=== PATIENT | male | born 1965 | race African-American/Black ===

== ENCOUNTER 2016-08-16 17:20 | Inpatient (IN) | payer OTHER ==
[~2016-08-16] VITALS: Ht 180.3 cm; Wt 91.3 kg
[2016-08-16 17:23] VITALS: BP 98/57; PULSE 98; RESP 20; TEMP 97.9; O2SAT 98
[2016-08-16] MEDS ORDERED: ASPI325T PO (21:23)
[2016-08-16] MEDS ORDERED: LIPI10TA PO (21:23)
[2016-08-16 21:26] VITALS: BP 120/86; PULSE 77; RESP 18; O2SAT 97
[2016-08-16] MEDS ORDERED: SODIUM CHLORIDE 0.9% FLUSH 5 ML FLUSH IVF PRN (21:45)
[2016-08-16 21:49] VITALS: O2SAT 98
--- NOTE | 2016-08-16 22:05 | RADRPT ---
EXAM DATE/TIME: 08/16/2016 21:51 [facility] COMPARISON: No previous studies available for comparison. INDICATIONS : Right lower extremity weakness for 3 weeks with fall today. RADIATION DOSE: 43.20 CTDIvol (mGy) MEDICAL HISTORY : Cerebrovascular disease. SURGICAL HISTORY : None. ENCOUNTER: Initial ACUITY: 3 weeks PAIN SCALE: 0/10 LOCATION: cranial TECHNIQUE: Multiple contiguous axial images were obtained of the head. Using automated exposure control and adj ustment of the mA and/or kV according to patient size, radiation dose was kept as low as reasonably a chievable to obtain optimal diagnostic quality images. FINDINGS: CEREBRUM: The ventricles are normal for age. No evidence of midline shift, mass lesion, hemorrhage or acute in farction. No extra-axial fluid collections are seen. POSTERIOR FOSSA: Prominent area of low attenuation in the right cerebellum. The brainstem is intact. The 4th ventricl e is midline. The cerebellopontine angle is unremarkable. EXTRACRANIAL: The visualized portion of the orbits is intact. SKULL: The calvaria is intact. No evidence of skull fracture. CONCLUSION: Prominent area of low attenuation right cerebellum could be from acute infarction. Nonemergent MRI of the brain with and without contrast. Boby Reyes MD on August 16, 2016 at 22:01 Board Certified Radiologist. This report was verified electronically.
--- NOTE | 2016-08-16 22:18 | PD ---
HPI Chief Complaint: General Weakness Time Seen by Provider: 21:25 Travel History International Travel<30 days: No Contact w/Intl Traveler<30days: No Traveled to known affect area: No History of Present Illness HPI 51-year-old male came to the emergency room with history of stroke and leg weakness that has worsened in past 2 days. His is here who is giving additional history. Patient had leg weakness Gaudencio time which was 10 days ago. He went to [facility] where a CAT scan of the head was done which was negative. Patient was discharged home and was asked to follow up with neurology. Patient followed up with Dr. Tillman and 2 days ago there was an MRI of his brain done in his office. Patient was told by Dr. Tillman that he had suffered a stroke. He gave him aspirin to take. However as per the the patient is unable to ambulate at all. He does have a walker but he is having extremely difficult time ambulating especially over the past 2 days. His primary care has recommended him to come to the emergency room and get admitted. Vital signs were otherwise stable. Patient is talking and answering questions appropriately and following commands. has the disc of the MRI that was done at Dr. Tillman's office 2 days ago but there is no report attached with it. [facility] Past Medical History Narrative Medical List of his past medical history as reviewed from the nursing note. Cerebrovascular Accident: Yes (RIGHT SIDE WEAKNESS) Tetanus Vaccination: Never Vaccinated Influenza Vaccination: No Past Surgical History Surgical History: No Previous Surgery Social History Alcohol Use: No Tobacco Use: No Substance Use: No Allergies-Medications (Allergen,Severity, Reaction): Coded Allergies: No Known Allergies (Unverified , 08/16/16) Comments No known drug allergies. Reported Meds & Prescriptions Reported Meds & Active Scripts Active Reported Lipitor (Atorvastatin Calcium) 10 Mg Tab 10 Mg PO HS Aspirin 325 Mg Tab 325 Mg PO DAILY Narrative Medication List of his home medications reviewed from the nursing note. Review of Systems Except as stated in HPI: all other systems reviewed are Neg Physical Exam Narrative GENERAL: Awake, alert, no obvious distress SKIN: Warm and dry. HEAD: Atraumatic. Normocephalic. EYES: Pupils equal and round. No scleral icterus. No injection or drainage. Bilat horizontal nystagmus on lateral gaze ENT: No nasal bleeding or discharge. Mucous membranes pink and moist. NECK: Trachea midline. No JVD. CARDIOVASCULAR: Regular rate and rhythm. No murmur appreciated. RESPIRATORY: No accessory muscle use. Clear to auscultation. Breath sounds equal bilaterally. GASTROINTESTINAL: Abdomen soft, non-tender, nondistended. Hepatic and splenic margins not palpable. MUSCULOSKELETAL: No obvious deformities. No clubbing. No cyanosis. No edema. NEUROLOGICAL: Awake and alert. Decreased sensation on the right side of his face. Positive ataxia right upper extremity with finger-nose test and positive ataxia bilateral lower extremity right worse than left during the ankle test. Gait was not tested PSYCHIATRIC: Appropriate mood and affect; insight and judgment normal. Data Data Last Documented VS Vital Signs Date Time Temp Pulse Resp B/P Pulse Ox O2 Delivery O2 Flow Rate FiO2 08/16/16 21:49 98 Room Air 08/16/16 21:26 77 18 120/86 08/16/16 17:23 97.9 Orders Electrocardiogram (08/16/16 21:42) Prothrombin Time / Inr (Pt) (08/16/16 21:42) Act Partial Throm Time (Ptt) (08/16/16 21:42) Complete Blood Count With Diff (08/16/16 21:42) Basic Metabolic Panel (Bmp) (08/16/16 21:42) Creatine Kinase (Cpk) (08/16/16 21:42) Troponin I (08/16/16 21:42) Urinalysis - C+S If Indicated (08/16/16 21:42) Ct Brain W/O Iv Contrast(Rout) (08/16/16 21:42) Chest, Single Ap (08/16/16 21:42) Ecg Monitoring (08/16/16 21:42) Iv Access Insert/Monitor (08/16/16 21:42) Oximetry (08/16/16 21:42) Sodium Chloride 0.9% Flush (Ns Flush) (08/16/16 21:45) Admit Order (Ed Use Only) (08/16/16 23:44) Potassium Chlor 20 Meq Premix (Kcl 20 Me (08/16/16 23:45) Mri Brain W/O Contrast (08/17/16 ) Mra Brain W/O Contrast (Cow) (08/17/16 ) Labs Laboratory Tests Test 08/16/16 21:50 White Blood Count 2.9 TH/MM3 Red Blood Count 3.56 MIL/MM3 Hemoglobin 10.6 GM/DL Hematocrit 32.4 % Mean Corpuscular Volume 91.0 FL Mean Corpuscular Hemoglobin 29.7 PG Mean Corpuscular Hemoglobin 32.6 % Concent Red Cell Distribution Width 14.4 % Platelet Count 180 TH/MM3 Mean Platelet Volume 8.8 FL Neutrophils (%) (Auto) 65.8 % Lymphocytes (%) (Auto) 22.5 % Monocytes (%) (Auto) 7.9 % Eosinophils (%) (Auto) 3.6 % Basophils (%) (Auto) 0.2 % Neutrophils # (Auto) 1.9 TH/MM3 Lymphocytes # (Auto) 0.7 TH/MM3 Monocytes # (Auto) 0.2 TH/MM3 Eosinophils # (Auto) 0.1 TH/MM3 Basophils # (Auto) 0.0 TH/MM3 CBC Comment DIFF FINAL Differential Comment Prothrombin Time 11.4 SEC Prothromb Time International 1.0 RATIO Ratio Activated Partial 27.2 SEC Thromboplast Time Sodium Level 143 MEQ/L Potassium Level 3.3 MEQ/L Chloride Level 105 MEQ/L Carbon Dioxide Level 27.9 MEQ/L Anion Gap 10 MEQ/L Blood Urea Nitrogen 13 MG/DL Creatinine 1.23 MG/DL Estimat Glomerular Filtration 75 ML/MIN Rate Random Glucose 94 MG/DL Calcium Level 8.7 MG/DL Total Creatine Kinase 200 U/L Troponin I LESS THAN 0.02 NG/ML MDM Medical Decision Making Medical Screen Exam Complete: Yes Emergency Medical Condition: Yes Medical Record Reviewed: Yes Interpretation(s) Twelve-lead EKG was reviewed by me. Normal sinus rhythm, normal axis, nonspecific ST-T wave changes. Heart rate of 81 bpm. Differential Diagnosis Subacute CVA, acute on subacute CVA Narrative Course 11:09 PM the disc for the MRI could not be loaded into the computer system here and hence could not be visualized. The CAT scan showed a large stroke in the right cerebellar hemisphere. Blood test results of back and patient has leukopenia and some anemia. Awaiting for the hospitalist to call back for admission. Patient will have an MRI done tomorrow. 4:14 AM based on the MRI report regarding the mass I discussed the case with Dr. Cedeño. She wanted an MRI with contrast which has been ordered. I've ordered a formal consult for her as well 5:[address] Cedeño from neurosurgery is here to see the patient. She looked at the imagings of the MRI without contrast and she identified more lesions in the brainstem as well. Please refer to her notes but she thinks this is ischemic stroke. She still wants to wait and see the MRI with contrast imagings and report. She recommended the patient to be started on heparin but also wanted neurology input. I just discussed with Dr. Vallejo who is professional nurse for neurology and he did not think there was an urgency to start the patient on heparin since the symptoms have been going on for a while. He would like to see the patient first and imaging completed before the decision to start the patient on heparin. He wanted the patient to be admitted to the ICU. I have put a call for the pick up worker. 6:[address] Alcazar from ICU is down here to see the patient and admit the patient. Critical Care Narrative Aggregate critical care time was 60 minutes. Time to perform other separately billable procedures was not included in the critical care time. My time did not include minutes spent treating any other patients simultaneously or on activities that did not directly contribute to the patient's treatment. The services I provided to this patient were to treat and/or prevent clinically significant deterioration that could result in: CVA versus mass in the posterior fossa/cerebellum I provided critical care services requiring my management, as noted below: Chart data review, documentation time, medication orders and management, vital sign assessments/reviewing monitor data, ordering and reviewing lab tests, ordering and interpreting/reviewing x-rays and diagnostic studies, care of the patient and discussion of the patient with the admitting physicians. Procedures EKG Prior to Arrival: No Physician Communication Physician Communication Dr. Cedeño, Dr. Vallejo, Dr. Alcazar Diagnosis Primary Impression: CVA (cerebral vascular accident) Qualified Code: I63.531 - Cerebrovascular accident (CVA) due to occlusion of right posterior cerebral artery Additional Impressions: Leukopenia Qualified Code: D72.819 - Leukopenia, unspecified type possible cerebellar mass Admitting Information Admitting Physician Requests: Tristin Duque MD Aug 16, 2016 22:18
[2016-08-16 22:34] LABS: AUTOMATED NEUTROPHIL # 1.9 TH/MM3 (1.8-7.7); BASOPHIL % 0.2 % (0.0-2.0); EOSINOPHIL # 0.1 TH/MM3 (0-0.4); EOSINOPHIL % 3.6 % (0.0-4.0); HEMATOCRIT 32.4 % (39.0-51.0); HEMO FLAGS DIFF FINAL; LYMPH % 22.5 % (9.0-44.0); LYMPHOCYTE # 0.7 TH/MM3 (1.0-4.8); MEAN CORPUSCULAR HEMOGLOBIN 29.7 PG (27.0-34.0); MEAN CORPUSCULAR HGB CONC 32.6 % (32.0-36.0); MONO % 7.9 % (0.0-8.0); NEUT % 65.8 % (16.0-70.0); PLATELET COUNT 180 TH/MM3 (150-450); RED BLOOD COUNT 3.56 MIL/MM3 (4.50-5.90); RED CELL DISTRIBUTION WIDTH 14.4 % (11.6-17.2); WHITE BLOOD COUNT 2.9 TH/MM3 (4.0-11.0)
--- NOTE | 2016-08-16 22:38 | RADRPT ---
EXAM DATE/TIME: 08/16/2016 22:17 [facility] COMPARISON: No previous studies available for comparison. INDICATIONS : Dizziness and syncopal episode. MEDICAL HISTORY : Cerebrovascular disease. SURGICAL HISTORY : None. ENCOUNTER: Initial ACUITY: 1 day PAIN SCORE: 4/10 LOCATION: Bilateral chest FINDINGS: A single view of the chest demonstrates the lungs to be symmetrically aerated without evidence of mas s, infiltrate or effusion. The cardiomediastinal contours are unremarkable. Osseous structures are intact. CONCLUSION: No acute disease. Boby Reyes MD on August 16, 2016 at 22:37 Board Certified Radiologist. This report was verified electronically.
[2016-08-16 22:48] LABS: APTT (PATIENT) 27.2 SEC (24.3-30.1); PROTHROMBIN TIME - PATIENT 11.4 SEC (9.8-11.6)
[2016-08-16 22:59] LABS: ANION GAP 10 MEQ/L (5-15); BICARBONATE 27.9 MEQ/L (21.0-32.0); BLOOD UREA NITROGEN 13 MG/DL (7-18); CHLORIDE 105 MEQ/L (98-107); GLOMERULAR FILTRATION RATE 75 ML/MIN (>89); POTASSIUM 3.3 MEQ/L (3.5-5.1); SODIUM (NA) 143 MEQ/L (136-145)
[2016-08-16 23:02] LABS: CREATINE KINASE 200 U/L (39-308)
[2016-08-16] MEDS ORDERED: POTASSIUM CHLOR 20 MEQ PREMIX 100 ML IV ONE (23:45)
[2016-08-17] VITALS (16 sets, daily range): BP systolic 113–160; BP diastolic 68–97; PULSE 68–81; RESP 15–19; TEMP 98–98.1; O2SAT 96–100
[2016-08-17] MEDS ORDERED: SODIUM CHLORIDE 0.9% FLUSH 5 ML FLUSH FLUSH PRN (00:15)
[2016-08-17] MEDS ORDERED: POTASSIUM CHLORIDE 10 MEQ CONTROLLED RELEASE TAB PO ONE (00:15)
[2016-08-17] MEDS ORDERED: ONDANSETRON HCL 4 MG/2 ML VIAL IVP PRN (00:15)
[2016-08-17] MEDS ORDERED: ENOXAPARIN SODIUM 40 MG/0.4 ML SYRINGE SQ SCH (00:15)
[2016-08-17] MEDS ORDERED: NALOXONE HCL 0.4 MG/ML AMP IV PRN (00:15)
[2016-08-17] MEDS ORDERED: ACETAMINOPHEN 325 MG TAB PO PRN ×2 (00:15→07:00)
--- NOTE | 2016-08-17 02:05 | RADRPT ---
EXAM DATE/TIME: 08/17/2016 01:27 [facility] COMPARISON: CT BRAIN W/O CONTRAST, August 16, 2016, 21:51. MRI BRAIN W/O CONTRAST, August 17, 2016, 1:27. INDICATIONS : CVA. Worsening gait instability and speech MEDICAL HISTORY : Cerebrovascular disease. Hypertension. SURGICAL HISTORY : None. ENCOUNTER: Initial ACUITY: 1 day PAIN SCORE: 5/10 LOCATION: cranial Please note a normal MRA of the brain does not entirely exclude the possibility of a small aneurysm, nor the possibility of distal intracranial vessel disease. TECHNIQUE: 3D time of flight MRA was performed. Source images, multiplanar STS MIP, and 3D volume MIP reconstru ctions were reviewed. FINDINGS: There is excellent visualization of the major intracranial arteries out to the second-order branch ve ssels. Atherosclerotic changes within the intercavernous ICAs bilaterally without hemodynamically sig nificant stenosis. There is no evidence for aneurysm, vessel truncation or stenosis, and no evidence for vascular malformation. CONCLUSION: No acute disease. Michael Rosas Jr., MD on August 17, 2016 at 2:00 Board Certified Radiologist. This report was verified electronically.
--- NOTE | 2016-08-17 02:12 | RADRPT ---
EXAM DATE/TIME: 08/17/2016 01:27 [facility] COMPARISON: No previous studies available for comparison. INDICATIONS : CVA. Worsening gait instability and speech. MEDICAL HISTORY : Cerebrovascular disease. Hypertension. SURGICAL HISTORY : None. ENCOUNTER: Initial ACUITY: 1 day PAIN SCORE: 5/10 LOCATION: cranial TECHNIQUE: Multiplanar, multisequence MRI of the brain was performed without contrast. FINDINGS: There is an abnormal appearance to the right cerebellar hemisphere. This shows heterogeneous signal o n the flair-weighted sequence. It is largely low in signal on the diffusion-weighted sequence and lar john high in signal on the ADC map. The lesion measures 4.4 x 3.7 cm and extends into the middle cere bellar peduncle. No hemorrhage is observed. A the remaining brain parenchyma is unremarkable. Ventric les are normal in size. Paranasal sinuses and mastoid air cells are clear. Orbital structures are unr emarkable. 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 Michael Rosas Jr., MD on August 17, 2016 at 2:03 Board Certified Radiologist. This report was verified electronically.
[2016-08-17 06:41] LABS: HDL CHOLESTEROL 27.7 MG/DL (40.0-60.0); MAGNESIUM 1.9 MG/DL (1.5-2.5)
--- NOTE | 2016-08-17 06:44 | HHI.HP ---
[facility] Service Critical Care Medicine Primary Care Physician Shon Gonzáles III, MD Admission Diagnosis CVA Diagnosis: (1) CVA (cerebral vascular accident) Diagnosis: Principal (2) Leukopenia Diagnosis: Principal (3) Hypokalemia Diagnosis: Principal (4) Acute kidney injury (nontraumatic) Diagnosis: Principal (5) right cerebellar mass Diagnosis: Principal (6) Anemia Diagnosis: Principal Chief Complaint: Right-sided weakness Travel History International Travel<30 Days: No Contact w/Intl Traveler <30 Da: No Traveled to Known Affected Are: No History of Present Illness This is a 51-year-old AA male. Date of admission 08/17/2016. Past medical history includes dyslipidemia. Patient presented today to [place] ED today with prior history of CVA? With worsening symptomatology including right upper and lower extremity weakness and ataxia the right upper and lower extremity with gait imbalance disorder patient originally noticed acute onset of right lower extremity weakness at [facility]. He at that time presented to [facility] where a CT scan of the head was performed. Per patient, no acute abnormality is right identified. He was discharged home and was asked to follow up with neurology as an outpatient. Patient followed up with Dr. Tillman and 2 days ago there was an MRI of his brain done in his office. Patient was told by Dr. Tillman that he had suffered a stroke. He gave him aspirin 325 mg daily to take. His primary care has recommended him to come to the emergency room and get admitted. Vital signs were otherwise stable. Patient is talking and answering questions appropriately and following commands. has the disc of the MRI that was done at Dr. Tillman's office 2 days ago but there is no report attached with it. At [facility], CT head revealed ill-defined mass in the right cerebellar region. Recommend MRI/MRA follow. 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 MRA negative. On examination patient with slight right upper and lower extremity motor weakness no pronator drift. Some dysarthria. No gaze preference. Right upper extremity ataxia. Falls to the right with ambulation. Neurosurgery was consulted and recommended heparin drip/no bolus after failing aspirin as an outpatient. Neurology consulted and will see the patient prior to initiation of heparin drip. Review of Systems Constitutional: COMPLAINS OF: Fatigue, DENIES: Fever, Weight gain, Weight loss Endocrine: DENIES: Polydipsia, Polyuria Eyes: DENIES: Blurred vision, Diplopia, Double Vision Ears, nose, mouth, throat: DENIES: Hearing loss Respiratory: DENIES: Apneas, Shortness of breath Cardiovascular: DENIES: Chest pain Gastrointestinal: DENIES: Abdominal pain Genitourinary: DENIES: Urinary frequency, Hematuria Musculoskeletal: DENIES: Joint pain Integumentary: DENIES: Rash Hematologic/lymphatic: DENIES: Bruising Immunologic/allergic: DENIES: Urticaria Neurologic: COMPLAINS OF: Abnormal gait, Localized weakness, Poor Balance, DENIES: Paresthesias, Seizures, Speech Problems Psychiatric: COMPLAINS OF: Anxiety, DENIES: Confusion, Depression Past Family Social History Allergies: Coded Allergies: No Known Allergies (Unverified , 08/16/16) Past Medical History Dyslipidemia Past Surgical History None Reported Medications Lipitor 10 mg at night Aspirin 325 mg by mouth daily Active Ordered Medications Reviewed in EMR Family History Mother and father is noncontributory Social History No tobacco, alcohol or IV drug use Physical Exam Vital Signs Vital Signs Date Time Temp Pulse Resp B/P Pulse Ox O2 Delivery O2 Flow Rate FiO2 08/17/16 04:00 98.0 74 15 145/90 96 Room Air 08/17/16 02:00 71 16 160/97 96 Room Air 08/17/16 00:00 98.1 72 18 134/88 97 Room Air 08/16/16 21:49 98 Room Air 08/16/16 21:26 77 18 120/86 97 Room Air 08/16/16 17:23 97.9 98 20 98/57 98 Room Air Physical Exam GENERAL: 51-year-old male, resting in bed in no acute distress SKIN: Warm and dry. HEAD: Atraumatic. Normocephalic. EYES: Pupils equal and round about 4 Silverio's bilaterally and reactive. No scleral icterus. No injection or drainage. ENT: No nasal bleeding or discharge. Mucous membranes pink and moist. NECK: Trachea midline. No JVD. CARDIOVASCULAR: Regular rate and rhythm. RESPIRATORY: No accessory muscle use. Clear to auscultation. Breath sounds equal bilaterally. GASTROINTESTINAL: Abdomen soft, non-tender, nondistended. Hepatic and splenic margins not palpable. MUSCULOSKELETAL: Extremities without clubbing, cyanosis, or edema. No obvious deformities. NEUROLOGICAL: Positive vertical and horizontal nystagmus bilaterally. No hemianopsia apparent Positive pronator drift on the right side only. Strength 4 /5 right upper and lower extremity. 5/5 left upper and lower extremity. DTRs equal symmetric bilaterally. Slight right facial droop. Speech generally minimally garbled. PSYCHIATRIC: Appropriate mood and affect; insight and judgment normal. Laboratory Laboratory Tests Test 08/16/16 21:50 White Blood Count 2.9 Red Blood Count 3.56 Hemoglobin 10.6 Hematocrit 32.4 Mean Corpuscular Volume 91.0 Mean Corpuscular Hemoglobin 29.7 Mean Corpuscular Hemoglobin 32.6 Concent Red Cell Distribution Width 14.4 Platelet Count 180 Mean Platelet Volume 8.8 Neutrophils (%) (Auto) 65.8 Lymphocytes (%) (Auto) 22.5 Monocytes (%) (Auto) 7.9 Eosinophils (%) (Auto) 3.6 Basophils (%) (Auto) 0.2 Neutrophils # (Auto) 1.9 Lymphocytes # (Auto) 0.7 Monocytes # (Auto) 0.2 Eosinophils # (Auto) 0.1 Basophils # (Auto) 0.0 CBC Comment DIFF FINAL Differential Comment Prothrombin Time 11.4 Prothromb Time International 1.0 Ratio Activated Partial 27.2 Thromboplast Time Sodium Level 143 Potassium Level 3.3 Chloride Level 105 Carbon Dioxide Level 27.9 Anion Gap 10 Blood Urea Nitrogen 13 Creatinine 1.23 Estimat Glomerular Filtration 75 Rate Random Glucose 94 Calcium Level 8.7 Total Creatine Kinase 200 Troponin I LESS THAN 0.02 Result Diagram: 08/16/16214908/16/162149 Imaging CT head - low attenuation right cerebellum MRI brain - 4.4 by 3.7 centimeters cerebellar mass/right MRA brain - negative Assessment and Plan Assessment and Plan Neuro/Psych: Right cerebellar mass 4.4 3.7 with associated right upper and lower extremity ataxia MRI brain revealed 4.4 x 3.7 cm mass. MRA brain negative Patient be evaluated by Dr. Vallejo/neurology. For the recreation to follow. Patient evaluated by Dr. Davidson rosado/neurosurgery. Recommended heparin drip no bolus with frequent neurological checks and follow-up CT brain 24 hrs. Pending carotid Doppler/2-D echocardiogram. Acetaminophen for fever Kent/morphine as needed for pain management CV: Hypertension Dyslipidemia As needed labetalol/Cardene drip to maintain systolic blood pressure less than 220. We'll adjust parameters of heparin drip initiated to keep less than 180. Check lipid panel. Results pending Patient is on Lipitor 10 mg at night. Continue Resp: Nasal cannula to maintain saturations greater than equal to 92% Incentive spirometry while awake Chest x-ray on admission revealed no acute cardiopulmonary findings GI: Patient is currently nothing by mouth Protonix for GI prophylaxis Colace/as needed Senokot for bowel regimen : Mayer if indicated for accurate I's and O's in a critically ill patient Endo: Sliding-scale insulin 24 hours with Accu-Cheks to maintain euglycemia. Check hemoglobin A1c and TSH Renal: Acute kidney injury Creatinine currently 1.2. Follow BMP in a.m. Avoid nephrotoxic drugs Currently normal saline at 70 cc an hour. Heme: Leukopenia Anemia Follow-up CBC in AM. Coags within normal limits Further workup leukopenia if remains low in a.m. ID: Monitor for infection FEN: Hypokalemia Replace electrolytes per ICU left leg protocol. MSK: PT/OT evaluate and treat Access - Utilize peripheral IV. Central line if indicated Prophylaxis - GI - Protonix - DVT - SCD/pharmacological prophylaxis when okay with neurology. Neurosurgery recommends heparin drip. Critical Care: The total critical care time was 55 minutes. Time to perform other separately billable procedures was not included in the critical care time. Discussed with Dr. Yang. Order CTA of the neck vertebral source. Okay to start heparin drip without bolus low-dose. Failed aspirin. Hypercoagulable profile ordered prior to heparin drip initiation. Code Status Full code Discussed Condition With Dr. Figueroa, ED physician ; Dr. Cedeño, neurosurgeon and patient. Care plan discussed all questions answered Problem Qualifiers (1) CVA (cerebral vascular accident): Qualified Code: I63.531 - Cerebrovascular accident (CVA) due to occlusion of right posterior cerebral artery (2) Leukopenia: Qualified Code: D72.819 - Leukopenia, unspecified type (3) Anemia: Qualified Code: D64.9 - Anemia, unspecified type Jese Alcazar MD Aug 17, 2016 06:44
[2016-08-17] MEDS ORDERED: SODIUM CHLORIDE 0.9% FLUSH 5 ML FLUSH IVF PRN (06:45)
[2016-08-17] MEDS ORDERED: GLUCAGON 1 MG/ML VIAL IM/SQ PRN (06:45)
[2016-08-17] MEDS ORDERED: LABETALOL HCL 100 MG/20 ML VIAL IV PRN (06:45)
[2016-08-17] MEDS ORDERED: DEXTROSE 50% IN WATER 50 ML VIAL(D50) IV PUSH PRN (06:45)
[2016-08-17] MEDS ORDERED: niCARdipine INJ 25 MG in SODIUM CHLOR 0.9% 250 ML INJ 250 ML IV SCH (06:45)
[2016-08-17] MEDS ORDERED: POTASSIUM PHOSPHATE MONOBASIC 500 MG TAB PO/TUBE PRN (07:00)
[2016-08-17] MEDS: INSULIN ASPART SUPPLEMENTAL SCALE SQ SCH ×4 (07:00→21:00)
[2016-08-17] MEDS ORDERED: ACETAMINOPHEN/HYDROcodone 325 MG/5 MG TAB PO PRN (07:00)
[2016-08-17] MEDS ORDERED: RESP: ALBUTEROL 2.5 MG/IPRATROPIUM 0.5 MG NEB (PRN) INH (07:00)
[2016-08-17] MEDS ORDERED: POTASSIUM PHOSPHATE INJ 30 MMOL in SODIUM CHLOR 0.9% 250 ML INJ 250 ML IV PRN (07:00)
[2016-08-17] MEDS ORDERED: MAGNESIUM SULFATE INJ 4 GM in SODIUM CHLORIDE 0.9% INJ 92 ML IV PRN (07:00)
[2016-08-17] MEDS ORDERED: CHLORHEXIDINE GLUCONATE 2 % 1 PACK (2 CLOTHS) TOP PRN (07:00)
[2016-08-17] MEDS ORDERED: SODIUM PHOSPHATE INJ 30 MMOL in SODIUM CHLOR 0.9% 250 ML INJ 240 ML IV PRN (07:00)
[2016-08-17] MEDS ORDERED: POTASSIUM CHLOR 40 MEQ PREMIX 100 ML IV PRN ×2 (07:00)
[2016-08-17] MEDS ORDERED: SODIUM CHLORIDE 0.9% FLUSH 5 ML FLUSH IV FLUSH PRN (07:00)
[2016-08-17] MEDS ORDERED: POTASSIUM PHOSPHATE MONOBASIC 500 MG TAB PO PRN (07:00)
[2016-08-17] MEDS ORDERED: MORPHINE SULFATE 4 MG/ML INJ IV PRN (07:00)
[2016-08-17] MEDS ORDERED: MAGNESIUM OXIDE 400 MG TAB PO PRN (07:00)
[2016-08-17] MEDS ORDERED: MISCELLANEOUS NURSING INFORMATION XX SCH (07:00)
[2016-08-17] MEDS ORDERED: SENNOSIDES 8.6 MG TAB PO PRN (07:00)
[2016-08-17] MEDS ORDERED: MAGNESIUM SULFATE INJ 2 GM in SODIUM CHLORIDE 0.9% INJ 96 ML IV PRN (07:00)
[2016-08-17] MEDS ORDERED: POTASSIUM CHLOR 20 MEQ PREMIX 100 ML IV PRN ×2 (07:00)
[2016-08-17] MEDS ORDERED: POTASSIUM CL 40 MEQ/30 ML LIQ UDC PO/TUBE PRN ×2 (07:00)
[2016-08-17] MEDS ORDERED: ONDANSETRON HCL 4 MG/2 ML VIAL IV PRN (07:00)
--- NOTE | 2016-08-17 07:04 | PD.CONS ---
HPI Service Neurosurgery Consult Requested By ED Reason for Consult cerebellar mass Primary Care Physician Shon Gonzáles III, MD History of Present Illness 51 yr old [employer] presented 3 weeks ago with balance difficulties and dysarthria. He was seen in the ED then by neurology as an outpatient but presented to the ED last night with increased right facial paresthesias. He has no hx of previous CVA or trauma. Review of Systems Constitutional: DENIES: Diaphoretic episodes, Fatigue, Fever, Weight gain, Weight loss, Chills, Dizziness, Change in appetite, Night Sweats Endocrine: DENIES: Heat/cold intolerance, Polydipsia, Polyuria, Polyphagia Ears, nose, mouth, throat: DENIES: Tinnitus, Hearing loss, Vertigo, Nasal discharge, Oral lesions, Throat pain, Hoarseness, Ear Pain, Running Nose, Epistaxis, Sinus Pain, Toothache, Odynophagia Respiratory: DENIES: Apneas, Cough, Snoring, Wheezing, Hemoptysis, Sputum production, Shortness of breath Cardiovascular: DENIES: Chest pain, Palpitations, Syncope, Dyspnea on Exertion , PND, Lower Extremity Edema, Orthopnea, Claudication Gastrointestinal: DENIES: Abdominal pain, Black stools, Bloody stools, Constipation, Diarrhea, Nausea, Vomiting, Difficulty Swallowing, Anorexia Musculoskeletal: DENIES: Joint pain, Muscle aches, Stiffness, Joint Swelling, Back pain, Neck pain Integumentary: DENIES: Abnormal pigmentation, Nail changes, Pruritus, Rash Hematologic/lymphatic: DENIES: Bruising, Lymphadenopathy Immunologic/allergic: DENIES: Eczema, Urticaria Neurologic: COMPLAINS OF: Paresthesias, Speech Problems, Poor Balance Psychiatric: DENIES: Anxiety, Confusion, Mood changes, Depression, Hallucinations, Agitation, Suicidal Ideation, Homicidal Ideation, Delusions Past Family Social History Allergies: Coded Allergies: No Known Allergies (Unverified , 08/16/16) Past Medical History hypercholesterolemia Past Surgical History none Reported Medications Reported Meds & Active Scripts Active Reported Lipitor (Atorvastatin Calcium) 10 Mg Tab 10 Mg PO HS Aspirin 325 Mg Tab 325 Mg PO DAILY Family History Both parents are , hx of heart failure Social History , 23 yrs in the [employer], does not smoke or drink Physical Exam Vital Signs Vital Signs Date Time Temp Pulse Resp B/P Pulse Ox O2 Delivery O2 Flow Rate FiO2 08/17/16 04:00 98.0 74 15 145/90 96 Room Air 08/17/16 02:00 71 16 160/97 96 Room Air 08/17/16 00:00 98.1 72 18 134/88 97 Room Air 08/16/16 21:49 98 Room Air 08/16/16 21:26 77 18 120/86 97 Room Air 08/16/16 17:23 97.9 98 20 98/57 98 Room Air Physical Exam Alert and oriented x 3, speech dysarthric, good intelligibility and volume, right facial weakness and numbness Horizontal nystagmus but full fiels and eye movements, pupils small, round, reactive No pronator drift, significant dysmetria to FTN and HTS 5/5 in all muscle gps of the upper and lower extremities, no radicular sensory loss No Clonus or Babinski Laboratory Laboratory Tests Test 08/16/16 08/17/16 21:50 05:25 White Blood Count 2.9 Red Blood Count 3.56 Hemoglobin 10.6 Hematocrit 32.4 Mean Corpuscular Volume 91.0 Mean Corpuscular Hemoglobin 29.7 Mean Corpuscular Hemoglobin 32.6 Concent Red Cell Distribution Width 14.4 Platelet Count 180 Mean Platelet Volume 8.8 Neutrophils (%) (Auto) 65.8 Lymphocytes (%) (Auto) 22.5 Monocytes (%) (Auto) 7.9 Eosinophils (%) (Auto) 3.6 Basophils (%) (Auto) 0.2 Neutrophils # (Auto) 1.9 Lymphocytes # (Auto) 0.7 Monocytes # (Auto) 0.2 Eosinophils # (Auto) 0.1 Basophils # (Auto) 0.0 CBC Comment DIFF FINAL Differential Comment Prothrombin Time 11.4 Prothromb Time International 1.0 Ratio Activated Partial 27.2 Thromboplast Time Sodium Level 143 Potassium Level 3.3 Chloride Level 105 Carbon Dioxide Level 27.9 Anion Gap 10 Blood Urea Nitrogen 13 Creatinine 1.23 Estimat Glomerular Filtration 75 Rate Random Glucose 94 Calcium Level 8.7 Total Creatine Kinase 200 Troponin I LESS THAN 0.02 Magnesium Level 1.9 Triglycerides Level 102 Cholesterol Level 144 LDL Cholesterol 96 HDL Cholesterol 27.7 Cholesterol/HDL Ratio 5.19 Result Diagram: 08/16/16214908/16/162149 Imaging Brain MRI shows at least 7 areas of diffusion abnormalities in the mesencephalon , cerebellum and right cerebellar peduncle with no mass effect on the 4rth ventricle consistent with ischemic emboli in the posterior circulation or small vessel disease. Assessment and Plan Diagnosis: (1) CVA (cerebral vascular accident) Assessment and Plan MRI with michael was requested. The patient has increased symptoms on ASA and no bleeding. Recommend heparin gtt in the ICU with no bolus and follow up CT in 12- 24 hrs with serial neurologic exams, OT/PT to follow. Problem Qualifiers (1) CVA (cerebral vascular accident): Qualified Code: I63.531 - Cerebrovascular accident (CVA) due to occlusion of right posterior cerebral artery Jason Cedeño Aug 17, 2016 07:04
[2016-08-17] MEDS ORDERED: GADODIAMIDE PF 287 MG/ML 20 ML VIAL (for RAD MRI) IV ONE (08:35)
[2016-08-17] MEDS: DOCUSATE SODIUM 100 MG CAP PO SCH ×2 (09:00→21:00)
[2016-08-17] MEDS ORDERED: SODIUM CHLORIDE 0.9% FLUSH 5 ML FLUSH FLUSH SCH (09:00)
[2016-08-17] MEDS ORDERED: ASPIRIN EC 325 MG TABEC PO SCH (09:00)
[2016-08-17] MEDS: SODIUM CHLORIDE 0.9% FLUSH 5 ML FLUSH IV FLUSH SCH ×2 (09:00→21:00)
[2016-08-17] MEDS ORDERED: SODIUM CHLORIDE 0.9% FLUSH 5 ML FLUSH IVF SCH (09:00)
[2016-08-17] MEDS: PANTOPRAZOLE SODIUM 40 MG VIAL IV SCH (09:38)
[2016-08-17] MEDS: SODIUM CHLOR 0.9% 1000 ML INJ 1,000 ML IV SCH ×2 (09:38→21:00)
--- NOTE | 2016-08-17 09:48 | EKG ---
Date Performed: 08/16/2016 Time Performed: 22:38:40 PTAGE: 51 years EKG: BASELINE ARTIFACT PRESENT. Unclear underlying rhythm NONSPECIFIC T-WAVE ABNORMALITY BORDERL INE ECG Would repeat electrocardiogram NO PREVIOUS TRACING DOCTOR: Isael Parks Interpretating Date/Time 08/17/2016 09:47:14
--- NOTE | 2016-08-17 10:09 | RADRPT ---
EXAM DATE/TIME: 08/17/2016 07:56 [facility] COMPARISON: MRA BRAIN W/O CONTRAST, August 17, 2016, 1:27. CT BRAIN W/O CONTRAST, August 16, 2016, 21:51. MRI BRAIN W/O CONTRAST, August 17, 2016, 1:27. INDICATIONS : Abnormal without MRI brain. CONTRAST: 17 cc Omniscan (gadodiamide) IV MEDICAL HISTORY : Cardiovascular disease Hypertension. CVA 08/06/16 SURGICAL HISTORY : None. ENCOUNTER: Initial ACUITY: 1 day PAIN SCORE: 0/10 LOCATION: cranial TECHNIQUE: Multiplanar, multisequence MRI of the brain was performed both prior to and following the administrat ion of paramagnetic contrast. FINDINGS: Problem specific findings: The examination again demonstrates an irregular shaped area of decreased T1 signal in the right cereb ellar hemisphere extending into the right cerebellar peduncle. This is decreased in signal on the T1- weighted images. There is no evidence of hemorrhage within this. There is no contrast enhancement adonis ntified. There is a fairly diffusely increased T2 signal throughout this area. There is no significan t mass effect or colpocephalic dilation of the fourth ventricle. The primary differential considerati on would be an area of subacute/atypical cortical infarct. The lack of enhancement within or around t his lesion would make an underlying mass significantly less likely. MRI spectroscopy may be of benefi t. Followup MRI imaging with contrast in one to 2 months is warranted for further assessment. MRI source data: The ventricles are normal in size and configuration. There are scattered areas of increased T2 signal in the white matter most consistent with microvascular ischemic demyelinative change. No extra-axial fluid collections are identified. The visualized portion of orbit and sinus are clear. CONCLUSION: 1. Irregular shaped area of abnormal signal within the right cerebellar hemisphere. There is no contr ast-enhancement within this. This does not follow the course of the PICA infarct. Exact etiology of t his is uncertain. Primary differential consideration would be an atypical area of subacute/old infarc t from a perforating vessel or possibly venous in etiology. Followup to exclude underlying lesion is warranted. Please see above. Nikos Pearce MD on August 17, 2016 at 9:16 Board Certified Radiologist. This report was verified electronically.
[2016-08-17] MEDS: ARTIFICIAL TEARS OPTH SOLN 15 ML BTL EACH EYE SCH ×3 (11:16→18:16)
[2016-08-17 11:45] LABS: BLOOD, URINE NEG (NEG); GLUCOSE,URINE NEG (NEG); KETONE, URINE NEG (NEG); NITRITE,URINE NEG (NEG); URINE COLOR YELLOW (YELLW/STRAW)
[2016-08-17 11:50] LABS: COMMENT (UR) CATH-CULT NOT IND; CULTURE IF INDICATED CATH CULTURE NOT IND
--- NOTE | 2016-08-17 12:05 | RADRPT ---
EXAM DATE/TIME: 08/17/2016 11:27 [facility] COMPARISON: No previous studies available for comparison. INDICATIONS : CVA. Increased right side weakness. MEDICAL HISTORY : Stroke. SURGICAL HISTORY : None. ENCOUNTER: Initial ACUITY: 1 day PAIN SCORE: 0/10 LOCATION: Bilateral neck PEAK SYSTOLIC VELOCITIES (cm/sec): ICA/CCA RATIO: Right: 1.0 Left: 0.7 ICA: Right: 71 Left: 66 CCA: Right: 70 Left: 93 ECA: Right: 70 Left: 55 VERTEBRAL: Right: 39 antegrade Left: 48 antegrade Elevated flow velocities and ICA/CCA ratios have been found to correlate with increased degrees of vessel stenosis, calculated as percentage of diameter relative to a normal segment of distal ICA/CCA FINDINGS: RIGHT CAROTID: No significant stenosis is visualized. Mild plaque. The waveforms are within normal limits. LEFT CAROTID: No significant stenosis is visualized. Mild plaque. The waveforms are within normal limits. VERTEBRAL ARTERIES: Antegrade flow is seen in both vertebral arteries. MISCELLANEOUS: None. CONCLUSION: No hemodynamically significant stenosis in either carotid artery. Boby Reyes MD on August 17, 2016 at 12:02 Board Certified Radiologist. This report was verified electronically.
[2016-08-17 15:01] LABS: HEMATOCRIT 31.9 % (39.0-51.0); MEAN CELL VOLUME 89.9 FL (80.0-100.0); MEAN CORPUSCULAR HEMOGLOBIN 29.8 PG (27.0-34.0); MEAN CORPUSCULAR HGB CONC 33.1 % (32.0-36.0); PLATELET COUNT 152 TH/MM3 (150-450); RED BLOOD COUNT 3.55 MIL/MM3 (4.50-5.90); RED CELL DISTRIBUTION WIDTH 14.3 % (11.6-17.2); REVIEW FLAG FINAL; WHITE BLOOD COUNT 2.9 TH/MM3 (4.0-11.0)
[2016-08-17] MEDS: HEPARIN-D5W INJ 250 ML IV SCH (15:07)
[2016-08-17 15:15] LABS: PROTHROMBIN TIME - PATIENT 11.5 SEC (9.8-11.6)
[2016-08-17 15:16] LABS: APTT (PATIENT) 26.9 SEC (24.3-30.1)
--- NOTE | 2016-08-17 17:21 | MB ---
cc: ISMAEL DAMON M.D. DATE OF CONSULTATION: 08/17/16 HISTORY OF PRESENT ILLNESS He is a 51-year-old seen in neurological consultation. His symptoms apparently started some [id number] weeks ago. He had balance problems and difficulty with his speech and some right facial numbness. It appears that he was followed as outpatient and may have seen a neurologist as outpatient and told he had had a stroke. No more details about that available. He was started on Aspirin. Unclear if the patient had been taking that or not. The patient is somewhat a poor historian. He might have been taking Lipitor and Aspirin. NEUROLOGIC EXAMINATION On exam he was awake, alert and his speech is dysarthric and he admits that this stuttering speech difficulty is something new. The ocular movements were full but there is some moderate nystagmus in all directions of gaze. Pupils were small. Visual rouse appear to be full. He raises the arms about equally and there is ataxia with the right upper extremity that is mild or [id number] severe. There is mild right campus manager weakness. There is a slight ataxia on the right lower extremity on the [id number] testing. He resisted fairly well with the lower extremities on the bedside exam. Reflexes were trace versus absent throughout. Plantar responses probably flexor bilaterally. ASSESSMENT Probable ischemic cerebrovascular event involving predominantly the right cerebellum and right-sided edi. I could not see all the pictures but there might be some areas of diffusion abnormality in a small amount apart from the major abnormality on the right-sided cerebellum brachium edi area. The MRA man[place] of [place] is reported negative as well as a carotid ultrasound. His symptomatology has progressed over the past couple of weeks. For the time being, I would agree with heparin anticoagulation and this is discussed with Dr. Alcazar. We discussed that they need to have a CT angio neck to better visualize the vertebral arteries as well as the proximal carotids. We will obtain hypercoag profile. A statin and echocardiogram to be obtained, cardiac monitoring. Start rehab after the CT angio neck. I will follow the neurological course. Thank you for asking us to assist in his care. MD GARETH Rider/MELI /3:03 PM /4:53 PM
[2016-08-17 17:22] LABS: HEMOGLOBIN A1a 0.6 %; HEMOGLOBIN A1b 0.7 %; HEMOGLOBIN Ao 87.4 %; HEMOGLOBIN F 0.7 %; HEMOGLOBIN LA1C 1.7 %; HEMOGLOBIN P3 3.2 %
[2016-08-17] MEDS: ATORVASTATIN 10 MG TAB PO SCH (21:00)
[2016-08-17] MEDS: CHLORHEXIDINE GLUCONATE 2 % 1 PACK (2 CLOTHS) TOP SCH (21:46)
[2016-08-18] VITALS (14 sets, daily range): BP systolic 103–129; BP diastolic 63–82; PULSE 66–87; RESP 19–24; TEMP 97.9–98.6; O2SAT 95–99
[2016-08-18 00:51] LABS: APTT (PATIENT) 48.6 SEC (24.3-30.1)
[2016-08-18] MEDS ORDERED: ATROPINE SULFATE 1 MG/10 ML SYRINGE ONE ×2 (05:33→11:01)
[2016-08-18] MEDS ORDERED: EPINEPHrine HCL (1:10,000) 1 MG/10 ML SYRINGE ONE ×2 (05:33→11:01)
[2016-08-18] MEDS ORDERED: LIDOCAINE HCL 2% 100 MG/5 ML SYRINGE ONE ×2 (05:33→11:01)
[2016-08-18] MEDS ORDERED: IOHEXOL 350 MG/ML 10 ML VIAL (for RAD DIAG) IV ONE (06:15)
[2016-08-18] MEDS: INSULIN ASPART SUPPLEMENTAL SCALE SQ SCH ×4 (06:47→20:17)
[2016-08-18 07:10] LABS: AUTOMATED NEUTROPHIL # 1.6 TH/MM3 (1.8-7.7); BASOPHIL % 0.2 % (0.0-2.0); EOSINOPHIL # 0.1 TH/MM3 (0-0.4); EOSINOPHIL % 4.3 % (0.0-4.0); HEMATOCRIT 31.1 % (39.0-51.0); HEMO FLAGS DIFF FINAL; LYMPH % 27.1 % (9.0-44.0); LYMPHOCYTE # 0.7 TH/MM3 (1.0-4.8); MEAN CELL VOLUME 89.6 FL (80.0-100.0); MEAN CORPUSCULAR HEMOGLOBIN 29.8 PG (27.0-34.0); MEAN CORPUSCULAR HGB CONC 33.3 % (32.0-36.0); MONO % 7.4 % (0.0-8.0); PLATELET COUNT 168 TH/MM3 (150-450); RED BLOOD COUNT 3.48 MIL/MM3 (4.50-5.90); RED CELL DISTRIBUTION WIDTH 14.2 % (11.6-17.2); WHITE BLOOD COUNT 2.6 TH/MM3 (4.0-11.0)
[2016-08-18 07:20] LABS: APTT (PATIENT) 57.6 SEC (24.3-30.1)
[2016-08-18 07:42] LABS: ALKALINE PHOSPHATASE 61 U/L (45-117); ALT (GPT) 18 U/L (12-78); ANION GAP 7 MEQ/L (5-15); AST (GOT) 9 U/L (15-37); BICARBONATE 27.3 MEQ/L (21.0-32.0); BLOOD UREA NITROGEN 8 MG/DL (7-18); CHLORIDE 108 MEQ/L (98-107); GLOMERULAR FILTRATION RATE 101 ML/MIN (>89); MAGNESIUM 1.8 MG/DL (1.5-2.5); SODIUM (NA) 142 MEQ/L (136-145); TOTAL BILIRUBIN ADULT 0.9 MG/DL (0.2-1.0)
--- NOTE | 2016-08-18 08:13 | RADRPT ---
EXAM DATE/TIME: 08/18/2016 06:06 [facility] COMPARISON: MRI BRAIN W & W/O CONTRAST, August 17, 2016, 7:56. MRA BRAIN W/O CONTRAST, August 17, 2016, 1:27. INDICATIONS : Right sided weakness. IV CONTRAST: 75 cc Omnipaque 350 (iohexol) IV RADIATION DOSE: 17.72 CTDIvol (mGy) MEDICAL HISTORY : Cerebrovascular disease. SURGICAL HISTORY : None. ENCOUNTER: Initial ACUITY: 1 day PAIN SCALE: 0/10 LOCATION: neck TECHNIQUE: Volumetric scanning was performed using a multirow detector CT scanner. The data was post processed with a variety of visualization algorithms including full-volume maximum intensity projection, multip lanar sliding thin-slab reformation, curved-planar reformation, and surface-rendering techniques. Us ing automated exposure control and adjustment of the mA and/or kV according to patient size, radiatio n dose was kept as low as reasonably achievable to obtain optimal diagnostic quality images. FINDINGS: AORTIC ARCH: There is a three-vessel origin of the great vessels from the aorta. No evidence of ostial narrowing. RIGHT CAROTID: The common carotid artery is intact. The carotid bulb has a normal configuration without ulceration o r narrowing. The internal carotid artery lumen is smooth without stenosis. The external carotid rc ry is intact. LEFT CAROTID: The common carotid artery is intact. The carotid bulb has a normal configuration without ulceration or narrowing. The internal carotid artery lumen is smooth without stenosis. The external carotid ar juarez is intact. VERTEBRALS: The left vertebral is dominant. The right vertebral is very small and diminutive but does provide so me contribution to the basilar artery CONCLUSION: Small diminutive right vertebral artery, otherwise negative. MR spectroscopy may be of benefit to ev aluate the right cerebellar hemisphere lesion. Mansoor Pearce MD FACR on August 18, 2016 at 7:56 Board Certified Radiologist. This report was verified electronically.
--- NOTE | 2016-08-18 09:46 | HHI.CCPN ---
Subjective Remarks/Hospital Course This is a 51-year-old AA male. Date of admission 08/17/2016. Past medical history includes dyslipidemia. Patient presented today to [place] ED today with prior history of CVA? With worsening symptomatology including right upper and lower extremity weakness and ataxia the right upper and lower extremity with gait imbalance disorder patient originally noticed acute onset of right lower extremity weakness at [facility]. He at that time presented to [facility] where a CT scan of the head was performed. Per patient, no acute abnormality is right identified. He was discharged home and was asked to follow up with neurology as an outpatient. Patient followed up with Dr. Tillman and 2 days ago there was an MRI of his brain done in his office. Patient was told by Dr. Tillman that he had suffered a stroke. He gave him aspirin 325 mg daily to take. His primary care has recommended him to come to the emergency room and get admitted. Vital signs were otherwise stable. Patient is talking and answering questions appropriately and following commands. has the disc of the MRI that was done at Dr. Tillman's office 2 days ago but there is no report attached with it. At [facility], CT head revealed ill-defined mass in the right cerebellar region. Recommend MRI/MRA follow. 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 MRA negative. On examination patient with slight right upper and lower extremity motor weakness no pronator drift. Some dysarthria. No gaze preference. Right upper extremity ataxia. Falls to the right with ambulation. Neurosurgery was consulted and recommended heparin drip/no bolus after failing aspirin as an outpatient. Neurology consulted and will see the patient prior to initiation of heparin drip. Subjective 08/18: Afebrile. Currently resting in bed with stable right upper and lower extremity weakness and intermittently garbled speech. Denies any chest pain or shortness of breath. Objective Vital Signs Date Time Temp Pulse Resp B/P Pulse Ox O2 Delivery O2 Flow Rate FiO2 08/18/16 08:00 78 08/18/16 08:00 98.5 24 128/79 95 08/18/16 07:00 Room Air 21 Intake and Output 08/17/16 08/17/16 08/18/16 08:00 16:00 00:00 Intake Total 480 ml 630 ml Output Total 800 ml Balance 480 ml -170 ml Result Diagram: 08/18/1643 08/18/1643 Imaging Last Impressions Neck CTA 08/18/16 06 Signed Impressions: Service Date/Time: Thursday, August 18, 2016 06:06 - CONCLUSION: Small diminutive right vertebral artery, otherwise negative. MR spectroscopy may be of benefit to evaluate the right cerebellar hemisphere lesion. Mansoor Pearce MD FACR Head Magnetic Resonance Angiography 08/17/16 0000 Signed Impressions: Service Date/Time: August 01:27 - CONCLUSION: No acute disease. Michael Rosas Jr., MD Carotid Artery Ultrasound 08/17/16 0000 Signed Impressions: Service Date/Time: August 11:27 - CONCLUSION: No hemodynamically significant stenosis in either carotid artery. Boby Reyes MD Brain MRI 08/17/16 0000 Signed Impressions: Service Date/Time: August 07:56 - CONCLUSION: 1. Irregular shaped area of abnormal signal within the right cerebellar hemisphere. There is no contrast-enhancement within this. This does not follow the course of the PICA infarct. Exact etiology of this is uncertain. Primary differential consideration would be an atypical area of subacute/old infarct from a perforating vessel or possibly venous in etiology. Followup to exclude underlying lesion is warranted. Please see above. Nikos Pearce MD Head CT 08/16/162141 Signed Impressions: Service Date/Time: Tuesday, August 16, 2016 21:51 - CONCLUSION: Prominent area of low attenuation right cerebellum could be from acute infarction. Nonemergent MRI of the brain with and without contrast. Boby Reyes MD Chest X-Ray 08/16/162141 Signed Impressions: Service Date/Time: Tuesday, August 16, 2016 22:17 - CONCLUSION: No acute disease. Boby Reyes MD Objective Remarks GENERAL: 51-year-old male, critically ill currently resting in bed in no acute distress SKIN: Warm and dry. No rash HEAD: Atraumatic. Normocephalic. EYES: Pupils equal and round. No scleral icterus. No injection or drainage. ENT: No nasal bleeding or discharge. Mucous membranes pink and moist. NECK: Trachea midline. No JVD. CARDIOVASCULAR: Regular rate and rhythm. S1, S2. No S4. Without murmur RESPIRATORY: No accessory muscle use. Clear to auscultation. Breath sounds equal bilaterally. GASTROINTESTINAL: Abdomen soft, non-tender, nondistended. Hepatic and splenic margins not palpable. MUSCULOSKELETAL: Extremities without drift can peripheral edema. No obvious deformities. NEUROLOGICAL: Awake and alert. Subjective right upper lobe extremity weakness. Speech is intermittently garbled. Decreased sensation to light touch and pinprick right lower extremity. Positive pronator drift right upper extremity. 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 MRA brain negative CTA neck revealed small right vertebral artery otherwise unremarkable Patient be evaluated by Dr. Yang/neurology. Hypercoagulable workup/echo/CTA neck ordered. Agree with heparin drip Patient evaluated by Dr. Davidson rosado/neurosurgery. Recommended heparin drip no bolus with frequent neurological checks and follow-up CT brain 24 hrs. Negative carotid Doppler/2-D echocardiogram ordered and currently being performed. Acetaminophen for fever Dilworth/morphine as needed for pain management CV: Hypertension Dyslipidemia As needed labetalol/Cardene drip to maintain systolic blood pressure less than 180 Check lipid panel. Results pending Patient is on Lipitor 10 mg at night. Continue Resp: Nasal cannula to maintain saturations greater than equal to 92% Incentive spirometry while awake Chest x-ray on admission revealed no acute cardiopulmonary findings GI: Regular diet Protonix for GI prophylaxis Colace/as needed Senokot for bowel regimen : Mayer if indicated for accurate I's and O's in a critically ill patient Endo: Sliding-scale insulin 24 hours with Accu-Cheks to maintain euglycemia. Check hemoglobin A1c and TSH Renal: Acute kidney injury Creatinine currently 1.2. Follow BMP in a.m. Avoid nephrotoxic drugs Currently normal saline at 70 cc an hour. Heme: Leukopenia Anemia Follow-up CBC in AM. Coags within normal limits Further workup leukopenia if remains low in a.m. ID: Monitor for infection FEN: Hypokalemia - resolved Replace electrolytes per ICU left leg protocol. MSK: PT/OT evaluate and treat Access - Utilize peripheral IV. Central line if indicated Prophylaxis - GI - Protonix - DVT - SCD/. Neurosurgery recommends heparin drip. Critical Care: The total critical care time was 55 minutes. Time to perform other separately billable procedures was not included in the critical care time. Jese Alcazar MD Aug 18, 2016 09:46
[2016-08-18] MEDS: PANTOPRAZOLE SODIUM 40 MG VIAL IV SCH (09:57)
[2016-08-18] MEDS: DOCUSATE SODIUM 100 MG CAP PO SCH ×2 (09:57→20:03)
[2016-08-18] MEDS: SODIUM CHLORIDE 0.9% FLUSH 5 ML FLUSH IV FLUSH SCH ×2 (09:58→20:03)
[2016-08-18] MEDS: ARTIFICIAL TEARS OPTH SOLN 15 ML BTL EACH EYE SCH ×3 (09:58→18:10)
[2016-08-18] MEDS: SODIUM CHLOR 0.9% 1000 ML INJ 1,000 ML IV SCH (11:18)
--- NOTE | 2016-08-18 13:09 | RADRPT ---
EXAM DATE/TIME: 08/18/2016 11:50 [facility] COMPARISON: CT BRAIN W/O CONTRAST, August 16, 2016, 21:51. INDICATIONS : Right cerebellar CVA RADIATION DOSE: 48.93 CTDIvol (mGy) MEDICAL HISTORY : Cardiovascular disease. SURGICAL HISTORY : None. ENCOUNTER: Subsequent ACUITY: 4 - 6 days PAIN SCALE: 0/10 LOCATION: cranial TECHNIQUE: Multiple contiguous axial images were obtained of the head. Using automated exposure control and adj ustment of the mA and/or kV according to patient size, radiation dose was kept as low as reasonably a chievable to obtain optimal diagnostic quality images. FINDINGS: Compare August 16. Low attenuation mass in right posterior fossa is stable in appearance. This extend s into the right middle cerebellar peduncle. No hydrocephalus. No supratentorial lesions are identifi ed. No abnormal extra-axial fluid. CONCLUSION: 1. Stable low-attenuation mass or infarct in the right posterior fossa compared with August 16. No hy drocephalus. Mark Sylvester MD on August 18, 2016 at 13:04 Board Certified Radiologist. This report was verified electronically.
--- NOTE | 2016-08-18 14:56 | EC ---
Study Study Date:08/18/2016 STUDY CONCLUSIONS SUMMARY - Left ventricle: The cavity size was normal. Wall thickness was normal. Systolic function was normal. The estimated ejection fraction was in the range of 65% to 65%. Wall motion was normal; there were no regional wall motion abnormalities. Left ventricular diastolic function parameters were normal for the patient's age. - Mitral valve: Mild regurgitation. If LV function is below 40, please consider prescribing an ACEI or ARB or document rationale for non-use. PROCEDURE DATA STUDY STATUS: Elective. Procedure: Transthoracic echocardiography. Image quality was good. Scanning was performed from the parasternal, apical, and subcostal acoustic windows. Study completion: The patient tolerated the procedure well. Transthoracic echocardiography. M-mode, complete 2D, complete spectral Doppler, and color Doppler. Patient status: Inpatient. CARDIAC ANATOMY LEFT VENTRICLE: The cavity size was normal. Wall thickness was normal. Systolic function was normal. The estimated ejection fraction was in the range of 65% to 65%. Wall motion was normal; there were no regional wall motion abnormalities. Left ventricular diastolic function parameters were normal for the patient's age. AORTIC VALVE: The valve appears to be grossly normal. Doppler: There was no stenosis. No significant regurgitation. MITRAL VALVE: The valve appears to be grossly normal. Doppler: There was no evidence for stenosis. Mild regurgitation. LEFT ATRIUM: The atrium was normal in size. RIGHT VENTRICLE: The cavity size was normal. Systolic function was normal. PULMONIC VALVE: Not well visualized. Doppler: There was no evidence for stenosis. No significant regurgitation. TRICUSPID VALVE: The valve appears to be grossly normal. Doppler: There was no evidence for stenosis. Trace to mild regurgitation. PERICARDIUM: There was no pericardial effusion. BASIC MEASUREMENTS ADULT NORMAL Left ventricle LV internal dimension, ED, chordal level, 51.5 mm 43-52 PLAX LV internal dimension, ES, chordal level, 35 mm 23-38 PLAX Fractional shortening, chordal level, PLAX 32 % >29 LV posterior wall thickness, ED 11.1 mm IVS/LVPW ratio, ED 0.85 <1.3 Ventricular septum Septal thickness, ED 9.43 mm Aortic valve Leaflet separation 23 mm 15-26 Right ventricle RV internal dimension, ED, PLAX 29.1 mm 19-38 BASIC MEASUREMENTS ADULT NORMAL Aortic valve Leaflet separation 23 mm 15-26 Aorta Root diameter, ED 33 mm 20-37 Left atrium Anterior-posterior dimension, ES 30 mm 19-40 LA/aortic root ratio 0.91 DOPPLER MEASUREMENTS ADULT NORMAL Main pulmonary artery Pressure, S *39 mm Hg =30 Tricuspid valve Regurgitant peak velocity 266 cm/s Peak RV-RA gradient, S 28 mm Hg Maximal regurgitant velocity 266 cm/s Systemic veins Estimated CVP 10 mm Hg Right ventricle RV pressure, S *39 mm Hg <30 LEGEND: Mean values are shown as u=mean value. Asterisk (*) peters values outside specified normal range. Prepared and signed by Bola Miller [id number]
[2016-08-18] MEDS: HEPARIN-D5W INJ 250 ML IV SCH (18:09)
[2016-08-18] MEDS: ATORVASTATIN 10 MG TAB PO SCH (20:03)
--- NOTE | 2016-08-18 20:39 | HHI.PR ---
Review/Management Diagnosis/Plan: (1) CVA (cerebral vascular accident) Daily Summary appears unchanged was not interested in participating on the exam this evening, then spoke with his RN studies seen we could obtain MR spectroscopy as suggested by rad continue heparin pending hypercoag screen i will ask dr Oakley to follow him over weekend Subjective Subjective Comments No acute events reported No headache Active Medications Current Medications Medications (Trade) Dose Ordered Sig/Krystin Route Start Time Stop Time Status Last Admin Naloxone HCl 0.4 mg 0.4 mg UNSCH PRN IV 08/17/16 00:15 (NS 1000 ml Inj) 1,000 ml @ 70 mls/hr [id number] IV 08/17/16 06:42 08/17/16 21:00 Labetalol HCl 10 mg 10 mg Q2H PRN IV 08/17/16 06:45 (Cardene Inj/NS 250 ml Inj) 260 ml @ 0 mls/hr TITRATE IV 08/17/16 06:45 (Lipitor) 10 mg HS PO 08/17/16 21:00 08/18/16 20:03 (D50w (Vial) Inj) 25 ml UNSCH PRN IV PUSH 08/17/16 06:45 (Glucagon Inj) 1 mg UNSCH PRN IM/SQ 08/17/16 06:45 (NS Flush) 2 ml UNSCH PRN IV FLUSH 08/17/16 07:00 (NS Flush) 2 ml BID IV FLUSH 08/17/16 09:00 08/18/16 20:03 (Tylenol) 650 mg Q6H PRN PO 08/17/16 07:00 ([place]ilton 5-325 Mg) 1 tab Q4H PRN PO 08/17/16 07:00 (Morphine Inj) 2 mg Q2H PRN IV 08/17/16 07:00 (Protonix Inj) 40 mg DAILY IV 08/17/16 09:00 08/18/16 09:57 (Tears Naturale Opth Soln) 1 drop TID EACH EYE 08/17/16 09:00 08/18/16 18:10 (Zofran Inj) 4 mg Q6H PRN IV 08/17/16 07:00 (Colace) 100 mg BID PO 08/17/16 09:00 08/18/16 20:03 (Senokot) 17.2 mg Q12H PRN PO 08/17/16 07:00 Miscellaneous Information 1 Q361D XX 08/17/16 07:00 08/17/16 07:00 (Chlorhexidine 2% Cloth) 3 pack Taper DAILY@04 TOP 08/18/16 04:00 08/14/17 03:59 08/17/16 21:46 Chlorhexidine Gluconate 3 pack 3 pack UNSCH PRN TOP 08/17/16 07:00 Potassium Chloride 100 ml @ 50 mls/hr Q2H PRN IV 08/17/16 07:00 (KCl 20 Meq Premix Inj) 100 ml @ 50 mls/hr Q2H PRN IV 08/17/16 07:00 Potassium Chloride 40 meq 40 meq UNSCH PRN PO/TUBE 08/17/16 07:00 Potassium Chloride 100 ml @ 25 mls/hr UNSCH PRN IV 08/17/16 07:00 Potassium Chloride 100 ml @ 50 mls/hr Q2H PRN IV 08/17/16 07:00 (Magnesium Sulfate Inj/NS Inj) 100 ml @ 50 mls/hr UNSCH PRN IV 08/17/16 07:00 Magnesium Oxide 800 mg 800 mg UNSCH PRN PO 08/17/16 07:00 (Magnesium Sulfate Inj/NS Inj) 100 ml @ 50 mls/hr UNSCH PRN IV 08/17/16 07:00 Potassium Phosphate 2000 mg 2,000 mg Q4H PRN PO 08/17/16 07:00 (Sodium Phosphate Inj/NS 250 ml Inj) 250 ml @ 42 mls/hr UNSCH PRN IV 08/17/16 07:00 (KCl 40 Meq/30 ml Liq) 40 meq UNSCH PRN PO/TUBE 08/17/16 07:00 Potassium Phosphate 2000 mg 2,000 mg UNSCH PRN PO/TUBE 08/17/16 07:00 Potassium Phosphate 30 mmol/ Sodium Chloride 260 ml @ 42 mls/hr UNSCH PRN IV 08/17/16 07:00 (Heparin-D5W Inj) 250 ml @ 0 mls/hr TITRATE IV 08/17/16 14:00 08/18/16 18:09 Allergies Allergies Coded Allergies No Known Allergies (Unverified08/16/16) Exam I&O / VS 08/17/16 08/17/16 08/18/16 15:00 23:00 07:00 Intake Total 480 ml 630 ml 748 ml Output Total 800 ml 800 ml Balance 480 ml -170 ml -52 ml Intake Oral 480 ml 630 ml 250 ml IV Total 498 ml Output Urine Total 800 ml 800 ml # Voids 1 1 Vital Signs Date Time Temp Pulse Resp B/P Pulse Ox O2 Delivery O2 Flow Rate FiO2 08/18/16 18:00 82 08/18/16 16:00 98.2 83 22 103/63 98 08/18/16 16:00 78 08/18/16 14:00 78 08/18/16 12:00 83 08/18/16 12:00 98.6 81 19 129/80 97 08/18/16 10:24 96 21 08/18/16 10:00 82 08/18/16 08:00 78 08/18/16 08:00 98.5 87 24 128/79 95 08/18/16 07:00 95 Room Air 21 08/18/16 06:00 80 08/18/16 04:00 75 08/18/16 04:00 97.9 73 20 129/80 98 08/18/16 02:00 66 08/18/16 00:04 98.0 66 21 121/78 99 08/18/16 00:00 67 08/17/16 22:00 98.1 68 19 121/78 97 08/17/16 22:00 70 08/17/16 21:00 99 Room Air Objective Radiology Results Last 48 hours Impressions Neck CTA 08/18/16 0600 Signed Impressions: Service Date/Time: Thursday, August 18, 2016 06:06 - CONCLUSION: Small diminutive right vertebral artery, otherwise negative. MR spectroscopy may be of benefit to evaluate the right cerebellar hemisphere lesion. Mansoor Pearce MD FACR Head CT 08/18/16 0000 Signed Impressions: Service Date/Time: Thursday, August 18, 2016 11:50 - CONCLUSION: 1. Stable low-attenuation mass or infarct in the right posterior fossa compared with August 16. No hydrocephalus. Mark Sylvester MD Head Magnetic Resonance Angiography 08/17/16 0000 Signed Impressions: Service Date/Time: August 01:27 - CONCLUSION: No acute disease. Michael Rosas Jr., MD Carotid Artery Ultrasound 08/17/16 0000 Signed Impressions: Service Date/Time: August 11:27 - CONCLUSION: No hemodynamically significant stenosis in either carotid artery. Boby Reyes MD Brain MRI 08/17/16 0000 Signed Impressions: Service Date/Time: August 07:56 - CONCLUSION: 1. Irregular shaped area of abnormal signal within the right cerebellar hemisphere. There is no contrast-enhancement within this. This does not follow the course of the PICA infarct. Exact etiology of this is uncertain. Primary differential consideration would be an atypical area of subacute/old infarct from a perforating vessel or possibly venous in etiology. Followup to exclude underlying lesion is warranted. Please see above. Nikos Pearce MD Brain MRI 08/17/16 0000 Signed Impressions: Service Date/Time: August 01:27 - CONCLUSION: Right cerebellar hemispheric mass measuring 4.4 x 3.7 cm. Michael Rosas Jr., MD Head CT 08/16/162141 Signed Impressions: Service Date/Time: Tuesday, August 16, 2016 21:51 - CONCLUSION: Prominent area of low attenuation right cerebellum could be from acute infarction. Nonemergent MRI of the brain with and without contrast. Boby Reyes MD Chest X-Ray 08/16/162141 Signed Impressions: Service Date/Time: Tuesday, August 16, 2016 22:17 - CONCLUSION: No acute disease. Boby Reyes MD Micro and Labs Laboratory Tests Test 08/17/16 08/18/16 08/18/16 20:43 00:05 06:43 Nasal Screen MRSA (PCR) NEGATIVE Activated Partial 48.6 57.6 Thromboplast Time White Blood Count 2.6 Red Blood Count 3.48 Hemoglobin 10.4 Hematocrit 31.1 Mean Corpuscular Volume 89.6 Mean Corpuscular Hemoglobin 29.8 Mean Corpuscular Hemoglobin 33.3 Concent Red Cell Distribution Width 14.2 Platelet Count 168 Mean Platelet Volume 8.1 Neutrophils (%) (Auto) 61.0 Lymphocytes (%) (Auto) 27.1 Monocytes (%) (Auto) 7.4 Eosinophils (%) (Auto) 4.3 Basophils (%) (Auto) 0.2 Neutrophils # (Auto) 1.6 Lymphocytes # (Auto) 0.7 Monocytes # (Auto) 0.2 Eosinophils # (Auto) 0.1 Basophils # (Auto) 0.0 CBC Comment DIFF FINAL Differential Comment Sodium Level 142 Potassium Level 4.0 Chloride Level 108 Carbon Dioxide Level 27.3 Anion Gap 7 Blood Urea Nitrogen 8 Creatinine 0.95 Estimat Glomerular Filtration 101 Rate Random Glucose 89 Calcium Level 8.6 Phosphorus Level 4.0 Magnesium Level 1.8 Total Bilirubin 0.9 Aspartate Amino Transf 9 (AST/SGOT) Alanine Aminotransferase 18 (ALT/SGPT) Alkaline Phosphatase 61 Total Protein 6.9 Albumin 3.1 Problem Qualifiers (1) CVA (cerebral vascular accident): Qualified Code: I63.531 - Cerebrovascular accident (CVA) due to occlusion of right posterior cerebral artery Daphney Yang MD Aug 18, 2016 20:39
--- NOTE | 2016-08-18 23:51 | HHI.NSPN ---
History Chief Complaint: no headache Interval History 51-year-old male presents with approximately 3 weeks dysarthria and gait unsteadiness with more recent facial paresthesias. Exam Results Vital Signs Date Time Temp Pulse Resp B/P Pulse Ox O2 Delivery O2 Flow Rate FiO2 08/18/16 22:00 85 08/18/16 20:00 98.4 23 124/82 96 08/18/16 19:00 Room Air 08/18/16 10:24 21 Intake and Output 08/17/16 08/17/16 08/18/16 08:00 16:00 00:00 Intake Total 480 ml 630 ml Output Total 800 ml Balance 480 ml -170 ml Physical Examination Awake and alert Minimal dysarthria Mild confusion Extraocular movements intact Visual rouse to confrontation intact Sensation intact to light touch upper extremities Strength normal major flexion and extension groups upper extremities Lab, Micro, Other Results 08/18/[address] images reviewed by the undersigned. Agree with findings as noted below: Neck CTA 08/18/16 0600 Signed Impressions: Service Date/Time: Thursday, August 18, 2016 06:06 - CONCLUSION: Small diminutive right vertebral artery, otherwise negative. MR spectroscopy may be of benefit to evaluate the right cerebellar hemisphere lesion. Mansoor Pearce MD FACR Head CT 08/18/16 0000 Signed Impressions: Service Date/Time: Thursday, August 18, 2016 11:50 - CONCLUSION: 1. Stable low-attenuation mass or infarct in the right posterior fossa compared with August 16. No hydrocephalus. Makr Sylvester MD Head Magnetic Resonance Angiography 08/17/16 0000 Signed Impressions: Service Date/Time: August 01:27 - CONCLUSION: No acute disease. Michael Rosas Jr., MD Carotid Artery Ultrasound 08/17/16 0000 Signed Impressions: Service Date/Time: August 11:27 - CONCLUSION: No hemodynamically significant stenosis in either carotid artery. Boby Reyes MD Brain MRI 08/17/16 0000 Signed Impressions: Service Date/Time: August 07:56 - CONCLUSION: 1. Irregular shaped area of abnormal signal within the right cerebellar hemisphere. There is no contrast-enhancement within this. This does not follow the course of the PICA infarct. Exact etiology of this is uncertain. Primary differential consideration would be an atypical area of subacute/old infarct from a perforating vessel or possibly venous in etiology. Followup to exclude underlying lesion is warranted. Please see above. Nikos Pearce MD Chest X-Ray 08/16/16 [id number] Signed Impressions: Service Date/Time: Tuesday, August 16, 2016 22:17 - CONCLUSION: No acute disease. Boby Reyes MD Laboratory Tests Test 08/18/16 08/18/16 00:05 06:43 Activated Partial 48.6 SEC 57.6 SEC Thromboplast Time White Blood Count 2.6 TH/MM3 Red Blood Count 3.48 MIL/MM3 Hemoglobin 10.4 GM/DL Hematocrit 31.1 % Mean Corpuscular Volume 89.6 FL Mean Corpuscular Hemoglobin 29.8 PG Mean Corpuscular Hemoglobin 33.3 % Concent Red Cell Distribution Width 14.2 % Platelet Count 168 TH/MM3 Mean Platelet Volume 8.1 FL Neutrophils (%) (Auto) 61.0 % Lymphocytes (%) (Auto) 27.1 % Monocytes (%) (Auto) 7.4 % Eosinophils (%) (Auto) 4.3 % Basophils (%) (Auto) 0.2 % Neutrophils # (Auto) 1.6 TH/MM3 Lymphocytes # (Auto) 0.7 TH/MM3 Monocytes # (Auto) 0.2 TH/MM3 Eosinophils # (Auto) 0.1 TH/MM3 Basophils # (Auto) 0.0 TH/MM3 CBC Comment DIFF FINAL Differential Comment Sodium Level 142 MEQ/L Potassium Level 4.0 MEQ/L Chloride Level 108 MEQ/L Carbon Dioxide Level 27.3 MEQ/L Anion Gap 7 MEQ/L Blood Urea Nitrogen 8 MG/DL Creatinine 0.95 MG/DL Estimat Glomerular Filtration 101 ML/MIN Rate Random Glucose 89 MG/DL Calcium Level 8.6 MG/DL Phosphorus Level 4.0 MG/DL Magnesium Level 1.8 MG/DL Total Bilirubin 0.9 MG/DL Aspartate Amino Transf 9 U/L (AST/SGOT) Alanine Aminotransferase 18 U/L (ALT/SGPT) Alkaline Phosphatase 61 U/L Total Protein 6.9 GM/DL Albumin 3.1 GM/DL Medical Decision Making Impression and Plan Impression: 1. Stable neurologic exam following right posterior fossa CVA. Stable CT scan 08/18/16. Plan: Patient appears stable to increase diet and activity as tolerated and transfer to floor when stable from intensive care standpoint Continue to monitor sodium intermittent Continue PT/OT/Mitch Vidales MD Aug 18, 2016 23:51
[2016-08-19] VITALS (15 sets, daily range): BP systolic 121–146; BP diastolic 77–93; PULSE 71–85; RESP 18–24; TEMP 97.8–98.6; O2SAT 94–99
[2016-08-19] MEDS: SODIUM CHLOR 0.9% 1000 ML INJ 1,000 ML IV SCH (02:34)
[2016-08-19 04:25] LABS: HEMATOCRIT 28.6 % (39.0-51.0); MEAN CELL VOLUME 89.4 FL (80.0-100.0); MEAN CORPUSCULAR HEMOGLOBIN 30.3 PG (27.0-34.0); MEAN CORPUSCULAR HGB CONC 33.9 % (32.0-36.0); PLATELET COUNT 153 TH/MM3 (150-450); RED CELL DISTRIBUTION WIDTH 14.1 % (11.6-17.2); REVIEW FLAG FINAL; WHITE BLOOD COUNT 2.7 TH/MM3 (4.0-11.0)
[2016-08-19] MEDS: CHLORHEXIDINE GLUCONATE 2 % 1 PACK (2 CLOTHS) TOP SCH (04:28)
[2016-08-19 04:50] LABS: BICARBONATE 26.2 MEQ/L (21.0-32.0); MAGNESIUM 1.9 MG/DL (1.5-2.5); POTASSIUM 3.6 MEQ/L (3.5-5.1)
[2016-08-19 04:55] LABS: APTT (PATIENT) 60.6 SEC (24.3-30.1)
[2016-08-19] MEDS: INSULIN ASPART SUPPLEMENTAL SCALE SQ SCH ×4 (07:00→20:23)
[2016-08-19] MEDS: SODIUM CHLORIDE 0.9% FLUSH 5 ML FLUSH IV FLUSH SCH ×2 (09:01→20:23)
[2016-08-19] MEDS: DOCUSATE SODIUM 100 MG CAP PO SCH ×2 (09:01→20:23)
[2016-08-19] MEDS: PANTOPRAZOLE SODIUM 40 MG VIAL IV SCH (09:01)
[2016-08-19] MEDS: ARTIFICIAL TEARS OPTH SOLN 15 ML BTL EACH EYE SCH ×3 (09:01→17:19)
[2016-08-19] MEDS ORDERED: LIDOCAINE HCL 2% 100 MG/5 ML SYRINGE ONE (09:14)
[2016-08-19] MEDS ORDERED: ATROPINE SULFATE 1 MG/10 ML SYRINGE ONE (09:14)
[2016-08-19] MEDS ORDERED: EPINEPHrine HCL (1:10,000) 1 MG/10 ML SYRINGE ONE (09:14)
[2016-08-19] MEDS ORDERED: POTASSIUM CHLORIDE 10 MEQ CONTROLLED RELEASE TAB PO ONE (13:45)
--- NOTE | 2016-08-19 13:59 | HHI.CCPN ---
Subjective Remarks/Hospital Course This is a 51-year-old AA male. Date of admission 08/17/2016. Past medical history includes dyslipidemia. Patient presented today to [place] ED today with prior history of CVA? With worsening symptomatology including right upper and lower extremity weakness and ataxia the right upper and lower extremity with gait imbalance disorder patient originally noticed acute onset of right lower extremity weakness at [facility]. He at that time presented to [facility] [place] where a CT scan of the head was performed. Per patient, no acute abnormality is right identified. He was discharged home and was asked to follow up with neurology as an outpatient. Patient followed up with Dr. Tillman and 2 days ago there was an MRI of his brain done in his office. Patient was told by Dr. Tillman that he had suffered a stroke. He gave him aspirin 325 mg daily to take. His primary care has recommended him to come to the emergency room and get admitted. Vital signs were otherwise stable. Patient is talking and answering questions appropriately and following commands. has the disc of the MRI that was done at Dr. Tillman's office 2 days ago but there is no report attached with it. At [place] of, CT head revealed ill-defined mass in the right cerebellar region. Recommend MRI/MRA follow. 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 MRA negative. On examination patient with slight right upper and lower extremity motor weakness no pronator drift. Some dysarthria. No gaze preference. Right upper extremity ataxia. Falls to the right with ambulation. Neurosurgery was consulted and recommended heparin drip/no bolus after failing aspirin as an outpatient. Neurology consulted and will see the patient prior to initiation of heparin drip. 08/18: Afebrile. Currently resting in bed with stable right upper and lower extremity weakness and intermittently garbled speech. Denies any chest pain or shortness of breath. Subjective 08/19: Afebrile. Intermittently garbled speech. Continues to have stable right upper and lower extremity weakness. Denies chest pain or shortness of breath. Objective Vital Signs Date Time Temp Pulse Resp B/P Pulse Ox O2 Delivery O2 Flow Rate FiO2 08/19/16 12:00 98.6 76 20 146/93 99 08/19/16 08:28 21 08/19/16 07:00 Room Air Intake and Output 08/18/16 08/18/16 08/19/16 08:00 16:00 00:00 Intake Total 748 ml 1178 ml 911 ml Output Total 800 ml 1550 ml Balance -52 ml -372 ml 911 ml Result Diagram: 08/19/16 0336 08/19/16 0336 Imaging Last Impressions Neck CTA 08/18/16 0600 Signed Impressions: Service Date/Time: Thursday, August 18, 2016 06:06 - CONCLUSION: Small diminutive right vertebral artery, otherwise negative. MR spectroscopy may be of benefit to evaluate the right cerebellar hemisphere lesion. Mansoor Pearce MD FACR Head CT 08/18/16 0000 Signed Impressions: Service Date/Time: Thursday, August 18, 2016 11:50 - CONCLUSION: 1. Stable low-attenuation mass or infarct in the right posterior fossa compared with August 16. No hydrocephalus. Mark Sylvester MD Head Magnetic Resonance Angiography 08/17/16 0000 Signed Impressions: Service Date/Time: August 01:27 - CONCLUSION: No acute disease. Michael Rosas Jr., MD Carotid Artery Ultrasound 08/17/16 0000 Signed Impressions: Service Date/Time: August 11:27 - CONCLUSION: No hemodynamically significant stenosis in either carotid artery. Boby Reyes MD Brain MRI 08/17/16 0000 Signed Impressions: Service Date/Time: August 07:56 - CONCLUSION: 1. Irregular shaped area of abnormal signal within the right cerebellar hemisphere. There is no contrast-enhancement within this. This does not follow the course of the PICA infarct. Exact etiology of this is uncertain. Primary differential consideration would be an atypical area of subacute/old infarct from a perforating vessel or possibly venous in etiology. Followup to exclude underlying lesion is warranted. Please see above. Nikos Pearce MD Chest X-Ray 08/16/16 [id number] Signed Impressions: Service Date/Time: Tuesday, August 16, 2016 22:17 - CONCLUSION: No acute disease. Boby Reyes MD Objective Remarks GENERAL: 51-year-old male, resting in bed in no acute distress SKIN: Warm and dry. HEAD: Atraumatic. Normocephalic. EYES: Pupils equal and round about 3-4 mm bilaterally and reactive. No scleral icterus. No injection or drainage. ENT: No nasal bleeding or discharge. Mucous membranes pink and moist. NECK: Trachea midline. No JVD. CARDIOVASCULAR: Regular rate and rhythm. S1, S2. No S4. RESPIRATORY: No accessory muscle use. Clear to auscultation. Breath sounds equal bilaterally. GASTROINTESTINAL: Abdomen soft, non-tender, nondistended. Hepatic and splenic margins not palpable. MUSCULOSKELETAL: Extremities without clubbing, cyanosis, or edema. No obvious deformities. NEUROLOGICAL: Positive vertical and horizontal nystagmus bilaterally. No hemianopsia apparent Positive pronator drift on the right side only. Strength 4 /5 right upper and lower extremity. 5/5 left upper and lower extremity. DTRs equal symmetric bilaterally. Slight right facial droop. Speech generally minimally garbled. PSYCHIATRIC: Appropriate mood and affect; insight and judgment normal. A/P Assessment and Plan Neuro/Psych: Right cerebellar mass 4.4 3.7 with associated right upper and lower extremity ataxia Prior history of CVA near brainstem July/2016 MRI brain revealed 4.4 x 3.7 cm mass versus evolving CVA. MRA brain negative CTA neck revealed small right vertebral artery otherwise unremarkable MRI spectroscopy performed. Results pending Patient be evaluated by Dr. Yang/neurology. Hypercoagulable workup pending agree with heparin drip 2-D echo EF 65% with no valvular source of emboli. CTA head negative Patient evaluated by Dr. Davidson rosado/neurosurgery. Recommended heparin drip no bolus with frequent neurological checks and follow-up CT brain [address] brain stable Negative carotid Doppler/2-D echocardiogram Acetaminophen for fever [place]/morphine as needed for pain management CV: Hypertension Dyslipidemia As needed labetalol/Cardene drip to maintain systolic blood pressure less than 180 Patient is on Lipitor 10 mg at night for dyslipidemia. Continue Resp: Nasal cannula to maintain saturations greater than equal to 92% Incentive spirometry while awake Chest x-ray on admission revealed no acute cardiopulmonary findings GI: Regular diet Protonix for GI prophylaxis Colace/as needed Senokot for bowel regimen : Mayer if indicated for accurate I's and O's in a critically ill patient Endo: Sliding-scale insulin 24 hours with Accu-Cheks to maintain euglycemia. Renal: Acute kidney injury Creatinine currently 1.2. Follow BMP in a.m. Avoid nephrotoxic drugs Currently normal saline at 70 cc an hour. Discontinued today Heme: Leukopenia Anemia Follow-up CBC in AM. Coags within normal limits Further workup leukopenia if remains low in a.m. ID: Monitor for infection FEN: Hypokalemia - resolved Replace electrolytes per ICU electrolyte protocol. Still giving 30 mEq KCl and 2 g mag sulfate IV 1. MSK: PT/OT evaluate and treat Access - Utilize peripheral IV. Central line if indicated Prophylaxis - GI - Protonix - DVT - SCD/. Neurosurgery recommends heparin drip. Critical Care: The total care time was 35 minutes. Time to perform other separately billable procedures was not included in the critical care time. Jese Alcazar MD Aug 19, 2016 13:59
[2016-08-19] MEDS: MAGNESIUM SULFATE 1 GM PREMIX 100 ML IV SCH ×2 (14:44→15:53)
--- NOTE | 2016-08-19 19:48 | HHI.PR ---
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--follow up MR spectroscopy Plan f/u spectroscopy Diagnosis/Plan: (1) CVA (cerebral vascular accident) Daily Summary appears unchanged was not interested in participating on the exam this evening, then spoke with his RN studies seen we could obtain MR spectroscopy as suggested by brad continue heparin pending hypercoag screen i will ask dr Oakley to follow him over weekend Subjective Subjective Comments No acute events reported Active Medications Current Medications Medications (Trade) Dose Ordered Sig/Krystin Route Start Time Stop Time Status Last Admin (Narcan Inj) 0.4 mg UNSCH PRN IV 08/17/16 00:15 Labetalol HCl 10 mg 10 mg Q2H PRN IV 08/17/16 06:45 (Cardene Inj/NS 250 ml Inj) 260 ml @ 0 mls/hr TITRATE IV 08/17/16 06:45 (Lipitor) 10 mg HS PO 08/17/16 21:00 08/18/16 20:03 (D50w (Vial) Inj) 25 ml UNSCH PRN IV PUSH 08/17/16 06:45 (Glucagon Inj) 1 mg UNSCH PRN IM/SQ 08/17/16 06:45 (NS Flush) 2 ml UNSCH PRN IV FLUSH 08/17/16 07:00 (NS Flush) 2 ml BID IV FLUSH 08/17/16 09:00 08/19/16 09:01 (Tylenol) 650 mg Q6H PRN PO 08/17/16 07:00 ([place] 5-325 Mg) 1 tab Q4H PRN PO 08/17/16 07:00 (Morphine Inj) 2 mg Q2H PRN IV 08/17/16 07:00 (Protonix Inj) 40 mg DAILY IV 08/17/16 09:00 08/19/16 09:01 (Tears Naturale Opth Soln) 1 drop TID EACH EYE 08/17/16 09:00 08/19/16 17:19 (Zofran Inj) 4 mg Q6H PRN IV 08/17/16 07:00 (Colace) 100 mg BID PO 08/17/16 09:00 08/19/16 09:01 (Senokot) 17.2 mg Q12H PRN PO 08/17/16 07:00 Miscellaneous Information 1 Q361D XX 08/17/16 07:00 08/17/16 07:00 (Chlorhexidine 2% Cloth) 3 pack Taper DAILY@04 TOP 08/18/16 04:00 08/14/17 03:59 08/19/16 04:28 Chlorhexidine Gluconate 3 pack 3 pack UNSCH PRN TOP 08/17/16 07:00 Potassium Chloride 100 ml @ 50 mls/hr Q2H PRN IV 08/17/16 07:00 (KCl 20 Meq Premix Inj) 100 ml @ 50 mls/hr Q2H PRN IV 08/17/16 07:00 Potassium Chloride 40 meq 40 meq UNSCH PRN PO/TUBE 08/17/16 07:00 Potassium Chloride 100 ml @ 25 mls/hr UNSCH PRN IV 08/17/16 07:00 Potassium Chloride 100 ml @ 50 mls/hr Q2H PRN IV 08/17/16 07:00 (Magnesium Sulfate Inj/NS Inj) 100 ml @ 50 mls/hr UNSCH PRN IV 08/17/16 07:00 Magnesium Oxide 800 mg 800 mg UNSCH PRN PO 08/17/16 07:00 (Magnesium Sulfate Inj/NS Inj) 100 ml @ 50 mls/hr UNSCH PRN IV 08/17/16 07:00 Potassium Phosphate 2000 mg 2,000 mg Q4H PRN PO 08/17/16 07:00 (Sodium Phosphate Inj/NS 250 ml Inj) 250 ml @ 42 mls/hr UNSCH PRN IV 08/17/16 07:00 (KCl 40 Meq/30 ml Liq) 40 meq UNSCH PRN PO/TUBE 08/17/16 07:00 Potassium Phosphate 2000 mg 2,000 mg UNSCH PRN PO/TUBE 08/17/16 07:00 Potassium Phosphate 30 mmol/ Sodium Chloride 260 ml @ 42 mls/hr UNSCH PRN IV 08/17/16 07:00 (Heparin-D5W Inj) 250 ml @ 0 mls/hr TITRATE IV 08/17/16 14:00 08/18/16 18:09 Allergies Allergies Coded Allergies No Known Allergies (Unverified08/16/16) Exam I&O / VS 08/18/16 08/18/16 08/19/16 15:00 23:00 07:00 Intake Total 1178 ml 911 ml 640 ml Output Total 1550 ml 750 ml Balance -372 ml 911 ml -110 ml Intake Oral 600 ml 720 ml 180 ml IV Total 510 ml 191 ml 460 ml Other 68 ml Output Urine Total 1550 ml 750 ml # Bowel Movements 1 Vital Signs Date Time Temp Pulse Resp B/P Pulse Ox O2 Delivery O2 Flow Rate FiO2 08/19/16 18:00 77 08/19/16 16:00 77 08/19/16 16:00 98.2 77 21 126/81 95 08/19/16 14:00 83 08/19/16 12:00 98.6 76 20 146/93 99 08/19/16 12:00 76 08/19/16 10:00 76 08/19/16 08:28 97 21 08/19/16 08:00 85 08/19/16 08:00 97.8 74 18 127/82 99 08/19/16 07:00 97 Room Air 21 08/19/16 06:00 71 08/19/16 04:00 98.6 71 19 143/91 95 08/19/16 04:00 71 08/19/16 02:00 72 08/19/16 01:28 94 08/19/16 00:00 98.5 73 22 125/77 97 08/19/16 00:00 73 08/18/16 22:00 85 08/18/16 20:00 98.4 82 23 124/82 96 08/18/16 20:00 85 Exam Comments lethargic but arouses easily, follows commands CN intact MOTOR 5/5 BUE Objective Radiology Results MR spectroscopy--pending Micro and Labs Laboratory Tests Test 08/19/16 03:36 White Blood Count 2.7 Red Blood Count 3.20 Hemoglobin 9.7 Hematocrit 28.6 Mean Corpuscular Volume 89.4 Mean Corpuscular Hemoglobin 30.3 Mean Corpuscular Hemoglobin 33.9 Concent Red Cell Distribution Width 14.1 Platelet Count 153 Mean Platelet Volume 8.5 Activated Partial 60.6 Thromboplast Time Sodium Level 143 Potassium Level 3.6 Chloride Level 110 Carbon Dioxide Level 26.2 Anion Gap 7 Blood Urea Nitrogen 8 Creatinine 0.93 Estimat Glomerular Filtration 103 Rate Random Glucose 97 Calcium Level 8.3 Phosphorus Level 3.6 Magnesium Level 1.9 Problem Qualifiers (1) CVA (cerebral vascular accident): Qualified Code: I63.531 - Cerebrovascular accident (CVA) due to occlusion of right posterior cerebral artery Roque Oakley PhD Aug 19, 2016 19:48
--- NOTE | 2016-08-19 19:58 | HHI.NSPN ---
History Chief Complaint: no headache Interval History 51-year-old male presents with approximately 3 weeks dysarthria and gait unsteadiness with more recent facial paresthesias. Exam Results Vital Signs Date Time Temp Pulse Resp B/P Pulse Ox O2 Delivery O2 Flow Rate FiO2 08/19/16 18:00 77 08/19/16 16:00 98.2 21 126/81 95 08/19/16 08:28 21 08/19/16 07:00 Room Air Intake and Output 08/18/16 08/18/16 08/18/16 07:59 15:59 23:59 Intake Total 748 ml 1178 ml 911 ml Output Total 800 ml 1550 ml Balance -52 ml -372 ml 911 ml Physical Examination Awake and alert . Family in room. Minimal dysarthria Mild confusion Extraocular movements intact Visual rouse to confrontation intact Sensation intact to light touch upper extremities Strength normal major flexion and extension groups upper extremities Lab, Micro, Other Results Laboratory Tests Test 08/19/16 03:36 White Blood Count 2.7 TH/MM3 Red Blood Count 3.20 MIL/MM3 Hemoglobin 9.7 GM/DL Hematocrit 28.6 % Mean Corpuscular Volume 89.4 FL Mean Corpuscular Hemoglobin 30.3 PG Mean Corpuscular Hemoglobin 33.9 % Concent Red Cell Distribution Width 14.1 % Platelet Count 153 TH/MM3 Mean Platelet Volume 8.5 FL Activated Partial 60.6 SEC Thromboplast Time Sodium Level 143 MEQ/L Potassium Level 3.6 MEQ/L Chloride Level 110 MEQ/L Carbon Dioxide Level 26.2 MEQ/L Anion Gap 7 MEQ/L Blood Urea Nitrogen 8 MG/DL Creatinine 0.93 MG/DL Estimat Glomerular Filtration 103 ML/MIN Rate Random Glucose 97 MG/DL Calcium Level 8.3 MG/DL Phosphorus Level 3.6 MG/DL Magnesium Level 1.9 MG/DL Medical Decision Making Impression and Plan Impression: 1. Stable neurologic exam following right posterior fossa CVA. Stable CT scan 08/18/16. Plan: Patient appears stable to increase diet and activity as tolerated and transfer to floor when stable from intensive care standpoint Continue to monitor sodium intermittent-recent labs satisfactory Continue PT/OT/Mitch Vidales MD Aug 19, 2016 19:58
[2016-08-19] MEDS: ATORVASTATIN 10 MG TAB PO SCH (20:23)
[2016-08-19] MEDS: HEPARIN-D5W INJ 250 ML IV SCH (22:38)
[2016-08-20] VITALS (13 sets, daily range): BP systolic 117–144; BP diastolic 69–88; PULSE 71–88; RESP 15–24; TEMP 97.5–98.7; O2SAT 94–97
[2016-08-20] MEDS: CHLORHEXIDINE GLUCONATE 2 % 1 PACK (2 CLOTHS) TOP SCH (04:00)
[2016-08-20 04:29] LABS: AUTOMATED NEUTROPHIL # 1.5 TH/MM3 (1.8-7.7); BASOPHIL % 0.2 % (0.0-2.0); EOSINOPHIL # 0.1 TH/MM3 (0-0.4); EOSINOPHIL % 6.2 % (0.0-4.0); HEMATOCRIT 30.1 % (39.0-51.0); HEMO FLAGS DIFF FINAL; LYMPH % 21.6 % (9.0-44.0); LYMPHOCYTE # 0.5 TH/MM3 (1.0-4.8); MEAN CELL VOLUME 89.2 FL (80.0-100.0); MEAN CORPUSCULAR HEMOGLOBIN 29.9 PG (27.0-34.0); MEAN CORPUSCULAR HGB CONC 33.5 % (32.0-36.0); PLATELET COUNT 167 TH/MM3 (150-450); RED BLOOD COUNT 3.37 MIL/MM3 (4.50-5.90); WHITE BLOOD COUNT 2.3 TH/MM3 (4.0-11.0)
[2016-08-20 04:36] LABS: APTT (PATIENT) 28.7 SEC (24.3-30.1)
[2016-08-20 04:48] LABS: ALT (GPT) 19 U/L (12-78); ANION GAP 6 MEQ/L (5-15); AST (GOT) 11 U/L (15-37); BICARBONATE 26.9 MEQ/L (21.0-32.0); BLOOD UREA NITROGEN 7 MG/DL (7-18); CHLORIDE 110 MEQ/L (98-107); GLOMERULAR FILTRATION RATE 95 ML/MIN (>89); POTASSIUM 3.8 MEQ/L (3.5-5.1); SODIUM (NA) 143 MEQ/L (136-145)
[2016-08-20 04:50] LABS: ALKALINE PHOSPHATASE 58 U/L (45-117); TOTAL BILIRUBIN ADULT 0.6 MG/DL (0.2-1.0)
[2016-08-20] MEDS: INSULIN ASPART SUPPLEMENTAL SCALE SQ SCH (07:00)
--- NOTE | 2016-08-20 07:53 | RADRPT ---
EXAM DATE/TIME: 08/19/2016 09:54 [facility] COMPARISON: No previous studies available for comparison. INDICATIONS : CVA vs Tumor. MEDICAL HISTORY : None. SURGICAL HISTORY : None. ENCOUNTER: Initial ACUITY: 4-6 days PAIN SCORE: 0/10 LOCATION: Cranial FINDINGS: MR Spectroscopy is inconclusive. The differential diagnosis remains centered around infarct, given t he small right vertebral and small PICA on the right. This does have very sharply demarcated borders and follows an expected vascular distribution. Etiologies such as tumefactive multiple sclerosis are thought to be less likely. Followup MRI would be of benefit to insure this is evolving as one would expect a hemorrhagic event t o do so. CONCLUSION: Probable infarct in the right cerebellar hemisphere. Please see above discussion. Mansoor Pearce MD FACR on August 20, 2016 at 7:37 Board Certified Radiologist. This report was verified electronically.
[2016-08-20] MEDS: PANTOPRAZOLE SODIUM 40 MG VIAL IV SCH (09:30)
[2016-08-20] MEDS: SODIUM CHLORIDE 0.9% FLUSH 5 ML FLUSH IV FLUSH SCH ×2 (09:30→21:07)
[2016-08-20] MEDS: DOCUSATE SODIUM 100 MG CAP PO SCH ×2 (09:30→21:07)
[2016-08-20] MEDS: ARTIFICIAL TEARS OPTH SOLN 15 ML BTL EACH EYE SCH ×3 (09:31→18:00)
--- NOTE | 2016-08-20 12:54 | HHI.PR ---
Review/Management Diagnosis Right cerebellar cva --exam is stable Plan Dr Yang to resume care tomorrow Diagnosis/Plan: (1) CVA (cerebral vascular accident) Daily Summary appears unchanged was not interested in participating on the exam this evening, then spoke with his RN studies seen we could obtain MR spectroscopy as suggested by brad continue heparin pending hypercoag screen i will ask dr Oakley to follow him over weekend Subjective Subjective Comments No acute events reported No headache Active Medications Current Medications Medications (Trade) Dose Ordered Sig/Krystin Route Start Time Stop Time Status Last Admin (Narcan Inj) 0.4 mg UNSCH PRN IV 08/17/16 00:15 Labetalol HCl 10 mg 10 mg Q2H PRN IV 08/17/16 06:45 (Cardene Inj/NS 250 ml Inj) 260 ml @ 0 mls/hr TITRATE IV 08/17/16 06:45 (Lipitor) 10 mg HS PO 08/17/16 21:00 08/19/16 20:23 (NS Flush) 2 ml UNSCH PRN IV FLUSH 08/17/16 07:00 (NS Flush) 2 ml BID IV FLUSH 08/17/16 09:00 08/20/16 09:30 (Tylenol) 650 mg Q6H PRN PO 08/17/16 07:00 ([place] 5-325 Mg) 1 tab Q4H PRN PO 08/17/16 07:00 (Morphine Inj) 2 mg Q2H PRN IV 08/17/16 07:00 (Protonix Inj) 40 mg DAILY IV 08/17/16 09:00 08/20/16 09:30 (Tears Naturale Opth Soln) 1 drop TID EACH EYE 08/17/16 09:00 08/20/16 09:31 (Zofran Inj) 4 mg Q6H PRN IV 08/17/16 07:00 (Colace) 100 mg BID PO 08/17/16 09:00 08/20/16 09:30 (Senokot) 17.2 mg Q12H PRN PO 08/17/16 07:00 Miscellaneous Information 1 Q361D XX 08/17/16 07:00 08/17/16 07:00 (Chlorhexidine 2% Cloth) 3 pack Taper DAILY@04 TOP 08/18/16 04:00 08/14/17 03:59 08/19/16 04:28 Chlorhexidine Gluconate 3 pack 3 pack UNSCH PRN TOP 08/17/16 07:00 Potassium Chloride 100 ml @ 50 mls/hr Q2H PRN IV 08/17/16 07:00 (KCl 20 Meq Premix Inj) 100 ml @ 50 mls/hr Q2H PRN IV 08/17/16 07:00 Potassium Chloride 40 meq 40 meq UNSCH PRN PO/TUBE 08/17/16 07:00 Potassium Chloride 100 ml @ 25 mls/hr UNSCH PRN IV 08/17/16 07:00 Potassium Chloride 100 ml @ 50 mls/hr Q2H PRN IV 08/17/16 07:00 (Magnesium Sulfate Inj/NS Inj) 100 ml @ 50 mls/hr UNSCH PRN IV 08/17/16 07:00 Magnesium Oxide 800 mg 800 mg UNSCH PRN PO 08/17/16 07:00 (Magnesium Sulfate Inj/NS Inj) 100 ml @ 50 mls/hr UNSCH PRN IV 08/17/16 07:00 Potassium Phosphate 2000 mg 2,000 mg Q4H PRN PO 08/17/16 07:00 (Sodium Phosphate Inj/NS 250 ml Inj) 250 ml @ 42 mls/hr UNSCH PRN IV 08/17/16 07:00 (KCl 40 Meq/30 ml Liq) 40 meq UNSCH PRN PO/TUBE 08/17/16 07:00 Potassium Phosphate 2000 mg 2,000 mg UNSCH PRN PO/TUBE 08/17/16 07:00 Potassium Phosphate 30 mmol/ Sodium Chloride 260 ml @ 42 mls/hr UNSCH PRN IV 08/17/16 07:00 (Heparin-D5W Inj) 250 ml @ 0 mls/hr TITRATE IV 08/17/16 14:00 08/19/16 22:38 Allergies Allergies Coded Allergies No Known Allergies (Unverified08/16/16) Exam I&O / VS 08/19/16 08/19/16 08/20/16 15:00 23:00 07:00 Intake Total 667 ml 387 ml 197 ml Output Total 1300 ml 550 ml 700 ml Balance -633 ml -163 ml -503 ml Intake Oral 600 ml 120 ml 120 ml IV Total 67 ml 267 ml 77 ml Output Urine Total 1300 ml 550 ml 700 ml # Bowel Movements 0 0 0 Vital Signs Date Time Temp Pulse Resp B/P Pulse Ox O2 Delivery O2 Flow Rate FiO2 08/20/16 12:00 77 08/20/16 10:00 78 08/20/16 08:02 96 21 08/20/16 08:00 75 08/20/16 07:00 95 Room Air 21 08/20/16 06:00 76 08/20/16 04:00 72 08/20/16 04:00 98.6 73 15 134/88 94 08/20/16 02:00 72 08/20/16 00:00 72 08/20/16 00:00 98.6 72 24 121/87 97 08/19/16 22:00 81 08/19/16 20:20 97 08/19/16 20:00 98.6 79 24 121/83 98 08/19/16 20:00 79 08/19/16 19:00 95 Room Air 08/19/16 18:00 77 08/19/16 16:00 77 08/19/16 16:00 98.2 77 21 126/81 95 08/19/16 14:00 83 Exam Comments much more alert and follows commands. Speech with mild dysarthria CN intact MOTOR 5/5 BUE Objective Radiology Results MRI spectroscopy is c/w cerebellar infarction Micro and Labs Laboratory Tests Test 08/20/16 03:50 White Blood Count 2.3 Red Blood Count 3.37 Hemoglobin 10.1 Hematocrit 30.1 Mean Corpuscular Volume 89.2 Mean Corpuscular Hemoglobin 29.9 Mean Corpuscular Hemoglobin 33.5 Concent Red Cell Distribution Width 14.0 Platelet Count 167 Mean Platelet Volume 8.6 Neutrophils (%) (Auto) 65.0 Lymphocytes (%) (Auto) 21.6 Monocytes (%) (Auto) 7.0 Eosinophils (%) (Auto) 6.2 Basophils (%) (Auto) 0.2 Neutrophils # (Auto) 1.5 Lymphocytes # (Auto) 0.5 Monocytes # (Auto) 0.2 Eosinophils # (Auto) 0.1 Basophils # (Auto) 0.0 CBC Comment DIFF FINAL Differential Comment Activated Partial 28.7 Thromboplast Time Sodium Level 143 Potassium Level 3.8 Chloride Level 110 Carbon Dioxide Level 26.9 Anion Gap 6 Blood Urea Nitrogen 7 Creatinine 1.00 Estimat Glomerular Filtration 95 Rate Random Glucose 99 Calcium Level 8.4 Total Bilirubin 0.6 Aspartate Amino Transf 11 (AST/SGOT) Alanine Aminotransferase 19 (ALT/SGPT) Alkaline Phosphatase 58 Total Protein 6.6 Albumin 2.9 Problem Qualifiers (1) CVA (cerebral vascular accident): Qualified Code: I63.531 - Cerebrovascular accident (CVA) due to occlusion of right posterior cerebral artery Roque Oakley PhD Aug 20, 2016 12:54
--- NOTE | 2016-08-20 14:35 | HHI.CCPN ---
Subjective Remarks/Hospital Course This is a 51-year-old AA male. Date of admission 08/17/2016. Past medical history includes dyslipidemia. Patient presented today to [facility] today with prior history of CVA? With worsening symptomatology including right upper and lower extremity weakness and ataxia the right upper and lower extremity with gait imbalance disorder patient originally noticed acute onset of right lower extremity weakness at [facility]. He at that time presented to [facility] where a CT scan of the head was performed. Per patient, no acute abnormality is right identified. He was discharged home and was asked to follow up with neurology as an outpatient. Patient followed up with Dr. Tillman and 2 days ago there was an MRI of his brain done in his office. Patient was told by Dr. Tillman that he had suffered a stroke. He gave him aspirin 325 mg daily to take. His primary care has recommended him to come to the emergency room and get admitted. Vital signs were otherwise stable. Patient is talking and answering questions appropriately and following commands. has the disc of the MRI that was done at Dr. Tillman's office 2 days ago but there is no report attached with it. At [facility] of, CT head revealed ill-defined mass in the right cerebellar region. Recommend MRI/MRA follow. 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 MRA negative. On examination patient with slight right upper and lower extremity motor weakness no pronator drift. Some dysarthria. No gaze preference. Right upper extremity ataxia. Falls to the right with ambulation. Neurosurgery was consulted and recommended heparin drip/no bolus after failing aspirin as an outpatient. Neurology consulted and will see the patient prior to initiation of heparin drip. 08/18: Afebrile. Currently resting in bed with stable right upper and lower extremity weakness and intermittently garbled speech. Denies any chest pain or shortness of breath. 08/19: Afebrile. Intermittently garbled speech. Continues to have stable right upper and lower extremity weakness. Denies chest pain or shortness of breath. Subjective 08/20: Afebrile. Continues to have intermittently garbled speech. Stable right upper and lower extremity weakness. On room air. at bedside Objective Vital Signs Date Time Temp Pulse Resp B/P Pulse Ox O2 Delivery O2 Flow Rate FiO2 08/20/16 12:00 98.4 88 18 120/69 95 08/20/16 08:02 21 08/20/16 07:00 Room Air Intake and Output 08/19/16 08/19/16 08/20/16 08:00 16:00 00:00 Intake Total 640 ml 667 ml 387 ml Output Total 750 ml 1300 ml 550 ml Balance -110 ml -633 ml -163 ml Result Diagram: 08/20/16 0350 08/20/16 0350 Imaging Last Impressions Spectroscopy MRI 08/19/16 0000 Signed Impressions: Service Date/Time: Friday, August 19, 2016 09:54 - CONCLUSION: Probable infarct in the right cerebellar hemisphere. Please see above discussion. Mansoor Pearce MD FACR Neck CTA 08/18/16 0600 Signed Impressions: Service Date/Time: Thursday, August 18, 2016 06:06 - CONCLUSION: Small diminutive right vertebral artery, otherwise negative. MR spectroscopy may be of benefit to evaluate the right cerebellar hemisphere lesion. Mansoor Pearce MD FACR Head CT 08/18/16 0000 Signed Impressions: Service Date/Time: Thursday, August 18, 2016 11:50 - CONCLUSION: 1. Stable low-attenuation mass or infarct in the right posterior fossa compared with August 16. No hydrocephalus. Mark Sylvester MD Head Magnetic Resonance Angiography 08/17/16 0000 Signed Impressions: Service Date/Time: August 01:27 - CONCLUSION: No acute disease. Michael Rosas Jr., MD Carotid Artery Ultrasound 08/17/16 0000 Signed Impressions: Service Date/Time: August 11:27 - CONCLUSION: No hemodynamically significant stenosis in either carotid artery. Boby Reyes MD Brain MRI 08/17/16 0000 Signed Impressions: Service Date/Time: August 07:56 - CONCLUSION: 1. Irregular shaped area of abnormal signal within the right cerebellar hemisphere. There is no contrast-enhancement within this. This does not follow the course of the PICA infarct. Exact etiology of this is uncertain. Primary differential consideration would be an atypical area of subacute/old infarct from a perforating vessel or possibly venous in etiology. Followup to exclude underlying lesion is warranted. Please see above. Nikos Pearce MD Chest X-Ray 08/16/16 2142 Signed Impressions: Service Date/Time: Tuesday, August 16, 2016 22:17 - CONCLUSION: No acute disease. Boby Reyes MD Objective Remarks GENERAL: 51-year-old male, resting in bed in no acute distress SKIN: Warm and dry. HEAD: Atraumatic. Normocephalic. EYES: Pupils equal and round about 3-4 mm bilaterally and reactive. No scleral icterus. No injection or drainage. ENT: No nasal bleeding or discharge. Mucous membranes pink and moist. NECK: Trachea midline. No JVD. CARDIOVASCULAR: Regular rate and rhythm. S1, S2. No S4. RESPIRATORY: No accessory muscle use. Clear to auscultation. Breath sounds equal bilaterally. GASTROINTESTINAL: Abdomen soft, non-tender, nondistended. Hepatic and splenic margins not palpable. MUSCULOSKELETAL: Extremities without clubbing, cyanosis, or edema. No obvious deformities. NEUROLOGICAL: Positive vertical and horizontal nystagmus bilaterally. No hemianopsia apparent Positive pronator drift on the right side only. Strength 4 /5 right upper and lower extremity. 5/5 left upper and lower extremity. DTRs equal symmetric bilaterally. Slight right facial droop. Speech generally minimally garbled. PSYCHIATRIC: Appropriate mood and affect; insight and judgment normal. 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 MRA brain negative CTA neck revealed small right vertebral artery otherwise unremarkable MRI spectroscopy performed. Consistent with right cerebellar CVA Patient be evaluated by Dr. Yang/neurology. Hypercoagulable workup pending agree with heparin drip 2-D echo EF 65% with no valvular source of emboli. CTA head negative Patient evaluated by Dr. Davidson rosado/neurosurgery. Recommended heparin drip no bolus with frequent neurological checks and follow-up CT brain [address] brain stable Negative carotid Doppler/2-D echocardiogram Acetaminophen for fever Premier/morphine as needed for pain management CV: Hypertension Dyslipidemia As needed hydralazine/Nitropaste to maintain systolic blood pressure less than 180 Patient is on Lipitor 10 mg at night for dyslipidemia. Continue Resp: Nasal cannula to maintain saturations greater than equal to 92% Incentive spirometry while awake Chest x-ray on admission revealed no acute cardiopulmonary findings GI: Regular diet Protonix for GI prophylaxis Colace/as needed Senokot for bowel regimen : Mayer if indicated for accurate I's and O's in a critically ill patient Endo: Sliding-scale insulin 24 hours with Accu-Cheks to maintain euglycemia. Renal: Acute kidney injury Creatinine currently 1.2. Follow BMP in a.m. Avoid nephrotoxic drugs Currently normal saline at 70 cc an hour. Discontinued today Heme: Leukopenia Anemia Follow-up CBC in AM. Coags within normal limits Further workup leukopenia if remains low in a.m. ID: Monitor for infection FEN: Hypokalemia - resolved Replace electrolytes per ICU electrolyte protocol. MSK: PT/OT evaluate and treat Access - Utilize peripheral IV. Central line if indicated Prophylaxis - GI - Protonix - DVT - SCD/. Neurosurgery recommends heparin drip. Critical Care: The total care time was 35 minutes. Time to perform other separately billable procedures was not included in the critical care time. Patient is stable from a critical care medicine standpoint. We will assign care of the hospitalist in a.m. 08/21. Transfer to neuro floor. Jese Alcazar MD Aug 20, 2016 14:35
[2016-08-20] MEDS ORDERED: NITROGLYCERIN 2% OINT 1 GM PACKET TOPICAL PRN (14:45)
[2016-08-20] MEDS ORDERED: hydrALAZINE HCL 20 MG/ML VIAL IV PUSH PRN (14:45)
[2016-08-20 16:36] LABS: APTT (PATIENT) 31.3 SEC (24.3-30.1)
[2016-08-20] MEDS: ATORVASTATIN 10 MG TAB PO SCH (21:06)
--- NOTE | 2016-08-20 22:59 | HHI.NSPN ---
History Chief Complaint: no headache Interval History 51-year-old male presents with approximately 3 weeks dysarthria and gait unsteadiness with more recent facial paresthesias. Exam Results Vital Signs Date Time Temp Pulse Resp B/P Pulse Ox O2 Delivery O2 Flow Rate FiO2 08/20/16 18:00 98.2 75 20 118/77 97 08/20/16 08:02 21 08/20/16 07:00 Room Air Intake and Output 08/19/16 08/19/16 08/20/16 08:00 16:00 00:00 Intake Total 640 ml 667 ml 387 ml Output Total 750 ml 1300 ml 550 ml Balance -110 ml -633 ml -163 ml Physical Examination Awake and alert . Family in room again today. Minimal dysarthria Mild confusion Extraocular movements intact Facial motor symmetric Initial sensory intact Visual rouse to confrontation intact Sensation intact to light touch upper extremities Strength normal major flexion and extension groups upper extremities Lab, Micro, Other Results Laboratory Tests Test 08/20/16 08/20/16 03:50 15:28 White Blood Count 2.3 TH/MM3 Red Blood Count 3.37 MIL/MM3 Hemoglobin 10.1 GM/DL Hematocrit 30.1 % Mean Corpuscular Volume 89.2 FL Mean Corpuscular Hemoglobin 29.9 PG Mean Corpuscular Hemoglobin 33.5 % Concent Red Cell Distribution Width 14.0 % Platelet Count 167 TH/MM3 Mean Platelet Volume 8.6 FL Neutrophils (%) (Auto) 65.0 % Lymphocytes (%) (Auto) 21.6 % Monocytes (%) (Auto) 7.0 % Eosinophils (%) (Auto) 6.2 % Basophils (%) (Auto) 0.2 % Neutrophils # (Auto) 1.5 TH/MM3 Lymphocytes # (Auto) 0.5 TH/MM3 Monocytes # (Auto) 0.2 TH/MM3 Eosinophils # (Auto) 0.1 TH/MM3 Basophils # (Auto) 0.0 TH/MM3 CBC Comment DIFF FINAL Differential Comment Activated Partial 28.7 SEC 31.3 SEC Thromboplast Time Sodium Level 143 MEQ/L Potassium Level 3.8 MEQ/L Chloride Level 110 MEQ/L Carbon Dioxide Level 26.9 MEQ/L Anion Gap 6 MEQ/L Blood Urea Nitrogen 7 MG/DL Creatinine 1.00 MG/DL Estimat Glomerular Filtration 95 ML/MIN Rate Random Glucose 99 MG/DL Calcium Level 8.4 MG/DL Total Bilirubin 0.6 MG/DL Aspartate Amino Transf 11 U/L (AST/SGOT) Alanine Aminotransferase 19 U/L (ALT/SGPT) Alkaline Phosphatase 58 U/L Total Protein 6.6 GM/DL Albumin 2.9 GM/DL Medical Decision Making Impression and Plan Impression: 1. Stable neurologic exam following right posterior fossa CVA. Stable CT scan 08/18/16. Plan: Discussed with the patient's family in the room today Patient appears stable to increase diet and activity as tolerated Continue to monitor sodium intermittent-recent labs satisfactory today Continue PT/OT/Mitch Vidales MD Aug 20, 2016 22:59
[2016-08-20 23:16] LABS: APTT (PATIENT) 60.5 SEC (24.3-30.1)
[2016-08-21] VITALS (7 sets, daily range): BP systolic 109–120; BP diastolic 66–82; PULSE 60–88; RESP 18–20; TEMP 96.1–99.5; O2SAT 95–100
[2016-08-21] MEDS: HEPARIN-D5W INJ 250 ML IV SCH ×2 (00:43→23:51)
[2016-08-21] MEDS: CHLORHEXIDINE GLUCONATE 2 % 1 PACK (2 CLOTHS) TOP SCH (01:32)
[2016-08-21 05:46] LABS: MEAN CELL VOLUME 90.2 FL (80.0-100.0); MEAN CORPUSCULAR HEMOGLOBIN 30.5 PG (27.0-34.0); MEAN CORPUSCULAR HGB CONC 33.8 % (32.0-36.0); PLATELET COUNT 169 TH/MM3 (150-450); RED BLOOD COUNT 3.44 MIL/MM3 (4.50-5.90); RED CELL DISTRIBUTION WIDTH 14.1 % (11.6-17.2); REVIEW FLAG FINAL; WHITE BLOOD COUNT 2.9 TH/MM3 (4.0-11.0)
[2016-08-21 05:51] LABS: APTT (PATIENT) 65.3 SEC (24.3-30.1)
[2016-08-21 06:05] LABS: BICARBONATE 27.7 MEQ/L (21.0-32.0); MAGNESIUM 1.9 MG/DL (1.5-2.5); POTASSIUM 4.2 MEQ/L (3.5-5.1)
[2016-08-21] MEDS: ARTIFICIAL TEARS OPTH SOLN 15 ML BTL EACH EYE SCH ×2 (09:00→13:00)
[2016-08-21] MEDS: SODIUM CHLORIDE 0.9% FLUSH 5 ML FLUSH IV FLUSH SCH ×2 (09:00→21:00)
[2016-08-21] MEDS: DOCUSATE SODIUM 100 MG CAP PO SCH ×2 (09:12→21:12)
[2016-08-21] MEDS: PANTOPRAZOLE SODIUM 40 MG VIAL IV SCH (09:12)
--- NOTE | 2016-08-21 10:53 | HHI.NSPN ---
History Chief Complaint: no headache Interval History Remains alert but has significant dysarthria. He is agreeable to coumadin. Review of Systems General: Negative for: fever, chills, insomnia Respiratory: Negative for: shortness of breath, cough, sputum Cardiovascular: Negative for: chest pain, palpitations, orthopnea Gastrointestinal: Negative for: nausea, vomitting, diarrhea, constipation Exam Results Vital Signs Date Time Temp Pulse Resp B/P Pulse Ox O2 Delivery O2 Flow Rate FiO2 08/21/16 08:00 99.1 80 18 118/81 99 08/20/16 08:02 21 08/20/16 07:00 Room Air Intake and Output 08/20/16 08/20/16 08/21/16 08:00 16:00 00:00 Intake Total 197 ml 671 ml 78 ml Output Total 700 ml 800 ml Balance -503 ml -129 ml 78 ml Physical Examination Awake and alert . Dysarthria but intelligible Extraocular movements intact with difficulty with smooth pursuit on the right. denies diplopia Facial motor symmetric Initial sensory intact Visual rouse to confrontation intact Sensation intact to light touch upper extremities Strength normal major flexion and extension groups upper extremities, poor balance and right dysmetria persists. Lab, Micro, Other Results Laboratory Tests Test 08/20/16 08/20/16 08/21/16 15:28 22:48 05:31 Activated Partial 31.3 SEC 60.5 SEC 65.3 SEC Thromboplast Time White Blood Count 2.9 TH/MM3 Red Blood Count 3.44 MIL/MM3 Hemoglobin 10.5 GM/DL Hematocrit 31.0 % Mean Corpuscular Volume 90.2 FL Mean Corpuscular Hemoglobin 30.5 PG Mean Corpuscular Hemoglobin 33.8 % Concent Red Cell Distribution Width 14.1 % Platelet Count 169 TH/MM3 Mean Platelet Volume 8.3 FL Sodium Level 143 MEQ/L Potassium Level 4.2 MEQ/L Chloride Level 108 MEQ/L Carbon Dioxide Level 27.7 MEQ/L Anion Gap 7 MEQ/L Blood Urea Nitrogen 7 MG/DL Creatinine 0.93 MG/DL Estimat Glomerular Filtration 103 ML/MIN Rate Random Glucose 94 MG/DL Calcium Level 8.6 MG/DL Phosphorus Level 4.4 MG/DL Magnesium Level 1.9 MG/DL Medical Decision Making Impression and Plan 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 Follow up MRI of the brain in 2 months is planned after rehab. Total Minutes: 10 Jason Cedeño Aug 21, 2016 10:53
[2016-08-21] MEDS ORDERED: hydrALAZINE HCL 10 MG TAB PO PRN (11:00)
--- NOTE | 2016-08-21 12:17 | HHI.PR ---
Subjective Remarks The patient was resting in bed comfortably. His daughter was at the bedside. He said he just felt weakness in the legs but otherwise is feeling well. He said he had no shortness of breath or any pain. He said he has been tolerating food. He denies any diarrhea or constipation. He has no problem with urination. Discussed with nursing. Objective Vitals Vital Signs Date Time Temp Pulse Resp B/P Pulse Ox O2 Delivery O2 Flow Rate FiO2 08/21/16 08:00 99.1 80 18 118/81 99 08/21/16 07:00 78 08/21/16 04:00 98.1 60 18 119/81 100 08/21/16 00:00 96.1 66 20 120/82 100 08/20/16 20:18 96 08/20/16 20:00 97.5 82 18 117/76 94 08/20/16 20:00 80 08/20/16 18:00 98.2 75 20 118/77 97 08/20/16 16:00 98.7 75 17 119/83 96 08/20/16 16:00 78 08/20/16 14:00 86 I/O 08/20/16 08/20/16 08/20/16 08/21/16 08/21/16 08/21/16 07:00 15:00 23:00 07:00 15:00 23:00 Intake Total 197 ml 671 ml 78 ml 442 ml Output Total 700 ml 800 ml 800 ml Balance -503 ml -129 ml 78 ml -358 ml Intake Oral 120 ml 600 ml 360 ml IV Total 77 ml 71 ml 78 ml 82 ml Output Urine Total 700 ml 800 ml 800 ml # Bowel Movements 0 0 Result Diagram: 08/21/16 0531 08/21/16 0531 Imaging Last Impressions Spectroscopy MRI 08/19/16 0000 Signed Impressions: Service Date/Time: Friday, August 19, 2016 09:54 - CONCLUSION: Probable infarct in the right cerebellar hemisphere. Please see above discussion. Mansoor Pearce MD FACR Neck CTA 08/18/16 0600 Signed Impressions: Service Date/Time: Thursday, August 18, 2016 06:06 - CONCLUSION: Small diminutive right vertebral artery, otherwise negative. MR spectroscopy may be of benefit to evaluate the right cerebellar hemisphere lesion. Mansoor Pearce MD FACR Head CT 08/18/16 0000 Signed Impressions: Service Date/Time: Thursday, August 18, 2016 11:50 - CONCLUSION: 1. Stable low-attenuation mass or infarct in the right posterior fossa compared with August 16. No hydrocephalus. Mark Sylvester MD Head Magnetic Resonance Angiography 08/17/16 0000 Signed Impressions: Service Date/Time: August 01:27 - CONCLUSION: No acute disease. Michael Rosas Jr., MD Carotid Artery Ultrasound 08/17/16 Signed Impressions: Service Date/Time: August 11:27 - CONCLUSION: No hemodynamically significant stenosis in either carotid artery. Boby Reyes MD Brain MRI 08/17/16 Signed Impressions: Service Date/Time: August 07:56 - CONCLUSION: 1. Irregular shaped area of abnormal signal within the right cerebellar hemisphere. There is no contrast-enhancement within this. This does not follow the course of the PICA infarct. Exact etiology of this is uncertain. Primary differential consideration would be an atypical area of subacute/old infarct from a perforating vessel or possibly venous in etiology. Followup to exclude underlying lesion is warranted. Please see above. Nikos Pearce MD Chest X-Ray 08/16/162141 Signed Impressions: Service Date/Time: Tuesday, August 16, 2016 22:17 - CONCLUSION: No acute disease. Boby Reyes MD Objective Remarks GENERAL: Resting in bed, in no acute distress. SKIN: Warm and dry. HEAD: Atraumatic. Normocephalic. EYES: Pupils equal and round about 3-4 mm bilaterally and reactive. No scleral icterus. No injection or drainage. ENT: No nasal bleeding or discharge. Mucous membranes pink and moist. NECK: Trachea midline. No JVD. CARDIOVASCULAR: Regular rate and rhythm. S1, S2. No S4. RESPIRATORY: No accessory muscle use. Clear to auscultation. Breath sounds equal bilaterally. GASTROINTESTINAL: Abdomen soft, non-tender, nondistended. Hepatic and splenic margins not palpable. MUSCULOSKELETAL: Extremities without clubbing, cyanosis, or edema. No obvious deformities. NEUROLOGICAL: Strength 4/5 right upper and lower extremity. 5/5 left upper and lower extremity. Slight right facial droop. Dysarthria noted. PSYCHIATRIC: Appropriate mood and affect; insight and judgment normal. Medications and IVs Current Medications Medications (Trade) Dose Ordered Sig/Krystin Route Start Time Stop Time Status Last Admin (Narcan Inj) 0.4 mg UNSCH PRN IV 08/17/16 00:15 Labetalol HCl 10 mg 10 mg Q2H PRN IV 08/17/16 06:45 (Cardene Inj/NS 250 ml Inj) 260 ml @ 0 mls/hr TITRATE IV 08/17/16 06:45 (Lipitor) 10 mg HS PO 08/17/16 21:00 08/20/16 21:06 (NS Flush) 2 ml UNSCH PRN IV FLUSH 08/17/16 07:00 (NS Flush) 2 ml BID IV FLUSH 08/17/16 09:00 08/20/16 21:07 (Tylenol) 650 mg Q6H PRN PO 08/17/16 07:00 ([place] 5-325 Mg) 1 tab Q4H PRN PO 08/17/16 07:00 (Morphine Inj) 2 mg Q2H PRN IV 08/17/16 07:00 (Protonix Inj) 40 mg DAILY IV 08/17/16 09:00 08/21/16 09:12 (Tears Naturale Opth Soln) 1 drop TID EACH EYE 08/17/16 09:00 08/21/16 09:00 (Zofran Inj) 4 mg Q6H PRN IV 08/17/16 07:00 (Colace) 100 mg BID PO 08/17/16 09:00 08/21/16 09:12 (Senokot) 17.2 mg Q12H PRN PO 08/17/16 07:00 Miscellaneous Information 1 Q361D XX 08/17/16 07:00 08/17/16 07:00 (Chlorhexidine 2% Cloth) 3 pack Taper DAILY@04 TOP 08/18/16 04:00 08/14/17 03:59 08/19/16 04:28 Chlorhexidine Gluconate 3 pack 3 pack UNSCH PRN TOP 08/17/16 07:00 Potassium Chloride 100 ml @ 50 mls/hr Q2H PRN IV 08/17/16 07:00 (KCl 20 Meq Premix Inj) 100 ml @ 50 mls/hr Q2H PRN IV 08/17/16 07:00 Potassium Chloride 40 meq 40 meq UNSCH PRN PO/TUBE 08/17/16 07:00 Potassium Chloride 100 ml @ 25 mls/hr UNSCH PRN IV 08/17/16 07:00 Potassium Chloride 100 ml @ 50 mls/hr Q2H PRN IV 08/17/16 07:00 (Magnesium Sulfate Inj/NS Inj) 100 ml @ 50 mls/hr UNSCH PRN IV 08/17/16 07:00 Magnesium Oxide 800 mg 800 mg UNSCH PRN PO 08/17/16 07:00 (Magnesium Sulfate Inj/NS Inj) 100 ml @ 50 mls/hr UNSCH PRN IV 08/17/16 07:00 Potassium Phosphate 2000 mg 2,000 mg Q4H PRN PO 08/17/16 07:00 (Sodium Phosphate Inj/NS 250 ml Inj) 250 ml @ 42 mls/hr UNSCH PRN IV 08/17/16 07:00 (KCl 40 Meq/30 ml Liq) 40 meq UNSCH PRN PO/TUBE 08/17/16 07:00 Potassium Phosphate 2000 mg 2,000 mg UNSCH PRN PO/TUBE 08/17/16 07:00 Potassium Phosphate 30 mmol/ Sodium Chloride 260 ml @ 42 mls/hr UNSCH PRN IV 08/17/16 07:00 (Heparin-D5W Inj) 250 ml @ 0 mls/hr TITRATE IV 08/17/16 14:00 08/21/16 00:43 (Apresoline Inj) 20 mg Q4H PRN IV PUSH 08/20/16 14:45 (Nitroglycerin 2% Oint) 2 inch Q6HR PRN TOPICAL 08/20/16 14:45 (Coumadin) 10 mg DAILY@16 PO 08/21/16 16:00 UNV Hydralazine HCl 10 mg 10 mg Q8HR PRN PO 08/21/16 11:00 (Coumadin Consult Pharmacy) 0 ml @ 0 mls/hr UNSCH OTHER 08/21/16 12:15 UNV A/P Problem List: (1) CVA (cerebral vascular accident) ICD Code: I63.9 Status: Acute (2) Leukopenia ICD Code: D72.819 Status: Acute (3) Hypokalemia ICD Code: E87.6 Status: Acute (4) Acute kidney injury (nontraumatic) ICD Code: N17.9 Status: Acute (5) right cerebellar mass Status: Acute (6) Anemia ICD Code: D64.9 Status: Acute Assessment and Plan Acute CVA 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 MRI brain revealed 4.4 x 3.7 cm mass versus evolving CVA. MRA brain negative. CTA neck revealed small right vertebral artery otherwise unremarkable. MRI spectroscopy performed. Consistent with right cerebellar CVA. 2-D echo EF 65% with no valvular source of emboli. CTA head negative. Follow up CT brain was stable. Carotid Doppler negative. Appreciate neurology and neurosurgery consults. - continue heparin gtt/ Coumadin. - PT/OT/ST. - continue statin. Acute kidney injury Resolved with IVFs. - Avoid nephrotoxic medications. Leukopenia/ Anemia MCV within normal limits. Pt is afebrile. - CBC with diff in AM. - check B12, folate, iron studies and Hemoccult. PPx: Heparin gtt/ Coumadin. Discharge Planning D/c to rehab when INR therapeutic per NS. Problem Qualifiers (1) CVA (cerebral vascular accident): Qualified Code: I63.531 - Cerebrovascular accident (CVA) due to occlusion of right posterior cerebral artery (2) Leukopenia: Qualified Code: D72.819 - Leukopenia, unspecified type (3) Anemia: Qualified Code: D64.9 - Anemia, unspecified type Ryland Centeno DO Aug 21, 2016 12:17
[2016-08-21 12:25] LABS: INTERNATIONAL NORMALIZED RATIO 1.1 RATIO; PROTHROMBIN TIME - PATIENT 11.7 SEC (9.8-11.6)
[2016-08-21] MEDS: WARFARIN SOD 10 MG TAB PO SCH (16:02)
[2016-08-21 16:21] LABS: TRANSFERRIN IRON PROFILE 173 MG/DL (200-360)
[2016-08-21 17:56] LABS: THROMBIN TIME FOR LA ND sec (13-19)
[2016-08-21] MEDS: ATORVASTATIN 10 MG TAB PO SCH (21:13)
[2016-08-22] VITALS (7 sets, daily range): BP systolic 110–128; BP diastolic 74–87; PULSE 58–88; RESP 17–18; TEMP 98.1–99.4; O2SAT 95–98
[2016-08-22] MEDS: CHLORHEXIDINE GLUCONATE 2 % 1 PACK (2 CLOTHS) TOP SCH (03:38)
[2016-08-22] MEDS: PANTOPRAZOLE SODIUM 40 MG VIAL IV SCH (08:27)
[2016-08-22] MEDS: SODIUM CHLORIDE 0.9% FLUSH 5 ML FLUSH IV FLUSH SCH ×2 (08:30→21:00)
[2016-08-22] MEDS: DOCUSATE SODIUM 100 MG CAP PO SCH ×2 (08:30→21:26)
--- NOTE | 2016-08-22 08:36 | HHI.PR ---
Review/Management Diagnosis Right cerebellar cva --exam is stable Plan Dr Yang to resume care tomorrow Diagnosis/Plan: (1) CVA (cerebral vascular accident) Daily Summary appears unchanged was not interested in participating on the exam this evening, then spoke with his RN studies seen we could obtain MR spectroscopy as suggested by brad continue heparin pending hypercoag screen i will ask dr Oakley to follow him over weekend 08/22/16 feels he is getting better slowly family at bedside inr pending today coumadin in progress rehab when inr in range 2-3 follow up mri in 6 weeks Subjective Subjective Comments No acute events reported No headache No chest pain No dyspnea Active Medications Current Medications Medications (Trade) Dose Ordered Sig/Krystin Route Start Time Stop Time Status Last Admin (Narcan Inj) 0.4 mg UNSCH PRN IV 08/17/16 00:15 Labetalol HCl 10 mg 10 mg Q2H PRN IV 08/17/16 06:45 (Cardene Inj/NS 250 ml Inj) 260 ml @ 0 mls/hr TITRATE IV 08/17/16 06:45 (Lipitor) 10 mg HS PO 08/17/16 21:00 08/21/16 21:13 (NS Flush) 2 ml UNSCH PRN IV FLUSH 08/17/16 07:00 (NS Flush) 2 ml BID IV FLUSH 08/17/16 09:00 08/22/16 08:30 (Tylenol) 650 mg Q6H PRN PO 08/17/16 07:00 ([place] 5-325 Mg) 1 tab Q4H PRN PO 08/17/16 07:00 (Morphine Inj) 2 mg Q2H PRN IV 08/17/16 07:00 (Protonix Inj) 40 mg DAILY IV 08/17/16 09:00 08/22/16 08:27 (Tears Naturale Opth Soln) 1 drop TID EACH EYE 08/17/16 09:00 08/21/16 09:00 (Zofran Inj) 4 mg Q6H PRN IV 08/17/16 07:00 (Colace) 100 mg BID PO 08/17/16 09:00 08/22/16 08:30 (Senokot) 17.2 mg Q12H PRN PO 08/17/16 07:00 Miscellaneous Information 1 Q361D XX 08/17/16 07:00 08/17/16 07:00 (Chlorhexidine 2% Cloth) 3 pack Taper DAILY@04 TOP 08/18/16 04:00 08/14/17 03:59 08/19/16 04:28 Chlorhexidine Gluconate 3 pack 3 pack UNSCH PRN TOP 08/17/16 07:00 (Heparin-D5W Inj) 250 ml @ 0 mls/hr TITRATE IV 08/17/16 14:00 08/21/16 23:51 (Apresoline Inj) 20 mg Q4H PRN IV PUSH 08/20/16 14:45 (Nitroglycerin 2% Oint) 2 inch Q6HR PRN TOPICAL 08/20/16 14:45 (Coumadin) 10 mg DAILY@16 PO 08/21/16 16:00 08/21/16 16:02 Hydralazine HCl 10 mg 10 mg Q8HR PRN PO 08/21/16 11:00 (Coumadin Consult Pharmacy) 0 ml @ 0 mls/hr UNSCH OTHER 08/21/16 12:15 Allergies Allergies Coded Allergies No Known Allergies (Unverified08/16/16) Exam I&O / VS 08/21/16 08/21/16 08/22/16 15:00 23:00 07:00 Intake Total 480 ml 116 ml Output Total 950 ml 1100 ml Balance -470 ml -984 ml Intake Oral 480 ml IV Total 116 ml Output Urine Total 950 ml 1100 ml # Bowel Movements 0 Vital Signs Date Time Temp Pulse Resp B/P Pulse Ox O2 Delivery O2 Flow Rate FiO2 08/22/16 04:00 98.3 58 18 126/83 96 08/22/16 01:00 98.9 76 18 116/74 95 08/21/16 20:00 77 08/21/16 20:00 99.5 86 20 114/66 95 08/21/16 16:11 99.1 88 18 109/68 98 08/21/16 12:00 98.6 85 18 118/75 99 Objective Micro and Labs Laboratory Tests Test 08/21/16 11:50 Prothrombin Time 11.7 Prothromb Time International 1.1 Ratio Problem Qualifiers (1) CVA (cerebral vascular accident): Qualified Code: I63.531 - Cerebrovascular accident (CVA) due to occlusion of right posterior cerebral artery Daphney Yang MD Aug 22, 2016 08:35
[2016-08-22] MEDS: ARTIFICIAL TEARS OPTH SOLN 15 ML BTL EACH EYE SCH ×2 (09:00→18:20)
[2016-08-22 09:37] LABS: AUTOMATED NEUTROPHIL # 1.4 TH/MM3 (1.8-7.7); BASOPHIL % 0.2 % (0.0-2.0); EOSINOPHIL # 0.1 TH/MM3 (0-0.4); EOSINOPHIL % 6.2 % (0.0-4.0); HEMATOCRIT 32.9 % (39.0-51.0); HEMO FLAGS DIFF FINAL; LYMPH % 27.6 % (9.0-44.0); LYMPHOCYTE # 0.7 TH/MM3 (1.0-4.8); MEAN CELL VOLUME 90.8 FL (80.0-100.0); MEAN CORPUSCULAR HEMOGLOBIN 29.7 PG (27.0-34.0); MEAN CORPUSCULAR HGB CONC 32.7 % (32.0-36.0); MONO % 8.7 % (0.0-8.0); NEUT % 57.3 % (16.0-70.0); PLATELET COUNT 188 TH/MM3 (150-450); RED BLOOD COUNT 3.63 MIL/MM3 (4.50-5.90); RED CELL DISTRIBUTION WIDTH 14.7 % (11.6-17.2); WHITE BLOOD COUNT 2.4 TH/MM3 (4.0-11.0)
[2016-08-22 09:49] LABS: APTT (PATIENT) 65.3 SEC (24.3-30.1)
[2016-08-22 10:02] LABS: INTERNATIONAL NORMALIZED RATIO 1.1 RATIO; PROTHROMBIN TIME - PATIENT 11.9 SEC (9.8-11.6)
--- NOTE | 2016-08-22 14:11 | HHI.PR ---
Subjective Remarks Follow up CVA. Patient without complaints today. No pain, dyspnea, nausea, vomiting. Objective Vitals Vital Signs Date Time Temp Pulse Resp B/P Pulse Ox O2 Delivery O2 Flow Rate FiO2 08/22/16 12:00 98.5 74 17 128/87 96 08/22/16 08:00 98.1 72 17 123/78 98 08/22/16 04:00 98.3 58 18 126/83 96 08/22/16 01:00 98.9 76 18 116/74 95 08/21/16 20:00 77 08/21/16 20:00 99.5 86 20 114/66 95 08/21/16 16:11 99.1 88 18 109/68 98 I/O 08/21/16 08/21/16 08/21/16 08/22/16 08/22/16 08/22/16 07:00 15:00 23:00 07:00 15:00 23:00 Intake Total 442 ml 480 ml 116 ml Output Total 800 ml 950 ml 1100 ml Balance -358 ml -470 ml -984 ml Intake Oral 360 ml 480 ml IV Total 82 ml 116 ml Output Urine Total 800 ml 950 ml 1100 ml # Bowel Movements 0 Result Diagram: 08/22/16 0740 08/21/16 0531 Imaging Last Impressions Spectroscopy MRI 08/19/16 0000 Signed Impressions: Service Date/Time: Friday, August 19, 2016 09:54 - CONCLUSION: Probable infarct in the right cerebellar hemisphere. Please see above discussion. Mansoor Pearce MD FACR Neck CTA 08/18/16 0600 Signed Impressions: Service Date/Time: Thursday, August 18, 2016 06:06 - CONCLUSION: Small diminutive right vertebral artery, otherwise negative. MR spectroscopy may be of benefit to evaluate the right cerebellar hemisphere lesion. Mansoor Pearce MD FACR Head CT 08/18/16 0000 Signed Impressions: Service Date/Time: Thursday, August 18, 2016 11:50 - CONCLUSION: 1. Stable low-attenuation mass or infarct in the right posterior fossa compared with August 16. No hydrocephalus. Mark Sylvester MD Head Magnetic Resonance Angiography 08/17/16 0000 Signed Impressions: Service Date/Time: August 01:27 - CONCLUSION: No acute disease. Michael Rosas Jr., MD Carotid Artery Ultrasound 08/17/16 0000 Signed Impressions: Service Date/Time: August 11:27 - CONCLUSION: No hemodynamically significant stenosis in either carotid artery. Boby Reyes MD Brain MRI 08/17/16 0000 Signed Impressions: Service Date/Time: August 07:56 - CONCLUSION: 1. Irregular shaped area of abnormal signal within the right cerebellar hemisphere. There is no contrast-enhancement within this. This does not follow the course of the PICA infarct. Exact etiology of this is uncertain. Primary differential consideration would be an atypical area of subacute/old infarct from a perforating vessel or possibly venous in etiology. Followup to exclude underlying lesion is warranted. Please see above. Nikos Pearce MD Chest X-Ray 08/16/162141 Signed Impressions: Service Date/Time: Tuesday, August 16, 2016 22:17 - CONCLUSION: No acute disease. Boby Reyes MD Objective Remarks General: No acute distress. Speech is somewhat slurred. Mild right facial droop. Heart: Regular rate and rhythm. No murmur. Lungs: Clear to auscultation bilaterally. No wheezes, rales, or rhonchi. Breathing is nonlabored. Abdomen: Soft, nontender, nondistended. Extremities: No lower extremity edema. Weakness noted in right upper and right lower extremities. Psych: Alert and oriented. Urinary Catheter: No Vascular Central Line Catheter: No A/P Problem List: (1) CVA (cerebral vascular accident) ICD Code: I63.9 Status: Acute (2) Leukopenia ICD Code: D72.819 Status: Acute (3) Hypokalemia ICD Code: E87.6 Status: Acute (4) Acute kidney injury (nontraumatic) ICD Code: N17.9 Status: Acute (5) right cerebellar mass Status: Acute (6) Anemia ICD Code: D64.9 Status: Acute Assessment and Plan 1. Acute CVA: MRI spectroscopy performed. Consistent with right cerebellar CVA. CT of the neck revealed small right vertebral artery, otherwise unremarkable. CTA of the head is negative. 2-D echocardiogram showed ejection fraction of 65% . Appreciate neurology and neurosurgery recommendations. Patient on heparin drip bridging to therapeutic INR with Coumadin. Goal INR 2-3. 2. Acute kidney injury: Resolved. 3. Leukopenia, anemia: Appears to be iron deficiency anemia. Supplement ferrous sulfate. 4. DVT prophylaxis: Heparin/Coumadin. Discharge Planning Plan to discharge to rehabilitation when INR is therapeutic. Problem Qualifiers (1) CVA (cerebral vascular accident): Qualified Code: I63.531 - Cerebrovascular accident (CVA) due to occlusion of right posterior cerebral artery (2) Leukopenia: Qualified Code: D72.819 - Leukopenia, unspecified type (3) Anemia: Qualified Code: D64.9 - Anemia, unspecified type Tony Lima MD Aug 22, 2016 14:11
[2016-08-22] MEDS ORDERED: WARFARIN SOD 2 MG TAB PO SCH (16:00)
[2016-08-22] MEDS: WARFARIN SOD 10 MG TAB PO SCH (18:21)
[2016-08-22] MEDS: ATORVASTATIN 10 MG TAB PO SCH (21:26)
[2016-08-22] MEDS: HEPARIN-D5W INJ 250 ML IV SCH (23:30)
[2016-08-23 01:00] VITALS: BP 126/86; PULSE 78; RESP 20; TEMP 96.5; O2SAT 95
[2016-08-23] MEDS: CHLORHEXIDINE GLUCONATE 2 % 1 PACK (2 CLOTHS) TOP SCH (02:43)
[2016-08-23 03:50] LABS: PHOSPHATIDYLSERINE AB IGA LESS THAN 20.0 U/mL (()); PHOSPHATIDYLSERINE AB IGM LESS THAN 25.0 U/mL (())
[2016-08-23 04:00] VITALS: BP 131/87; PULSE 74; RESP 18; TEMP 97.5; O2SAT 95
[2016-08-23 07:07] LABS: APTT (PATIENT) 82.6 SEC (24.3-30.1)
[2016-08-23 07:14] LABS: INTERNATIONAL NORMALIZED RATIO 1.3 RATIO; PROTHROMBIN TIME - PATIENT 15.1 SEC (9.8-11.6)
[2016-08-23 08:00] VITALS: BP 127/82; PULSE 76; RESP 22; TEMP 98.2; O2SAT 96
[2016-08-23] MEDS: ARTIFICIAL TEARS OPTH SOLN 15 ML BTL EACH EYE SCH (09:00)
[2016-08-23] MEDS: SODIUM CHLORIDE 0.9% FLUSH 5 ML FLUSH IV FLUSH SCH (09:33)
[2016-08-23] MEDS: DOCUSATE SODIUM 100 MG CAP PO SCH (09:33)
[2016-08-23] MEDS: PANTOPRAZOLE SODIUM 40 MG VIAL IV SCH (09:33)
--- NOTE | 2016-08-23 10:33 | HHI.NSPN ---
History Chief Complaint: no headache Interval History Remains alert but has significant dysarthria. He is agreeable to coumadin. The heparin was stopped for PTT over 80. He is stable clinically Review of Systems General: Negative for: fever, chills, insomnia Cardiovascular: Negative for: chest pain, palpitations, orthopnea Gastrointestinal: Negative for: nausea, vomitting, diarrhea, constipation Exam Results Vital Signs Date Time Temp Pulse Resp B/P Pulse Ox O2 Delivery O2 Flow Rate FiO2 08/23/16 08:00 98.2 76 22 127/82 96 08/20/16 08:02 21 08/20/16 07:00 Room Air Intake and Output 08/22/16 08/22/16 08/22/16 07:59 15:59 23:59 Intake Total 116 ml 120 ml Output Total 1100 ml 350 ml Balance -984 ml -230 ml Physical Examination Awake and alert . Dysarthria but intelligible Extraocular movements intact with difficulty with smooth pursuit on the right. denies diplopia Facial motor symmetric Initial sensory intact Visual rouse to confrontation intact Sensation intact to light touch upper extremities Strength normal major flexion and extension groups upper extremities, poor balance and right dysmetria persists. 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 Follow up MRI of the brain in 2 months is planned after rehab. Total Minutes: 10 Jason Cedeño Aug 23, 2016 10:33
--- NOTE | 2016-08-23 10:58 | HHI.PR ---
Subjective Remarks Follow up CVA. No complaints at this time. Off heparin drip. Objective Vitals Vital Signs Date Time Temp Pulse Resp B/P Pulse Ox O2 Delivery O2 Flow Rate FiO2 08/23/16 08:00 98.2 76 22 127/82 96 08/23/16 04:00 97.5 74 18 131/87 95 08/23/16 01:00 96.5 78 20 126/86 95 08/22/16 20:00 99.4 86 18 110/77 95 08/22/16 19:19 82 08/22/16 16:00 98.6 88 18 120/79 95 08/22/16 12:00 98.5 74 17 128/87 96 I/O 08/22/16 08/22/16 08/22/16 08/23/16 08/23/16 08/23/16 07:00 15:00 23:00 07:00 15:00 23:00 Intake Total 116 ml 120 ml 132 ml Output Total 1100 ml 350 ml 400 ml Balance -984 ml -230 ml -268 ml Intake Oral 120 ml IV Total 116 ml 132 ml Output Urine Total 1100 ml 350 ml 400 ml # Voids 3 # Bowel Movements 0 Result Diagram: 08/22/16 0740 08/21/16 0531 Imaging Last Impressions Spectroscopy MRI 08/19/16 0000 Signed Impressions: Service Date/Time: Friday, August 19, 2016 09:54 - CONCLUSION: Probable infarct in the right cerebellar hemisphere. Please see above discussion. Mansoor Pearce MD FACR Neck CTA 08/18/16 0600 Signed Impressions: Service Date/Time: Thursday, August 18, 2016 06:06 - CONCLUSION: Small diminutive right vertebral artery, otherwise negative. MR spectroscopy may be of benefit to evaluate the right cerebellar hemisphere lesion. Mansoor Pearce MD FACR Head CT 08/18/16 0000 Signed Impressions: Service Date/Time: Thursday, August 18, 2016 11:50 - CONCLUSION: 1. Stable low-attenuation mass or infarct in the right posterior fossa compared with August 16. No hydrocephalus. Mark Sylvester MD Head Magnetic Resonance Angiography 08/17/16 0000 Signed Impressions: Service Date/Time: August 01:27 - CONCLUSION: No acute disease. Michael Rosas Jr., MD Carotid Artery Ultrasound 08/17/16 0000 Signed Impressions: Service Date/Time: August 11:27 - CONCLUSION: No hemodynamically significant stenosis in either carotid artery. Boby Reyes MD Brain MRI 08/17/16 0000 Signed Impressions: Service Date/Time: August 07:56 - CONCLUSION: 1. Irregular shaped area of abnormal signal within the right cerebellar hemisphere. There is no contrast-enhancement within this. This does not follow the course of the PICA infarct. Exact etiology of this is uncertain. Primary differential consideration would be an atypical area of subacute/old infarct from a perforating vessel or possibly venous in etiology. Followup to exclude underlying lesion is warranted. Please see above. Nikos Pearce MD Chest X-Ray 08/16/162141 Signed Impressions: Service Date/Time: Tuesday, August 16, 2016 22:17 - CONCLUSION: No acute disease. Boby Reyes MD Objective Remarks General: No acute distress. Speech is somewhat slurred. Mild right facial droop. Heart: Regular rate and rhythm. No murmur. Lungs: Clear to auscultation bilaterally. No wheezes, rales, or rhonchi. Breathing is nonlabored. Abdomen: Soft, nontender, nondistended. Extremities: No lower extremity edema. Weakness noted in right upper and right lower extremities. Psych: Sleeping, but awakens and answers questions. Procedures None Urinary Catheter: No Vascular Central Line Catheter: No A/P Problem List: (1) CVA (cerebral vascular accident) ICD Code: I63.9 Status: Acute (2) Leukopenia ICD Code: D72.819 Status: Acute (3) Hypokalemia ICD Code: E87.6 Status: Acute (4) Acute kidney injury (nontraumatic) ICD Code: N17.9 Status: Acute (5) right cerebellar mass Status: Acute (6) Anemia ICD Code: D64.9 Status: Acute Assessment and Plan 1. Acute CVA: MRI spectroscopy performed. Consistent with right cerebellar CVA. CT of the neck revealed small right vertebral artery, otherwise unremarkable. CTA of the head is negative. 2-D echocardiogram showed ejection fraction of 65% . Appreciate neurology and neurosurgery recommendations. Continue Coumadin. Goal INR 2-3. Will clarify with neurosurgery need for bridging with heparin. 2. Acute kidney injury: Resolved. 3. Leukopenia, anemia: Labs are stable. 4. DVT prophylaxis: Coumadin. Discharge Planning Plan to discharge to [facility], possibly today if OK with neurosurgery. Problem Qualifiers (1) CVA (cerebral vascular accident): Qualified Code: I63.531 - Cerebrovascular accident (CVA) due to occlusion of right posterior cerebral artery (2) Leukopenia: Qualified Code: D72.819 - Leukopenia, unspecified type (3) Anemia: Qualified Code: D64.9 - Anemia, unspecified type Tony Lima MD Aug 23, 2016 10:57
[2016-08-23 12:00] VITALS: BP 135/91; PULSE 79; RESP 21; TEMP 98.9; O2SAT 95
[2016-08-23] MEDS ORDERED: DOCU1CAP39 PO (13:43)
[2016-08-23] MEDS ORDERED: COUM10TA PO (13:43)
--- NOTE | 2016-08-23 13:44 | HHI.DCPOC ---
Discharge Care Plan Diagnosis: (1) Leukopenia (2) CVA (cerebral vascular accident) (3) Hypokalemia (4) Acute kidney injury (nontraumatic) (5) Anemia Goals to Promote Your Health * To prevent worsening of your condition and complications * To maintain your health at the optimal level Directions to Meet Your Goals Take your medications as prescribed Follow your dietary instruction Follow activity as directed Keep your appointments as scheduled Take your immunizations and boosters as scheduled If your symptoms worsen call your PCP, if no PCP go to Urgent Care Center or Emergency Room Smoking is Dangerous to Your Health. Avoid second hand smoke Call the 24-hour hour crisis hotline for domestic abuse at Tony Lima MD Aug 23, 2016 13:44
--- NOTE | 2016-08-23 13:50 | HHI.DS ---
cc: Shon Gonzáles III, MD Discharge Summary Admission Date Aug 16, 2016 at 23:46 Discharge Date: Aug 23, 2016 Admitting Diagnosis CVA (1) CVA (cerebral vascular accident) ICD Code: I63.9 Diagnosis: Principal (2) Leukopenia ICD Code: D72.819 (3) Hypokalemia ICD Code: E87.6 (4) Acute kidney injury (nontraumatic) ICD Code: N17.9 (5) Anemia ICD Code: D64.9 Procedures None Brief History - From Admission This is a 51-year-old AA male. Date of admission 08/17/2016. Past medical history includes dyslipidemia. Patient presented today to [facility] today with prior history of CVA? With worsening symptomatology including right upper and lower extremity weakness and ataxia the right upper and lower extremity with gait imbalance disorder patient originally noticed acute onset of right lower extremity weakness at [facility]. He at that time presented to [facility] where a CT scan of the head was performed. Per patient, no acute abnormality is right identified. He was discharged home and was asked to follow up with neurology as an outpatient. Patient followed up with Dr. Tillman and 2 days ago there was an MRI of his brain done in his office. Patient was told by Dr. Tillman that he had suffered a stroke. He gave him aspirin 325 mg daily to take. His primary care has recommended him to come to the emergency room and get admitted. Vital signs were otherwise stable. Patient is talking and answering questions appropriately and following commands. has the disc of the MRI that was done at Dr. Tillman's office 2 days ago but there is no report attached with it. At [facility], CT head revealed ill-defined mass in the right cerebellar region. Recommend MRI/MRA follow. 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 MRA negative. On examination patient with slight right upper and lower extremity motor weakness no pronator drift. Some dysarthria. No gaze preference. Right upper extremity ataxia. Falls to the right with ambulation. Neurosurgery was consulted and recommended heparin drip/no bolus after failing aspirin as an outpatient. Neurology consulted and will see the patient prior to initiation of heparin drip. CBC/BMP: 08/22/16 0740 08/21/16 0531 Significant Findings Laboratory Tests Test 08/20/16 08/20/16 08/21/16 08/21/16 15:28 22:48 05:31 11:50 Activated Partial 31.3 SEC 60.5 SEC 65.3 SEC Thromboplast Time (24.3-30.1) (24.3-30.1) (24.3-30.1) White Blood Count 2.9 TH/MM3 (4.0-11.0) Red Blood Count 3.44 MIL/MM3 (4.50-5.90) Hemoglobin 10.5 GM/DL (13.0-17.0) Hematocrit 31.0 % (39.0-51.0) Chloride Level 108 MEQ/L (98-107) Iron Level 54 MCG/DL (65-175) Total Iron Binding Capacity 242 MCG/DL (250-450) Transferrin 173 MG/DL (200-360) Folate 17.6 NG/ML (3.1-17.5) Prothrombin Time 11.7 SEC (9.8-11.6) Test 08/22/16 08/23/16 07:40 06:26 White Blood Count 2.4 TH/MM3 (4.0-11.0) Red Blood Count 3.63 MIL/MM3 (4.50-5.90) Hemoglobin 10.8 GM/DL (13.0-17.0) Hematocrit 32.9 % (39.0-51.0) Monocytes (%) (Auto) 8.7 % (0.0-8.0) Eosinophils (%) (Auto) 6.2 % (0.0-4.0) Neutrophils # (Auto) 1.4 TH/MM3 (1.8-7.7) Lymphocytes # (Auto) 0.7 TH/MM3 (1.0-4.8) Prothrombin Time 11.9 SEC 15.1 SEC (9.8-11.6) (9.8-11.6) Activated Partial 65.3 SEC 82.6 SEC Thromboplast Time (24.3-30.1) (24.3-30.1) Imaging Last Impressions Spectroscopy MRI 08/19/16 0000 Signed Impressions: Service Date/Time: Friday, August 19, 2016 09:54 - CONCLUSION: Probable infarct in the right cerebellar hemisphere. Please see above discussion. Mansoor Pearce MD FACR Neck CTA 08/18/16 0600 Signed Impressions: Service Date/Time: Thursday, August 18, 2016 06:06 - CONCLUSION: Small diminutive right vertebral artery, otherwise negative. MR spectroscopy may be of benefit to evaluate the right cerebellar hemisphere lesion. Mansoor Pearce MD FACR Head CT 08/18/16 0000 Signed Impressions: Service Date/Time: Thursday, August 18, 2016 11:50 - CONCLUSION: 1. Stable low-attenuation mass or infarct in the right posterior fossa compared with August 16. No hydrocephalus. Mark Sylvester MD Head Magnetic Resonance Angiography 08/17/16 0000 Signed Impressions: Service Date/Time: August 01:27 - CONCLUSION: No acute disease. Michael Rosas Jr., MD Carotid Artery Ultrasound 08/17/16 0000 Signed Impressions: Service Date/Time: August 11:27 - CONCLUSION: No hemodynamically significant stenosis in either carotid artery. Boby Reyes MD Brain MRI 08/17/16 0000 Signed Impressions: Service Date/Time: August 07:56 - CONCLUSION: 1. Irregular shaped area of abnormal signal within the right cerebellar hemisphere. There is no contrast-enhancement within this. This does not follow the course of the PICA infarct. Exact etiology of this is uncertain. Primary differential consideration would be an atypical area of subacute/old infarct from a perforating vessel or possibly venous in etiology. Followup to exclude underlying lesion is warranted. Please see above. Nikos Pearce MD Chest X-Ray [id number]/[id number] Signed Impressions: Service Date/Time: Tuesday, August 16, 2016 22:17 - CONCLUSION: No acute disease. Boby Reyes MD PE at Discharge General: No acute distress. Speech is somewhat slurred. Mild right facial droop. Heart: Regular rate and rhythm. No murmur. Lungs: Clear to auscultation bilaterally. No wheezes, rales, or rhonchi. Breathing is nonlabored. Abdomen: Soft, nontender, nondistended. Extremities: No lower extremity edema. Weakness noted in right upper and right lower extremities. Psych: Sleeping, but awakens and answers questions. Hospital Course The patient was admitted to ICU on the critical care service for management of CVA and possible cerebellar mass. Neurosurgery and neurology were consulted. The patient was started on heparin drip and Coumadin. PT/OT/ST were continued. Arrangements were made by case management for the patient to be discharged to [facility]. Heparin drip was discontinued by neurosurgery. He was cleared by neurosurgery for discharge on Coumadin. Pt Condition on Discharge: Stable Discharge Disposition: Rehab Inpatient Discharge Time: <= 30 minutes Discharge Instructions DIET: Follow Instructions for: As Tolerated, No Restrictions Activities you can perform: See Additionl Instruction Other Activity Instructions: With assistance Follow up Referrals: Neurology - 2 Weeks with Daphney Yang MD Neurosurgery - 2 Months @ [facility] P[facility] Follow-up - 2 Weeks New Orders: PT/INR - Next Day New Medications: Docusate Sodium (Dok) 100 Mg Cap 100 MG PO BID Constipation Days 10 CAP Warfarin (Coumadin) 10 Mg Tab 10 MG PO DAILY@16 Stroke Prevention #30 TAB Continued Medications: Atorvastatin (Lipitor) 10 Mg Tab 10 MG PO HS Cholesterol Management #30 Ref 0 TAB Discontinued Medications: Aspirin (Aspirin) 325 Mg Tab 325 MG PO DAILY #30 Ref 0 TAB Tony Lima MD Aug 23, 2016 13:50
[2016-08-23] MEDS ORDERED: WARFARIN SOD 2 MG TAB PO SCH (16:00)
[2016-09-03] MEDS ORDERED: SODIUM CHLOR 0.9% 1000 ML INJ 1,000 ML IV SCH (10:22)
[2016-09-03] MEDS ORDERED: POTASSIUM PHOSPHATE INJ 30 MMOL in SODIUM CHLOR 0.9% 250 ML INJ 250 ML IV PRN (10:30)
[2016-09-03] MEDS ORDERED: SODIUM PHOSPHATE INJ 30 MMOL in SODIUM CHLOR 0.9% 250 ML INJ 240 ML IV PRN (10:30)
[2016-09-03] MEDS ORDERED: MAGNESIUM OXIDE 400 MG TAB PO PRN (10:30)
[2016-09-03] MEDS ORDERED: POTASSIUM CL 40 MEQ/30 ML LIQ UDC PO/TUBE PRN ×2 (10:30)
[2016-09-03] MEDS ORDERED: MISCELLANEOUS NURSING INFORMATION XX SCH (10:30)
[2016-09-03] MEDS ORDERED: POTASSIUM CHLOR 40 MEQ PREMIX 100 ML IV PRN ×2 (10:30)
[2016-09-03] MEDS ORDERED: CHLORHEXIDINE GLUCONATE 2 % 1 PACK (2 CLOTHS) TOP PRN (10:30)
[2016-09-03] MEDS ORDERED: MAGNESIUM SULFATE INJ 4 GM in SODIUM CHLORIDE 0.9% INJ 92 ML IV PRN (10:30)
[2016-09-03] MEDS ORDERED: GLUCAGON 1 MG/ML VIAL OTHER PRN (10:30)
[2016-09-03] MEDS ORDERED: POTASSIUM CHLOR 20 MEQ PREMIX 100 ML IV PRN ×2 (10:30)
[2016-09-03] MEDS ORDERED: ONDANSETRON HCL 4 MG/2 ML VIAL IV PRN (10:30)
[2016-09-03] MEDS ORDERED: SODIUM CHLORIDE 0.9% FLUSH 5 ML FLUSH IV FLUSH PRN (10:30)
[2016-09-03] MEDS ORDERED: DEXTROSE 50% IN WATER 50 ML VIAL(D50) IV PUSH PRN (10:30)
[2016-09-03] MEDS ORDERED: POTASSIUM PHOSPHATE MONOBASIC 500 MG TAB PO/TUBE PRN (10:30)
[2016-09-03] MEDS ORDERED: MAGNESIUM SULFATE INJ 2 GM in SODIUM CHLORIDE 0.9% INJ 96 ML IV PRN (10:30)
[2016-09-03] MEDS ORDERED: POTASSIUM PHOSPHATE MONOBASIC 500 MG TAB PO PRN (10:30)
[2016-09-03] MEDS ORDERED: RESP: ALBUTEROL 2.5 MG/IPRATROPIUM 0.5 MG NEB (PRN) INH (10:30)
[2016-09-03] MEDS ORDERED: INSULIN NovoLIN REGULAR SUPPLEMENTAL SCALE SQ SCH (11:00)
[2016-09-03] MEDS ORDERED: SODIUM CHLORIDE 0.9% FLUSH 5 ML FLUSH IV FLUSH SCH (21:00)
[2016-09-04] MEDS ORDERED: CHLORHEXIDINE GLUCONATE 2 % 1 PACK (2 CLOTHS) TOP SCH (04:00)
[2016-09-04] MEDS ORDERED: PANTOPRAZOLE SODIUM 40 MG VIAL IV SCH (09:00)
== END 2016-08-23 16:42 | DRG 65 ==
LOC: NEPE 17:20 → NEDA 23:46 → NEDH 08-17 04:05 → NEDA 08-17 10:19 → NEDH 08-17 10:32 → N03B 08-17 20:32 → N05A 08-20 16:55
PROVIDERS: ADMIT Internal Medicine Critical Care Medicine; ATTEND Family Medicine
DX: I63.531 Cerebral infarction due to unspecified occlusion or stenosis of right posterior cerebral artery (principal); G81.91 Hemiplegia, unspecified affecting right dominant side; N17.9 Acute kidney failure, unspecified; G93.89 Other specified disorders of brain; I10 Essential (primary) hypertension; R47.1 Dysarthria and anarthria; E78.5 Hyperlipidemia, unspecified; E87.6 Hypokalemia; D64.9 Anemia, unspecified; D72.819 Decreased white blood cell count, unspecified
CPT/HCPCS: 70450; 70498; 70544; 70551; 70553; 71010; 76390; 80048; 80053; 80061; 81001; 81240; 81241; 81291; 82550; 82607; 82746; 82948; 83036; 83090; 83540; 83550; 83735; 84100; 84466; 84484; 85025; 85027; 85240; 85300; 85303; 85306; 85307; 85610; 85613; 85730; 86146; 86147; 86148; 87641; 93005; 93306; 93880; 94150; A9579; C9113; J0171; J0461; J1644; J1650; J3475; J3480; J7030; Q9967

== ENCOUNTER 2016-09-03 09:09 | Inpatient (IN) | payer OTHER ==
[2016-09-03] VITALS (10 sets, daily range): BP systolic 123; BP diastolic 76–81; PULSE 74–81; RESP 17–20; TEMP 98.6–98.9; O2SAT 97–99
[~2016-09-03 09:09] MED LIST: COUM10TA PO; DOCU1CAP39 PO; LIPI10TA PO
[2016-09-03] MEDS: SODIUM CHLOR 0.9% 1000 ML INJ 1,000 ML IV SCH ×3 (10:34→22:29)
[2016-09-03] MEDS ORDERED: POTASSIUM PHOSPHATE INJ 30 MMOL in SODIUM CHLOR 0.9% 250 ML INJ 250 ML IV PRN (10:45)
[2016-09-03] MEDS ORDERED: POTASSIUM CHLOR 20 MEQ PREMIX 100 ML IV PRN ×2 (10:45)
[2016-09-03] MEDS ORDERED: SODIUM CHLORIDE 0.9% FLUSH 5 ML FLUSH IV FLUSH PRN (10:45)
[2016-09-03] MEDS ORDERED: MAGNESIUM SULFATE INJ 2 GM in SODIUM CHLORIDE 0.9% INJ 96 ML IV PRN (10:45)
[2016-09-03] MEDS ORDERED: SODIUM PHOSPHATE INJ 30 MMOL in SODIUM CHLOR 0.9% 250 ML INJ 240 ML IV PRN (10:45)
[2016-09-03] MEDS ORDERED: POTASSIUM CL 40 MEQ/30 ML LIQ UDC PO/TUBE PRN ×2 (10:45)
[2016-09-03] MEDS ORDERED: RESP: ALBUTEROL 2.5 MG/IPRATROPIUM 0.5 MG NEB (PRN) INH (10:45)
[2016-09-03] MEDS ORDERED: POTASSIUM CHLOR 40 MEQ PREMIX 100 ML IV PRN ×2 (10:45)
[2016-09-03] MEDS ORDERED: ONDANSETRON HCL 4 MG/2 ML VIAL IV PRN (10:45)
[2016-09-03] MEDS ORDERED: CHLORHEXIDINE GLUCONATE 2 % 1 PACK (2 CLOTHS) TOP PRN (10:45)
[2016-09-03] MEDS ORDERED: POTASSIUM PHOSPHATE MONOBASIC 500 MG TAB PO/TUBE PRN (10:45)
[2016-09-03] MEDS ORDERED: MISCELLANEOUS NURSING INFORMATION XX SCH (10:45)
[2016-09-03] MEDS ORDERED: MAGNESIUM SULFATE INJ 4 GM in SODIUM CHLORIDE 0.9% INJ 92 ML IV PRN (10:45)
[2016-09-03] MEDS ORDERED: POTASSIUM PHOSPHATE MONOBASIC 500 MG TAB PO PRN (10:45)
[2016-09-03] MEDS ORDERED: MAGNESIUM OXIDE 400 MG TAB PO PRN (10:45)
--- NOTE | 2016-09-03 11:44 | HHI.HP ---
[facility] Service Critical Care Medicine Primary Care Physician Shon Gonzáles III, MD Admission Diagnosis Diagnosis: Chief Complaint: Altered mental status Travel History International Travel<30 Days: No Contact w/Intl Traveler <30 Da: No Traveled to Known Affected Are: No Sepsis Criteria SIRS Criteria (2 or more): Temp > 100.9 or < 96.8 History of Present Illness This is a 51-year-old male status post CVA with a sterile cerebellar hemispheric infarct on August 17, 2016 secondary to ischemic stroke. The patient was placed on heparin and transitioned to Coumadin. The patient was subsequently transferred to [facility]. A [place] cat was called, followed by stroke alert noting per RN, neurological changes. The nurse and Dr. Nguyen usually common at that the patient was a phasic, nonresponsive, with a left-sided gaze. Dr. Schroeder, neurologist was notified, CT scan was obtained and results are now pending. Per Dr. Schroeder, the patient is status post CVA on08/17/2016 and is not a candidate for TPA. The patient's previous medications per medical records were warfarin, docusate and atorvastatin. Critical care medicine was consulted for treatment and management. Upon presentation to the ICU, the patient was noted to have vertical and lateral nystagmus, aphasic,. The patient was able to follow commands, motor strength was noted to be 4/5 right upper and lower extremity with normal motor strength left upper and lower extremity. Review of Systems ROS Limitations: Clinical Condition Past Family Social History Allergies: Coded Allergies: No Known Allergies (Unverified , 08/16/16) Physical Exam Physical Exam GENERAL: Well-nourished well-developed male, with expressive aphasia SKIN: Warm and dry. HEAD: Atraumatic. Normocephalic. EYES: Pupils equal and round. 3 mm and brisk .No scleral icterus. No injection or drainage. Noted vertical and lateral nystagmus. ENT: No nasal bleeding or discharge. Mucous membranes pink and moist. O2 via nasal cannula. Noted tongue deviation to the left, slight facial droop NECK: Trachea midline. No JVD. CARDIOVASCULAR: Normal rate, regular rhythm. RESPIRATORY: No accessory muscle use. Clear to auscultation. Breath sounds equal bilaterally. GASTROINTESTINAL: Abdomen soft, non-tender, nondistended. No guarding. Normoactive bowel sounds MUSCULOSKELETAL: Extremities without clubbing, cyanosis, or edema. No obvious deformities. NEUROLOGICAL: Awake and alert. RASS 0. Follows commands in all 4 extremities. Noted right pronator drift, motor strength 4/5 right upper and lower extremities , 5/5 left upper and lower extremities. Laboratory Labs pending Septic Shock Reassessment Heart: Regular rate and rhythm Lungs: Clear Skin: Warm Peripheral Pulses: Bounding Right Radial Bounding Left Radial Bounding Right Dorsalis Pedis Bounding Left Dorsalis Pedis Capillary Refill: Brisk Assessment and Plan Assessment and Plan Neurologic: S/P CVA-right cerebral infarct 08/17 Dysarthria Aphasia -Neurology consult- Dr. Schroeder, follow-up recommendations -S/P right cerebellar hemispheric infarct 08/17,Imaging studies -CT head on 08/17 ill-defined mass right cerebellar region, MRI brain 08/17 revealed right hemispheric mass 4.4 x 3.7cm -Stat EEG, follow-up results -GCX-[id number]-on results -Follow-up CT results -Formal swallow study Respiratory: No acute issues -Patient previously on thickened liquids possible aspiration baseline chest x- ray obtained follow-up results -Maintain O2 sat greater than 92%, early on O2 at 2 L per nasal cannula O2 sat 97% -Maintain head of bed elevation 30 -Bronchodilators every 4 hours when necessary for wheezing Cardiovascular: Dyslipidemia -Continue atorvastatin -Patient previously on ASA, Coumadin -Obtain PT/INR, follow-up results ,plan to resume meds to remain therapeutic, post imaging studies Renal: No acute issues -Obtain BMP -Insert Mayer -- Strict I/Os FEN/GI: -Nothing by mouth for now -Formal swallow study -Replete electrolytes per ICU protocol - Heme/ID: -Reported by rehabilitation nurse patient had fever unable to obtain temperature measurements. -Obtain blood urine and sputum cultures follow-up results -Tylenol when necessary for temp greater than 101.0 Endocrine: -Glucose monitoring per ICU protocol -- SSI Prophylaxis: GI Prophylaxis Protonix DVT Prophylaxis -- SCDs No pharmacological prophylaxis at this time will await INR patient on Coumadin Lines: Peripheral IV's x 2 Dispo: This patient remains critically ill with one or more organ systems which are or may become a threat to life. I have spent in excess of 44 minutes discontinuously in the care and management of this patient. This time is exclusive of procedures, and includes, but is not limited to, evaluation of the patient, review of the medical record, discussions with family, consultants, nursing staff, or respiratory therapy, and documentation in the medical record. Code Status Full Discussed Condition With SPECIAL WARFARE OPERATOR at bedside Cathy Henning MD Sep 03, 2016 11:44
--- NOTE | 2016-09-03 12:29 | RADRPT ---
EXAM DATE/TIME: 09/03/2016 11:37 [facility] COMPARISON: CT BRAIN W/O CONTRAST, September 03, 2016, 9:27. MRI BRAIN W/O CONTRAST, August 17, 2016, 1:27. INDICATIONS : Left gaze, left facial droop MEDICAL HISTORY : CVA. SURGICAL HISTORY : None. ENCOUNTER: Initial ACUITY: 1 day PAIN SCORE: 0/10 LOCATION: cranial TECHNIQUE: Multiplanar, multisequence MRI of the brain was performed without contrast. FINDINGS: There are scattered mild areas of periventricular and subcortical white matter signal change bilatera lly that are either stable to slightly increased. Ventricles are normal in size. Posterior fossa stru ctures remain abnormal with abnormal increased flair and T2 signal in the right cerebellum and middle cerebral peduncle. There is a mild amount of susceptibility artifact in this area suggesting some he mosiderin. The abnormal signal extends into the brainstem including the edi, medulla, and midbrain. The brainstem findings consisting of increased T2 signal have increased since the prior study. There is a definite focal area of restricted diffusion in the left edi. Fourth ventricle is within normal limits. CONCLUSION: Persistent abnormal signal in the right cerebellum and middle cerebral peduncle from an uncertain pro cess. The changes in the brainstem have mildly increased since the prior examination and there is a f ocal small area of restricted diffusion indicating suggesting ischemia in the left edi. Marcio Flanagan MD on September 03, 2016 at 12:24 Board Certified Radiologist. This report was verified electronically.
[2016-09-03 13:11] LABS: AUTOMATED NEUTROPHIL # 1.9 TH/MM3 (1.8-7.7); BASOPHIL % 0.4 % (0.0-2.0); EOSINOPHIL # 0.1 TH/MM3 (0-0.4); EOSINOPHIL % 2.2 % (0.0-4.0); HEMATOCRIT 33.8 % (39.0-51.0); HEMO FLAGS DIFF FINAL; LYMPH % 19.3 % (9.0-44.0); LYMPHOCYTE # 0.5 TH/MM3 (1.0-4.8); MEAN CELL VOLUME 91.6 FL (80.0-100.0); MEAN CORPUSCULAR HEMOGLOBIN 29.8 PG (27.0-34.0); MEAN CORPUSCULAR HGB CONC 32.5 % (32.0-36.0); MONO % 7.9 % (0.0-8.0); NEUT % 70.2 % (16.0-70.0); PLATELET COUNT 176 TH/MM3 (150-450); RED BLOOD COUNT 3.69 MIL/MM3 (4.50-5.90); RED CELL DISTRIBUTION WIDTH 14.2 % (11.6-17.2); WHITE BLOOD COUNT 2.7 TH/MM3 (4.0-11.0)
[2016-09-03 13:21] LABS: APTT (PATIENT) 38.6 SEC (24.3-30.1); INTERNATIONAL NORMALIZED RATIO 2.1 RATIO; PROTHROMBIN TIME - PATIENT 24.4 SEC (9.8-11.6)
--- NOTE | 2016-09-03 15:03 | PD.CONS ---
History of Present Illness Service Neurology Consult Requested By medical Reason for Consult stroke alert Primary Care Physician Shon Gonzáles III, MD History of Present Illness 51-year-old AA male tx'd from [facility] today for "stroke alert". on coumadin with inr 2.1. developed symptoms 08/05/2016 stuttering speech and gait imbalance. went to [facility]. then saw outside neurologist. due to progressive worsening in his condition, he was brought here earlier this month and seen by nsx and neurology. felt to have a stroke and placed on coumadin. feels he has not improved and is getting weaker. saw heme once for leukopenia. reviewed mri scans that he has had done. some diffusion restriction. Review of Systems as above and admit hp Past Family Social History Allergies: Coded Allergies: No Known Allergies (Unverified , 08/16/16) Past Medical History Dyslipidemia Past Surgical History None Reported Medications Lipitor 10 mg at night Aspirin 325 mg by mouth daily Active Ordered Medications Reviewed in EMR Family History Mother and father is noncontributory Social History No tobacco, alcohol or IV drug use Review of Systems All other ROS: ROS reviewed as documented in chart Past Family Social History Allergies: Coded Allergies: No Known Allergies (Unverified , 08/16/16) Active Ordered Medications Current Medications Medications (Trade) Dose Ordered Sig/Krystin Route Start Time Stop Time Status Last Admin Potassium Chloride 100 ml @ 50 mls/hr Q2H PRN IV 09/03/16 10:45 (KCl 20 Meq Premix Inj) 100 ml @ 50 mls/hr Q2H PRN IV 09/03/16 10:45 Potassium Chloride 40 meq 40 meq UNSCH PRN PO/TUBE 09/03/16 10:45 Potassium Chloride 100 ml @ 25 mls/hr UNSCH PRN IV 09/03/16 10:45 Potassium Chloride 100 ml @ 50 mls/hr Q2H PRN IV 09/03/16 10:45 (Magnesium Sulfate Inj/NS Inj) 100 ml @ 50 mls/hr UNSCH PRN IV 09/03/16 10:45 Magnesium Oxide 800 mg 800 mg UNSCH PRN PO 09/03/16 10:45 (Magnesium Sulfate Inj/NS Inj) 100 ml @ 50 mls/hr UNSCH PRN IV 09/03/16 10:45 Potassium Phosphate 2000 mg 2,000 mg Q4H PRN PO 09/03/16 10:45 (Sodium Phosphate Inj/NS 250 ml Inj) 250 ml @ 42 mls/hr UNSCH PRN IV 09/03/16 10:45 (KCl 40 Meq/30 ml Liq) 40 meq UNSCH PRN PO/TUBE 09/03/16 10:45 Potassium Phosphate 2000 mg 2,000 mg UNSCH PRN PO/TUBE 09/03/16 10:45 Potassium Phosphate 30 mmol/ Sodium Chloride 260 ml @ 42 mls/hr UNSCH PRN IV 09/03/16 10:45 (NS 1000 ml Inj) 1,000 ml @ 84 mls/hr [id number] IV 09/03/16 10:34 09/03/16 10:34 (NS Flush) 2 ml UNSCH PRN IV FLUSH 09/03/16 10:45 (NS Flush) 2 ml BID IV FLUSH 09/03/16 21:00 (Protonix Inj) 40 mg DAILY IV 09/04/16 09:00 (Zofran Inj) 4 mg Q6H PRN IV 09/03/16 10:45 Miscellaneous Information 1 [id number] XX 09/03/16 10:45 09/03/16 10:45 (Chlorhexidine 2% Cloth) 3 pack Taper DAILY@04 TOP 09/04/16 04:00 08/31/17 03:59 (Chlorhexidine 2% Cloth) 3 pack UNSCH PRN TOP 09/03/16 10:45 Exam I&O / VS Vital Signs Date Time Temp Pulse Resp B/P Pulse Ox O2 Delivery O2 Flow Rate FiO2 09/03/16 14:00 76 09/03/16 12:00 74 09/03/16 10:00 Nasal Cannula 2.00 09/03/16 10:00 81 General: No acute distress Respiratory: Non-labored respirations, BS equal Cardiology: Normal rate, Regular Rhythm Exam Comments awake, follows some simple commands, bradykinesia, +nystagmus horizontal, + blink to threat, flat affect, able to raise all 4 ext to gravity but ataxic, msr 2+, no clonus, planter extensor Review/Management Diagnosis/Plan: (1) right cerebellar mass Plan: suspected ischemic stroke, however presentation sounds more subacute, progressive ? if it is a mass lesion intracranial vessels open on previous scan and inr therapeutic recs repeat nsx eval for possible biopsy vs wait and watch and repeat mri heme eval of hypercoag factors, g6pd deficiency, and leukopenia trial of iv steroids cta brain/carotids, labs p.t/s.t images reviewed d/w pt/spouse at length (2) Anemia (3) Leukopenia (4) Impaired mobility and activities of daily living Problem Qualifiers (1) Anemia: (2) Leukopenia: Qualified Code: D72.819 - Leukopenia, unspecified type Serafin Vallejo MD Sep 03, 2016 15:03
[2016-09-03 17:59] LABS: ANION GAP 10 MEQ/L (5-15); BICARBONATE 24.5 MEQ/L (21.0-32.0); BLOOD UREA NITROGEN 12 MG/DL (7-18); CHLORIDE 109 MEQ/L (98-107); GLOMERULAR FILTRATION RATE 97 ML/MIN (>89); POTASSIUM 3.7 MEQ/L (3.5-5.1); SODIUM (NA) 143 MEQ/L (136-145)
[2016-09-03] MEDS: methylPREDNISolone SOD SUCC 125 MG/2 ML VIAL IV SCH (18:50)
[2016-09-03] MEDS ORDERED: LIDOCAINE HCL 2% 100 MG/5 ML SYRINGE ONE (20:07)
[2016-09-03] MEDS ORDERED: EPINEPHrine HCL (1:10,000) 1 MG/10 ML SYRINGE ONE (20:07)
[2016-09-03] MEDS ORDERED: ATROPINE SULFATE 1 MG/10 ML SYRINGE ONE (20:07)
[2016-09-03] MEDS ORDERED: IOHEXOL 350 MG/ML 10 ML VIAL (for RAD DIAG) IV ONE (20:28)
[2016-09-03] MEDS ORDERED: GADODIAMIDE PF 287 MG/ML 20 ML VIAL (for RAD MRI) IV ONE (20:48)
--- NOTE | 2016-09-03 20:59 | RADRPT ---
EXAM DATE/TIME: 09/03/2016 20:34 [facility] COMPARISON: MRI BRAIN W/O CONTRAST, September 03, 2016, 11:37. INDICATIONS : Decreased level of consciousness. CONTRAST: 18 cc Omniscan (gadodiamide) IV MEDICAL HISTORY : Cerebrovascular disease. SURGICAL HISTORY : None. ENCOUNTER: Initial ACUITY: 1 day PAIN SCORE: 0/10 LOCATION: cranial TECHNIQUE: An MRI brain stealth procedure was performed. The information will be used in the OR for localizatio n. FINDINGS: There is decreased signal seen in the right cerebellar hemisphere and extending to the right cerebell ar peduncle. There is also low signal seen throughout the edi being more prominent on the left. Ther e is minimal enhancement at the lateral aspect of the low signal in the right cerebellar hemisphere. CONCLUSION: Areas of low signal in the edi, right cerebellar peduncle and right cerebellar hemisphere. Marcio Zamorano MD on September 03, 2016 at 20:55 Board Certified Radiologist. This report was verified electronically.
[2016-09-03] MEDS: SODIUM CHLORIDE 0.9% FLUSH 5 ML FLUSH IV FLUSH SCH (21:00)
--- NOTE | 2016-09-03 21:44 | RADRPT ---
EXAM DATE/TIME: 09/03/2016 20:21 [facility] COMPARISON: No previous studies available for comparison. INDICATIONS : Evaluate for occulsion. IV CONTRAST: 73 cc Omnipaque 350 (iohexol) IV ; Cumulative dose for multiple exams. RADIATION DOSE: 15.8 CTDIvol (mGy) ; Combined studies MEDICAL HISTORY : Stroke. Hypertension. SURGICAL HISTORY : None. ENCOUNTER: Initial ACUITY: 1 day PAIN SCALE: 0/10 LOCATION: cranial TECHNIQUE: Volumetric scanning was performed using a multi-row detector CT scanner. The data was post processed with a variety of visualization algorithms including full volume maximum intensity projection, multi -planar sliding thin slab reformation, curved planar reformation, and surface rendering techniques. Using automated exposure control and adjustment of the mA and/or kV according to patient size, radiat ion dose was kept as low as reasonably achievable to obtain optimal diagnostic quality images. FINDINGS: There is excellent visualization of the major intracranial arteries out to the second-order branch ve ssels. There is no evidence for aneurysm, vessel truncation or stenosis, and no evidence for vascula r malformation. There is asymmetry to the vertebral arch with the left vertebral artery being the dominant larger hector tebral artery. Both vertebral arteries are seen to combine to form the basilar artery. There is low density in the right cerebellar hemisphere and in the edi. CONCLUSION: Negative CTA of the head. Marcio Zamorano MD on September 03, 2016 at 21:39 Board Certified Radiologist. This report was verified electronically.
--- NOTE | 2016-09-03 22:04 | RADRPT ---
EXAM DATE/TIME: 09/03/2016 20:21 [facility] COMPARISON: CTA CAROTID ARTERIES W 3D RECON, August 18, 2016, 6:06. INDICATIONS : Evaluate for occulsion. IV CONTRAST: 73 cc Omnipaque 350 (iohexol) IV ; Cumulative dose for multiple exams. RADIATION DOSE: 15.8 CTDIvol (mGy) ; Combined studies MEDICAL HISTORY : Stroke. Hypertension. SURGICAL HISTORY : None. ENCOUNTER: Initial ACUITY: 1 day PAIN SCALE: 0/10 LOCATION: neck TECHNIQUE: Volumetric scanning was performed using a multirow detector CT scanner. The data was post processed with a variety of visualization algorithms including full-volume maximum intensity projection, multip lanar sliding thin-slab reformation, curved-planar reformation, and surface-rendering techniques. Us ing automated exposure control and adjustment of the mA and/or kV according to patient size, radiatio n dose was kept as low as reasonably achievable to obtain optimal diagnostic quality images. FINDINGS: AORTIC ARCH: The left common carotid artery arises from the base of the right brachiocephalic artery. This is a no rmal variant. Left subclavian artery origin is normal. RIGHT CAROTID: The common carotid artery is intact. The carotid bulb has a normal configuration without ulceration o r narrowing. The internal carotid artery lumen is smooth without stenosis. The external carotid rc ry is intact. LEFT CAROTID: The common carotid artery is intact. The carotid bulb has a normal configuration without ulceration or narrowing. The internal carotid artery lumen is smooth without stenosis. The external carotid ar juarez is intact. VERTEBRALS: The vertebral arteries are asymmetric with the left vertebral artery being larger in dominate. No st enotic lesions are seen. CONCLUSION: Normal examination. Marcio Zamorano MD on September 03, 2016 at 22:00 Board Certified Radiologist. This report was verified electronically.
[2016-09-03 23:15] LABS: BLOOD GAS BASE EXCESS -2.9 mmol/L (-2-2); BLOOD GAS CARBOXYHEMOGLOBIN 1.3 % (0-4); BLOOD GAS HCO3 21 mmol/L (22-26); BLOOD GAS METHEMOGLOBIN 0.7 % (0-2); BLOOD GAS O2 HGB SATURATION 94 % (90-100); BLOOD GAS PCO2 31 mmHg (38-42); BLOOD GAS PO2 83 mmHg (61-120); BLOOD GAS TOTAL HGB 11.3 G/DL (12.0-16.0); TEMP CORR TO 98.6
[2016-09-03 23:16] LABS: CRITICAL VALUE NO; DRAW SITE RT RADIAL; LITER FLOW 2 L/M; NUMBER OF ARTERIAL PUNCTURES 1; OXYGEN DEVICE NASAL CANNULA; STAT NO; ULNAR PULSE PRESENT
[2016-09-04] VITALS (15 sets, daily range): BP systolic 118–138; BP diastolic 71–84; PULSE 54–82; RESP 15–22; TEMP 97.9–98.3; O2SAT 93–97
[2016-09-04] MEDS: methylPREDNISolone SOD SUCC 125 MG/2 ML VIAL IV SCH ×2 (01:28→09:58)
[2016-09-04 04:15] LABS: AUTOMATED NEUTROPHIL # 3.4 TH/MM3 (1.8-7.7); BASOPHIL % 0.1 % (0.0-2.0); HEMATOCRIT 33.2 % (39.0-51.0); HEMO FLAGS DIFF FINAL; LYMPH % 7.9 % (9.0-44.0); LYMPHOCYTE # 0.3 TH/MM3 (1.0-4.8); MEAN CELL VOLUME 89.6 FL (80.0-100.0); MEAN CORPUSCULAR HEMOGLOBIN 30.1 PG (27.0-34.0); MEAN CORPUSCULAR HGB CONC 33.6 % (32.0-36.0); PLATELET COUNT 166 TH/MM3 (150-450); RED BLOOD COUNT 3.71 MIL/MM3 (4.50-5.90); RED CELL DISTRIBUTION WIDTH 14.3 % (11.6-17.2); WHITE BLOOD COUNT 3.8 TH/MM3 (4.0-11.0)
[2016-09-04 04:24] LABS: APTT (PATIENT) 35.2 SEC (24.3-30.1); INTERNATIONAL NORMALIZED RATIO 1.6 RATIO; PROTHROMBIN TIME - PATIENT 18.1 SEC (9.8-11.6)
[2016-09-04 04:53] LABS: ALT (GPT) 38 U/L (12-78); ANION GAP 9 MEQ/L (5-15); AST (GOT) 17 U/L (15-37); BICARBONATE 22.6 MEQ/L (21.0-32.0); BLOOD UREA NITROGEN 12 MG/DL (7-18); CHLORIDE 110 MEQ/L (98-107); GLOMERULAR FILTRATION RATE 115 ML/MIN (>89); MAGNESIUM 1.7 MG/DL (1.5-2.5); POTASSIUM 3.8 MEQ/L (3.5-5.1); SODIUM (NA) 142 MEQ/L (136-145)
[2016-09-04 04:55] LABS: ALKALINE PHOSPHATASE 81 U/L (45-117); TOTAL BILIRUBIN ADULT 1.1 MG/DL (0.2-1.0)
[2016-09-04] MEDS: CHLORHEXIDINE GLUCONATE 2 % 1 PACK (2 CLOTHS) TOP SCH (05:32)
[2016-09-04] MEDS: SODIUM CHLOR 0.9% 1000 ML INJ 1,000 ML IV SCH ×4 (07:05→20:40)
--- NOTE | 2016-09-04 07:50 | MG ---
cc: GHULAM AMAYA MD Lab No: [id number] Date: 09/03/2016 : 1965 Sex: M Race: INDICATION A 51-year-old with Stroke Alert, history of previous recent stroke. DESCRIPTION Theta and admixed delta activity occurring 20-70 microvolts followed by episodes of 6-7 Hz activity. Limited driving with photic stimulation. Note, cardiac dysrhythmia noted. INTERPRETATION Mild to moderate encephalopathy. Clinical correlation. Ghulam Amaya MD MG/BT /10:31 PM /7:45 AM
--- NOTE | 2016-09-04 08:00 | HHI.CCPN ---
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 The patient was placed on heparin and transitioned to Coumadin. The patient was subsequently transferred to [facility]. A Halicat was called, followed by stroke alert noting per RN, neurological changes. The nurse and Dr. Nguyen usually common at that the patient was a phasic, nonresponsive, with a left-sided gaze. Dr. Schroeder, neurologist was notified, CT scan was obtained and results are now pending. Per Dr. Vallejo, the patient is status post CVA on08/17/2016 and is not a candidate for TPA. The patient's previous medications per medical records were warfarin, docusate and atorvastatin. Critical care medicine was consulted for treatment and management. Upon presentation to the ICU, the patient was noted to have vertical and lateral nystagmus, aphasic,. The patient was able to follow commands, motor strength was noted to be 4/5 right upper and lower extremity with normal motor strength left upper and lower extremity. 09/03: Overnight, the patient began to verbalize significant dysarthria noted, but improved from yesterday's initial evaluation. Concern for patient to manage secretions still a concern, the patient continues to be NPO. Patient now has lateral nystagmus, motor exam unchanged. Neurology was consulted yesterday, MRI obtained. Subsequent imaging studies were performed last evening. Patient is scheduled for lumbar puncture this a.m. per neurosurgery for CSF evaluation. The patient is noted to have leukopenia, and a history of G6PD deficiency hematology and oncology were consulted. 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 Administration of steroids were initiated last evening. Objective Vital Signs Date Time Temp Pulse Resp B/P Pulse Ox O2 Delivery O2 Flow Rate FiO2 09/04/16 06:00 76 09/03/16 23:30 98.6 20 123/76 99 09/03/16 22:55 Nasal Cannula 2.00 Intake and Output 09/03/16 09/03/16 09/04/16 08:00 16:00 00:00 Intake Total 306 ml 501 ml Output Total 175 ml 450 ml Balance 131 ml 51 ml Result Diagram: 09/04/1639909/04/16399 Other Results Laboratory Tests Test 09/03/16 23:03 Blood Gas Puncture Site RT RADIAL Blood Gas Patient Temperature 98.6 Blood Gas HCO3 21 mmol/L (22-26) Blood Gas Base Excess -2.9 mmol/L (-2-2) Blood Gas Oxygen Saturation 94 % (90-100) Arterial Blood pH 7.43 (7.380-7.420) Arterial Blood Partial 31 mmHg (38-42) Pressure CO2 Arterial Blood Partial 83 mmHg Pressure O2 (61-120) Arterial Blood Oxygen Content 15.0 Vol % (12.0-20.0) Arterial Blood 1.3 % (0-4) Carboxyhemoglobin Arterial Blood Methemoglobin 0.7 % (0-2) Blood Gas Hemoglobin 11.3 G/DL (12.0-16.0) Oxygen Delivery Device NASAL CANNULA Blood Gas Liter Flow 2 L/M Objective Remarks GENERAL: Well-nourished well-developed male, alert this morning , dysarthria but responding. SKIN: Warm and dry. HEAD: Atraumatic. Normocephalic. EYES: Pupils equal and round. 3 mm and brisk .No scleral icterus. No injection or drainage. Noted lateral nystagmus. ENT: No nasal bleeding or discharge. Mucous membranes pink and moist. O2 via nasal cannula 2LPM N/C NECK: Trachea midline. No JVD. CARDIOVASCULAR: Normal rate, regular rhythm. RESPIRATORY: No accessory muscle use. Clear to auscultation. Breath sounds equal bilaterally. Noted secretions posterior oropharynx, patient attempting to clear. GASTROINTESTINAL: Abdomen soft, non-tender, nondistended. No guarding. Normoactive bowel sounds MUSCULOSKELETAL: Extremities without clubbing, cyanosis, or edema. No obvious deformities. NEUROLOGICAL: Awake and alert. RASS 0. Follows commands in all 4 extremities. Motor strength 4/5 right upper and lower extremities, 5/5 left upper and lower extremities. Procedures Scheduled for lumbar puncture via NSGY this am Urinary Catheter: Yes Mayer insert reason: Measure Accurate Output Date of Insertion: Sep 03, 2016 Vascular Central Line Catheter: No A/P Assessment and Plan Neurologic: S/P CVA-right cerebral infarct 08/17 Dysarthria Aphasia -Neurology Dr. Vallejo following-Methylprednisone 125 mg every 8 hours initiated -S/P right cerebellar hemispheric infarct 08/17,Imaging studies -CT head on 08/17 ill-defined mass right cerebellar region, MRI brain 08/17 revealed right hemispheric mass 4.4 x 3.7cm - EEG 09/03 , preliminary results-diffuse slowing, no subclinical seizure activity noted -MRI w/o contrast 09/03-abnormal signal right cerebellum middle cerebral peduncle. Restricted diffusion indicating suggesting ischemia left edi -MRI w/contrast 09/03-areas of low signal in edi, right cerebellar peduncle and right cerebellar hemisphere -Neurosurgery consult, Dr. Cedeño-lumbar puncture scheduled this a.m. for CSF evaluation -Formal swallow study-follow up recommendation -Ammonia level 13 Respiratory: Concern for management of oral secretions -Monitor carefully possible requirement for intubation -Maintain O2 sat greater than 92%, early on O2 at 2 L per nasal cannula O2 sat 99% -Maintain head of bed elevation 30 -Bronchodilators every 4 hours when necessary for wheezing Cardiovascular: Dyslipidemia -Continue atorvastatin -Patient previously on ASA, Coumadin (on hold) - PT/INR2.1->1.6 today post 1 unit transfusion of FFP, for lumbar puncture procedure Renal: No acute issues -Obtain BMP -Will continue Mayer post lumbar puncture, plan to transition to condom catheter -- Strict I/Os FEN/GI: Mild protein calorie malnutrition -Nothing by mouth for now -Formal swallow study -Plan for insertion of Dobbhoff tube, a swallow study unsuccessful -Albumin 3.2 -Replete electrolytes per ICU protocol Heme/ID: G6PD deficiency Leukopenia HIV -Hematologyoncology consult-appreciate recommendations - Blood urine and sputum cultures follow-up results -Tylenol when necessary for temp greater than 101.0 -Will obtain medical records from outside hotel services supervisor, requests sent -Follow-up RPR, HIV results preliminary report positive -ID consult -Lumbar puncture today follow-up results Endocrine: -Glucose monitoring per ICU protocol -- SSI Prophylaxis: GI Prophylaxis Protonix DVT Prophylaxis -- SCDs No pharmacological prophylaxis at this time. Patient scheduled for lumbar puncture today. Will reassess in 24 hours post procedure. Lines: Peripheral IV's x 2 Dispo: This patient remains critically ill with one or more organ systems which are or may become a threat to life. I have spent in excess of 39 minutes discontinuously in the care and management of this patient. This time is exclusive of procedures, and includes, but is not limited to, evaluation of the patient, review of the medical record, discussions with family, consultants, nursing staff, or respiratory therapy, and documentation in the medical record. Physician Cathy Miller MD Sep 04, 2016 07:59
--- NOTE | 2016-09-04 08:58 | HHI.PR ---
Review/Management Diagnosis/Plan: (1) right cerebellar mass Plan: suspected ischemic stroke, however presentation sounds more subacute, progressive ? if it is a mass lesion/inflammatory/infectious intracranial vessels open on previous scan and inr therapeutic recs d/w nsx, appreciate their help plan for lp heme eval of hypercoag factors, g6pd deficiency, and leukopenia trial of iv steroids- cta brain/carotids- nml p.t/s.t d/w pt/spouse at length (2) Anemia (3) Leukopenia (4) Impaired mobility and activities of daily living Subjective Subjective Comments No acute events reported No headache No chest pain No dyspnea Active Medications Current Medications Medications (Trade) Dose Ordered Sig/Krystin Route Start Time Stop Time Status Last Admin Potassium Chloride 100 ml @ 50 mls/hr Q2H PRN IV 09/03/16 10:45 (KCl 20 Meq Premix Inj) 100 ml @ 50 mls/hr Q2H PRN IV 09/03/16 10:45 Potassium Chloride 40 meq 40 meq UNSCH PRN PO/TUBE 09/03/16 10:45 Potassium Chloride 100 ml @ 25 mls/hr UNSCH PRN IV 09/03/16 10:45 Potassium Chloride 100 ml @ 50 mls/hr Q2H PRN IV 09/03/16 10:45 (Magnesium Sulfate Inj/NS Inj) 100 ml @ 50 mls/hr UNSCH PRN IV 09/03/16 10:45 Magnesium Oxide 800 mg 800 mg UNSCH PRN PO 09/03/16 10:45 (Magnesium Sulfate Inj/NS Inj) 100 ml @ 50 mls/hr UNSCH PRN IV 09/03/16 10:45 Potassium Phosphate 2000 mg 2,000 mg Q4H PRN PO 09/03/16 10:45 (Sodium Phosphate Inj/NS 250 ml Inj) 250 ml @ 42 mls/hr UNSCH PRN IV 09/03/16 10:45 (KCl 40 Meq/30 ml Liq) 40 meq UNSCH PRN PO/TUBE 09/03/16 10:45 Potassium Phosphate 2000 mg 2,000 mg UNSCH PRN PO/TUBE 09/03/16 10:45 Potassium Phosphate 30 mmol/ Sodium Chloride 260 ml @ 42 mls/hr UNSCH PRN IV 09/03/16 10:45 (NS 1000 ml Inj) 1,000 ml @ 84 mls/hr [id number] IV 09/03/16 10:34 09/03/16 10:34 (NS Flush) 2 ml UNSCH PRN IV FLUSH 09/03/16 10:45 (NS Flush) 2 ml BID IV FLUSH 09/03/16 21:00 (Protonix Inj) 40 mg DAILY IV 09/04/16 09:00 (Zofran Inj) 4 mg Q6H PRN IV 09/03/16 10:45 Miscellaneous Information 1 [id number] XX 09/03/16 10:45 09/03/16 10:45 (Chlorhexidine 2% Cloth) 3 pack Taper DAILY@04 TOP 09/04/16 04:00 08/31/17 03:59 09/04/16 05:32 Chlorhexidine Gluconate 3 pack 3 pack UNSCH PRN TOP 09/03/16 10:45 (NS 1000 ml Inj) 1,000 ml @ 75 mls/hr [id number] IV 09/03/16 17:45 09/03/16 17:45 (SoluMEDROL INJ) 125 mg Q8H IV 09/03/16 18:00 09/04/16 17:59 09/04/16 01:28 Allergies Allergies Coded Allergies No Known Allergies (Unverified08/16/16) Review of Systems All other ROS: ROS reviewed as documented in chart Exam I&O / VS 09/03/16 09/03/16 09/04/16 15:00 23:00 07:00 Intake Total 306 ml 501 ml 1135 ml Output Total 175 ml 450 ml 375 ml Balance 131 ml 51 ml 760 ml Intake Oral 0 ml IV Total 306 ml 501 ml 793 ml FFP 342 ml Output Urine Total 175 ml 450 ml 375 ml # Bowel Movements 0 0 0 Vital Signs Date Time Temp Pulse Resp B/P Pulse Ox O2 Delivery O2 Flow Rate FiO2 09/04/16 06:00 76 09/04/16 04:00 80 09/04/16 02:00 82 09/04/16 00:00 72 09/03/16 23:30 98.6 74 20 123/76 99 09/03/16 23:00 98.9 78 17 123/81 99 09/03/16 22:55 97 Nasal Cannula 2.00 09/03/16 22:00 80 09/03/16 20:00 79 09/03/16 19:00 98 Nasal Cannula 2.00 09/03/16 18:00 77 09/03/16 16:00 78 09/03/16 14:00 76 09/03/16 12:00 74 09/03/16 10:00 Nasal Cannula 2.00 09/03/16 10:00 81 General: No acute distress Respiratory: Non-labored respirations, BS equal Cardiology: Normal rate, Regular Rhythm Exam Comments awake, follows some simple commands, hypophonic speech and can barely state one word, bradykinesia, +nystagmus horizontal, + blink to threat, flat affect, able to raise all 4 ext to gravity but ataxic, msr 2+, no clonus, planter extensor Objective Micro and Labs Laboratory Tests Test 09/03/16 09/03/16 09/03/16 09/03/16 12:40 17:07 19:54 20:08 White Blood Count 2.7 Red Blood Count 3.69 Hemoglobin 11.0 Hematocrit 33.8 Mean Corpuscular Volume 91.6 Mean Corpuscular Hemoglobin 29.8 Mean Corpuscular Hemoglobin 32.5 Concent Red Cell Distribution Width 14.2 Platelet Count 176 Mean Platelet Volume 9.2 Neutrophils (%) (Auto) 70.2 Lymphocytes (%) (Auto) 19.3 Monocytes (%) (Auto) 7.9 Eosinophils (%) (Auto) 2.2 Basophils (%) (Auto) 0.4 Neutrophils # (Auto) 1.9 Lymphocytes # (Auto) 0.5 Monocytes # (Auto) 0.2 Eosinophils # (Auto) 0.1 Basophils # (Auto) 0.0 CBC Comment DIFF FINAL Differential Comment Prothrombin Time 24.4 Prothromb Time International 2.1 Ratio Activated Partial 38.6 Thromboplast Time Lactic Acid Level 1.6 Troponin I LESS THAN 0.02 LESS THAN 0.02 Sodium Level 143 Potassium Level 3.7 Chloride Level 109 Carbon Dioxide Level 24.5 Anion Gap 10 Blood Urea Nitrogen 12 Creatinine 0.98 Estimat Glomerular Filtration 97 Rate Random Glucose 80 Calcium Level 8.4 Phosphorus Level 3.8 Erythrocyte Sedimentation Rate 1 Ammonia 13 Blood Bank Comment Test 09/03/16 09/04/16 09/04/16 09/04/16 23:03 04:00 04:05 05:44 Blood Gas Puncture Site RT RADIAL Blood Gas Patient Temperature 98.6 Blood Gas HCO3 21 Blood Gas Base Excess -2.9 Blood Gas Oxygen Saturation 94 Arterial Blood pH 7.43 Arterial Blood Partial 31 Pressure CO2 Arterial Blood Partial 83 Pressure O2 Arterial Blood Oxygen Content 15.0 Arterial Blood 1.3 Carboxyhemoglobin Arterial Blood Methemoglobin 0.7 Blood Gas Hemoglobin 11.3 Oxygen Delivery Device NASAL CANNULA Blood Gas Liter Flow 2 White Blood Count 3.8 Red Blood Count 3.71 Hemoglobin 11.2 Hematocrit 33.2 Mean Corpuscular Volume 89.6 Mean Corpuscular Hemoglobin 30.1 Mean Corpuscular Hemoglobin 33.6 Concent Red Cell Distribution Width 14.3 Platelet Count 166 Mean Platelet Volume 8.7 Neutrophils (%) (Auto) 90.0 Lymphocytes (%) (Auto) 7.9 Monocytes (%) (Auto) 2.0 Eosinophils (%) (Auto) 0.0 Basophils (%) (Auto) 0.1 Neutrophils # (Auto) 3.4 Lymphocytes # (Auto) 0.3 Monocytes # (Auto) 0.1 Eosinophils # (Auto) 0.0 Basophils # (Auto) 0.0 CBC Comment DIFF FINAL Differential Comment Sodium Level 142 Potassium Level 3.8 Chloride Level 110 Carbon Dioxide Level 22.6 Anion Gap 9 Blood Urea Nitrogen 12 Creatinine 0.85 Estimat Glomerular Filtration 115 Rate Random Glucose 124 Lactic Acid Level 0.9 Calcium Level 8.6 Phosphorus Level 4.1 Magnesium Level 1.7 Total Bilirubin 1.1 Aspartate Amino Transf 17 (AST/SGOT) Alanine Aminotransferase 38 (ALT/SGPT) Alkaline Phosphatase 81 Total Protein 7.3 Albumin 3.2 Prothrombin Time 18.1 Prothromb Time International 1.6 Ratio Activated Partial 35.2 Thromboplast Time Nasal Screen MRSA (PCR) NEGATIVE Test 09/04/16 07:26 Blood Bank Comment Date/Time Procedure Status Source Growth 09/03/16 12:40 Urine Culture Received Urine Catheterized Urine Pending 09/03/16 12:40 Aerobic Blood Culture Received Blood Peripheral Pending 09/03/16 12:40 Anaerobic Blood Culture Received Blood Peripheral Pending Problem Qualifiers (1) Anemia: (2) Leukopenia: Qualified Code: D72.819 - Leukopenia, unspecified type Serafin Vallejo MD Sep 04, 2016 08:58
[2016-09-04] MEDS: SODIUM CHLORIDE 0.9% FLUSH 5 ML FLUSH IV FLUSH SCH ×2 (09:00→20:40)
[2016-09-04] MEDS: PANTOPRAZOLE SODIUM 40 MG VIAL IV SCH (09:00)
[2016-09-04] MEDS ORDERED: LIDOCAINE HCL 1% 50 ML VIAL ONE ×2 (09:22→12:00)
--- NOTE | 2016-09-04 09:59 | PD.OP ---
Operative Report Date of Surgery: Sep 04, 2016 Preoperative Diagnosis: (1) Encephalitis Postoperative Diagnosis: (1) Encephalitis Procedure: lumbar puncture, L4/5, Anesthesia: 1%lidocaine Surgeon: Jason Cedeño Assessment Coordinator(s): RN Operation and Findings: Clear CSF, opening pressure 19 mm water, 30 cc sent for routine cell count and chemistries as well as for fungal/HSV/viral cultures and 16 cc sent for cytology Jason Cedeño Sep 04, 2016 09:59
[2016-09-04 10:46] LABS: GROSS BLOOD TUBE #1 0 (0); SUPERNATE COLOR TUBE #1 CLEAR (CLEAR); VOLUME TUBE # 1 4.8 ML
[2016-09-04 11:08] LABS: WBC TUBE #1 0 /MM3 (0-10)
[2016-09-04 11:09] LABS: CSF LYMPHOCYTES 0 %; CSF NEUTROPHILS 0 %
[2016-09-04] MEDS ORDERED: ACETAMINOPHEN 1000 MG/100 ML VIAL IV ONE (12:00)
[2016-09-04 13:54] LABS: RAPID PLASMA REAGIN SCREEN NON-REACTIVE (NON-REACTVE)
--- NOTE | 2016-09-04 17:21 | EKG ---
Date Performed: 09/03/2016 Time Performed: 13:36:24 PTAGE: 51 years EKG: Sinus rhythm NONSPECIFIC T-WAVE ABNORMALITY Compared to prior tracing no significant change ABNORMAL ECG PREVIOUS TRACING : 08/16/2016 22.38 DOCTOR: Kit Bettencourt Interpretating Date/Time 09/04/2016 17:20:26
--- NOTE | 2016-09-04 17:27 | PD.CONS ---
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 Patient is a 51-year-old male, transferred from [facility] for evaluation of aphasia, left-sided gaze, and decreasing level of consciousness. Patient had a recent hospitalization August 17 and he was found to have a right cerebellar mass. He had workup and it was felt that it was a stroke, and ischemic. Spectroscopy was negative. He was given anticoagulation, and he was transferred to [facility] on August 23. He then developed the current problem on the day of transfer and he got readmitted September 03. Of note is that previous blood work since admission last August 16 has shown persistent leukopenia. Patient underwent lumbar puncture and it had 0 WBC and 2 RBC, normal glucose and protein. Imaging study showed some extension of the abnormalities seen in the cerebellum. There was no evidence of surrounding edema. I spoke with the , and they apparently have been for 28 years. She does not know of any extramarital affairs. She has no prior history of STD or no any history of STD on patient. No prior history of blood transfusion or known history of IV drug use. Initial HIV testing is reflex positive. But confirmatory test is still pending. Infectious disease consultations have been requested to evaluate the patient for possible HIV encephalitis. Review of Systems ROS Limitations: Clinical Condition, Altered Mental Status Constitutional: DENIES: Fever Gastrointestinal: DENIES: Abdominal pain Neurologic: DENIES: Headache Past Family Social History Allergies: Coded Allergies: No Known Allergies (Unverified , 08/16/16) Past Medical History Hyperlipidemia Recent admission and diagnosed to have a right cerebellar months felt to be probably an infarct - CTA of the neck and the head negative - Spectroscopy negative No previous history of blood transfusion Leukopenia, question if he has had prior workup, no workup done during his last admission Past Surgical History None Active Ordered Medications Albuterol Magnesium Solu-Medrol Zofran Protonix Potassium Social History for 28 years No smoking No alcohol abuse No illicit drug use Physical Exam Vital Signs Vital Signs Date Time Temp Pulse Resp B/P Pulse Ox O2 Delivery O2 Flow Rate FiO2 09/04/16 14:00 54 09/04/16 12:00 68 09/04/16 10:00 70 09/04/16 09:19 93 Nasal Cannula 2.00 09/04/16 09:15 98.3 72 22 138/84 93 09/04/16 08:45 98.1 75 20 135/81 95 09/04/16 08:30 98.1 74 21 128/77 96 09/04/16 08:00 80 09/04/16 07:00 95 Nasal Cannula 2.00 09/04/16 06:00 76 09/04/16 04:00 80 09/04/16 02:00 82 09/04/16 00:00 72 09/03/16 23:30 98.6 74 20 123/76 99 09/03/16 23:00 98.9 78 17 123/81 99 09/03/16 22:55 97 Nasal Cannula 2.00 09/03/16 22:00 80 09/03/16 20:00 79 09/03/16 19:00 98 Nasal Cannula 2.00 09/03/16 18:00 77 Physical Exam GENERAL: This is a well-nourished, well-developed male, awake and interacting, has significant dysarthria, not in any respiratory distress. SKIN: Warm and dry. No generalized rash, no ecchymosis, no embolic lesions noted. HEAD: Atraumatic. Normocephalic. No temporal or scalp tenderness. EYES: Champ conjunctivae, no petechia or hemorrhage. Pupils equal round and reactive. Extraocular movements full and intact. No scleral icterus. No injection or drainage. ENT: Nose without bleeding, or purulent drainage. Moist oral mucosa, no oral thrush, has hairy leukoplakia R lateral tongue. Throat without erythema, or exudate. Airway patent. NECK: Trachea midline. No JVD or lymphadenopathy. Supple, nontender, no meningeal signs. CARDIOVASCULAR: Regular rate and rhythm without murmurs, gallops, or rubs. RESPIRATORY: Has diffuse rhonchi. GASTROINTESTINAL: Abdomen soft, non-tender, nondistended. Bowel sounds are present and normoactive. No organomegaly. No guarding. MUSCULOSKELETAL: Extremities without clubbing, cyanosis, or edema. No joint tenderness, effusion, or edema noted. No calf tenderness. Negative Homans sign bilaterally. NEUROLOGICAL: Awake and alert. Has decreased nasolabial fold on the L, tongue deviated to left, has asyymetry in the eyebrows, not raising R eyebrow. 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 Lower extremity equal strength. No Babinski, no ankle clonus. Has dysarthria PSYCH: Flat affect, cooperative LINE; PIV with no evidence of infection : Mayer in place, urine looks clear Laboratory Laboratory Tests Test 09/03/16 09/03/16 09/03/16 09/03/16 17:07 19:54 20:08 23:03 Sodium Level 143 Potassium Level 3.7 Chloride Level 109 Carbon Dioxide Level 24.5 Anion Gap 10 Blood Urea Nitrogen 12 Creatinine 0.98 Estimat Glomerular Filtration 97 Rate Random Glucose 80 Calcium Level 8.4 Phosphorus Level 3.8 Troponin I LESS THAN 0.02 Erythrocyte Sedimentation Rate 1 Ammonia 13 Rapid Plasma Reagin HIV (1&2) Antibody REFLEX Blood Bank Comment Blood Gas Puncture Site RT RADIAL Blood Gas Patient Temperature 98.6 Blood Gas HCO3 21 Blood Gas Base Excess -2.9 Blood Gas Oxygen Saturation 94 Arterial Blood pH 7.43 Arterial Blood Partial 31 Pressure CO2 Arterial Blood Partial 83 Pressure O2 Arterial Blood Oxygen Content 15.0 Arterial Blood 1.3 Carboxyhemoglobin Arterial Blood Methemoglobin 0.7 Blood Gas Hemoglobin 11.3 Oxygen Delivery Device NASAL CANNULA Blood Gas Liter Flow 2 Test 09/04/16 09/04/16 09/04/16 09/04/16 04:00 04:05 05:44 07:26 White Blood Count 3.8 Red Blood Count 3.71 Hemoglobin 11.2 Hematocrit 33.2 Mean Corpuscular Volume 89.6 Mean Corpuscular Hemoglobin 30.1 Mean Corpuscular Hemoglobin 33.6 Concent Red Cell Distribution Width 14.3 Platelet Count 166 Mean Platelet Volume 8.7 Neutrophils (%) (Auto) 90.0 Lymphocytes (%) (Auto) 7.9 Monocytes (%) (Auto) 2.0 Eosinophils (%) (Auto) 0.0 Basophils (%) (Auto) 0.1 Neutrophils # (Auto) 3.4 Lymphocytes # (Auto) 0.3 Monocytes # (Auto) 0.1 Eosinophils # (Auto) 0.0 Basophils # (Auto) 0.0 CBC Comment DIFF FINAL Differential Comment Sodium Level 142 Potassium Level 3.8 Chloride Level 110 Carbon Dioxide Level 22.6 Anion Gap 9 Blood Urea Nitrogen 12 Creatinine 0.85 Estimat Glomerular Filtration 115 Rate Random Glucose 124 Lactic Acid Level 0.9 Calcium Level 8.6 Phosphorus Level 4.1 Magnesium Level 1.7 Total Bilirubin 1.1 Aspartate Amino Transf 17 (AST/SGOT) Alanine Aminotransferase 38 (ALT/SGPT) Alkaline Phosphatase 81 Total Protein 7.3 Albumin 3.2 Prothrombin Time 18.1 Prothromb Time International 1.6 Ratio Activated Partial 35.2 Thromboplast Time Nasal Screen MRSA (PCR) NEGATIVE Blood Bank Comment Test 09/04/16 10:09 CSF Volume (Tube 1) 4.8 CSF Supernatant Color (tube 1) CLEAR CSF Gross Blood (Tube 1) 0 CSF WBC (Tube 1) 0 CSF RBC (Tube 1) 2 CSF Neutrophils 0 CSF Lymphocytes 0 CSF Differential Comment CSF Glucose 61 CSF Total Protein 31.4 Date/Time Procedure Status Source Growth 09/04/16 10:09 Gram Stain - Final Resulted Cerebral Spinal Fluid Lumbar Puncture 09/04/16 10:09 CSF Culture Resulted Cerebral Spinal Fluid Lumbar Puncture Pending 09/04/16 10:09 Fungal Smear - Final Resulted Cerebral Spinal Fluid Lumbar Puncture NO FUNGAL ELEMENTS SEEN. 09/04/16 10:09 Fungal Culture Resulted Cerebral Spinal Fluid Lumbar Puncture Pending 09/04/16 10:09 Acid Fast Stain Received Cerebral Spinal Fluid Lumbar Puncture Pending 09/04/16 10:09 Mycobacterial Culture Received Cerebral Spinal Fluid Lumbar Puncture Pending 09/04/16 10:09 Cancelled Cerebral Spinal Fluid Lumbar Puncture 09/03/16 12:40 Urine Culture - Preliminary Resulted Urine Catheterized Urine NO GROWTH IN 24 HOURS. 09/03/16 12:40 Aerobic Blood Culture - Preliminary Resulted Blood Peripheral NO GROWTH IN 1 DAY 09/03/16 12:40 Anaerobic Blood Culture - Preliminary Resulted Blood Peripheral NO GROWTH IN 1 DAY Result Diagram: 09/04/16 0400 09/04/16 0400 Imaging RADIOLOGY STUDIES/FILMS REVIEWED Neck CTA 09/03/16 0000 Signed Impressions: Service Date/Time: Saturday, September 03, 2016 20:21 - CONCLUSION: Normal examination. Marcio Zamorano MD Head CTA 09/03/16 0000 Signed Impressions: Service Date/Time: Saturday, September 03, 2016 20:21 - CONCLUSION: Negative CTA of the head. Marcio Zamorano MD Brain MRI 09/03/16 0000 Signed Impressions: Service Date/Time: Saturday, September 03, 2016 20:34 - CONCLUSION: Areas of low signal in the edi, right cerebellar peduncle and right cerebellar hemisphere. Marcio Zamorano MD Assessment and Plan Assessment and Plan IMPRESSION R cerebellar mass, previous work-up (+) infarct, spectroscopy negative - has extension Leukopenia, etiology, HIV can give leukopenia - no known HIV risk factor HIV reflex (+), confirmatory pending RECOMMENDATION Await HIV result Will also do Hepatitis serology B and C Check CD4 counts Neuro work-up in progress Monitor clinically I will follow along with you Thank you for this consultation Discussed Condition With Spoke with Christelle Mccracken MD Sep 04, 2016 17:27
[2016-09-05] VITALS (11 sets, daily range): BP systolic 111–141; BP diastolic 71–91; PULSE 56–74; RESP 13–20; TEMP 97.1–98.1; O2SAT 93–99
[2016-09-05] MEDS: CHLORHEXIDINE GLUCONATE 2 % 1 PACK (2 CLOTHS) TOP SCH (04:03)
[2016-09-05 04:16] LABS: HEMATOCRIT 31.5 % (39.0-51.0); MEAN CELL VOLUME 89.4 FL (80.0-100.0); MEAN CORPUSCULAR HEMOGLOBIN 29.8 PG (27.0-34.0); MEAN CORPUSCULAR HGB CONC 33.4 % (32.0-36.0); PLATELET COUNT 156 TH/MM3 (150-450); RED BLOOD COUNT 3.53 MIL/MM3 (4.50-5.90); REVIEW FLAG FINAL; WHITE BLOOD COUNT 6.4 TH/MM3 (4.0-11.0)
[2016-09-05 04:29] LABS: BICARBONATE 24.5 MEQ/L (21.0-32.0); POTASSIUM 3.9 MEQ/L (3.5-5.1)
--- NOTE | 2016-09-05 08:09 | HHI.PR ---
Review/Management Diagnosis/Plan: (1) right cerebellar mass Plan: suspected ischemic stroke, however presentation sounds more subacute, progressive ? if it is a mass lesion/inflammatory/infectious intracranial vessels open on previous scan and inr therapeutic csf- nml thus far cta brain/carotids- nml recs d/w nsx, appreciate their help off steroids f/u cxr- at high risk for aspiration hiv +-prelim; i.d. following heme eval of hypercoag factors, g6pd deficiency, and leukopenia- consult pending ok for floor/back to rehab start aspirin p.t/s.t d/w pt/spouse at length (2) Anemia (3) Leukopenia (4) Impaired mobility and activities of daily living Subjective Subjective Comments No acute events reported No headache No chest pain No dyspnea Active Medications Current Medications Medications (Trade) Dose Ordered Sig/Krystin Route Start Time Stop Time Status Last Admin Potassium Chloride 100 ml @ 50 mls/hr Q2H PRN IV 09/03/16 10:45 (KCl 20 Meq Premix Inj) 100 ml @ 50 mls/hr Q2H PRN IV 09/03/16 10:45 Potassium Chloride 40 meq 40 meq UNSCH PRN PO/TUBE 09/03/16 10:45 Potassium Chloride 100 ml @ 25 mls/hr UNSCH PRN IV 09/03/16 10:45 Potassium Chloride 100 ml @ 50 mls/hr Q2H PRN IV 09/03/16 10:45 (Magnesium Sulfate Inj/NS Inj) 100 ml @ 50 mls/hr UNSCH PRN IV 09/03/16 10:45 Magnesium Oxide 800 mg 800 mg UNSCH PRN PO 09/03/16 10:45 (Magnesium Sulfate Inj/NS Inj) 100 ml @ 50 mls/hr UNSCH PRN IV 09/03/16 10:45 Potassium Phosphate 2000 mg 2,000 mg Q4H PRN PO 09/03/16 10:45 (Sodium Phosphate Inj/NS 250 ml Inj) 250 ml @ 42 mls/hr UNSCH PRN IV 09/03/16 10:45 (KCl 40 Meq/30 ml Liq) 40 meq UNSCH PRN PO/TUBE 09/03/16 10:45 Potassium Phosphate 2000 mg 2,000 mg UNSCH PRN PO/TUBE 09/03/16 10:45 Potassium Phosphate 30 mmol/ Sodium Chloride 260 ml @ 42 mls/hr UNSCH PRN IV 09/03/16 10:45 (NS 1000 ml Inj) 1,000 ml @ 84 mls/hr [id number] IV 09/03/16 10:34 09/04/16 20:40 (NS Flush) 2 ml UNSCH PRN IV FLUSH 09/03/16 10:45 (NS Flush) 2 ml BID IV FLUSH 09/03/16 21:00 09/04/16 20:40 (Protonix Inj) 40 mg DAILY IV 09/04/16 09:00 09/04/16 09:00 (Zofran Inj) 4 mg Q6H PRN IV 09/03/16 10:45 Miscellaneous Information 1 [id number] XX 09/03/16 10:45 09/03/16 10:45 (Chlorhexidine 2% Cloth) 3 pack Taper DAILY@04 TOP 09/04/16 04:00 08/31/17 03:59 09/05/16 04:03 Chlorhexidine Gluconate 3 pack 3 pack UNSCH PRN TOP 09/03/16 10:45 (NS 1000 ml Inj) 1,000 ml @ 40 mls/hr Q24H IV 09/03/16 17:45 09/03/16 17:45 Allergies Allergies Coded Allergies No Known Allergies (Unverified08/16/16) Review of Systems All other ROS: ROS reviewed as documented in chart Exam I&O / VS 09/04/16 09/04/16 09/05/16 15:00 23:00 07:00 Intake Total 807 ml 480 ml 304 ml Output Total 400 ml 525 ml 1050 ml Balance 407 ml -45 ml -746 ml Intake Oral 0 ml IV Total 556 ml 480 ml 304 ml FFP 251 ml Output Urine Total 400 ml 525 ml 1050 ml # Bowel Movements 0 0 0 Vital Signs Date Time Temp Pulse Resp B/P Pulse Ox O2 Delivery O2 Flow Rate FiO2 09/05/16 04:00 97.1 60 16 132/81 95 09/05/16 03:15 93 2.00 09/05/16 00:00 97.9 57 14 139/83 97 09/04/16 20:00 97.9 66 15 118/71 97 09/04/16 20:00 71 09/04/16 20:00 Nasal Cannula 2.00 09/04/16 18:00 60 09/04/16 16:00 68 09/04/16 14:00 54 09/04/16 12:00 68 09/04/16 10:00 70 09/04/16 09:19 93 Nasal Cannula 2.00 09/04/16 09:15 98.3 72 22 138/84 93 09/04/16 08:45 98.1 75 20 135/81 95 09/04/16 08:30 98.1 74 21 128/77 96 General: No acute distress Respiratory: Non-labored respirations, BS equal Cardiology: Normal rate, Regular Rhythm Exam Comments alert, follows some simple commands, hypophonic speech and can barely state one word, bradykinesia, +nystagmus horizontal, + blink to threat, flat affect, able to raise all 4 ext to gravity but ataxic, msr 2+, no clonus, planter extensor Objective Micro and Labs Laboratory Tests Test 09/04/16 09/05/16 10:09 03:40 CSF Volume (Tube 1) 4.8 CSF Supernatant Color (tube 1) CLEAR CSF Gross Blood (Tube 1) 0 CSF WBC (Tube 1) 0 CSF RBC (Tube 1) 2 CSF Neutrophils 0 CSF Lymphocytes 0 CSF Differential Comment CSF Glucose 61 CSF Total Protein 31.4 White Blood Count 6.4 Red Blood Count 3.53 Hemoglobin 10.5 Hematocrit 31.5 Mean Corpuscular Volume 89.4 Mean Corpuscular Hemoglobin 29.8 Mean Corpuscular Hemoglobin 33.4 Concent Red Cell Distribution Width 14.0 Platelet Count 156 Mean Platelet Volume 8.1 Sodium Level 146 Potassium Level 3.9 Chloride Level 114 Carbon Dioxide Level 24.5 Anion Gap 8 Blood Urea Nitrogen 14 Creatinine 0.96 Estimat Glomerular Filtration 100 Rate Random Glucose 112 Calcium Level 8.7 Phosphorus Level 3.2 Magnesium Level 2.0 Date/Time Procedure Status Source Growth 09/04/16 10:09 Gram Stain - Final Resulted Cerebral Spinal Fluid Lumbar Puncture 09/04/16 10:09 CSF Culture Resulted Cerebral Spinal Fluid Lumbar Puncture Pending 09/04/16 10:09 Fungal Smear - Final Resulted Cerebral Spinal Fluid Lumbar Puncture NO FUNGAL ELEMENTS SEEN. 09/04/16 10:09 Fungal Culture Resulted Cerebral Spinal Fluid Lumbar Puncture Pending 09/04/16 10:09 Acid Fast Stain Received Cerebral Spinal Fluid Lumbar Puncture Pending 09/04/16 10:09 Mycobacterial Culture Received Cerebral Spinal Fluid Lumbar Puncture Pending 09/04/16 10:09 Cancelled Cerebral Spinal Fluid Lumbar Puncture 09/03/16 12:40 Urine Culture - Preliminary Resulted Urine Catheterized Urine NO GROWTH IN 24 HOURS. 09/03/16 12:40 Aerobic Blood Culture - Preliminary Resulted Blood Peripheral NO GROWTH IN 1 DAY 09/03/16 12:40 Anaerobic Blood Culture - Preliminary Resulted Blood Peripheral NO GROWTH IN 1 DAY Problem Qualifiers (1) Anemia: (2) Leukopenia: Qualified Code: D72.819 - Leukopenia, unspecified type Serafin Vallejo MD Sep 05, 2016 08:09
--- NOTE | 2016-09-05 08:44 | RADRPT ---
EXAM DATE/TIME: 09/05/2016 08:12 [facility] COMPARISON: CHEST SINGLE AP, September 03, 2016, 9:35. INDICATIONS : Congestion. MEDICAL HISTORY : Cerebrovascular disease. SURGICAL HISTORY : None. ENCOUNTER: Initial ACUITY: 1 day PAIN SCORE: 0/10 LOCATION: Bilateral chest FINDINGS: A single view of the chest demonstrates the lungs to be symmetrically aerated without evidence of mas s, infiltrate or effusion. The cardiomediastinal contours are unremarkable. Osseous structures are intact. CONCLUSION: 1. No acute cardiopulmonary disease. Mike Jordan MD on September 05, 2016 at 8:43 Board Certified Radiologist. This report was verified electronically.
[2016-09-05] MEDS: SODIUM CHLORIDE 0.9% FLUSH 5 ML FLUSH IV FLUSH SCH ×2 (09:00→20:48)
[2016-09-05] MEDS: SODIUM CHLOR 0.9% 1000 ML INJ 1,000 ML IV SCH (10:14)
[2016-09-05] MEDS: ASPIRIN EC 325 MG TABEC PO SCH (10:24)
[2016-09-05] MEDS: PANTOPRAZOLE SODIUM 40 MG VIAL IV SCH (10:24)
--- NOTE | 2016-09-05 12:03 | HHI.CCPN ---
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 The patient was placed on heparin and transitioned to Coumadin. The patient was subsequently transferred to [facility]. A Halicat was called, followed by stroke alert noting per RN, neurological changes. The nurse and Dr. Nguyen usually common at that the patient was a phasic, nonresponsive, with a left-sided gaze. Dr. Schroeder, neurologist was notified, CT scan was obtained and results are now pending. Per Dr. Vallejo, the patient is status post CVA on08/17/2016 and is not a candidate for TPA. The patient's previous medications per medical records were warfarin, docusate and atorvastatin. Critical care medicine was consulted for treatment and management. Upon presentation to the ICU, the patient was noted to have vertical and lateral nystagmus, aphasic,. The patient was able to follow commands, motor strength was noted to be 4/5 right upper and lower extremity with normal motor strength left upper and lower extremity. 09/03: Overnight, the patient began to verbalize significant dysarthria noted, but improved from yesterday's initial evaluation. Concern for patient to manage secretions still a concern, the patient continues to be NPO. Patient now has lateral nystagmus, motor exam unchanged. Neurology was consulted yesterday, MRI obtained. Subsequent imaging studies were performed last evening. Patient is scheduled for lumbar puncture this a.m. per neurosurgery for CSF evaluation. The patient is noted to have leukopenia, and a history of G6PD deficiency hematology and oncology were consulted. Request for outside medical records from the patient's insulator helper was obtained, awaiting records. Administration of steroids were initiated last evening. 09/04: Steroids discontinued. No change in neurological evaluation, examination. Speech therapy consulted, patient continues on honey thick liquids , tolerated PO diet well yesterday. CSF results pending, no fungal elements were noted. Preliminary HIV reflex test positive, awaiting final confirmation. Objective Vital Signs Date Time Temp Pulse Resp B/P Pulse Ox O2 Delivery O2 Flow Rate FiO2 09/05/16 08:29 95 Nasal Cannula 4.00 09/05/16 08:00 97.9 66 15 118/71 Intake and Output 09/04/16 09/04/16 09/05/16 08:00 16:00 00:00 Intake Total 1135 ml 807 ml 480 ml Output Total 375 ml 400 ml 525 ml Balance 760 ml 407 ml -45 ml Result Diagram: 09/05/16 0340 09/05/16 0340 Other Results Microbiology Date/Time Procedure Status Source Growth 09/03/16 12:40 Urine Culture - Final Complete Urine Catheterized Urine NO GROWTH IN 48 HOURS. Objective Remarks GENERAL: Well-nourished well-developed male, alert this morning , dysarthria but responding. SKIN: Warm and dry. HEAD: Atraumatic. Normocephalic. EYES: Pupils equal and round. 3 mm and brisk .No scleral icterus. No injection or drainage. Noted lateral nystagmus. ENT: No nasal bleeding or discharge. Mucous membranes pink and moist. O2 via nasal cannula 2LPM N/C NECK: Trachea midline. No JVD. CARDIOVASCULAR: Normal rate, regular rhythm. RESPIRATORY: No accessory muscle use. Clear to auscultation. Breath sounds equal bilaterally. Occasional cough for clearing secretions GASTROINTESTINAL: Abdomen soft, non-tender, nondistended. No guarding. Normoactive bowel sounds. MUSCULOSKELETAL: Extremities without clubbing, cyanosis, or edema. No obvious deformities. NEUROLOGICAL: Awake and alert. RASS 0. Follows commands in all 4 extremities. Motor strength 4/5 right upper and lower extremities, 5/5 left upper and lower extremities. Urinary Catheter: Yes Assessment to: Remove Date of Insertion: Sep 03, 2016 Vascular Central Line Catheter: No A/P Assessment and Plan Neurologic: S/P CVA-right cerebral infarct 08/17 Dysarthria Aphasia -Neurology Dr. 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 Restricted diffusion indicating suggesting ischemia left edi -MRI w/contrast 09/03-areas of low signal in edi, right cerebellar peduncle and right cerebellar hemisphere -Neurosurgery consult, Dr. Cedeño-lumbar puncture scheduled this a.m. for CSF evaluation -Formal swallow study-honey thick liquids resumed -Ammonia level 13 Respiratory: -Adequate cough for management of oral secretions -Maintain O2 sat greater than 92%, wean off O2 -Maintain head of bed elevation 30 -Bronchodilators every 4 hours when necessary for wheezing Cardiovascular: Dyslipidemia -Continue atorvastatin -Patient previously on ASA, Coumadin (on hold) Renal: No acute issues -Obtain BMP -DC Mayer, place condom catheter -- Strict I/Os FEN/GI: Mild protein calorie malnutrition -Resume diet -Albumin 3.2 -Replete electrolytes per ICU protocol Heme/ID: G6PD deficiency Leukopenia HIV preliminary reflex positive -Hematologyoncology consult-appreciate recommendations - Blood urine and sputum cultures follow-up results -Tylenol when necessary for temp greater than 101.0 -Follow-up RPR, HIV results preliminary report positive, awaiting confirmatory test -ID consult- Dr Mccracken -CSF-no fungal elements seen Endocrine: -Glucose monitoring per ICU protocol -- SSI Prophylaxis: GI Prophylaxis Protonix DVT Prophylaxis -- SCDs No pharmacological prophylaxis at this time. Will defer to neurosurgery for resumption of anticoagulation Lines: Peripheral IV's x 2 Dispo: Level 2 Plan for transfer to neurology medical floor. Plan for transfer to hospitalist. Discussed patient's status and plans with and LIVE[employer]OCK F[employer]ER at bedside. Physician Cathy Miller MD Sep 05, 2016 12:03
--- NOTE | 2016-09-05 12:06 | PD.CONS ---
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 He was placed on anticoagulation but neurologically worsened to being bedridden at this time. MRI shows progression of non enhancing flair and diffusion abnormality in the edi, midbrain, and deep cerebral white matter bilaterally. At this time his voice is very weak, his tongue has a left sided deviation. His anticoagulation was reversed and hematology was consulted. They recommended an HIV test which is tentatively reflex positive. The CD4 count is pending as well as the CSF CINDY virus. 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 Physical Exam Vital Signs Vital Signs Date Time Temp Pulse Resp B/P Pulse Ox O2 Delivery O2 Flow Rate FiO2 09/05/16 08:29 95 Nasal Cannula 4.00 09/05/16 08:00 97.9 66 15 118/71 97 09/05/16 08:00 74 09/05/16 07:00 97 Nasal Cannula 2.00 09/05/16 04:00 97.1 60 16 132/81 95 09/05/16 03:15 93 2.00 09/05/16 00:00 97.9 57 14 139/83 97 09/04/16 20:00 97.9 66 15 118/71 97 09/04/16 20:00 71 09/04/16 20:00 Nasal Cannula 2.00 09/04/16 18:00 60 09/04/16 16:00 68 09/04/16 14:00 54 09/04/16 12:00 68 Physical Exam Awake, lethargic, right facial numbness and weakness, pupils 1-2 mm reactive, right abducens palsy, right tongue deviation Voice and swallow are very weak, cognitivelly aware and following commands, tracking to the left but has a right gaze paresis Finger taps are good bilaterally, but has severe dysmetria on the right, milder on the left, unable to get OOB or sit up on his own with poor core control. No Wen sign, no Babinski Skin warm, dry Lungs CTA, abd soft NT No peripheral edema, no rashes. Laboratory Laboratory Tests Test 09/05/16 03:40 White Blood Count 6.4 Red Blood Count 3.53 Hemoglobin 10.5 Hematocrit 31.5 Mean Corpuscular Volume 89.4 Mean Corpuscular Hemoglobin 29.8 Mean Corpuscular Hemoglobin 33.4 Concent Red Cell Distribution Width 14.0 Platelet Count 156 Mean Platelet Volume 8.1 Sodium Level 146 Potassium Level 3.9 Chloride Level 114 Carbon Dioxide Level 24.5 Anion Gap 8 Blood Urea Nitrogen 14 Creatinine 0.96 Estimat Glomerular Filtration 100 Rate Random Glucose 112 Calcium Level 8.7 Phosphorus Level 3.2 Magnesium Level 2.0 Date/Time Procedure Status Source Growth 09/04/16 10:09 Gram Stain - Final Resulted Cerebral Spinal Fluid Lumbar Puncture 09/04/16 10:09 CSF Culture - Preliminary Resulted Cerebral Spinal Fluid Lumbar Puncture NO GROWTH IN 24 HOURS. 09/04/16 10:09 Fungal Smear - Final Resulted Cerebral Spinal Fluid Lumbar Puncture NO FUNGAL ELEMENTS SEEN. 09/04/16 10:09 Fungal Culture Resulted Cerebral Spinal Fluid Lumbar Puncture Pending 09/04/16 10:09 Acid Fast Stain Received Cerebral Spinal Fluid Lumbar Puncture Pending 09/04/16 10:09 Mycobacterial Culture Received Cerebral Spinal Fluid Lumbar Puncture Pending 09/04/16 10:09 Cancelled Cerebral Spinal Fluid Lumbar Puncture 09/03/16 12:40 Urine Culture - Final Complete Urine Catheterized Urine NO GROWTH IN 48 HOURS. 09/03/16 12:40 Aerobic Blood Culture - Preliminary Resulted Blood Peripheral NO GROWTH IN 2 DAYS 09/03/16 12:40 Anaerobic Blood Culture - Preliminary Resulted Blood Peripheral NO GROWTH IN 2 DAYS Result Diagram: 09/05/16 0340 09/05/16 0340 Imaging Last Impressions Chest X-Ray 09/05/16 0000 Signed Impressions: Service Date/Time: Monday, September 05, 2016 08:12 - CONCLUSION: 1. No acute cardiopulmonary disease. Mike Jordan MD Neck CTA 09/03/16 0000 Signed Impressions: Service Date/Time: Saturday, September 03, 2016 20:21 - CONCLUSION: Normal examination. Marcio Zamorano MD Head CTA 09/03/16 0000 Signed Impressions: Service Date/Time: Saturday, September 03, 2016 20:21 - CONCLUSION: Negative CTA of the head. Marcio Zamorano MD Brain MRI 09/03/16 0000 Signed Impressions: Service Date/Time: Saturday, September 03, 2016 20:34 - CONCLUSION: Areas of low signal in the edi, right cerebellar peduncle and right cerebellar hemisphere. Marcio Zamorano MD Assessment and Plan Diagnosis: (1) brainstem abnormality Plan: The non enhancing diffusion abnormality has progressed from the right CP angle to the left edi and midbrain, but clinically it is also affecting the lower cranial nerves as well. Lumbar puncture was performed yesterday and is negative for lymphocytes, proteins, bacteria or fungus. A brain biopsy was planned tomorrow but was cancelled when the HIV came back positive. He remains critically ill and at risk on needing intubation and tracheostomy. DVT and PUD prophylaxis and rehab services are ordered. (2) Cranial nerve palsy Plan: Cranial nerves , VII, IX, X, XII are affected, at high risk for aspiration ICD Code: G52.9 Jason Cedeño Sep 05, 2016 12:06
[2016-09-05 12:31] LABS: HSV 1,PCR Negative (Negative)
--- NOTE | 2016-09-05 14:20 | HHI.IDPN ---
Subjective Subjective Remarks Notes reviewed Spoke with niece HIV still pending Antibiotics None Lines PIV Past Medical History Hyperlipidemia Recent admission and diagnosed to have a right cerebellar months felt to be probably an infarct - CTA of the neck and the head negative - Spectroscopy negative No previous history of blood transfusion Leukopenia, question if he has had prior workup, no workup done during his last admission Allergies: Coded Allergies: No Known Allergies (Unverified , 08/16/16) Objective . Vital Signs Date Time Temp Pulse Resp B/P Pulse Ox O2 Delivery O2 Flow Rate FiO2 09/05/16 12:00 98.1 64 20 115/71 98 09/05/16 12:00 66 09/05/16 10:00 69 09/05/16 08:29 95 Nasal Cannula 4.00 09/05/16 08:00 97.9 66 15 118/71 97 09/05/16 08:00 74 09/05/16 07:00 97 Nasal Cannula 2.00 09/05/16 04:00 97.1 60 16 132/81 95 09/05/16 03:15 93 2.00 09/05/16 00:00 97.9 57 14 139/83 97 09/04/16 20:00 97.9 66 15 118/71 97 09/04/16 20:00 71 09/04/16 20:00 Nasal Cannula 2.00 09/04/16 18:00 60 09/04/16 16:00 68 09/04/16 09/04/16 09/05/16 15:00 23:00 07:00 Intake Total 807 ml 480 ml 304 ml Output Total 400 ml 525 ml 1050 ml Balance 407 ml -45 ml -746 ml Intake Oral 0 ml IV Total 556 ml 480 ml 304 ml FFP 251 ml Output Urine Total 400 ml 525 ml 1050 ml # Bowel Movements 0 0 0 . Laboratory Tests Test 09/03/16 09/04/16 09/05/16 19:54 04:00 03:40 Erythrocyte Sedimentation Rate 1 mm/hr White Blood Count 3.8 TH/MM3 6.4 TH/MM3 Red Blood Count 3.71 MIL/MM3 3.53 MIL/MM3 Hemoglobin 11.2 GM/DL 10.5 GM/DL Hematocrit 33.2 % 31.5 % Mean Corpuscular Volume 89.6 FL 89.4 FL Mean Corpuscular Hemoglobin 30.1 PG 29.8 PG Mean Corpuscular Hemoglobin 33.6 % 33.4 % Concent Red Cell Distribution Width 14.3 % 14.0 % Platelet Count 166 TH/MM3 156 TH/MM3 Mean Platelet Volume 8.7 FL 8.1 FL Neutrophils (%) (Auto) 90.0 % Lymphocytes (%) (Auto) 7.9 % Monocytes (%) (Auto) 2.0 % Eosinophils (%) (Auto) 0.0 % Basophils (%) (Auto) 0.1 % Neutrophils # (Auto) 3.4 TH/MM3 Lymphocytes # (Auto) 0.3 TH/MM3 Monocytes # (Auto) 0.1 TH/MM3 Eosinophils # (Auto) 0.0 TH/MM3 Basophils # (Auto) 0.0 TH/MM3 CBC Comment DIFF FINAL Differential Comment Laboratory Tests Test 09/03/16 09/03/16 09/04/16 09/05/16 17:07 19:54 04:00 03:40 Sodium Level 143 MEQ/L 142 MEQ/L 146 MEQ/L Potassium Level 3.7 MEQ/L 3.8 MEQ/L 3.9 MEQ/L Chloride Level 109 MEQ/L 110 MEQ/L 114 MEQ/L Carbon Dioxide Level 24.5 MEQ/L 22.6 MEQ/L 24.5 MEQ/L Anion Gap 10 MEQ/L 9 MEQ/L 8 MEQ/L Blood Urea Nitrogen 12 MG/DL 12 MG/DL 14 MG/DL Creatinine 0.98 MG/DL 0.85 MG/DL 0.96 MG/DL Estimat Glomerular Filtration 97 ML/MIN 115 ML/MIN 100 ML/MIN Rate Random Glucose 80 MG/DL 124 MG/DL 112 MG/DL Calcium Level 8.4 MG/DL 8.6 MG/DL 8.7 MG/DL Phosphorus Level 3.8 MG/DL 4.1 MG/DL 3.2 MG/DL Troponin I LESS THAN 0.02 NG/ML Ammonia 13 MCMOL/L Lactic Acid Level 0.9 mmol/L Magnesium Level 1.7 MG/DL 2.0 MG/DL Total Bilirubin 1.1 MG/DL Aspartate Amino Transf 17 U/L (AST/SGOT) Alanine Aminotransferase 38 U/L (ALT/SGPT) Alkaline Phosphatase 81 U/L Total Protein 7.3 GM/DL Albumin 3.2 GM/DL Microbiology Date/Time Procedure Status Source Growth 09/03/16 12:40 Aerobic Blood Culture - Preliminary Resulted Blood Peripheral NO GROWTH IN 2 DAYS 09/03/16 12:40 Anaerobic Blood Culture - Preliminary Resulted Blood Peripheral NO GROWTH IN 2 DAYS 09/03/16 12:40 Urine Culture - Final Complete Urine Catheterized Urine NO GROWTH IN 48 HOURS. 09/04/16 10:09 Gram Stain - Final Resulted Cerebral Spinal Fluid Lumbar Puncture 09/04/16 10:09 CSF Culture - Preliminary Resulted Cerebral Spinal Fluid Lumbar Puncture NO GROWTH IN 24 HOURS. 09/04/16 10:09 Cancelled Cerebral Spinal Fluid Lumbar Puncture 09/04/16 10:09 Acid Fast Stain - Final Resulted Cerebral Spinal Fluid Lumbar Puncture NO ACID FAST BACILLI SEEN 09/04/16 10:09 Mycobacterial Culture Resulted Cerebral Spinal Fluid Lumbar Puncture Pending 09/04/16 10:09 Fungal Smear - Final Resulted Cerebral Spinal Fluid Lumbar Puncture NO FUNGAL ELEMENTS SEEN. 09/04/16 10:09 Fungal Culture Resulted Cerebral Spinal Fluid Lumbar Puncture Pending Imaging Chest X-Ray 09/05/16 0000 Signed Impressions: Service Date/Time: Monday, September 05, 2016 08:12 - CONCLUSION: 1. No acute cardiopulmonary disease. Miek Jordan MD Neck CTA 09/03/16 0000 Signed Impressions: Service Date/Time: Saturday, September 03, 2016 20:21 - CONCLUSION: Normal examination. Marcio Zamorano MD Head CTA 09/03/16 0000 Signed Impressions: Service Date/Time: Saturday, September 03, 2016 20:21 - CONCLUSION: Negative CTA of the head. Marcio Zamorano MD Brain MRI 09/03/16 0000 Signed Impressions: Service Date/Time: Saturday, September 03, 2016 20:34 - CONCLUSION: Areas of low signal in the edi, right cerebellar peduncle and right cerebellar hemisphere. Marcio Zamorano MD Physical Exam GENERAL: awake and interacting, has significant dysarthria, not in any respiratory distress. SKIN: Warm and dry. No generalized rash HEENT: [place] conjunctivae, no petechia or hemorrhage. No scleral icterus. No injection or drainage. Moist oral mucosa, no oral thrush, has hairy leukoplakia R lateral tongue. NECK: Trachea midline. No JVD or lymphadenopathy. Supple, nontender, no meningeal signs. CARDIOVASCULAR: Regular rate and rhythm without murmurs, gallops, or rubs. RESPIRATORY: Has diffuse rhonchi. GASTROINTESTINAL: Abdomen soft, non-tender, nondistended. Bowel sounds are present and normoactive. No organomegaly. No guarding. MUSCULOSKELETAL: Extremities without clubbing, cyanosis, or edema. No joint tenderness, effusion, or edema noted. No calf tenderness. Negative Homans sign bilaterally. NEUROLOGICAL: Awake and alert. Has decreased nasolabial fold on the L, tongue deviated to left, has asymmetry in the eyebrows, not raising R eyebrow. 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 Lower extremity equal strength. No Babinski, no ankle clonus. 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
[2016-09-05 14:51] LABS: CF EBV DNA PCR RESULT Negative (Negative); CF EBV SPEC SOURCE CSF (())
[2016-09-05 15:58] LABS: HIV 1 AB DIFFERENTIATION Positive (Negative); HIV 1/2 AG AND AB SCREEN Reactive (Negative); HIV 2 AB DIFFERENTIATION Negative (Negative)
--- NOTE | 2016-09-05 16:29 | MB ---
cc: IBNG GILL DATE OF CONSULTATION 09/05/2016 DATE OF 1965 REASON FOR CONSULTATION Patient with altered mental status, brain mass, abnormal hypercoagulable workup. CHIEF COMPLAINT The patient is currently encephalopathic. He opens his eyes up and nods, but unable to answer my questions. HISTORY OF PRESENT ILLNESS This is a 53-year-old male who suffered from CVA with a cerebellar hemispheric infarct on August 17, 2016 due to ischemic stroke. He was placed on heparin and then transition to Coumadin. The patient was subsequently transferred to [facility]. He had neurological changes and progressive altered mental status and a stroke alert and patient was subsequently transferred to the ICU. He has previously undergone partial hypercoagulable w/u and he was negative for prothrombin mutation Additionally, he was checked for MTHFR C677T mutation. He was found to have one copy of the C677T variant and one copy of the A128C variant. He is a compound heterozygous. He was not found to have antiphospholipid antibody. LATASHA screen is pending. The patient had an MRI of the brain which shows an area of low signal in the edi and the right cerebral pudendal and right cerebellar hemisphere. Repeat MRI was also completed and this shows persistent abnormal signal in the right cerebellum and middle cerebral peduncles from an uncertain process. I discussed this case with Dr. Cedeño who is a neurosurgeon. REVIEW OF SYSTEMS Unable to complete due to the patient's current mental status. PAST MEDICAL HISTORY History of a stroke. PAST SURGICAL HISTORY Unable to obtain due to the patient's mental status. MEDICATIONS Inpatient medications include: 1. Pantoprazole 2. Sliding-scale insulin 3. Zofran 4. DuoNebs ALLERGIES He does not have any known allergies. PHYSICAL EXAMINATION VITAL SIGNS: Blood pressure is 118/71, pulse is in the 60s, respiratory rate is 15, O2 sats are 97% on two liters nasal cannula. GENERAL: Acutely ill patient who is encephalopathic. He opens his eyes. He has significant right upper extremity weakness as well as the bilateral lower extremity weakness. HEAD, EYES, EARS, NOSE, AND THROAT: Pupils are reactive to light. EOMI. No oral thrush. No oral lesions. NECK: Supple. No JVD, no bruits. No lymphadenopathy. CHEST: Clear to auscultation bilaterally. CARDIAC: S1-S2 regular rate and rhythm. ABDOMEN: Soft, nontender, nondistended. Bowel sounds are present. EXTREMITIES: Without any edema, erythema or cyanosis. Skin is without any petechiae, lesion or bruises. Strength in the right lower extremity is 1/5. Left lower extremity is 2/5. Right upper extremity strength is 3/5. NEUROLOGIC: Right upper and bilateral lower extremity weakness encephalopathic. LABORATORY DATA WBC is 3.8, hemoglobin is 11.2, platelet count is 166. Sodium is 142, potassium is 3.8, chloride is 110, BUN is 12, creatinine is 0.85, lactic acid is 0.9, phosphorus 4.1, magnesium 1.7, total bilirubin 1.1, alk phos 38, total protein 7.3, albumin is 3.2. ASSESSMENT This is a 51-year-old male who suffered from CVA on August 17, 2016. He was on heparin and Coumadin. He was readmitted to the ICU after he became aphasic, nonresponsive and left-sided gaze. An MRI of the brain shows abnormal signal in the right cerebellum and middle cerebral peduncal. 1. Abnormal mass in the brain. I discussed this case with Dr. Cedeño. There is a possibility of a malignant mass. Possibility of infectious etiology also exists. An LP was performed and the results are pending. A flow cytometry should be performed, however, he will require at these 10-15 cc of CSF for flow cytometry. This was discussed with Dr. Cedeño. Patient is HIV positive. ID has been consulted 2. Abnormal hypercoagulable workup. The only abnormality I can find on his hypercoagulable work up is the findings of heterozygous variant for C677T and A19AC in the MTHFR gene. This is nonspecific and these findings do not correspond to a high-risk of thrombosis. The patient will need anticoagulation for stroke prophylaxis, however, at this time, there are findings of intracranial mass and this patient may need a brain biopsy. I would recommend holding off any anticoagulation at this time. 3. Mild Leukopenia: likely due to HIV. obtain viral loads. ID consult Thank you for allowing me to participate in the care of this patient. I will continue to follow this patient along. MD SAMMY Jade/PIERRE /1:11 AM /4:25 PM MTDD
[2016-09-05] MEDS: ATORVASTATIN 10 MG TAB PO SCH (20:48)
[2016-09-06] VITALS (9 sets, daily range): BP systolic 106–149; BP diastolic 67–94; PULSE 56–78; RESP 12–16; TEMP 97.5–98.5; O2SAT 95–100
[2016-09-06] MEDS: CHLORHEXIDINE GLUCONATE 2 % 1 PACK (2 CLOTHS) TOP SCH (04:00)
[2016-09-06 04:58] LABS: AUTOMATED NEUTROPHIL # 3.9 TH/MM3 (1.8-7.7); BASOPHIL % 0.1 % (0.0-2.0); EOSINOPHIL % 0.2 % (0.0-4.0); HEMATOCRIT 30.6 % (39.0-51.0); HEMO FLAGS DIFF FINAL; LYMPH % 10.2 % (9.0-44.0); LYMPHOCYTE # 0.5 TH/MM3 (1.0-4.8); MEAN CELL VOLUME 90.3 FL (80.0-100.0); MEAN CORPUSCULAR HEMOGLOBIN 29.8 PG (27.0-34.0); MEAN CORPUSCULAR HGB CONC 33.1 % (32.0-36.0); NEUT % 82.5 % (16.0-70.0); PLATELET COUNT 174 TH/MM3 (150-450); RED BLOOD COUNT 3.39 MIL/MM3 (4.50-5.90); RED CELL DISTRIBUTION WIDTH 14.3 % (11.6-17.2); WHITE BLOOD COUNT 4.8 TH/MM3 (4.0-11.0)
[2016-09-06 05:07] LABS: INTERNATIONAL NORMALIZED RATIO 1.7 RATIO; PROTHROMBIN TIME - PATIENT 18.8 SEC (9.8-11.6)
[2016-09-06 05:25] LABS: ANION GAP 8 MEQ/L (5-15); AST (GOT) 18 U/L (15-37); BLOOD UREA NITROGEN 12 MG/DL (7-18); CHLORIDE 111 MEQ/L (98-107); GLOMERULAR FILTRATION RATE 109 ML/MIN (>89); MAGNESIUM 1.9 MG/DL (1.5-2.5); POTASSIUM 3.5 MEQ/L (3.5-5.1); SODIUM (NA) 146 MEQ/L (136-145)
[2016-09-06 05:29] LABS: ALKALINE PHOSPHATASE 64 U/L (45-117); ALT (GPT) 36 U/L (12-78); TOTAL BILIRUBIN ADULT 0.9 MG/DL (0.2-1.0)
--- NOTE | 2016-09-06 07:41 | HHI.PR ---
Review/Management Diagnosis/Plan: (1) brainstem abnormality Plan: Tetiology of mass: infarct/inflammatory. I.D suspects possible pml if HIV comes back positive appreciate and agree with Neurosurgery, I.D and [facility] ? may need peg he non enhancing diffusion abnormality has progressed from the right CP angle to the left edi and midbrain, but clinically it is also affecting the lower cranial nerves as well. Lumbar puncture was performed yesterday and is negative for lymphocytes, proteins, bacteria or fungus. A brain biopsy was planned tomorrow but was cancelled when the HIV came back positive. He remains critically ill and at risk on needing intubation and tracheostomy. DVT and PUD prophylaxis and rehab services are ordered. (2) Cranial nerve palsy Plan: Cranial nerves , VII, IX, X, XII are affected, at high risk for aspiration (3) Leukopenia Plan: heme following Subjective Subjective Comments No acute events reported No headache No chest pain No dyspnea Active Medications Current Medications Medications (Trade) Dose Ordered Sig/Krystin Route Start Time Stop Time Status Last Admin Potassium Chloride 100 ml @ 50 mls/hr Q2H PRN IV 09/03/16 10:45 (KCl 20 Meq Premix Inj) 100 ml @ 50 mls/hr Q2H PRN IV 09/03/16 10:45 Potassium Chloride 40 meq 40 meq UNSCH PRN PO/TUBE 09/03/16 10:45 Potassium Chloride 100 ml @ 25 mls/hr UNSCH PRN IV 09/03/16 10:45 Potassium Chloride 100 ml @ 50 mls/hr Q2H PRN IV 09/03/16 10:45 (Magnesium Sulfate Inj/NS Inj) 100 ml @ 50 mls/hr UNSCH PRN IV 09/03/16 10:45 Magnesium Oxide 800 mg 800 mg UNSCH PRN PO 09/03/16 10:45 (Magnesium Sulfate Inj/NS Inj) 100 ml @ 50 mls/hr UNSCH PRN IV 09/03/16 10:45 Potassium Phosphate 2000 mg 2,000 mg Q4H PRN PO 09/03/16 10:45 (Sodium Phosphate Inj/NS 250 ml Inj) 250 ml @ 42 mls/hr UNSCH PRN IV 09/03/16 10:45 (KCl 40 Meq/30 ml Liq) 40 meq UNSCH PRN PO/TUBE 09/03/16 10:45 Potassium Phosphate 2000 mg 2,000 mg UNSCH PRN PO/TUBE 09/03/16 10:45 (Potassium Phosphate Inj/NS 250 ml Inj) 260 ml @ 42 mls/hr UNSCH PRN IV 09/03/16 10:45 (NS Flush) 2 ml UNSCH PRN IV FLUSH 09/03/16 10:45 (NS Flush) 2 ml BID IV FLUSH 09/03/16 21:00 09/05/16 20:48 (Protonix Inj) 40 mg DAILY IV 09/04/16 09:00 09/05/16 10:24 (Zofran Inj) 4 mg Q6H PRN IV 09/03/16 10:45 Miscellaneous Information 1 Q361D XX 09/03/16 10:45 09/03/16 10:45 (Chlorhexidine 2% Cloth) 3 pack Taper DAILY@04 TOP 09/04/16 04:00 08/31/17 03:59 09/06/16 04:00 (Chlorhexidine 2% Cloth) 3 pack UNSCH PRN TOP 09/03/16 10:45 Aspirin 325 mg 325 mg DAILY PO 09/05/16 09:00 09/05/16 10:24 (Ancef 2 Gm Premix) 50 ml @ 100 mls/hr ONCE ONCE IV 09/06/16 11:00 09/06/16 11:29 (Lipitor) 10 mg HS PO 09/05/16 21:00 09/05/16 20:48 Allergies Allergies Coded Allergies No Known Allergies (Unverified08/16/16) Review of Systems All other ROS: ROS reviewed as documented in chart Exam I&O / VS 09/05/16 09/05/16 09/06/16 15:00 23:00 07:00 Intake Total 843 ml 240 ml 311 ml Output Total 400 ml 225 ml 225 ml Balance 443 ml 15 ml 86 ml Intake Oral 460 ml 240 ml IV Total 383 ml 311 ml Output Urine Total 400 ml 225 ml 225 ml # Bowel Movements 0 0 0 Vital Signs Date Time Temp Pulse Resp B/P Pulse Ox O2 Delivery O2 Flow Rate FiO2 09/06/16 04:00 97.6 58 12 111/69 98 09/06/16 00:00 97.5 56 12 106/67 98 09/05/16 20:00 65 09/05/16 20:00 97.8 66 16 141/91 98 09/05/16 20:00 Nasal Cannula 2.00 09/05/16 18:00 69 09/05/16 16:00 97.8 56 13 111/74 99 09/05/16 16:00 56 09/05/16 14:00 67 09/05/16 12:00 98.1 64 20 115/71 98 09/05/16 12:00 66 09/05/16 10:00 69 09/05/16 08:29 95 Nasal Cannula 4.00 09/05/16 08:00 97.9 66 15 118/71 97 09/05/16 08:00 74 General: No acute distress Respiratory: Non-labored respirations, BS equal Cardiology: Normal rate, Regular Rhythm Exam Comments alert, follows some simple commands, hypophonic speech, bradykinesia, + nystagmus horizontal, + blink to threat, flat affect, able to raise all 4 ext to gravity but ataxic, msr 2+, no clonus, planter extensor Objective Micro and Labs Laboratory Tests Test 09/06/16 04:30 White Blood Count 4.8 Red Blood Count 3.39 Hemoglobin 10.1 Hematocrit 30.6 Mean Corpuscular Volume 90.3 Mean Corpuscular Hemoglobin 29.8 Mean Corpuscular Hemoglobin 33.1 Concent Red Cell Distribution Width 14.3 Platelet Count 174 Mean Platelet Volume 9.2 Neutrophils (%) (Auto) 82.5 Lymphocytes (%) (Auto) 10.2 Monocytes (%) (Auto) 7.0 Eosinophils (%) (Auto) 0.2 Basophils (%) (Auto) 0.1 Neutrophils # (Auto) 3.9 Lymphocytes # (Auto) 0.5 Monocytes # (Auto) 0.3 Eosinophils # (Auto) 0.0 Basophils # (Auto) 0.0 CBC Comment DIFF FINAL Differential Comment Prothrombin Time 18.8 Prothromb Time International 1.7 Ratio Sodium Level 146 Potassium Level 3.5 Chloride Level 111 Carbon Dioxide Level 27.0 Anion Gap 8 Blood Urea Nitrogen 12 Creatinine 0.89 Estimat Glomerular Filtration 109 Rate Random Glucose 86 Calcium Level 8.2 Phosphorus Level 3.2 Magnesium Level 1.9 Total Bilirubin 0.9 Aspartate Amino Transf 18 (AST/SGOT) Alanine Aminotransferase 36 (ALT/SGPT) Alkaline Phosphatase 64 Total Protein 6.6 Albumin 2.9 Date/Time Procedure Status Source Growth 09/04/16 10:09 Gram Stain - Final Resulted Cerebral Spinal Fluid Lumbar Puncture 09/04/16 10:09 CSF Culture - Preliminary Resulted Cerebral Spinal Fluid Lumbar Puncture NO GROWTH IN 24 HOURS. 09/04/16 10:09 Fungal Smear - Final Resulted Cerebral Spinal Fluid Lumbar Puncture NO FUNGAL ELEMENTS SEEN. 09/04/16 10:09 Fungal Culture Resulted Cerebral Spinal Fluid Lumbar Puncture Pending 09/04/16 10:09 Acid Fast Stain - Final Resulted Cerebral Spinal Fluid Lumbar Puncture NO ACID FAST BACILLI SEEN 09/04/16 10:09 Mycobacterial Culture Resulted Cerebral Spinal Fluid Lumbar Puncture Pending 09/04/16 10:09 Cancelled Cerebral Spinal Fluid Lumbar Puncture 09/03/16 12:40 Urine Culture - Final Complete Urine Catheterized Urine NO GROWTH IN 48 HOURS. 09/03/16 12:40 Aerobic Blood Culture - Preliminary Resulted Blood Peripheral NO GROWTH IN 2 DAYS 09/03/16 12:40 Anaerobic Blood Culture - Preliminary Resulted Blood Peripheral NO GROWTH IN 2 DAYS Problem Qualifiers (1) Leukopenia: Qualified Code: D72.819 - Leukopenia, unspecified type Serafin Vallejo MD Sep 06, 2016 07:41
[2016-09-06] MEDS: PANTOPRAZOLE SODIUM 40 MG VIAL IV SCH (08:38)
[2016-09-06] MEDS: SODIUM CHLORIDE 0.9% FLUSH 5 ML FLUSH IV FLUSH SCH ×2 (08:38→20:13)
[2016-09-06] MEDS: ASPIRIN EC 325 MG TABEC PO SCH (08:38)
[2016-09-06] MEDS ORDERED: ceFAZolin 2 GM PREMIX 50 ML IV ONE (11:00)
[2016-09-06] MEDS: NS + KCL 20 MEQ INJ 1,000 ML IV SCH (12:00)
--- NOTE | 2016-09-06 13:22 | HHI.PR ---
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 Follow up CVA, dysphagia. Objective Vitals Vital Signs Date Time Temp Pulse Resp B/P Pulse Ox O2 Delivery O2 Flow Rate FiO2 09/06/16 12:00 63 09/06/16 12:00 98.5 63 16 126/84 99 09/06/16 10:00 62 09/06/16 08:00 64 09/06/16 08:00 98.5 64 14 129/82 100 09/06/16 07:00 99 Nasal Cannula 2.00 09/06/16 04:00 97.6 58 12 111/69 98 09/06/16 00:00 97.5 56 12 106/67 98 09/05/16 20:00 65 09/05/16 20:00 97.8 66 16 141/91 98 09/05/16 20:00 Nasal Cannula 2.00 09/05/16 18:00 69 09/05/16 16:00 97.8 56 13 111/74 99 09/05/16 16:00 56 09/05/16 14:00 67 I/O 09/05/16 09/05/16 09/05/16 09/06/16 09/06/16 09/06/16 06:59 14:59 22:59 06:59 14:59 22:59 Intake Total 304 ml 843 ml 240 ml 311 ml Output Total 1050 ml 400 ml 225 ml 225 ml Balance -746 ml 443 ml 15 ml 86 ml Intake Oral 460 ml 240 ml IV Total 304 ml 383 ml 311 ml Output Urine Total 1050 ml 400 ml 225 ml 225 ml # Bowel Movements 0 0 0 0 Result Diagram: 09/06/16 0430 09/06/16 0430 Imaging Last Impressions Chest X-Ray 09/05/16 0000 Signed Impressions: Service Date/Time: Monday, September 05, 2016 08:12 - CONCLUSION: 1. No acute cardiopulmonary disease. Mike Jordan MD Neck CTA 09/03/16 0000 Signed Impressions: Service Date/Time: Saturday, September 03, 2016 20:21 - CONCLUSION: Normal examination. Marcio Zamorano MD Head CTA 09/03/16 0000 Signed Impressions: Service Date/Time: Saturday, September 03, 2016 20:21 - CONCLUSION: Negative CTA of the head. Marcio Zamorano MD Brain MRI 09/03/16 0000 Signed Impressions: Service Date/Time: Saturday, September 03, 2016 20:34 - CONCLUSION: Areas of low signal in the edi, right cerebellar peduncle and right cerebellar hemisphere. Marcio Zamorano MD Objective Remarks General: No acute distress. Heart: Regular rate and rhythm. No murmur. Lungs: Clear to auscultation bilaterally. No wheezes, rales, or rhonchi. Breathing is nonlabored. Abdomen: Soft, nontender, nondistended. Extremities: No lower extremity edema. Psych: Alert and oriented. Procedures None Urinary Catheter: No Vascular Central Line Catheter: No A/P Problem List: (1) CVA (cerebral vascular accident) ICD Code: I63.9 Status: Acute (2) Dysphagia ICD Code: R13.10 Status: Acute (3) Mild protein-calorie malnutrition ICD Code: E44.1 Status: Acute (4) Dyslipidemia ICD Code: E78.5 Status: Chronic Assessment and Plan 1. CVA: She had right cerebral infarct on 08/17/16. He was transferred to [facility] rehabilitation. Brain MRI from 08/17/16 shows right hemispheric mass. Neurosurgery consulted. Repeat MRI done 09/03/16. Report noted. 2. Dyslipidemia: Continue statin. 3. Mild protein calorie malnutrition: Patient is strict nothing by mouth per speech therapy. Dietary consult requested regarding probable need for tube feeds. 4. G6PD deficiency, leukopenia: Appreciate hematology/oncology recommendations. 5. Preliminary HIV reflex positive: Awaiting confirmatory testing. Appreciate infectious disease recommendations. Lumbar puncture was unremarkable. 6. GI prophylaxis: Protonix. 7. DVT prophylaxis: SCDs. Avoid chemical prophylaxis until cleared by neurosurgery. Discussed with Dr. Henning. Tony Lima MD Sep 06, 2016 13:22
--- NOTE | 2016-09-06 14:24 | HHI.CCPN ---
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 The patient was placed on heparin and transitioned to Coumadin. The patient was subsequently transferred to [facility]. A [facility] was called, followed by stroke alert noting per RN, neurological changes. The nurse and Dr. Nguyen usually common at that the patient was a phasic, nonresponsive, with a left-sided gaze. Dr. Schroeder, neurologist was notified, CT scan was obtained and results are now pending. Per Dr. Vallejo, the patient is status post CVA on08/17/2016 and is not a candidate for TPA. The patient's previous medications per medical records were warfarin, docusate and atorvastatin. Critical care medicine was consulted for treatment and management. Upon presentation to the ICU, the patient was noted to have vertical and lateral nystagmus, aphasic,. The patient was able to follow commands, motor strength was noted to be 4/5 right upper and lower extremity with normal motor strength left upper and lower extremity. 09/03: Overnight, the patient began to verbalize significant dysarthria noted, but improved from yesterday's initial evaluation. Concern for patient to manage secretions still a concern, the patient continues to be NPO. Patient now has lateral nystagmus, motor exam unchanged. Neurology was consulted yesterday, MRI obtained. Subsequent imaging studies were performed last evening. Patient is scheduled for lumbar puncture this a.m. per neurosurgery for CSF evaluation. The patient is noted to have leukopenia, and a history of G6PD deficiency hematology and oncology were consulted. 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 Administration of steroids were initiated last evening. 09/04: Steroids discontinued. No change in neurological evaluation, examination. Speech therapy consulted, patient continues on honey thick liquids , tolerated PO diet well yesterday. CSF results pending, no fungal elements were noted. Preliminary HIV reflex test positive, awaiting final confirmation. 09/05: No change in status. Tolerating PO diet. 09/06: Overnight the patient was noted to have increased difficulty managing secretions. Repeat formal speech swallow study noted that the patient failed this a.m.. The patient was placed on nothing by mouth status. HIV-1 antibody tests confirmed. Other studies still pending. The patient's family in the presence of a International Specialist, with family holding and guiding the patient's hand , signed a POA. The patient was not competent to complete the document or answer questions at thus time. The family was informed that the document was not valid due to the fact the patient had altered mental status and could not freely communicate on his own, and sign the document. Informed that the patient 's would be appropriate and making the decisions forthe patient and the POA document was null and void. Objective Vital Signs Date Time Temp Pulse Resp B/P Pulse Ox O2 Delivery O2 Flow Rate FiO2 09/06/16 12:00 63 09/06/16 12:00 98.5 16 126/84 99 09/06/16 07:00 Nasal Cannula 2.00 Intake and Output 09/05/16 09/05/16 09/06/16 08:00 16:00 00:00 Intake Total 304 ml 843 ml 240 ml Output Total 1050 ml 400 ml 225 ml Balance -746 ml 443 ml 15 ml Result Diagram: 09/06/16 0430 09/06/16 0430 Objective Remarks GENERAL: Well-nourished well-developed male, alert this morning , dysarthria but responding. SKIN: Warm and dry. HEAD: Atraumatic. Normocephalic. EYES: Pupils equal and round. 3 mm and brisk .No scleral icterus. No injection or drainage. Noted lateral nystagmus. ENT: No nasal bleeding or discharge. Mucous membranes pink and moist. O2 via nasal cannula 2LPM N/C NECK: Trachea midline. No JVD. CARDIOVASCULAR: Normal rate, regular rhythm. RESPIRATORY: No accessory muscle use. Clear to auscultation. Breath sounds equal bilaterally. Occasional cough for clearing secretions GASTROINTESTINAL: Abdomen soft, non-tender, nondistended. No guarding. Normoactive bowel sounds. MUSCULOSKELETAL: Extremities without clubbing, cyanosis, or edema. No obvious deformities. NEUROLOGICAL: Awake and alert. RASS 0. Follows commands in all 4 extremities. Motor strength 4/5 right upper and lower extremities, 5/5 left upper and lower extremities. Procedures None Urinary Catheter: No (condom catheter) Vascular Central Line Catheter: No A/P Assessment and Plan Neurologic: S/P CVA-right cerebral infarct 1/5 Dysarthria Aphasia -Neurology Dr. 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 Restricted diffusion indicating suggesting ischemia left edi -MRI w/contrast 09/03-areas of low signal in edi, right cerebellar peduncle and right cerebellar hemisphere -Neurosurgery consult, Dr. Cedeño- CSF evaluation studies pending -09/06 Formal swallow study from this a.m.-failed -09/05 Ammonia level 13 Respiratory: -Cough reflex diminished this a.m., concern for aspiration. On nasal cannula at 2 L/m -Maintain O2 sat greater than 92%, wean off O2 -Maintain head of bed elevation 30 -Bronchodilators every 4 hours when necessary for wheezing -Repeat chest x-ray in a.m. Cardiovascular: Dyslipidemia -Continue atorvastatin -Patient previously on ASA, Coumadin (on hold) Renal: No acute issues -Obtain BMP -Continue condom catheter -- Strict I/Os FEN/GI: Mild protein calorie malnutrition -Maintain nothing by mouth status -Insert Dobbhoff tube, follow-up KUB -Leaded Glass Installer consult -F/U for dietary recommendations -Albumin 3.2 -Replete electrolytes per ICU protocol Heme/ID: G6PD deficiency Leukopenia HIV-1 Ab positive -HematologyOncology- Dr. Patrick Pelletier - Blood urine and sputum cultures follow-up results -Tylenol when necessary for temp greater than 101.0 -Follow-up RPR, and additional studies -HIV Ab 1 confirmed positive -ID consult- Dr Mccracken , cryptococcal antigen, hepatitis panel, serology studies, CD4 studies all pending -CSF-no fungal elements seen Endocrine: -Glucose monitoring per ICU protocol -- SSI Prophylaxis: GI Prophylaxis Protonix DVT Prophylaxis -- SCDs No pharmacological prophylaxis at this time. Will defer to neurosurgery for resumption of anticoagulation Lines: Peripheral IV's x 2 Dispo: Level 3 ICU care resumed secondary to difficulty with management of secretions, and possible need for intubation. Discussed with Mrs. Reynaga,with pt.'s daughter, and niece present at her request, the patient will remain in ICU, concern for difficulty managing secretions and airway management. I spoke with . Vianey Delcid regarding provision to of HIV1 confirmatory tests results.I was informed because she consented for the tests secondary to the fact the patient is neurologically compromised and the requirement for the need for further testing and medical management I could do so. and I as well as the BRASS FINISHER were in the room. Dr Mccracken discussed the lab results thus far confirmed HIV-1 antibody, and that other results are still pending. Dr. Mccracken and Hernán discussed with Mrs. Reynaga and family the need for additional tests, to include cryptococcal antigen, chest x-rays for definitive plans of treatment. Mrs. Reynaga stated she understood, obtained contact information from Dr. Mccracken. All questions answered. Physician Cathy Miller MD Sep 06, 2016 14:24
--- NOTE | 2016-09-06 14:27 | HHI.IDPN ---
Subjective Subjective Remarks Notes reviewed HIV came back (+) Having problems with swallowing Sounds congested Temps ok HSV negative Crypto pending CD4 pending C/S negative Antibiotics None Lines PIV Past Medical History Hyperlipidemia Recent admission and diagnosed to have a right cerebellar months felt to be probably an infarct - CTA of the neck and the head negative - Spectroscopy negative No previous history of blood transfusion Leukopenia, question if he has had prior workup, no workup done during his last admission Allergies: Coded Allergies: No Known Allergies (Unverified , 08/16/16) Objective . Vital Signs Date Time Temp Pulse Resp B/P Pulse Ox O2 Delivery O2 Flow Rate FiO2 09/06/16 12:00 63 09/06/16 12:00 98.5 63 16 126/84 99 09/06/16 10:00 62 09/06/16 08:00 64 09/06/16 08:00 98.5 64 14 129/82 100 09/06/16 07:00 99 Nasal Cannula 2.00 09/06/16 04:00 97.6 58 12 111/69 98 09/06/16 00:00 97.5 56 12 106/67 98 09/05/16 20:00 65 09/05/16 20:00 97.8 66 16 141/91 98 09/05/16 20:00 Nasal Cannula 2.00 09/05/16 18:00 69 09/05/16 16:00 97.8 56 13 111/74 99 09/05/16 16:00 56 09/05/16 09/05/16 09/06/16 15:00 23:00 07:00 Intake Total 843 ml 240 ml 311 ml Output Total 400 ml 225 ml 225 ml Balance 443 ml 15 ml 86 ml Intake Oral 460 ml 240 ml IV Total 383 ml 311 ml Output Urine Total 400 ml 225 ml 225 ml # Bowel Movements 0 0 0 . Laboratory Tests Test 09/05/16 09/06/16 03:40 04:30 White Blood Count 6.4 TH/MM3 4.8 TH/MM3 Red Blood Count 3.53 MIL/MM3 3.39 MIL/MM3 Hemoglobin 10.5 GM/DL 10.1 GM/DL Hematocrit 31.5 % 30.6 % Mean Corpuscular Volume 89.4 FL 90.3 FL Mean Corpuscular Hemoglobin 29.8 PG 29.8 PG Mean Corpuscular Hemoglobin 33.4 % 33.1 % Concent Red Cell Distribution Width 14.0 % 14.3 % Platelet Count 156 TH/MM3 174 TH/MM3 Mean Platelet Volume 8.1 FL 9.2 FL Neutrophils (%) (Auto) 82.5 % Lymphocytes (%) (Auto) 10.2 % Monocytes (%) (Auto) 7.0 % Eosinophils (%) (Auto) 0.2 % Basophils (%) (Auto) 0.1 % Neutrophils # (Auto) 3.9 TH/MM3 Lymphocytes # (Auto) 0.5 TH/MM3 Monocytes # (Auto) 0.3 TH/MM3 Eosinophils # (Auto) 0.0 TH/MM3 Basophils # (Auto) 0.0 TH/MM3 CBC Comment DIFF FINAL Differential Comment Laboratory Tests Test 09/05/16 09/06/16 03:40 04:30 Sodium Level 146 MEQ/L 146 MEQ/L Potassium Level 3.9 MEQ/L 3.5 MEQ/L Chloride Level 114 MEQ/L 111 MEQ/L Carbon Dioxide Level 24.5 MEQ/L 27.0 MEQ/L Anion Gap 8 MEQ/L 8 MEQ/L Blood Urea Nitrogen 14 MG/DL 12 MG/DL Creatinine 0.96 MG/DL 0.89 MG/DL Estimat Glomerular Filtration 100 ML/MIN 109 ML/MIN Rate Random Glucose 112 MG/DL 86 MG/DL Calcium Level 8.7 MG/DL 8.2 MG/DL Phosphorus Level 3.2 MG/DL 3.2 MG/DL Magnesium Level 2.0 MG/DL 1.9 MG/DL Total Bilirubin 0.9 MG/DL Aspartate Amino Transf 18 U/L (AST/SGOT) Alanine Aminotransferase 36 U/L (ALT/SGPT) Alkaline Phosphatase 64 U/L Total Protein 6.6 GM/DL Albumin 2.9 GM/DL Microbiology Date/Time Procedure Status Source Growth 09/04/16 10:09 Gram Stain - Final Resulted Cerebral Spinal Fluid Lumbar Puncture 09/04/16 10:09 CSF Culture - Preliminary Resulted Cerebral Spinal Fluid Lumbar Puncture NO GROWTH IN 48 HOURS. 09/04/16 10:09 Cancelled Cerebral Spinal Fluid Lumbar Puncture 09/04/16 10:09 Acid Fast Stain - Final Resulted Cerebral Spinal Fluid Lumbar Puncture NO ACID FAST BACILLI SEEN 09/04/16 10:09 Mycobacterial Culture Resulted Cerebral Spinal Fluid Lumbar Puncture Pending 09/04/16 10:09 Fungal Smear - Final Resulted Cerebral Spinal Fluid Lumbar Puncture NO FUNGAL ELEMENTS SEEN. 09/04/16 10:09 Fungal Culture Resulted Cerebral Spinal Fluid Lumbar Puncture Pending Imaging Chest X-Ray 09/05/16 0000 Signed Impressions: Service Date/Time: Monday, September 05, 2016 08:12 - CONCLUSION: 1. No acute cardiopulmonary disease. Mike Jordan MD Neck CTA 09/03/16 0000 Signed Impressions: Service Date/Time: Saturday, September 03, 2016 20:21 - CONCLUSION: Normal examination. Marcio Zamorano MD Head CTA 09/03/16 0000 Signed Impressions: Service Date/Time: Saturday, September 03, 2016 20:21 - CONCLUSION: Negative CTA of the head. Marcio Zamorano MD Brain MRI 09/03/16 0000 Signed Impressions: Service Date/Time: Saturday, September 03, 2016 20:34 - CONCLUSION: Areas of low signal in the edi, right cerebellar peduncle and right cerebellar hemisphere. Marcio Zamorano MD Physical Exam GENERAL: awake and interacting, has significant dysarthria, not in any respiratory distress. SKIN: Warm and dry. No generalized rash HEENT: [place] conjunctivae, no petechia or hemorrhage. No scleral icterus. No injection or drainage. Moist oral mucosa, no oral thrush, has hairy leukoplakia R lateral tongue. NECK: Trachea midline. No JVD or lymphadenopathy. Supple, nontender, no meningeal signs. CARDIOVASCULAR: Regular rate and rhythm without murmurs, gallops, or rubs. RESPIRATORY: Has diffuse rhonchi. GASTROINTESTINAL: Abdomen soft, non-tender, nondistended. Bowel sounds are present and normoactive. No organomegaly. No guarding. MUSCULOSKELETAL: Extremities without clubbing, cyanosis, or edema. No joint tenderness, effusion, or edema noted. No calf tenderness. Negative Homans sign bilaterally. NEUROLOGICAL: Awake and alert. Has decreased nasolabial fold on the L, tongue deviated to left, has asymmetry in the eyebrows, not raising R eyebrow. Equal hand learning operations specialist but has drift in his RUE. Lower extremity equal strength. No Babinski, no ankle clonus. 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
--- NOTE | 2016-09-06 16:43 | RADRPT ---
EXAM DATE/TIME: 09/06/2016 15:12 [facility] COMPARISON: No previous studies available for comparison. INDICATIONS : NG tube replacement. MEDICAL HISTORY : Cerebrovascular disease. SURGICAL HISTORY : None. ENCOUNTER: Subsequent ACUITY: 1 week PAIN SCORE: Non-responsive. LOCATION: Bilateral Abdomen FINDINGS: A weighted feeding tube overlies the distal body of stomach. There is contrast throughout a normal ca liber colon. Minimal gas present occasional nondilated bowel loops elsewhere. No suspicious calcific densities. Regional skeleton is grossly intact. CONCLUSION: Feeding tube tip in the stomach Marcio Posey MD on September 06, 2016 at 16:41 Board Certified Radiologist. This report was verified electronically.
[2016-09-06 17:55] LABS: CALIFORNIA ENCEPH AB IGG <1:4 (()); CALIFORNIA ENCEPH AB IGM <1:4 (()); EAST EQUINE ENCEPH AB IGG <1:4 (()); EAST EQUINE ENCEPH AB IGM <1:4 (()); ST LOUIS ENCEPH AB IGG <1:4 (()); ST LOUIS ENCEPH AB IGM <1:4 (())
[2016-09-06] MEDS: ATORVASTATIN 10 MG TAB PO SCH (20:13)
--- NOTE | 2016-09-06 21:27 | RADRPT ---
EXAM DATE/TIME: 09/06/2016 20:55 [facility] COMPARISON: No previous studies available for comparison. INDICATIONS : Evaluate for DOBB JOSE ALFREDO placement. MEDICAL HISTORY : Cerebrovascular disease. SURGICAL HISTORY : None. ENCOUNTER: Subsequent ACUITY: 1 day PAIN SCORE: Non-responsive. LOCATION: Abdomen FINDINGS: A single AP view of the mid and upper abdomen was obtained and demonstrates a nasogastric tube in haley ce with the tip projected over the distal stomach and/or proximal duodenum. Contrast is noted through out the colon. There is no free air or mass effect. The bony structures are intact. CONCLUSION: Feeding tube in place as described. Ryland Malone MD on September 06, 2016 at 21:25 Board Certified Radiologist. This report was verified electronically.
--- NOTE | 2016-09-06 23:52 | PD.ONC.PN ---
Subjective Subjective Remarks prior history of G6PD deficiency Will order Hemolysis w/u and G6PD assay Avoid drugs that promote G6PD related hemolysis including but not limited to sulfa drugs/primaquine, dapsone, glipizide,glyburide, nitrofuan and ASA etc. Leukopenia resolved-- probably will fluctuate,, likely due to HIV HIV positive. Infectious w/u ongoing Objective Data Date Time Temp Pulse Resp B/P Pulse Ox O2 Delivery O2 Flow Rate FiO2 09/06/16 20:00 Nasal Cannula 2.00 09/06/16 20:00 78 09/06/16 20:00 98.3 74 16 149/90 95 09/06/16 18:00 61 09/06/16 16:00 98.4 66 12 130/94 100 09/06/16 16:00 63 09/06/16 14:00 66 09/06/16 12:00 63 09/06/16 12:00 98.5 63 16 126/84 99 09/06/16 10:00 62 09/06/16 08:00 64 09/06/16 08:00 98.5 64 14 129/82 100 09/06/16 07:00 99 Nasal Cannula 2.00 09/06/16 04:00 97.6 58 12 111/69 98 09/06/16 00:00 97.5 56 12 106/67 98 09/06/16 09/06/16 09/06/16 07:00 15:00 23:00 Intake Total 311 ml 320 ml 996 ml Output Total 225 ml 350 ml 900 ml Balance 86 ml -30 ml 96 ml Result Diagram: 09/06/16 0430 09/06/16 0430 Laboratory Results Laboratory Tests Test 09/06/16 04:30 White Blood Count 4.8 TH/MM3 Red Blood Count 3.39 MIL/MM3 Hemoglobin 10.1 GM/DL Hematocrit 30.6 % Mean Corpuscular Volume 90.3 FL Mean Corpuscular Hemoglobin 29.8 PG Mean Corpuscular Hemoglobin 33.1 % Concent Red Cell Distribution Width 14.3 % Platelet Count 174 TH/MM3 Mean Platelet Volume 9.2 FL Neutrophils (%) (Auto) 82.5 % Lymphocytes (%) (Auto) 10.2 % Monocytes (%) (Auto) 7.0 % Eosinophils (%) (Auto) 0.2 % Basophils (%) (Auto) 0.1 % Neutrophils # (Auto) 3.9 TH/MM3 Lymphocytes # (Auto) 0.5 TH/MM3 Monocytes # (Auto) 0.3 TH/MM3 Eosinophils # (Auto) 0.0 TH/MM3 Basophils # (Auto) 0.0 TH/MM3 CBC Comment DIFF FINAL Differential Comment Prothrombin Time 18.8 SEC Prothromb Time International 1.7 RATIO Ratio Sodium Level 146 MEQ/L Potassium Level 3.5 MEQ/L Chloride Level 111 MEQ/L Carbon Dioxide Level 27.0 MEQ/L Anion Gap 8 MEQ/L Blood Urea Nitrogen 12 MG/DL Creatinine 0.89 MG/DL Estimat Glomerular Filtration 109 ML/MIN Rate Random Glucose 86 MG/DL Calcium Level 8.2 MG/DL Phosphorus Level 3.2 MG/DL Magnesium Level 1.9 MG/DL Total Bilirubin 0.9 MG/DL Aspartate Amino Transf 18 U/L (AST/SGOT) Alanine Aminotransferase 36 U/L (ALT/SGPT) Alkaline Phosphatase 64 U/L Total Protein 6.6 GM/DL Albumin 2.9 GM/DL Culture Results Microbiology Date/Time Procedure Status Source Growth 09/04/16 10:09 Gram Stain - Final Resulted Cerebral Spinal Fluid Lumbar Puncture 09/04/16 10:09 CSF Culture - Preliminary Resulted Cerebral Spinal Fluid Lumbar Puncture NO GROWTH IN 48 HOURS. 09/04/16 10:09 Cancelled Cerebral Spinal Fluid Lumbar Puncture 09/04/16 10:09 Acid Fast Stain - Final Resulted Cerebral Spinal Fluid Lumbar Puncture NO ACID FAST BACILLI SEEN 09/04/16 10:09 Mycobacterial Culture Resulted Cerebral Spinal Fluid Lumbar Puncture Pending 09/04/16 10:09 Fungal Smear - Final Resulted Cerebral Spinal Fluid Lumbar Puncture NO FUNGAL ELEMENTS SEEN. 09/04/16 10:09 Fungal Culture Resulted Cerebral Spinal Fluid Lumbar Puncture Pending Imaging Studies Last 24 hours Impressions Abdomen X-Ray 09/06/16 0000 Signed Impressions: Service Date/Time: Tuesday, September 06, 2016 20:55 - CONCLUSION: Feeding tube in place as described. Ryland Malone MD Abdomen X-Ray 09/06/16 0000 Signed Impressions: Service Date/Time: Tuesday, September 06, 2016 15:12 - CONCLUSION: Feeding tube tip in the stomach Marcio Posey MD Administered Medications Medications (Trade) Dose Ordered Sig/Krystin Route PRN Reason Start Time Stop Time Status Last Admin Dose Admin Potassium Chloride (KCl 20 Meq Premix Inj) 100 ml @ 50 mls/hr Q2H PRN IV For Potassium 3.3 - 3.5 mEq/L 09/03/16 10:45 09/06/16 11:46 IV Flush (NS Flush) 2 ml BID IV FLUSH 09/03/16 21:00 09/06/16 20:13 Pantoprazole Sodium (Protonix Inj) 40 mg DAILY IV 09/04/16 09:00 09/06/16 08:38 Miscellaneous Information 1 [id number] XX 09/03/16 10:45 09/03/16 10:45 Chlorhexidine Gluconate (Chlorhexidine 2% Cloth) 3 pack Taper DAILY@04 TOP 09/04/16 04:00 08/31/17 03:59 09/06/16 04:00 Aspirin (Ecotrin Ec) 325 mg DAILY PO 09/05/16 09:00 09/06/16 08:38 Atorvastatin Calcium 10 mg 10 mg HS PO 09/05/16 21:00 09/06/16 20:13 Potassium Chloride/Sodium Chloride (NS + KCl 20 Meq Inj) 1,000 ml @ 50 mls/hr Q20H IV 09/06/16 12:00 09/06/16 12:00 Objective Remarks GENERAL: awake and alert, speech impaired SKIN: Warm and dry.. LYMPHATIC: No adenopathy. CARDIOVASCULAR: Regular rate and rhythm without murmurs. RESPIRATORY: Breath sounds equal bilaterally. No accessory muscle use. GASTROINTESTINAL: Abdomen soft, non-tender, nondistended. EXTREMITIES: No cyanosis, no bruises . Patrick Pelletier MD Sep 06, 2016 23:52
[2016-09-07] VITALS (13 sets, daily range): BP systolic 103–148; BP diastolic 74–93; PULSE 64–104; RESP 14–26; TEMP 97.7–99.4; O2SAT 18–100
[2016-09-07 01:45] LABS: INDIRECT BILIRUBIN 0.8 MG/DL (0.0-0.8); TOTAL BILIRUBIN ADULT 1.3 MG/DL (0.2-1.0)
[2016-09-07 01:49] LABS: AUTOMATED NEUTROPHIL # 3.3 TH/MM3 (1.8-7.7); BASOPHIL % 0.1 % (0.0-2.0); EOSINOPHIL % 0.7 % (0.0-4.0); HEMATOCRIT 33.1 % (39.0-51.0); HEMO FLAGS DIFF FINAL; LYMPH % 5.7 % (9.0-44.0); LYMPHOCYTE # 0.2 TH/MM3 (1.0-4.8); MEAN CELL VOLUME 89.9 FL (80.0-100.0); MEAN CORPUSCULAR HEMOGLOBIN 30.4 PG (27.0-34.0); MEAN CORPUSCULAR HGB CONC 33.8 % (32.0-36.0); MONO % 5.3 % (0.0-8.0); NEUT % 88.2 % (16.0-70.0); PLATELET COUNT 188 TH/MM3 (150-450); RED BLOOD COUNT 3.68 MIL/MM3 (4.50-5.90); RED CELL DISTRIBUTION WIDTH 13.6 % (11.6-17.2); WHITE BLOOD COUNT 3.7 TH/MM3 (4.0-11.0)
[2016-09-07 01:56] LABS: ALKALINE PHOSPHATASE 86 U/L (45-117); ALT (GPT) 112 U/L (12-78); ANION GAP 6 MEQ/L (5-15); AST (GOT) 89 U/L (15-37); BICARBONATE 26.4 MEQ/L (21.0-32.0); BLOOD UREA NITROGEN 10 MG/DL (7-18); CHLORIDE 109 MEQ/L (98-107); GLOMERULAR FILTRATION RATE 121 ML/MIN (>89); MAGNESIUM 1.8 MG/DL (1.5-2.5); POTASSIUM 3.6 MEQ/L (3.5-5.1); SODIUM (NA) 141 MEQ/L (136-145); TOTAL BILIRUBIN ADULT 1.4 MG/DL (0.2-1.0)
[2016-09-07] MEDS: CHLORHEXIDINE GLUCONATE 2 % 1 PACK (2 CLOTHS) TOP SCH (02:51)
--- NOTE | 2016-09-07 03:26 | RADRPT ---
EXAM DATE/TIME: 09/07/2016 02:47 [facility] COMPARISON: CHEST SINGLE AP, September 05, 2016, 8:12. INDICATIONS : Shortness of breath. MEDICAL HISTORY : Cerebrovascular disease. SURGICAL HISTORY : None. ENCOUNTER: Subsequent ACUITY: 2 days PAIN SCORE: Non-responsive. LOCATION: Bilateral chest FINDINGS: A single view of the chest demonstrates the lungs to be symmetrically aerated without evidence of mas s, infiltrate or effusion. The cardiomediastinal contours are unremarkable. Osseous structures are intact. There is a feeding tube in the stomach. CONCLUSION: No focal or acute pulmonary infiltrates. No significant change. Colin Denny MD on September 07, 2016 at 3:24 Board Certified Radiologist. This report was verified electronically.
[2016-09-07] MEDS ORDERED: NOREPINEPHRINE 4 MG/4 ML AMP IV ONE (05:00)
--- NOTE | 2016-09-07 06:19 | HHI.PR ---
Review/Management Diagnosis/Plan: (1) brainstem abnormality Plan: Tetiology of mass: infarct/inflammatory. I.D suspects possible pml if HIV comes back positive appreciate and agree with Neurosurgery, I.D and [facility] ? may need peg he non enhancing diffusion abnormality has progressed from the right CP angle to the left edi and midbrain, but clinically it is also affecting the lower cranial nerves as well. Lumbar puncture was performed yesterday and is negative for lymphocytes, proteins, bacteria or fungus. A brain biopsy was planned tomorrow but was cancelled when the HIV came back positive. He remains critically ill and at risk on needing intubation and tracheostomy. DVT and PUD prophylaxis and rehab services are ordered. (2) Cranial nerve palsy Plan: Cranial nerves , VII, IX, X, XII are affected, at high risk for aspiration (3) Leukopenia Plan: heme following Subjective Subjective Comments No acute events reported No headache No chest pain No dyspnea Active Medications Current Medications Medications (Trade) Dose Ordered Sig/Krystin Route Start Time Stop Time Status Last Admin Potassium Chloride 100 ml @ 50 mls/hr Q2H PRN IV 09/03/16 10:45 (KCl 20 Meq Premix Inj) 100 ml @ 50 mls/hr Q2H PRN IV 09/03/16 10:45 Potassium Chloride 40 meq 40 meq UNSCH PRN PO/TUBE 09/03/16 10:45 Potassium Chloride 100 ml @ 25 mls/hr UNSCH PRN IV 09/03/16 10:45 Potassium Chloride 100 ml @ 50 mls/hr Q2H PRN IV 09/03/16 10:45 09/06/16 11:46 (Magnesium Sulfate Inj/NS Inj) 100 ml @ 50 mls/hr UNSCH PRN IV 09/03/16 10:45 Magnesium Oxide 800 mg 800 mg UNSCH PRN PO 09/03/16 10:45 (Magnesium Sulfate Inj/NS Inj) 100 ml @ 50 mls/hr UNSCH PRN IV 09/03/16 10:45 Potassium Phosphate 2000 mg 2,000 mg Q4H PRN PO 09/03/16 10:45 (Sodium Phosphate Inj/NS 250 ml Inj) 250 ml @ 42 mls/hr UNSCH PRN IV 09/03/16 10:45 (KCl 40 Meq/30 ml Liq) 40 meq UNSCH PRN PO/TUBE 09/03/16 10:45 Potassium Phosphate 2000 mg 2,000 mg UNSCH PRN PO/TUBE 09/03/16 10:45 (Potassium Phosphate Inj/NS 250 ml Inj) 260 ml @ 42 mls/hr UNSCH PRN IV 09/03/16 10:45 (NS Flush) 2 ml UNSCH PRN IV FLUSH 09/03/16 10:45 (NS Flush) 2 ml BID IV FLUSH 09/03/16 21:00 09/06/16 20:13 (Protonix Inj) 40 mg DAILY IV 09/04/16 09:00 09/06/16 08:38 (Zofran Inj) 4 mg Q6H PRN IV 09/03/16 10:45 Miscellaneous Information 1 Q361D XX 09/03/16 10:45 09/03/16 10:45 (Chlorhexidine 2% Cloth) 3 pack Taper DAILY@04 TOP 09/04/16 04:00 08/31/17 03:59 09/07/16 02:51 (Chlorhexidine 2% Cloth) 3 pack UNSCH PRN TOP 09/03/16 10:45 (Ecotrin Ec) 325 mg DAILY PO 09/05/16 09:00 09/06/16 08:38 Atorvastatin Calcium 10 mg 10 mg HS PO 09/05/16 21:00 09/06/16 20:13 (NS + KCl 20 Meq Inj) 1,000 ml @ 50 mls/hr Q20H IV 09/06/16 12:00 09/06/16 12:00 Allergies Allergies Coded Allergies No Known Allergies (Unverified08/16/16) Review of Systems All other ROS: ROS reviewed as documented in chart Exam I&O / VS 09/06/16 09/06/16 09/07/16 15:00 23:00 07:00 Intake Total 320 ml 996 ml Output Total 350 ml 900 ml Balance -30 ml 96 ml IV Total 320 ml 936 ml Tube Irrigant 60 ml Output Urine Total 350 ml 900 ml # Bowel Movements 0 0 Vital Signs Date Time Temp Pulse Resp B/P Pulse Ox O2 Delivery O2 Flow Rate FiO2 09/07/16 05:34 98 Nasal Cannula 2.00 09/07/16 04:00 97.7 88 19 130/88 99 09/07/16 00:00 99.4 68 18 132/85 98 09/06/16 20:00 Nasal Cannula 2.00 1/25/17 20:00 78 09/06/16 20:00 98.3 74 16 149/90 95 09/06/16 18:00 61 09/06/16 16:00 98.4 66 12 130/94 100 09/06/16 16:00 63 09/06/16 14:00 66 09/06/16 12:00 63 09/06/16 12:00 98.5 63 16 126/84 99 09/06/16 10:00 62 09/06/16 08:00 64 09/06/16 08:00 98.5 64 14 129/82 100 09/06/16 07:00 99 Nasal Cannula 2.00 General: No acute distress Respiratory: Non-labored respirations, BS equal Cardiology: Normal rate, Regular Rhythm Exam Comments alert, follows some simple commands, hypophonic speech, bradykinesia, + nystagmus horizontal, + blink to threat, flat affect, able to raise all 4 ext to gravity but ataxic, msr 2+, no clonus, planter extensor Objective Micro and Labs Laboratory Tests Test 09/07/16 01:12 White Blood Count 3.7 Red Blood Count 3.68 Hemoglobin 11.2 Hematocrit 33.1 Mean Corpuscular Volume 89.9 Mean Corpuscular Hemoglobin 30.4 Mean Corpuscular Hemoglobin 33.8 Concent Red Cell Distribution Width 13.6 Platelet Count 188 Mean Platelet Volume 9.8 Neutrophils (%) (Auto) 88.2 Lymphocytes (%) (Auto) 5.7 Monocytes (%) (Auto) 5.3 Eosinophils (%) (Auto) 0.7 Basophils (%) (Auto) 0.1 Neutrophils # (Auto) 3.3 Lymphocytes # (Auto) 0.2 Monocytes # (Auto) 0.2 Eosinophils # (Auto) 0.0 Basophils # (Auto) 0.0 CBC Comment DIFF FINAL Differential Comment Haptoglobin 215 Sodium Level 141 Potassium Level 3.6 Chloride Level 109 Carbon Dioxide Level 26.4 Anion Gap 6 Blood Urea Nitrogen 10 Creatinine 0.81 Estimat Glomerular Filtration 121 Rate Random Glucose 111 Calcium Level 8.5 Phosphorus Level 2.6 Magnesium Level 1.8 Total Bilirubin 1.3 Direct Bilirubin 0.5 Indirect Bilirubin 0.8 Aspartate Amino Transf 89 (AST/SGOT) Alanine Aminotransferase 112 (ALT/SGPT) Alkaline Phosphatase 86 Lactate Dehydrogenase 258 Total Protein 7.3 Albumin 3.2 Blood Type A POSITIVE Direct Antiglobulin Test NEGATIVE (Arian) Date/Time Procedure Status Source Growth 09/04/16 10:09 Gram Stain - Final Resulted Cerebral Spinal Fluid Lumbar Puncture 09/04/16 10:09 CSF Culture - Preliminary Resulted Cerebral Spinal Fluid Lumbar Puncture NO GROWTH IN 48 HOURS. 09/04/16 10:09 Fungal Smear - Final Resulted Cerebral Spinal Fluid Lumbar Puncture NO FUNGAL ELEMENTS SEEN. 09/04/16 10:09 Fungal Culture Resulted Cerebral Spinal Fluid Lumbar Puncture Pending 09/04/16 10:09 Acid Fast Stain - Final Resulted Cerebral Spinal Fluid Lumbar Puncture NO ACID FAST BACILLI SEEN 09/04/16 10:09 Mycobacterial Culture Resulted Cerebral Spinal Fluid Lumbar Puncture Pending 09/04/16 10:09 Cancelled Cerebral Spinal Fluid Lumbar Puncture 09/03/16 12:40 Urine Culture - Final Complete Urine Catheterized Urine NO GROWTH IN 48 HOURS. 09/03/16 12:40 Aerobic Blood Culture - Preliminary Resulted Blood Peripheral NO GROWTH IN 3 DAYS 09/03/16 12:40 Anaerobic Blood Culture - Preliminary Resulted Blood Peripheral NO GROWTH IN 3 DAYS Problem Qualifiers (1) Leukopenia: Qualified Code: D72.819 - Leukopenia, unspecified type Serafin Vallejo MD Sep 07, 2016 06:19
--- NOTE | 2016-09-07 06:25 | HHI.PR ---
Review/Management Diagnosis/Plan: (1) brainstem abnormality Plan: etiology of lesion: infarct/inflammatory on aspirin -critical care discussing concerns /niece have regarding tx with hiv meds; i.d. also following - apparently, family now states that the pt has confessed to them that he has hiv and was taking medications for it in the past; never knew this until now ? may need peg -he non enhancing diffusion abnormality has progressed from the right CP angle to the left edi and midbrain, but clinically it is also affecting the lower cranial nerves as well. -He remains critically ill and at risk on needing intubation, CCM following. DVT and PUD prophylaxis (2) Cranial nerve palsy Plan: Cranial nerves , VII, IX, X, XII are affected, at high risk for aspiration (3) Leukopenia Plan: heme following Subjective Subjective Comments No acute events reported Active Medications Current Medications Medications (Trade) Dose Ordered Sig/Krystin Route Start Time Stop Time Status Last Admin Potassium Chloride 100 ml @ 50 mls/hr Q2H PRN IV 09/03/16 10:45 (KCl 20 Meq Premix Inj) 100 ml @ 50 mls/hr Q2H PRN IV 09/03/16 10:45 Potassium Chloride 40 meq 40 meq UNSCH PRN PO/TUBE 09/03/16 10:45 Potassium Chloride 100 ml @ 25 mls/hr UNSCH PRN IV 09/03/16 10:45 Potassium Chloride 100 ml @ 50 mls/hr Q2H PRN IV 09/03/16 10:45 09/06/16 11:46 (Magnesium Sulfate Inj/NS Inj) 100 ml @ 50 mls/hr UNSCH PRN IV 09/03/16 10:45 Magnesium Oxide 800 mg 800 mg UNSCH PRN PO 09/03/16 10:45 (Magnesium Sulfate Inj/NS Inj) 100 ml @ 50 mls/hr UNSCH PRN IV 09/03/16 10:45 Potassium Phosphate 2000 mg 2,000 mg Q4H PRN PO 09/03/16 10:45 (Sodium Phosphate Inj/NS 250 ml Inj) 250 ml @ 42 mls/hr UNSCH PRN IV 09/03/16 10:45 (KCl 40 Meq/30 ml Liq) 40 meq UNSCH PRN PO/TUBE 09/03/16 10:45 Potassium Phosphate 2000 mg 2,000 mg UNSCH PRN PO/TUBE 09/03/16 10:45 (Potassium Phosphate Inj/NS 250 ml Inj) 260 ml @ 42 mls/hr UNSCH PRN IV 09/03/16 10:45 (NS Flush) 2 ml UNSCH PRN IV FLUSH 09/03/16 10:45 (NS Flush) 2 ml BID IV FLUSH 09/03/16 21:00 09/06/16 20:13 (Protonix Inj) 40 mg DAILY IV 09/04/16 09:00 09/06/16 08:38 (Zofran Inj) 4 mg Q6H PRN IV 09/03/16 10:45 Miscellaneous Information 1 Q361D XX 09/03/16 10:45 09/03/16 10:45 (Chlorhexidine 2% Cloth) 3 pack Taper DAILY@04 TOP 09/04/16 04:00 08/31/17 03:59 09/07/16 02:51 (Chlorhexidine 2% Cloth) 3 pack UNSCH PRN TOP 09/03/16 10:45 (Ecotrin Ec) 325 mg DAILY PO 09/05/16 09:00 09/06/16 08:38 Atorvastatin Calcium 10 mg 10 mg HS PO 09/05/16 21:00 09/06/16 20:13 (NS + KCl 20 Meq Inj) 1,000 ml @ 50 mls/hr Q20H IV 09/06/16 12:00 09/06/16 12:00 Allergies Allergies Coded Allergies No Known Allergies (Unverified08/16/16) Review of Systems All other ROS: ROS reviewed as documented in chart Exam I&O / VS 09/06/16 09/06/16 09/07/16 15:00 23:00 07:00 Intake Total 320 ml 996 ml 636 ml Output Total 350 ml 900 ml 650 ml Balance -30 ml 96 ml -14 ml IV Total 320 ml 936 ml 393 ml Tube Feeding 243 ml Tube Irrigant 60 ml Output Urine Total 350 ml 900 ml 650 ml # Bowel Movements 0 0 0 Vital Signs Date Time Temp Pulse Resp B/P Pulse Ox O2 Delivery O2 Flow Rate FiO2 09/07/16 05:34 98 Nasal Cannula 2.00 09/07/16 04:00 97.7 88 19 130/88 99 09/07/16 00:00 99.4 68 18 132/85 98 09/06/16 20:00 Nasal Cannula 2.00 09/06/16 20:00 78 09/06/16 20:00 98.3 74 16 149/90 95 09/06/16 18:00 61 09/06/16 16:00 98.4 66 12 130/94 100 09/06/16 16:00 63 09/06/16 14:00 66 09/06/16 12:00 63 09/06/16 12:00 98.5 63 16 126/84 99 09/06/16 10:00 62 09/06/16 08:00 64 09/06/16 08:00 98.5 64 14 129/82 100 09/06/16 07:00 99 Nasal Cannula 2.00 General: No acute distress Respiratory: Non-labored respirations, BS equal Cardiology: Normal rate, Regular Rhythm Exam Comments alert, on non-rebreather, hypophonic speech, bradykinesia, +nystagmus horizontal , + blink to threat, flat affect, able to raise all 4 ext to gravity but ataxic , msr 2+, no clonus, planter extensor Objective Micro and Labs Laboratory Tests Test 09/07/16 01:12 White Blood Count 3.7 Red Blood Count 3.68 Hemoglobin 11.2 Hematocrit 33.1 Mean Corpuscular Volume 89.9 Mean Corpuscular Hemoglobin 30.4 Mean Corpuscular Hemoglobin 33.8 Concent Red Cell Distribution Width 13.6 Platelet Count 188 Mean Platelet Volume 9.8 Neutrophils (%) (Auto) 88.2 Lymphocytes (%) (Auto) 5.7 Monocytes (%) (Auto) 5.3 Eosinophils (%) (Auto) 0.7 Basophils (%) (Auto) 0.1 Neutrophils # (Auto) 3.3 Lymphocytes # (Auto) 0.2 Monocytes # (Auto) 0.2 Eosinophils # (Auto) 0.0 Basophils # (Auto) 0.0 CBC Comment DIFF FINAL Differential Comment Haptoglobin 215 Sodium Level 141 Potassium Level 3.6 Chloride Level 109 Carbon Dioxide Level 26.4 Anion Gap 6 Blood Urea Nitrogen 10 Creatinine 0.81 Estimat Glomerular Filtration 121 Rate Random Glucose 111 Calcium Level 8.5 Phosphorus Level 2.6 Magnesium Level 1.8 Total Bilirubin 1.3 Direct Bilirubin 0.5 Indirect Bilirubin 0.8 Aspartate Amino Transf 89 (AST/SGOT) Alanine Aminotransferase 112 (ALT/SGPT) Alkaline Phosphatase 86 Lactate Dehydrogenase 258 Total Protein 7.3 Albumin 3.2 Blood Type A POSITIVE Direct Antiglobulin Test NEGATIVE (Arian) Date/Time Procedure Status Source Growth 09/04/16 10:09 Gram Stain - Final Resulted Cerebral Spinal Fluid Lumbar Puncture 09/04/16 10:09 CSF Culture - Preliminary Resulted Cerebral Spinal Fluid Lumbar Puncture NO GROWTH IN 48 HOURS. 09/04/16 10:09 Fungal Smear - Final Resulted Cerebral Spinal Fluid Lumbar Puncture NO FUNGAL ELEMENTS SEEN. 09/04/16 10:09 Fungal Culture Resulted Cerebral Spinal Fluid Lumbar Puncture Pending 09/04/16 10:09 Acid Fast Stain - Final Resulted Cerebral Spinal Fluid Lumbar Puncture NO ACID FAST BACILLI SEEN 09/04/16 10:09 Mycobacterial Culture Resulted Cerebral Spinal Fluid Lumbar Puncture Pending 09/04/16 10:09 Cancelled Cerebral Spinal Fluid Lumbar Puncture 09/03/16 12:40 Urine Culture - Final Complete Urine Catheterized Urine NO GROWTH IN 48 HOURS. 09/03/16 12:40 Aerobic Blood Culture - Preliminary Resulted Blood Peripheral NO GROWTH IN 3 DAYS 09/03/16 12:40 Anaerobic Blood Culture - Preliminary Resulted Blood Peripheral NO GROWTH IN 3 DAYS Problem Qualifiers (1) Leukopenia: Qualified Code: D72.819 - Leukopenia, unspecified type Serafin Vallejo MD Sep 07, 2016 06:25
[2016-09-07] MEDS ORDERED: ROCURONIUM INJ 50 MG/5 ML VIAL ONE (07:04)
[2016-09-07] MEDS ORDERED: ETOMIDATE 40 MG/20 ML VIAL ONE (07:04)
[2016-09-07] MEDS ORDERED: ETOMIDATE 40 MG/20 ML VIAL IV PUSH ONE (08:30)
[2016-09-07] MEDS ORDERED: ROCURONIUM INJ 50 MG/5 ML VIAL IV PUSH ONE (08:30)
[2016-09-07] MEDS: ASPIRIN EC 325 MG TABEC PO SCH (09:00)
[2016-09-07] MEDS: SODIUM CHLORIDE 0.9% FLUSH 5 ML FLUSH IV FLUSH SCH ×2 (09:48→21:00)
[2016-09-07] MEDS: PANTOPRAZOLE SODIUM 40 MG VIAL IV SCH (09:48)
[2016-09-07] MEDS: NS + KCL 20 MEQ INJ 1,000 ML IV SCH (09:48)
[2016-09-07] MEDS: HEPARIN SODIUM - SQ 10,000 UNITS/ML VIAL SQ SCH ×2 (10:08→21:59)
[2016-09-07 10:10] LABS: CSF CRYPTOCOCCUS AG CONF ND (NOT DETECTD)
--- NOTE | 2016-09-07 10:11 | HHI.CCPN ---
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 The patient was placed on heparin and transitioned to Coumadin. The patient was subsequently transferred to [facility]. A Halicat was called, followed by stroke alert noting per RN, neurological changes. The nurse and Dr. Nguyen usually common at that the patient was a phasic, nonresponsive, with a left-sided gaze. Dr. Schroeder, neurologist was notified, CT scan was obtained and results are now pending. Per Dr. Vallejo, the patient is status post CVA on08/17/2016 and is not a candidate for TPA. The patient's previous medications per medical records were warfarin, docusate and atorvastatin. Critical care medicine was consulted for treatment and management. Upon presentation to the ICU, the patient was noted to have vertical and lateral nystagmus, aphasic,. The patient was able to follow commands, motor strength was noted to be 4/5 right upper and lower extremity with normal motor strength left upper and lower extremity. 09/03: Overnight, the patient began to verbalize significant dysarthria noted, but improved from yesterday's initial evaluation. Concern for patient to manage secretions still a concern, the patient continues to be NPO. Patient now has lateral nystagmus, motor exam unchanged. Neurology was consulted yesterday, MRI obtained. Subsequent imaging studies were performed last evening. Patient is scheduled for lumbar puncture this a.m. per neurosurgery for CSF evaluation. The patient is noted to have leukopenia, and a history of G6PD deficiency hematology and oncology were consulted. 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 Administration of steroids were initiated last evening. 09/04: Steroids discontinued. No change in neurological evaluation, examination. Speech therapy consulted, patient continues on honey thick liquids , tolerated PO diet well yesterday. CSF results pending, no fungal elements were noted. Preliminary HIV reflex test positive, awaiting final confirmation. 09/05: No change in status. Tolerating PO diet. 09/06: Overnight the patient was noted to have increased difficulty managing secretions. Repeat formal speech swallow study noted that the patient failed this a.m.. The patient was placed on nothing by mouth status. HIV-1 antibody tests confirmed. Other studies still pending. 09/07: Overnight the patient had difficulty with management of secretions, O2 saturation dropped to 79% 1 episode. Discussion repeated this am with Mrs. Starks regarding intubation. Patient was placed on ventimask at 45%, O2 sat 99 %.Scopolamine added to medication regimen.Tubefeeds were initiated. Family antagonist towards staff this am, stating "nothing is being done , and demanding results from all tests immediately", requesting transfer to another facility this am. Objective Vital Signs Date Time Temp Pulse Resp B/P Pulse Ox O2 Delivery O2 Flow Rate FiO2 09/07/16 08:01 96 Venturi Mask 50 09/07/16 05:34 2.00 09/07/16 04:00 97.7 88 19 130/88 Intake and Output 09/06/16 09/06/16 09/07/16 08:00 16:00 00:00 Intake Total 311 ml 320 ml 996 ml Output Total 225 ml 350 ml 900 ml Balance 86 ml -30 ml 96 ml Result Diagram: 09/07/1611109/07/16111 Objective Remarks GENERAL: Well-nourished well-developed male, alert this morning ,drooling, much weaker today. SKIN: Warm and dry. HEAD: Atraumatic. Normocephalic. EYES: Pupils equal and round. 3 mm and brisk .No scleral icterus. No injection or drainage. Noted lateral nystagmus. ENT: No nasal bleeding or discharge. Mucous membranes pink and moist. O2 via nasal cannula 2LPM N/C NECK: Trachea midline. No JVD. CARDIOVASCULAR: Normal rate, regular rhythm. RESPIRATORY: No accessory muscle use. Clear to auscultation. Breath sounds equal bilaterally. Cough reflex diminished today. GASTROINTESTINAL: Abdomen soft, non-tender, nondistended. No guarding. Normoactive bowel sounds. MUSCULOSKELETAL: Extremities without clubbing, cyanosis, or edema. No obvious deformities. NEUROLOGICAL: Awake and alert. RASS 0. Follows commands in all 4 extremities. Motor strength 3/5 right upper and lower extremities, 4/5 left upper and lower extremities. Procedures CT brain today Urinary Catheter: No A/P Assessment and Plan Neurologic: S/P CVA-right cerebral infarct 1/ Dysarthria Aphasia -Neurology Dr. 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 Restricted diffusion indicating suggesting ischemia left edi -MRI w/contrast 09/03-areas of low signal in edi, right cerebellar peduncle and right cerebellar hemisphere -Neurosurgery consult, Dr. Cedeño- CSF evaluation studies pending -09/06 Formal swallow study from this a.m.-failed -09/05 Ammonia level 13 -Repeat CT brain scheduled today per Neurology Respiratory: -Cough effort minimal, risk or aspiration -NT suctioning -on Ventimask 45%, O2 sat 99% -Maintain O2 sat greater than 92% -Maintain head of bed elevation 30 -Bronchodilators every 4 hours when necessary for wheezing Cardiovascular: Dyslipidemia -Continue atorvastatin -Patient previously on ASA dc'd secondary to G6PD deficiency -Coumadin (on hold), Hematology Dr. 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 Patrick Pelletier - Blood urine and sputum cultures09/03- NGTD -Tylenol when necessary for temp greater than 101.0 - RPR, Cryptococcal,CD counts- pending -CSF-CINDY, VDRL - pending -HIV Ab 1 confirmed positive -ID consult- Dr Mccracken following recommendations -CSF-no fungal elements seen, WBC 0 Endocrine: -Glucose monitoring per ICU protocol -- SSI MSK: - PT, OT -evaluate and treat -Functional maintenance Prophylaxis: GI Prophylaxis Protonix IV DVT Prophylaxis -- SCDs, Heparin 5000u SQ BID Lines: Peripheral IV's x 2 Dispo: This patient remains critically ill with one or more organ systems which are or may become a threat to life. I have spent in excess of 47 minutes discontinuously in the care and management of this patient. This time is exclusive of procedures, and includes, but is not limited to, evaluation of the patient, review of the medical record, discussions with family, consultants, nursing staff, or respiratory therapy, and documentation in the medical record. I discussed with COURT STENOGRAPHER present to Mrs. Reynaga,with pt.'s daughter, and niece the concern for difficulty managing secretions and airway management. Provided overnight events, and explained that the patient will possibly require intubation today. Mrs. Reynaga and family stated " you all are doing nothing for my , he's just laying here! Can't you call and get the results stat? Cant you start antibiotics right now?" Mrs Reynaga was very emotional, crying and stated that she spoke with the patient, and he knew he had HIV and was on treatment and stopped taking the medications that were prescribed previously. I again discussed with her and the family the plan of treatment discussed on with Dr. Mccracken and why we are waiting on certain results, CINDY virus, cryptococcal antigen to begin HAART, as previously explained by Dr. Mccracken. Mrs. Reynaga and family are considering transfer to another facility. I explained to Mrs. Jimenez and family that I could facilitate the transfer, there was some concern regarding medical records being provided to the new facility. I assured Mrs. Reynaga that all medical records from this facility would be transferred over for continuity of care which is a standard process. I will be able to facilitate transfer upon her request. Dr. Vallejo, Dr. Cedeño into see patient and continued to discuss plan of treatment. All questions were answered. Physician Cathy Miller MD Sep 07, 2016 10:11
[2016-09-07] MEDS: SCOPOLAMINE 1.5 MG PATCH TD SCH (12:00)
--- NOTE | 2016-09-07 13:43 | RADRPT ---
EXAM DATE/TIME: 09/07/2016 13:04 [facility] COMPARISON: MRI BRAIN W/O CONTRAST, September 03, 2016, 11:37. CT BRAIN W/O CONTRAST, September 03, 2016, 9:27. INDICATIONS : Change in mental status. RADIATION DOSE: 56.35 CTDIvol (mGy) MEDICAL HISTORY : Cerebrovascular disease. Hypertension. Cardiovascular disease SURGICAL HISTORY : None. ENCOUNTER: Initial ACUITY: 1 day PAIN SCALE: Non-responsive LOCATION: cranial TECHNIQUE: Multiple contiguous axial images were obtained of the head. Using automated exposure control and adj ustment of the mA and/or kV according to patient size, radiation dose was kept as low as reasonably a chievable to obtain optimal diagnostic quality images. FINDINGS: There is persistent low attenuation identified within the right cerebellum and left cerebellar pedunc le and edi. The fourth ventricle remains patent. The remainder of the ventricles are symmetric in si ze. Supratentorially there is preservation of the atwood-white matter without evidence of mass effect o r hemorrhage. The orbits and sinuses are unremarkable. The osseous structures are intact. CONCLUSION: Stable exam. Aurora Liz MD on September 07, 2016 at 13:32 Board Certified Radiologist. This report was verified electronically.
[2016-09-07] MEDS ORDERED: MIDAZOLAM HCL 5 MG/ML VIAL (1 ML) ONE (18:40)
[2016-09-07] MEDS: SODIUM CHLOR 0.9% 1000 ML INJ 1,000 ML IV SCH ×2 (18:45→22:15)
[2016-09-07] MEDS ORDERED: PROPOFOL 1000 MG/100 ML INJ 100 ML ONE (18:48)
[2016-09-07 20:01] LABS: BLOOD GAS BASE EXCESS -2.7 mmol/L (-2-2); BLOOD GAS CARBOXYHEMOGLOBIN 0.9 % (0-4); BLOOD GAS HCO3 21 mmol/L (22-26); BLOOD GAS METHEMOGLOBIN 0.8 % (0-2); BLOOD GAS O2 HGB SATURATION 98 % (90-100); BLOOD GAS OXYGEN CONTENT 15.2 Vol % (12.0-20.0); BLOOD GAS PCO2 36 mmHg (38-42); BLOOD GAS PO2 538 mmHg (61-120); CRITICAL VALUE NO; OXYGEN DEVICE VENTILATOR; TEMP CORR TO 98.6
[2016-09-07 20:02] LABS: DRAW SITE RT RADIAL; FIO2 100 %; NUMBER OF ARTERIAL PUNCTURES 1; STAT YES; ULNAR PULSE PRESENT; VENT SETTINGS PRVC 14/500/5+/1.0IT
--- NOTE | 2016-09-07 20:57 | PD.PROCEDR ---
Procedure Note Procedure A time-out was completed verifying correct patient, procedure, site, positioning , and special equipment if applicable. The patient was placed in a dependent position appropriate for central line placement based on the vein to be cannulated. The patients right neck was prepped and draped in sterile fashion. 1% Lidocaine was used to anesthetize the surrounding skin area. A triple lumen 9 -[place] Cordis catheter was introduced into the the internal jugular vein using the Seldinger technique and under ultrasound guidance. The catheter was threaded smoothly over the guide wire and appropriate blood return was obtained. Each lumen of the catheter was evacuated of air and flushed with sterile saline. The catheter was then sutured in place to the skin and a sterile dressing applied. Perfusion to the extremity distal to the point of catheter insertion was checked and found to be adequate. Estimated Blood Loss: 1ml The patient tolerated the procedure well and there were no complications. Kevin Jara MD Sep 07, 2016 20:57
--- NOTE | 2016-09-07 20:58 | PD.PROCEDR ---
Procedure Note Procedure Endotracheal Intubation A time-out was completed verifying correct patient, procedure, site, positioning , and special equipment if applicable. The patient was placed in a flat position. Sedation was obtained using Etomidate 20mg. The patient was easily ventilated using an ambu bag. The [employer]/ MAC 4 BLADE was used and inserted into the oropharynx at which time there was a Grade 1 view of the vocal cords. A 8-greenlandic endotracheal tube was inserted and visualized going through the vocal cords. The stylette was removed. Colorimetric change was visualized on the CO2 meter. Breath sounds were heard in both lung rouse equally. The endotracheal tube was placed at 23 cm, measured at the teeth. A chest x-ray was ordered to assess for pneumothorax and verify endotrachealtube placement. Estimated Blood Loss: 0 The patient tolerated the procedure well and there were no complications. Kevin Jara MD Sep 07, 2016 20:58
--- NOTE | 2016-09-07 21:15 | RADRPT ---
EXAM DATE/TIME: 09/07/2016 20:52 [facility] COMPARISON: CHEST SINGLE AP, September 07, 2016, 2:47. INDICATIONS : Evaluate central line placement MEDICAL HISTORY : Cardiovascular disease. SURGICAL HISTORY : None. ENCOUNTER: Subsequent ACUITY: 2 days PAIN SCORE: Non-responsive. LOCATION: Bilateral chest FINDINGS: Endotracheal tube is present good position with tip several centimeters above the edilberto. Right centr al line since the SVC. A weighted feeding tube tip reaches the stomach. There is no evidence of pneum othorax. Lungs are symmetrically aerated and grossly clear. Cardiomediastinal contours are satisfacto ry. CONCLUSION: Satisfactory support line and tube positioning. Marcio Posey MD on September 07, 2016 at 21:13 Board Certified Radiologist. This report was verified electronically.
--- NOTE | 2016-09-07 21:57 | PD.ONC.PN ---
Subjective Subjective Remarks hypoxic overnight. on venturi mask infectious disease w/u ongoing No evidence of hemolysis G6PD testing pending Leukopenia is mild and due to HIV infection no further recs will sign-off. Please call if any questions Objective Data Date Time Temp Pulse Resp B/P Pulse Ox O2 Delivery O2 Flow Rate FiO2 09/07/16 18:54 100 100 09/07/16 18:00 70 09/07/16 16:00 98.3 90 18 103/74 18 09/07/16 16:00 90 09/07/16 14:00 104 09/07/16 12:00 98 09/07/16 12:00 99.0 98 26 145/93 97 09/07/16 10:00 99 09/07/16 08:01 96 Venturi Mask 50 09/07/16 08:00 102 09/07/16 08:00 99.4 102 24 118/76 96 09/07/16 07:00 96 Venturi Mask 7.00 50 09/07/16 05:34 98 Nasal Cannula 2.00 09/07/16 04:00 97.7 88 19 130/88 99 09/07/16 00:00 99.4 68 18 132/85 98 09/07/16 09/07/16 09/07/16 07:00 15:00 23:00 Intake Total 636 ml 1010 ml Output Total 650 ml 400 ml Balance -14 ml 610 ml Result Diagram: 09/07/16 0112 09/07/16 0112 Laboratory Results Laboratory Tests Test 09/07/16 09/07/16 01:12 19:55 White Blood Count 3.7 TH/MM3 Red Blood Count 3.68 MIL/MM3 Hemoglobin 11.2 GM/DL Hematocrit 33.1 % Mean Corpuscular Volume 89.9 FL Mean Corpuscular Hemoglobin 30.4 PG Mean Corpuscular Hemoglobin 33.8 % Concent Red Cell Distribution Width 13.6 % Platelet Count 188 TH/MM3 Mean Platelet Volume 9.8 FL Neutrophils (%) (Auto) 88.2 % Lymphocytes (%) (Auto) 5.7 % Monocytes (%) (Auto) 5.3 % Eosinophils (%) (Auto) 0.7 % Basophils (%) (Auto) 0.1 % Neutrophils # (Auto) 3.3 TH/MM3 Lymphocytes # (Auto) 0.2 TH/MM3 Monocytes # (Auto) 0.2 TH/MM3 Eosinophils # (Auto) 0.0 TH/MM3 Basophils # (Auto) 0.0 TH/MM3 CBC Comment DIFF FINAL Differential Comment Haptoglobin 215 MG/DL Sodium Level 141 MEQ/L Potassium Level 3.6 MEQ/L Chloride Level 109 MEQ/L Carbon Dioxide Level 26.4 MEQ/L Anion Gap 6 MEQ/L Blood Urea Nitrogen 10 MG/DL Creatinine 0.81 MG/DL Estimat Glomerular Filtration 121 ML/MIN Rate Random Glucose 111 MG/DL Calcium Level 8.5 MG/DL Phosphorus Level 2.6 MG/DL Magnesium Level 1.8 MG/DL Total Bilirubin 1.3 MG/DL Direct Bilirubin 0.5 MG/DL Indirect Bilirubin 0.8 MG/DL Aspartate Amino Transf 89 U/L (AST/SGOT) Alanine Aminotransferase 112 U/L (ALT/SGPT) Alkaline Phosphatase 86 U/L Lactate Dehydrogenase 258 U/L Total Protein 7.3 GM/DL Albumin 3.2 GM/DL Blood Type A POSITIVE Direct Antiglobulin Test NEGATIVE (Arian) Blood Gas Puncture Site RT RADIAL Blood Gas Patient Temperature 98.6 Blood Gas HCO3 21 mmol/L Blood Gas Base Excess -2.7 mmol/L Blood Gas Oxygen Saturation 98 % Arterial Blood pH 7.39 Arterial Blood Partial 36 mmHg Pressure CO2 Arterial Blood Partial 538 mmHg Pressure O2 Arterial Blood Oxygen Content 15.2 Vol % Arterial Blood 0.9 % Carboxyhemoglobin Arterial Blood Methemoglobin 0.8 % Blood Gas Hemoglobin 10.0 G/DL Oxygen Delivery Device VENTILATOR Blood Gas Ventilator Setting PRVC 14/500/5+/1.0IT Blood Gas Inspired Oxygen 100 % Imaging Studies Last 24 hours Impressions Chest X-Ray 09/07/16 0600 Signed Impressions: Service Date/Time: August 02:47 - CONCLUSION: No focal or acute pulmonary infiltrates. No significant change. Colin Denny MD Head CT 09/07/16 0000 Signed Impressions: Service Date/Time: August 13:04 - CONCLUSION: Stable exam. Aurora Liz MD Chest X-Ray 09/07/16 0000 Signed Impressions: Service Date/Time: August 20:52 - CONCLUSION: Satisfactory support line and tube positioning. Marcio Posey MD Administered Medications Medications (Trade) Dose Ordered Sig/Krystin Route PRN Reason Start Time Stop Time Status Last Admin Dose Admin Potassium Chloride (KCl 20 Meq Premix Inj) 100 ml @ 50 mls/hr Q2H PRN IV For Potassium 3.3 - 3.5 mEq/L 09/03/16 10:45 09/06/16 11:46 IV Flush (NS Flush) 2 ml BID IV FLUSH 09/03/16 21:00 09/07/16 09:48 Pantoprazole Sodium (Protonix Inj) 40 mg DAILY IV 09/04/16 09:00 09/07/16 09:48 Miscellaneous Information 1 Q361D XX 09/03/16 10:45 09/03/16 10:45 Chlorhexidine Gluconate (Chlorhexidine 2% Cloth) 3 pack Taper DAILY@04 TOP 09/04/16 04:00 08/31/17 03:59 09/07/16 02:51 Atorvastatin Calcium 10 mg 10 mg HS PO 09/05/16 21:00 09/06/16 20:13 Potassium Chloride/Sodium Chloride (NS + KCl 20 Meq Inj) 1,000 ml @ 50 mls/hr Q20H IV 09/06/16 12:00 09/07/16 09:48 Heparin Sodium (Porcine) (Heparin Inj) 5,000 units Q12HR SQ 09/07/16 09:30 09/07/16 10:08 Scopolamine (Transderm-Scop 1.5 Mg Patch.72 Hr) 1 patch Q3D TD 09/07/16 12:00 09/07/16 12:00 Objective Remarks GENERAL: nad/encephalopathic SKIN: Warm and dry. HEAD: Normocephalic. CARDIOVASCULAR: Regular rate and rhythm without murmurs. RESPIRATORY: Breath sounds equal bilaterally. GASTROINTESTINAL: Abdomen soft, non-tender, nondistended. EXTREMITIES: No cyanosis,. Assessment/Plan Problem List: (1) Dysarthria Status: Acute (2) Leukopenia Status: Chronic (3) Anemia Status: Acute (4) brainstem abnormality Status: Acute Problem Qualifiers (1) Leukopenia: Qualified Code: D72.819 - Leukopenia, unspecified type (2) Anemia: Patrick Pelletier MD Sep 07, 2016 21:57
[2016-09-07] MEDS: ATORVASTATIN 10 MG TAB PO SCH (21:59)
[2016-09-07] MEDS ORDERED: MIDAZOLAM HCL 5 MG/ML VIAL (1 ML) IV ONE (22:15)
[2016-09-08] VITALS (18 sets, daily range): BP systolic 95–136; BP diastolic 6–89; PULSE 60–96; RESP 16–18; TEMP 98–99.6; O2SAT 96–100
[2016-09-08] MEDS: PROPOFOL 1000 MG/100 ML IV SCH ×6 (00:56→21:30)
[2016-09-08] MEDS: NOREPINEPHRINE 4 MG/D5W 250 ML IV SCH ×3 (00:56→15:12)
[2016-09-08 03:54] LABS: CD4/CD8 RATIO 0.1 (0.86-5.00)
[2016-09-08] MEDS: NS + KCL 20 MEQ INJ 1,000 ML IV SCH (04:00)
[2016-09-08] MEDS: CHLORHEXIDINE GLUCONATE 2 % 1 PACK (2 CLOTHS) TOP SCH (04:00)
[2016-09-08 07:11] LABS: BLOOD GAS BASE EXCESS -2.5 mmol/L (-2-2); BLOOD GAS CARBOXYHEMOGLOBIN 0.9 % (0-4); BLOOD GAS HCO3 22 mmol/L (22-26); BLOOD GAS METHEMOGLOBIN 0.6 % (0-2); BLOOD GAS O2 HGB SATURATION 98 % (90-100); BLOOD GAS OXYGEN CONTENT 13.8 Vol % (12.0-20.0); BLOOD GAS PCO2 40 mmHg (38-42); BLOOD GAS PO2 163 mmHg (61-120); BLOOD GAS TOTAL HGB 9.8 G/DL (12.0-16.0); CRITICAL VALUE NO; OXYGEN DEVICE VENTILATOR; TEMP CORR TO 98.6
[2016-09-08 07:14] LABS: DRAW SITE RT RADIAL; FIO2 40 %; NUMBER OF ARTERIAL PUNCTURES 1; STAT NO; ULNAR PULSE PRESENT; VENT SETTINGS PRVC/AC
--- NOTE | 2016-09-08 07:40 | HHI.PR ---
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 affected, at high risk for aspiration (3) Leukopenia Plan: heme following Subjective Subjective Comments intubated overnight Active Medications Current Medications Medications (Trade) Dose Ordered Sig/Krystin Route Start Time Stop Time Status Last Admin Potassium Chloride 100 ml @ 50 mls/hr Q2H PRN IV 09/03/16 10:45 (KCl 20 Meq Premix Inj) 100 ml @ 50 mls/hr Q2H PRN IV 09/03/16 10:45 Potassium Chloride 40 meq 40 meq UNSCH PRN PO/TUBE 09/03/16 10:45 Potassium Chloride 100 ml @ 25 mls/hr UNSCH PRN IV 09/03/16 10:45 Potassium Chloride 100 ml @ 50 mls/hr Q2H PRN IV 09/03/16 10:45 09/06/16 11:46 (Magnesium Sulfate Inj/NS Inj) 100 ml @ 50 mls/hr UNSCH PRN IV 09/03/16 10:45 Magnesium Oxide 800 mg 800 mg UNSCH PRN PO 09/03/16 10:45 (Magnesium Sulfate Inj/NS Inj) 100 ml @ 50 mls/hr UNSCH PRN IV 09/03/16 10:45 Potassium Phosphate 2000 mg 2,000 mg Q4H PRN PO 09/03/16 10:45 (Sodium Phosphate Inj/NS 250 ml Inj) 250 ml @ 42 mls/hr UNSCH PRN IV 09/03/16 10:45 (KCl 40 Meq/30 ml Liq) 40 meq UNSCH PRN PO/TUBE 09/03/16 10:45 Potassium Phosphate 2000 mg 2,000 mg UNSCH PRN PO/TUBE 09/03/16 10:45 (Potassium Phosphate Inj/NS 250 ml Inj) 260 ml @ 42 mls/hr UNSCH PRN IV 09/03/16 10:45 (NS Flush) 2 ml UNSCH PRN IV FLUSH 09/03/16 10:45 (NS Flush) 2 ml BID IV FLUSH 09/03/16 21:00 09/07/16 21:00 (Protonix Inj) 40 mg DAILY IV 09/04/16 09:00 09/07/16 09:48 (Zofran Inj) 4 mg Q6H PRN IV 09/03/16 10:45 Miscellaneous Information 1 Q361D XX 09/03/16 10:45 09/03/16 10:45 (Chlorhexidine 2% Cloth) 3 pack Taper DAILY@04 TOP 09/04/16 04:00 08/31/17 03:59 09/08/16 04:00 (Chlorhexidine 2% Cloth) 3 pack UNSCH PRN TOP 09/03/16 10:45 Atorvastatin Calcium 10 mg 10 mg HS PO 09/05/16 21:00 09/07/16 21:59 (NS + KCl 20 Meq Inj) 1,000 ml @ 50 mls/hr Q20H IV 09/06/16 12:00 09/07/16 09:48 (Heparin Inj) 5,000 units Q12HR SQ 09/07/16 09:30 09/07/16 21:59 (Transderm-Scop 1.5 Mg Patch.72 Hr) 1 patch Q3D TD 09/07/16 12:00 09/07/16 12:00 Miscellaneous Information 1 1 Q3D T-DERMAL 09/10/16 10:15 Norepinephrine Bitartrate 250 ml @ 0 mls/hr TITRATE IV 09/07/16 22:15 09/08/16 00:56 (Diprivan 1000 Mg/100ml Inj) 100 ml @ 0 mls/hr TITRATE IV 09/07/16 22:15 09/08/16 02:50 Allergies Allergies Coded Allergies No Known Allergies (Unverified08/16/16) Review of Systems All other ROS: ROS reviewed as documented in chart Exam I&O / VS 09/07/16 09/07/16 09/08/16 15:00 23:00 07:00 Intake Total 1010 ml 381 ml Output Total 400 ml 350 ml Balance 610 ml 31 ml IV Total 426 ml 310 ml Tube Feeding 484 ml 0 ml Lipid 71 ml Other 100 ml Output Urine Total 400 ml 350 ml # Bowel Movements 0 0 Vital Signs Date Time Temp Pulse Resp B/P Pulse Ox O2 Delivery O2 Flow Rate FiO2 09/08/16 04:18 100 40 09/08/16 02:00 62 09/08/16 00:18 100 40 09/08/16 00:00 98.2 60 16 136/89 100 09/08/16 00:00 60 09/07/16 22:00 99 09/07/16 20:00 64 09/07/16 20:00 98.4 64 14 148/89 100 09/07/16 19:00 100 Mechanical Ventilator 100 09/07/16 18:54 100 100 09/07/16 18:00 70 09/07/16 16:00 98.3 90 18 103/74 18 09/07/16 16:00 90 09/07/16 14:00 104 09/07/16 12:00 98 09/07/16 12:00 99.0 98 26 145/93 97 09/07/16 10:00 99 09/07/16 08:01 96 Venturi Mask 50 09/07/16 08:00 102 09/07/16 08:00 99.4 102 24 118/76 96 General: No acute distress Respiratory: Non-labored respirations, BS equal Cardiology: Normal rate, Regular Rhythm Exam Comments intubated, on sedation, ou pinpoint, coma state, no ext movement, ccm doing procedure on pt Objective Micro and Labs Laboratory Tests Test 09/07/16 09/08/16 19:55 06:58 Blood Gas Puncture Site RT RADIAL RT RADIAL Blood Gas Patient Temperature 98.6 98.6 Blood Gas HCO3 21 22 Blood Gas Base Excess -2.7 -2.5 Blood Gas Oxygen Saturation 98 98 Arterial Blood pH 7.39 7.36 Arterial Blood Partial 36 40 Pressure CO2 Arterial Blood Partial 538 163 Pressure O2 Arterial Blood Oxygen Content 15.2 13.8 Arterial Blood 0.9 0.9 Carboxyhemoglobin Arterial Blood Methemoglobin 0.8 0.6 Blood Gas Hemoglobin 10.0 9.8 Oxygen Delivery Device VENTILATOR VENTILATOR Blood Gas Ventilator Setting PRVC PRVC/AC 14/500/5+/1.0IT Blood Gas Inspired Oxygen 100 40 Date/Time Procedure Status Source Growth 09/04/16 10:09 Gram Stain - Final Complete Cerebral Spinal Fluid Lumbar Puncture 09/04/16 10:09 CSF Culture - Final Complete Cerebral Spinal Fluid Lumbar Puncture NO GROWTH IN 72 HOURS 09/04/16 10:09 Fungal Smear - Final Resulted Cerebral Spinal Fluid Lumbar Puncture NO FUNGAL ELEMENTS SEEN. 09/04/16 10:09 Fungal Culture Resulted Cerebral Spinal Fluid Lumbar Puncture Pending 09/04/16 10:09 Acid Fast Stain - Final Resulted Cerebral Spinal Fluid Lumbar Puncture NO ACID FAST BACILLI SEEN 09/04/16 10:09 Mycobacterial Culture Resulted Cerebral Spinal Fluid Lumbar Puncture Pending 09/04/16 10:09 Cancelled Cerebral Spinal Fluid Lumbar Puncture 09/03/16 12:40 Urine Culture - Final Complete Urine Catheterized Urine NO GROWTH IN 48 HOURS. 09/03/16 12:40 Aerobic Blood Culture - Preliminary Resulted Blood Peripheral NO GROWTH IN 4 DAYS 09/03/16 12:40 Anaerobic Blood Culture - Preliminary Resulted Blood Peripheral NO GROWTH IN 4 DAYS Problem Qualifiers (1) Leukopenia: Qualified Code: D72.819 - Leukopenia, unspecified type Serafin Vallejo MD Sep 08, 2016 07:40
[2016-09-08] MEDS: PANTOPRAZOLE SODIUM 40 MG VIAL IV SCH (08:06)
[2016-09-08] MEDS: HEPARIN SODIUM - SQ 10,000 UNITS/ML VIAL SQ SCH ×2 (08:06→21:30)
[2016-09-08] MEDS: SODIUM CHLORIDE 0.9% FLUSH 5 ML FLUSH IV FLUSH SCH ×2 (08:07→21:30)
[2016-09-08 08:44] LABS: AUTOMATED NEUTROPHIL # 2.9 TH/MM3 (1.8-7.7); BASOPHIL % 0.1 % (0.0-2.0); EOSINOPHIL # 0.1 TH/MM3 (0-0.4); EOSINOPHIL % 2.4 % (0.0-4.0); HEMATOCRIT 28.3 % (39.0-51.0); HEMO FLAGS DIFF FINAL; LYMPH % 7.5 % (9.0-44.0); LYMPHOCYTE # 0.3 TH/MM3 (1.0-4.8); MEAN CELL VOLUME 89.5 FL (80.0-100.0); MEAN CORPUSCULAR HEMOGLOBIN 30.1 PG (27.0-34.0); MEAN CORPUSCULAR HGB CONC 33.7 % (32.0-36.0); MONO % 7.7 % (0.0-8.0); NEUT % 82.3 % (16.0-70.0); PLATELET COUNT 181 TH/MM3 (150-450); RED BLOOD COUNT 3.16 MIL/MM3 (4.50-5.90); WHITE BLOOD COUNT 3.5 TH/MM3 (4.0-11.0)
[2016-09-08 08:55] LABS: INTERNATIONAL NORMALIZED RATIO 1.2 RATIO; PROTHROMBIN TIME - PATIENT 13.1 SEC (9.8-11.6)
[2016-09-08 09:11] LABS: BICARBONATE 23.8 MEQ/L (21.0-32.0); POTASSIUM 3.7 MEQ/L (3.5-5.1)
--- NOTE | 2016-09-08 09:14 | PD.PROCEDR ---
Procedure Note Procedure Procedure: Arterial Line Placement Left radial Diagnosis: Hypotension Indications: Hypotension Consent: Emergent Description of the Procedure: The left wrist was prepped and draped sterilely. 1 % lidocaine was used for local anesthesia. The pulse was located and a needle was advanced into the artery. A 20 gauge, 1 3/4 cm catheter was advanced into the artery using a modified Seldinger technique. The catheter was sutured to the skin and a sterile dressing was applied. The catheter was connected to a pressure transducer and an arterial waveform was noted. There were no immediate complications noted. There was minimal EBL. I personally performed the procedure. Cathy Henning MD Sep 08, 2016 09:14
--- NOTE | 2016-09-08 09:46 | HHI.IDPN ---
Subjective Subjective Remarks Notes reviewed D/W RN Now there are some ?new info that family was able to obtain from patient yesterday morning - per , patient knows that he is HIV (+), and ?that he has taken HIV meds, but stopped taking them - pattient has lived in many places, came from [place] before moving to [place] in 2002 - had Dr Archie Fuentes as his pressure control supervisor, and recently changed to Dr Briana Cook; has seen Dr Dunham (hematology) and Dr Tillman (neurology) - None of 3 MD knows of any HIV (+) history He got intubated last night, and he is on pressors He is sedated Has some dark blood in his NGT His HSV is negative VZV pending RPR non-reactive CSF crypto negative Serum Crypto pending Hepatitis serology negative CD4 24 LATASHA negative CXR post intubation negative Antibiotics None Lines RSC TLC A line Past Medical History Hyperlipidemia Recent admission and diagnosed to have a right cerebellar months felt to be probably an infarct - CTA of the neck and the head negative - Spectroscopy negative No previous history of blood transfusion Leukopenia, question if he has had prior workup, no workup done during his last admission Allergies: Coded Allergies: No Known Allergies (Unverified , 08/16/16) Objective . Vital Signs Date Time Temp Pulse Resp B/P Pulse Ox O2 Delivery O2 Flow Rate FiO2 09/08/16 08:56 100 40 09/08/16 06:00 60 09/08/16 04:18 100 40 09/08/16 04:00 98.2 60 16 136/89 100 09/08/16 04:00 60 09/08/16 02:00 62 09/08/16 00:18 100 40 09/08/16 00:00 98.2 60 16 136/89 100 09/08/16 00:00 60 09/07/16 22:00 99 09/07/16 20:00 64 09/07/16 20:00 98.4 64 14 148/89 100 09/07/16 19:00 100 Mechanical Ventilator 100 09/07/16 18:54 100 100 09/07/16 18:00 70 09/07/16 16:00 98.3 90 18 103/74 18 09/07/16 16:00 90 09/07/16 14:00 104 09/07/16 12:00 98 09/07/16 12:00 99.0 98 26 145/93 97 09/07/16 10:00 99 09/07/16 09/07/16 09/08/16 15:00 23:00 07:00 Intake Total 1010 ml 381 ml 1159 ml Output Total 400 ml 350 ml 2100 ml Balance 610 ml 31 ml -941 ml IV Total 426 ml 310 ml 669 ml Tube Feeding 484 ml 0 ml 370 ml Lipid 71 ml Other 100 ml 120 ml Output Urine Total 400 ml 350 ml 2100 ml # Bowel Movements 0 0 1 . Laboratory Tests Test 09/07/16 09/08/16 01:12 08:15 White Blood Count 3.7 TH/MM3 3.5 TH/MM3 Red Blood Count 3.68 MIL/MM3 3.16 MIL/MM3 Hemoglobin 11.2 GM/DL 9.5 GM/DL Hematocrit 33.1 % 28.3 % Mean Corpuscular Volume 89.9 FL 89.5 FL Mean Corpuscular Hemoglobin 30.4 PG 30.1 PG Mean Corpuscular Hemoglobin 33.8 % 33.7 % Concent Red Cell Distribution Width 13.6 % 14.0 % Platelet Count 188 TH/MM3 181 TH/MM3 Mean Platelet Volume 9.8 FL 9.2 FL Neutrophils (%) (Auto) 88.2 % 82.3 % Lymphocytes (%) (Auto) 5.7 % 7.5 % Monocytes (%) (Auto) 5.3 % 7.7 % Eosinophils (%) (Auto) 0.7 % 2.4 % Basophils (%) (Auto) 0.1 % 0.1 % Neutrophils # (Auto) 3.3 TH/MM3 2.9 TH/MM3 Lymphocytes # (Auto) 0.2 TH/MM3 0.3 TH/MM3 Monocytes # (Auto) 0.2 TH/MM3 0.3 TH/MM3 Eosinophils # (Auto) 0.0 TH/MM3 0.1 TH/MM3 Basophils # (Auto) 0.0 TH/MM3 0.0 TH/MM3 CBC Comment DIFF FINAL DIFF FINAL Differential Comment Haptoglobin 215 MG/DL Laboratory Tests Test 09/07/16 09/08/16 01:12 08:15 Sodium Level 141 MEQ/L 146 MEQ/L Potassium Level 3.6 MEQ/L 3.7 MEQ/L Chloride Level 109 MEQ/L 115 MEQ/L Carbon Dioxide Level 26.4 MEQ/L 23.8 MEQ/L Anion Gap 6 MEQ/L 7 MEQ/L Blood Urea Nitrogen 10 MG/DL 10 MG/DL Creatinine 0.81 MG/DL 0.78 MG/DL Estimat Glomerular Filtration 121 ML/MIN 127 ML/MIN Rate Random Glucose 111 MG/DL 174 MG/DL Calcium Level 8.5 MG/DL 7.9 MG/DL Phosphorus Level 2.6 MG/DL Magnesium Level 1.8 MG/DL Total Bilirubin 1.3 MG/DL Direct Bilirubin 0.5 MG/DL Indirect Bilirubin 0.8 MG/DL Aspartate Amino Transf 89 U/L (AST/SGOT) Alanine Aminotransferase 112 U/L (ALT/SGPT) Alkaline Phosphatase 86 U/L Lactate Dehydrogenase 258 U/L Total Protein 7.3 GM/DL Albumin 3.2 GM/DL Lactic Acid Level 1.3 mmol/L Imaging Chest X-Ray 09/07/16 0600 Signed Impressions: Service Date/Time: August 02:47 - CONCLUSION: No focal or acute pulmonary infiltrates. No significant change. Colin Denny MD Head CT 09/07/16 0000 Signed Impressions: Service Date/Time: August 13:04 - CONCLUSION: Stable exam. Aurora Liz MD Chest X-Ray 09/07/16 0000 Signed Impressions: Service Date/Time: August 20:52 - CONCLUSION: Satisfactory support line and tube positioning. Marcio Posey MD Abdomen X-Ray 09/06/16 0000 Signed Impressions: Service Date/Time: Tuesday, September 06, 2016 20:55 - CONCLUSION: Feeding tube in place as described. Ryland Malone MD Abdomen X-Ray 09/06/16 0000 Signed Impressions: Service Date/Time: Tuesday, September 06, 2016 15:12 - CONCLUSION: Feeding tube tip in the stomach Marcio Posey MD Chest X-Ray 09/05/16 0000 Signed Impressions: Service Date/Time: Monday, September 05, 2016 08:12 - CONCLUSION: 1. No acute cardiopulmonary disease. Mike Jordan MD Neck CTA 09/03/16 0000 Signed Impressions: Service Date/Time: Saturday, September 03, 2016 20:21 - CONCLUSION: Normal examination. Marcio Zamorano MD Head CTA 09/03/16 0000 Signed Impressions: Service Date/Time: Saturday, September 03, 2016 20:21 - CONCLUSION: Negative CTA of the head. Marcio Zamorano MD Brain MRI 09/03/16 0000 Signed Impressions: Service Date/Time: Saturday, September 03, 2016 20:34 - CONCLUSION: Areas of low signal in the edi, right cerebellar peduncle and right cerebellar hemisphere. Marcio Zamorano MD Physical Exam GENERAL: Sedated on the vent, NAD SKIN: Warm and dry. No generalized rash HEENT: Renfrow conjunctivae, no petechia or hemorrhage. No scleral icterus. No injection or drainage. ET in mouth NECK: Trachea midline. No JVD or lymphadenopathy. Supple, nontender, no meningeal signs. CARDIOVASCULAR: Regular rate and rhythm without murmurs, gallops, or rubs. RESPIRATORY: Has diffuse rhonchi. GASTROINTESTINAL: Abdomen soft, non-tender, nondistended. Bowel sounds are present and normoactive. No organomegaly. No guarding. MUSCULOSKELETAL: Extremities without clubbing, cyanosis, or edema. No joint tenderness, effusion, or edema noted. No calf tenderness. Negative Homans sign bilaterally. 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 Leukopenia, etiology, HIV can give leukopenia HIV (+), AIDS, has CD4 24 - ?Previously been diagnosed to have HIV, there is some info that he had been on HIV meds (?) Shock, ?new infection - concern with aspiration RECOMMENDATION Order new cultures Await crypto Ag Await CSF VDRL HIV resistance pattern has been ordered and pending - in light of possibility kaushal he had been on HAART, this info will help in choosing HAARt regimen - risk of reconstitution if HAART started too early and there is underlying infection like crypto Await CSF CINDY - if (+), confirms PML - if negative, may need brain biopsy Start prophylactic meds: Bactrim and Zithromax Check BC for AFB and CMV Start Zosyn empirically for possible aspiration PNA Explained current plan to , in presence of AGUSTINA Flores D/W Christelle Lou MD Sep 08, 2016 09:46
[2016-09-08 09:47] LABS: CRYPTOCOCCUS ANTIGEN Negative (Negative)
--- NOTE | 2016-09-08 09:48 | HHI.CCPN ---
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 The patient was placed on heparin and transitioned to Coumadin. The patient was subsequently transferred to [facility]. A Halicat was called, followed by stroke alert noting per RN, neurological changes. The nurse and Dr. Nguyen usually common at that the patient was a phasic, nonresponsive, with a left-sided gaze. Dr. Schroeder, neurologist was notified, CT scan was obtained and results are now pending. Per Dr. Vallejo, the patient is status post CVA on08/17/2016 and is not a candidate for TPA. The patient's previous medications per medical records were warfarin, docusate and atorvastatin. Critical care medicine was consulted for treatment and management. Upon presentation to the ICU, the patient was noted to have vertical and lateral nystagmus, aphasic,. The patient was able to follow commands, motor strength was noted to be 4/5 right upper and lower extremity with normal motor strength left upper and lower extremity. 09/03: Overnight, the patient began to verbalize significant dysarthria noted, but improved from yesterday's initial evaluation. Concern for patient to manage secretions still a concern, the patient continues to be NPO. Patient now has lateral nystagmus, motor exam unchanged. Neurology was consulted yesterday, MRI obtained. Subsequent imaging studies were performed last evening. Patient is scheduled for lumbar puncture this a.m. per neurosurgery for CSF evaluation. The patient is noted to have leukopenia, and a history of G6PD deficiency hematology and oncology were consulted. Request for outside medical records from the patient's orthopaedic general was obtained, awaiting records. Administration of steroids were initiated last evening. 09/04: Steroids discontinued. No change in neurological evaluation, examination. Speech therapy consulted, patient continues on honey thick liquids , tolerated PO diet well yesterday. CSF results pending, no fungal elements were noted. Preliminary HIV reflex test positive, awaiting final confirmation. 09/05: No change in status. Tolerating PO diet. 09/06: Overnight the patient was noted to have increased difficulty managing secretions. Repeat formal speech swallow study noted that the patient failed this a.m.. The patient was placed on nothing by mouth status. HIV-1 antibody tests confirmed. Other studies still pending. The patient's family in the presence of a Senior Controls Technician, with family holding and guiding the patient's hand , signed a POA. The patient was not competent to complete the document or answer questions at thus time. The family was informed that the document was not valid due to the fact the patient had altered mental status and could not freely communicate on his own, and sign the document. Informed that the patient 's would be appropriate and making the decisions for the patient and the POA document was null and void. 09/07: The patient became hypotensive last evening, with systolic blood pressures 60s. The patient was intubated, central line was placed, and the patient was placed on vasopressor support norepinephrine.CD4 count low, prophylactic antibiotics started per Dr. Kaykay DAVALOS. Objective Vital Signs Date Time Temp Pulse Resp B/P Pulse Ox O2 Delivery O2 Flow Rate FiO2 09/08/16 08:56 100 40 09/08/16 06:00 60 09/08/16 04:00 98.2 16 136/89 09/07/16 19:00 Mechanical Ventilator 09/07/16 07:00 7.00 Intake and Output 09/07/16 09/07/16 09/08/16 08:00 16:00 00:00 Intake Total 636 ml 1010 ml 381 ml Output Total 650 ml 400 ml 350 ml Balance -14 ml 610 ml 31 ml Result Diagram: 09/08/16 0815 09/07/16 0112 Other Results Laboratory Tests Test 09/07/16 09/08/16 19:55 06:58 Blood Gas Puncture Site RT RADIAL RT RADIAL Blood Gas Patient Temperature 98.6 98.6 Blood Gas HCO3 21 mmol/L 22 mmol/L (22-26) (22-26) Blood Gas Base Excess -2.7 mmol/L -2.5 mmol/L (-2-2) (-2-2) Blood Gas Oxygen Saturation 98 % (90-100) 98 % (90-100) Arterial Blood pH 7.39 7.36 (7.380-7.420) (7.380-7.420) Arterial Blood Partial 36 mmHg (38-42) 40 mmHg (38-42) Pressure CO2 Arterial Blood Partial 538 mmHg 163 mmHg Pressure O2 (61-120) (61-120) Arterial Blood Oxygen Content 15.2 Vol % 13.8 Vol % (12.0-20.0) (12.0-20.0) Arterial Blood 0.9 % (0-4) 0.9 % (0-4) Carboxyhemoglobin Arterial Blood Methemoglobin 0.8 % (0-2) 0.6 % (0-2) Blood Gas Hemoglobin 10.0 G/DL 9.8 G/DL (12.0-16.0) (12.0-16.0) Oxygen Delivery Device VENTILATOR VENTILATOR Blood Gas Ventilator Setting [facility] PRVC/AC 14/500/5+/1.0IT Blood Gas Inspired Oxygen 100 % 40 % Objective Remarks GENERAL: Well-nourished well-developed male, intubated and sedated. SKIN: Warm and dry. HEAD: Atraumatic. Normocephalic. EYES: Pupils equal and round. 3 mm and brisk .No scleral icterus. No injection or drainage. ENT: No nasal bleeding or discharge. Mucous membranes pink and moist. Orotracheally intubated NECK: Trachea midline. No JVD. CARDIOVASCULAR: Normal rate, regular rhythm. RESPIRATORY: No accessory muscle use. Clear to auscultation. Breath sounds equal bilaterally. GASTROINTESTINAL: Abdomen soft, non-tender, nondistended. No guarding. Normoactive bowel sounds. Tube feeds infusing via Dobbhoff MUSCULOSKELETAL: Extremities without clubbing, cyanosis, or edema. No obvious deformities. NEUROLOGICAL: Asleep RASS -2. Procedures Left radial arterial line placement Urinary Catheter: Yes Assessment to: Continue Mayer insert reason: Measure Accurate Output Date of Insertion: Sep 07, 2016 Vascular Central Line Catheter: Yes Assessment to: Continue Side: Right Location: Internal, Jugular (CVP monitoring and vasoactive medication administration) A/P Assessment and Plan Neurologic: S/P CVA-right cerebral infarct 08/17 PML? Dysarthria Aphasia -GCS 3T, intubated and sedated currently on propofol infusion -Neurology Dr. Vallejo following-Methylprednisone discontinued 09/05, no plans for reinitiation of steroid therapy at this time -S/P right cerebellar hemispheric infarct 08/17,Imaging studies -CT head on 08/17 ill-defined mass right cerebellar region, MRI brain 08/17 revealed right hemispheric mass 4.4 x 3.7cm - EEG 09/03 results-diffuse slowing, no subclinical seizure activity noted -MRI w/o contrast 09/03-abnormal signal right cerebellum middle cerebral peduncle. Restricted diffusion indicating suggesting ischemia left edi -MRI w/contrast 09/03-areas of low signal in edi, right cerebellar peduncle and right cerebellar hemisphere -Neurosurgery consult, Dr. Cedeño- CSF evaluation studies pending -09/06 Formal swallow study from this a.m.-failed -09/05 Ammonia level 13 -Repeat CT brain09/07-stable exam Respiratory: -Intubated-mechanical ventilation 14/550/0.40/5 -Maintain O2 sat greater than 92% -Maintain head of bed elevation 30 -Sedation vacation per ICU protocol -Ventilator bundle -Bronchodilators scheduled every 6 hours, every 2 when necessary Cardiovascular: Dyslipidemia H/O HTN -Continue atorvastatin -Patient previously on ASA dc'd secondary to G6PD deficiency -Coumadin (on hold), Hematology Dr. Pelletier on board -Medical records from orthopaedic general Dr. 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 Patrick Pelletier-no therapeutic anticoagulation recommended at this time -Previous hypercoagulable studies were noted. 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 Request for medical records sent to patient's personal orthopaedic general, Dr. Denise, for additional information. - Blood urine and sputum cultures09/03- NGTD -Obtain venous Doppler ultrasounds bilateral upper and lower extremities09/07- follow-up results -HIV Ab 09/05-confirmed positive - RPR-pending -MCC-OWC-oxdjhfgy -CSF-CINDY virus-pending, -CSF-no fungal elements seen, WBC 0 -CSF-cryptococcal antigen negative, No AFB -CSF VDRLpending -Absolute CD4 count- 24 -Tylenol PRN for temp greater than 101.0 -In view of low CD4 count,hypotension, blood, urine and sputum cultures resent today-patient placed on antibiotic prophylaxis. The patient previously noted per family that patient knew of his HIV status, was previously on medications which he discontinued. Efforts are ongoing to obtain medical records from prior personal family physicians to elicit previous HAART therapy, to optimize selection of medications. HIV medication resistance labs are pending. -ID on board -Dr Mccracken following recommendations. Endocrine: -Glucose monitoring per ICU protocol -- SSI MSK: - PT, OT -evaluate and treat -Continue functional maintenance daily Prophylaxis: GI Prophylaxis Protonix IV DVT Prophylaxis -- SCDs, Heparin 5000u SQ BID initiated on 09/07 Lines: Peripheral IV's x 2. RIJ central line 09/07 Dr. Jara, L radial arterial line Dr. Henning Dispo: This patient remains critically ill with one or more organ systems which are or may become a threat to life. I have spent in excess of 51 minutes discontinuously in the care and management of this patient. This time is exclusive of procedures, and includes, but is not limited to, evaluation of the patient, review of the medical record, discussions with family, consultants, nursing staff, or respiratory therapy, and documentation in the medical record. I discussed with ROAD WORKER present to Mrs. Reynaga and provided overnight events , and explained purpose of arterial line placement. Mrs. Reynaga stated that she is attempting to obtain medical records and medication history from [facility] and Dr. Fuentes, to elicit any documentation of any previous HIV medications. Mrs. Reynaga is decided to continue care for her here at [facility]. She was updated on overnight events. All questions were answered. Discussed case with and Dr. Mccracken. Physician Cathy Miller MD Sep 08, 2016 09:48 Physician Cathy Miller MD Sep 08, 2016 09:48
[2016-09-08 10:33] LABS: BACTERIA, URINE RARE /hpf; BLOOD, URINE NEG (NEG); COMMENT (UR) CATH-CULTURE IND; CULTURE IF INDICATED CATH CULTURE IND; GLUCOSE,URINE NEG (NEG); KETONE, URINE NEG (NEG); MUCUS URINE FEW /lpf (OCC); NITRITE,URINE NEG (NEG); PH, URINE 5.5 (5.0-8.5); SQUAMOUS EPITHELIAL CELL URINE <1 /hpf (0-5); URINE COLOR YELLOW (YELLW/STRAW)
[2016-09-08] MEDS: SULFAMETHOXAZOLE-TRIMETHOPRIM 800-160 MG/20 ML UDC PO SCH (10:33)
[2016-09-08] MEDS: AZITHROMYCIN 600 MG TAB PO SCH (10:33)
[2016-09-08] MEDS: PIPERACIL-TAZO 4.5 GM PREMIX 100 ML IV SCH ×3 (10:33→21:30)
--- NOTE | 2016-09-08 20:20 | RADRPT ---
EXAM DATE/TIME: 09/08/2016 18:57 [facility] COMPARISON: No previous studies available for comparison. INDICATIONS : Bilateral leg swelling. MEDICAL HISTORY : Hypercholesterolemia. Hypertension. CVA. Tremors. Altered mental status. SURGICAL HISTORY : No known previous surgical history. ENCOUNTER: Initial ACUITY: 1 day PAIN SCORE: Non-responsive LOCATION: Bilateral leg. TECHNOLOGIST IMPRESSION: DVT: NO DVT SUPERFICIAL THROMBUS: NO SUPERFICIAL THROMBUS TECHNIQUE: Venous ultrasound of the left and right leg was performed from the inguinal ligament to the proximal calf. Real-time, color Doppler and spectral tracing, compression and augmentation techniques were us ed. FINDINGS: RIGHT LEG: There is normal compressibility of the deep venous system from the inguinal region to the proximal ca lf. No echogenic clot is seen in the lumen of the common femoral, femoral, popliteal, and posterior tibial veins. There is a normal response of the venous system to proximal and distal augmentation an d respiration. LEFT LEG: There is normal compressibility of the deep venous system from the inguinal region to the proximal ca lf. No echogenic clot is seen in the lumen of the common femoral, femoral, popliteal, and posterior tibial veins. There is a normal response of the venous system to proximal and distal augmentation an d respiration. CONCLUSION: Normal examination. Michael Rosas Jr., MD on September 08, 2016 at 20:15 Board Certified Radiologist. This report was verified electronically.
--- NOTE | 2016-09-08 20:21 | RADRPT ---
EXAM DATE/TIME: 09/08/2016 19:22 [facility] COMPARISON: No previous studies available for comparison. INDICATIONS : Bilateral arm swelling. MEDICAL HISTORY : Hypercholesterolemia. Hypertension. CVA. Tremors. Altered mental status. SURGICAL HISTORY : No known previous surgical history. ENCOUNTER: Initial ACUITY: 1 day PAIN SCORE: Non-responsive LOCATION: Bilateral arm. FINDINGS: RIGHT UPPER EXTREMITY: There is spontaneous flow documented in the brachial, basilic, cephalic, axillary, and subclavian vei ns. The vessels are compressible and augmentation response is documented. No filling defects are se en. The flow is phasic with respiration. Direction of flow in the jugular vein is caudal. LEFT UPPER EXTREMITY: There is spontaneous flow documented in the brachial, basilic, cephalic, axillary, and subclavian vei ns. The vessels are compressible and augmentation response is documented. No filling defects are se en. The flow is phasic with respiration. Direction of flow in the jugular vein is caudal. CONCLUSION: Normal examination. Michael Rosas Jr., MD on September 08, 2016 at 20:19 Board Certified Radiologist. This report was verified electronically.
[2016-09-08] MEDS: ATORVASTATIN 10 MG TAB PO SCH (21:30)
[2016-09-09] VITALS (18 sets, daily range): BP systolic 103–132; BP diastolic 62–78; PULSE 60–82; RESP 15–18; TEMP 98.1–100.6; O2SAT 99–100
[2016-09-09] MEDS: NS + KCL 20 MEQ INJ 1,000 ML IV SCH
[2016-09-09] MEDS: PROPOFOL 1000 MG/100 ML IV SCH ×2 (03:00→08:32)
[2016-09-09] MEDS: NOREPINEPHRINE 4 MG/D5W 250 ML IV SCH ×2 (03:00→14:15)
[2016-09-09] MEDS: PIPERACIL-TAZO 4.5 GM PREMIX 100 ML IV SCH ×4 (04:00→22:03)
[2016-09-09] MEDS: CHLORHEXIDINE GLUCONATE 2 % 1 PACK (2 CLOTHS) TOP SCH (04:00)
[2016-09-09] MEDS: PANTOPRAZOLE SODIUM 40 MG VIAL IV SCH (08:31)
[2016-09-09] MEDS: SULFAMETHOXAZOLE-TRIMETHOPRIM 800-160 MG/20 ML UDC PO SCH (08:32)
[2016-09-09] MEDS: HEPARIN SODIUM - SQ 10,000 UNITS/ML VIAL SQ SCH ×2 (08:32→21:06)
[2016-09-09] MEDS: SODIUM CHLOR 0.9% 1000 ML INJ 1,000 ML IV SCH (08:33)
[2016-09-09] MEDS: SODIUM CHLORIDE 0.9% FLUSH 5 ML FLUSH IV FLUSH SCH ×2 (08:33→21:06)
--- NOTE | 2016-09-09 08:36 | HHI.NSPN ---
Subjective History 09/09/16 Intubated for airway protection, awaiting HIV resistance map, CSF CINDY virus and VDRL results. 51 year old presented with right Cp angle and cerebellar abnormality which progressed to bilateral brainstem diffusion and flair abnormality, CD4 count 24 consistent with AIDS. ID is following. Family support ongoing. Vitals . Vital Signs Date Time Temp Pulse Resp B/P Pulse Ox O2 Delivery O2 Flow Rate FiO2 09/09/16 06:00 72 09/09/16 04:41 100 40 09/09/16 04:00 98.4 70 17 116/62 100 09/09/16 04:00 70 09/09/16 02:00 73 09/09/16 01:34 100 40 09/09/16 00:00 60 09/09/16 00:00 98.1 60 18 115/65 100 09/08/16 22:00 70 09/08/16 20:29 96 40 09/08/16 20:00 96 09/08/16 20:00 98.0 96 18 110/62 100 09/08/16 19:00 100 Mechanical Ventilator 40 09/08/16 18:00 69 09/08/16 17:23 100 40 09/08/16 16:00 70 09/08/16 16:00 98.5 70 17 107/56 100 09/08/16 14:00 85 09/08/16 12:00 86 09/08/16 12:00 99.6 86 18 95/61 100 09/08/16 11:44 100 40 09/08/16 10:00 66 09/08/16 08:56 100 40 09/08/16 09/08/16 09/09/16 15:00 23:00 07:00 Intake Total 1122 ml 1401 ml 929 ml Output Total 300 ml 250 ml 200 ml Balance 822 ml 1151 ml 729 ml Physical Exam Eyes Eyes: Pupils Equal Neuro Mental Status: Sedated [place] Coma Scale Best Eye Openin - None Best Verbal: 1 - None Best Motor: 1 - None Cardiac Cardiac: Regular Rate & Rhythm Genitourinary Genitourinary: Mayer Catheter In Place Musculoskeletal Extremities Upper Extremities Deltoid Bicep Tricep HI W. Ext Right Left Lower Extremeties Ilio Quad Plantar Dorsi EHL Right Left Musculoskeletal Remarks Flexion withdrawal to pain in the extremities but no purposeful movement at this time. Extremities Edema: No Edema Objective Infectious Disease Cultures Microbiology Date/Time Procedure Status Source Growth 09/08/16 11:14 Mycobacterial Culture Received Blood Peripheral Pending 09/08/16 11:14 Aerobic Blood Culture Received Blood Peripheral Pending 09/08/16 11:14 Anaerobic Blood Culture Received Blood Peripheral Pending 09/08/16 11:20 Aerobic Blood Culture Received Blood Peripheral Pending 09/08/16 11:20 Anaerobic Blood Culture Received Blood Peripheral Pending 09/08/16 13:30 Gram Stain Received Sputum Endotracheal Pending 09/08/16 13:30 Sputum Culture Received Sputum Endotracheal Pending 09/08/16 13:30 Acid Fast Stain Received Sputum Endotracheal Pending 09/08/16 13:30 Mycobacterial Culture Received Sputum Endotracheal Pending 09/08/16 13:30 Fungal Smear Received Sputum Endotracheal Pending 09/08/16 13:30 Fungal Culture Received Sputum Endotracheal Pending Assessment & Plan Diagnosis: (1) brainstem abnormality Plan: The non enhancing diffusion abnormality has progressed from the right CP angle to the left edi and midbrain, but clinically it is also affecting the lower cranial nerves as well. Lumbar puncture was performed yesterday and is negative for lymphocytes, proteins, bacteria or fungus. A brain biopsy was planned tomorrow but was cancelled when the HIV came back positive. He remains critically ill and at risk on needing intubation and tracheostomy. DVT and PUD prophylaxis and rehab services are ordered. 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 Treatment will likely be antiviral therapy and inflammation in the brain is expected to worsen when therapy is initiated and cell increases. Steroids will be appropriate at this time. Supportive care and family support continued in the ICU. (2) Cranial nerve palsy Plan: Cranial nerves , VII, IX, X, XII are affected, at high risk for aspiration Critical Care Time (minutes): 10 Jason Cedeño Sep 09, 2016 08:36
--- NOTE | 2016-09-09 09:13 | HHI.CCPN ---
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 The patient was placed on heparin and transitioned to Coumadin. The patient was subsequently transferred to [facility]. A [facility] was called, followed by stroke alert noting per RN, neurological changes. The nurse and Dr. Nguyen usually common at that the patient was a phasic, nonresponsive, with a left-sided gaze. Dr. Schroeder, neurologist was notified, CT scan was obtained and results are now pending. Per Dr. Vallejo, the patient is status post CVA on08/17/2016 and is not a candidate for TPA. The patient's previous medications per medical records were warfarin, docusate and atorvastatin. Critical care medicine was consulted for treatment and management. Upon presentation to the ICU, the patient was noted to have vertical and lateral nystagmus, aphasic,. The patient was able to follow commands, motor strength was noted to be 4/5 right upper and lower extremity with normal motor strength left upper and lower extremity. 09/03: Overnight, the patient began to verbalize significant dysarthria noted, but improved from yesterday's initial evaluation. Concern for patient to manage secretions still a concern, the patient continues to be NPO. Patient now has lateral nystagmus, motor exam unchanged. Neurology was consulted yesterday, MRI obtained. Subsequent imaging studies were performed last evening. Patient is scheduled for lumbar puncture this a.m. per neurosurgery for CSF evaluation. The patient is noted to have leukopenia, and a history of G6PD deficiency hematology and oncology were consulted. Request for outside medical records from the patient's pivot maker was obtained, awaiting records. Administration of steroids were initiated last evening. 09/04: Steroids discontinued. No change in neurological evaluation, examination. Speech therapy consulted, patient continues on honey thick liquids , tolerated PO diet well yesterday. CSF results pending, no fungal elements were noted. Preliminary HIV reflex test positive, awaiting final confirmation. 09/05: No change in status. Tolerating PO diet. 09/06: Overnight the patient was noted to have increased difficulty managing secretions. Repeat formal speech swallow study noted that the patient failed this a.m.. The patient was placed on nothing by mouth status. HIV-1 antibody tests confirmed. Other studies still pending. The patient's family in the presence of a [employer], with family holding and guiding the patient's hand , signed a POA. The patient was not competent to complete the document or answer questions at thus time. The family was informed that the document was not valid due to the fact the patient had altered mental status and could not freely communicate on his own, and sign the document. Informed that the patient 's would be appropriate and making the decisions for the patient and the POA document was null and void. 09/07: The patient became hypotensive last evening, with systolic blood pressures 60s. The patient was intubated, central line was placed, and the patient was placed on vasopressor support norepinephrine.CD4 count low, prophylactic and empric antibiotics started per ID, Dr. Mccracken. Subjective: 09/09 Remains on mechanical ventilation, on levophed 9 mcg/min. UOP 200 overnight but now 250/hr last 2 hours. Has some sediment in Mayer tubing, may have been partially obstructed. Creatinine normal. at bedside. Afebrile. CSF bacterial cultures negative. CSF CINDY virus pending. Remaining pancultures from 09/08 pending. Afebrile. Reviewed records from Dr. Fuentes/Dr. Denise on chart. Had chronic leukopenia. HIV testing 2002, 2005 negative. Had chlamydia 2002 tells me he had not seen ID as an outpatient. She states he has not seen Dr. Fuentes in several years (most recent records appear to be from 2011) Objective Vital Signs Date Time Temp Pulse Resp B/P Pulse Ox O2 Delivery O2 Flow Rate FiO2 09/09/16 08:42 99 40 09/09/16 06:00 72 09/09/16 04:00 98.4 17 116/62 09/08/16 19:00 Mechanical Ventilator 09/07/16 07:00 7.00 Intake and Output 09/08/16 09/08/16 09/09/16 08:00 16:00 00:00 Intake Total 1159 ml 1122 ml 1401 ml Output Total 2100 ml 300 ml 250 ml Balance -941 ml 822 ml 1151 ml Result Diagram: 09/08/16 0815 09/08/16 0815 Objective Remarks Drips: Propofol 40 Ryland grams per KG per minute 0.9 NaCl at 30 mL per hour Norepinephrine 9 mcg/m Blood pressure 106/60 MAP 76, pulse 71 with sinus rhythm on the monitor, CVP 5, sats 100% on mechanical ventilation with PRVC 550/rate 14/I time 1/PEEP 5/FiO2 40% GENERAL: Well-nourished well-developed male, intubated SKIN: Warm and dry. HEAD: Atraumatic. Normocephalic. EYES: Pupils equal and round. 3 mm and reactive bilaterally .No scleral icterus. No injection or drainage. Mild serous drainage eyes which his is cleaning away with a washcloth, nonpurulent. ENT: No nasal bleeding or discharge. Mucous membranes pink and moist. Orotracheally intubated NECK: Trachea midline. No JVD. CARDIOVASCULAR: Normal rate, regular rhythm. RESPIRATORY: No accessory muscle use. Clear to auscultation. Breath sounds equal bilaterally. Orotracheally intubated on mechanical ventilation as per above. GASTROINTESTINAL: Abdomen soft, non-tender, nondistended. Bowel sounds present No guarding. Normoactive bowel sounds. Tube feeds infusing via Dobbhoff, tolerating without residuals. : Mayer in place with pale yellow urine output in the Mayer. Mild sediment in the tubing. MUSCULOSKELETAL: Extremities without clubbing, cyanosis, or edema. No obvious deformities. NEUROLOGICAL: Eyes open to voice, follows commands with hand squeeze BUE VASC: R IJ CVL in place with dressing c/d/i . L radial art line in place with distal perfusion intact. Procedures Left radial arterial line placement Date of Insertion: Sep 07, 2016 Side: Right Location: Internal, Jugular (CVP monitoring and vasoactive medication administration) A/P Assessment and Plan Neurologic: S/P CVA-right cerebral infarct 08/17 ?PML Dysarthria Aphasia CN palsies , VII, IX, X, -Intubated for airway protection. Has CN palsies with dysphagia resulting in poor airway protection. Following commands currently on vent. -Neurology Dr. Vallejo following-Methylprednisone discontinued 09/05. Hold off on further steroids until brain biopsy. -?PML - CINDY virus PCR pending. If positive, confirms PML, however if negative will need brain biopsy per ID/neurology recs. 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 Restricted diffusion indicating suggesting ischemia left edi -MRI w/contrast 09/03-areas of low signal in edi, right cerebellar peduncle and right cerebellar hemisphere -Neurosurgery consult, Dr. Cedeño- -09/06 Formal swallow study from this a.m.-failed -09/05 Ammonia level 13 -Repeat CT brain09/07-stable exam -CSF workup as per below with ID. CSF cytology negative. - Propofol for sedation Respiratory: Acute respiratory failure -Intubated 09/07/16 for airway protection-mechanical ventilation PRVC 14/550/0.40 /5/IT 1 -Maintain O2 sat greater than 92% -Maintain head of bed elevation 30 -Sedation vacation per ICU protocol. Daily CPAP to mitigate respiratory muscle weakness. Not appropriate for extubation due to cranial nerve palsies resulting in inadequate airway protection. May need trach when Stable. -Ventilator bundle -Bronchodilators scheduled every 6 hours, every 2 when necessary Cardiovascular: Dyslipidemia (elevated LDL, hypertriglyceridemia, low HDL) H/O HTN Hypotension secondary to sedation/hypovolemia, ?sepsis -Levophed to maintain MAP >65. Recheck lactic acid. -Continue atorvastatin 10 by mouth daily at bedtime. Monitoring LFTS. -Patient previously on ASA dc'd secondary to G6PD deficiency -Coumadin (on hold), Hematology Dr. Pelletier following and recommends holding therapeutic anticoagulation as per below Renal: -No acute issues -Mayer catheter placement -Monitor BMP and Strict I/Os GI: Mild protein calorie malnutrition -Tube feeds Peptamin AF 1.5 @ 65/hr (goal rate of tube feeds per nutrition) via Dobbhoff -Replete electrolytes per ICU protocol -Zofran for nausea -Protonix for GI prophylaxis Heme/ID G6PD deficiency -HematologyOncology- Dr. Patrick Pelletier-no therapeutic anticoagulation recommended at this time -Previous hypercoagulable studies were noted. 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 Request for medical records sent to patient's personal pivot maker, Dr. Denise, for additional information. -per hematology this heterozygous state does not confer high risk of thrombosis. Eventually would need anticoagulation for stroke, but recommend hold off for now in view of possible brain biopsy. 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 Pancultures from 09/08 of sputum, blood cultures, urine cultures are pending Abx per ID: azithromycin 1200 mg qweek, bactrim 800/160 daily for prophylaxis. Zosyn 4/5 q6 hours 09/08 #2. The patient previously noted per family that patient knew of his HIV status, was previously on medications which he discontinued. Efforts are ongoing to obtain medical records from prior personal family physicians to elicit previous HAART therapy, to optimize selection of medications. HIV medication resistance labs are pending. -ID following -Dr Mccracken. Endocrine: NIDDM per outside records from 2011 -Glucose monitoring per ICU protocol -- SSI low dose q6 hours MSK: - PT, OT -evaluate and treat -Continue functional maintenance daily Prophylaxis: GI Prophylaxis Protonix 40 mg IV daily DVT Prophylaxis -- SCDs, Heparin 5000u SQ BID initiated on 09/07 Lines: Peripheral IV's x 2. RIJ central line 09/07 Dr. Jara #3, L radial arterial line Dr. Henning #2 Dispo: This patient remains critically ill with one or more organ systems which are or may become a threat to life. I have spent in excess of 45 minutes discontinuously in the care and management of this patient. This time is exclusive of procedures, and includes, but is not limited to, evaluation of the patient, review of the medical record, discussions with family, consultants, nursing staff, or respiratory therapy, and documentation in the medical record. updated at bedside. Alison Dukes MD Sep 09, 2016 09:13
[2016-09-09] MEDS ORDERED: GLUCAGON 1 MG/ML VIAL OTHER PRN (10:45)
[2016-09-09] MEDS ORDERED: DEXTROSE 50% IN WATER 50 ML VIAL(D50) IV PUSH PRN (10:45)
[2016-09-09] MEDS: ATORVASTATIN 10 MG TAB PO SCH (21:06)
[2016-09-10] VITALS (19 sets, daily range): BP systolic 99–143; BP diastolic 58–77; PULSE 78–98; RESP 14–16; TEMP 98–100.1; O2SAT 98–100
[2016-09-10] MEDS: PROPOFOL 1000 MG/100 ML IV SCH ×5 (00:16→15:59)
[2016-09-10] MEDS: NOREPINEPHRINE 4 MG/D5W 250 ML IV SCH (02:23)
[2016-09-10] MEDS: PIPERACIL-TAZO 4.5 GM PREMIX 100 ML IV SCH ×4 (03:55→21:12)
[2016-09-10] MEDS: CHLORHEXIDINE GLUCONATE 2 % 1 PACK (2 CLOTHS) TOP SCH (04:00)
[2016-09-10 05:38] LABS: AUTOMATED NEUTROPHIL # 3.5 TH/MM3 (1.8-7.7); BASOPHIL % 0.1 % (0.0-2.0); EOSINOPHIL # 0.2 TH/MM3 (0-0.4); EOSINOPHIL % 3.8 % (0.0-4.0); HEMATOCRIT 25.6 % (39.0-51.0); HEMO FLAGS DIFF FINAL; LYMPH % 7.2 % (9.0-44.0); LYMPHOCYTE # 0.3 TH/MM3 (1.0-4.8); MEAN CELL VOLUME 90.8 FL (80.0-100.0); MEAN CORPUSCULAR HEMOGLOBIN 30.8 PG (27.0-34.0); MONO % 11.1 % (0.0-8.0); NEUT % 77.8 % (16.0-70.0); PLATELET COUNT 200 TH/MM3 (150-450); RED BLOOD COUNT 2.82 MIL/MM3 (4.50-5.90); RED CELL DISTRIBUTION WIDTH 14.2 % (11.6-17.2); WHITE BLOOD COUNT 4.5 TH/MM3 (4.0-11.0)
[2016-09-10 05:54] LABS: ALKALINE PHOSPHATASE 61 U/L (45-117); ALT (GPT) 54 U/L (12-78); ANION GAP 5 MEQ/L (5-15); AST (GOT) 21 U/L (15-37); BICARBONATE 28.7 MEQ/L (21.0-32.0); BLOOD UREA NITROGEN 8 MG/DL (7-18); CHLORIDE 109 MEQ/L (98-107); GLOMERULAR FILTRATION RATE 109 ML/MIN (>89); POTASSIUM 4.1 MEQ/L (3.5-5.1); SODIUM (NA) 143 MEQ/L (136-145); TOTAL BILIRUBIN ADULT 0.6 MG/DL (0.2-1.0)
[2016-09-10] MEDS: SODIUM CHLOR 0.9% 1000 ML INJ 1,000 ML IV SCH (07:00)
[2016-09-10] MEDS: HEPARIN SODIUM - SQ 10,000 UNITS/ML VIAL SQ SCH ×2 (08:26→21:11)
[2016-09-10] MEDS: SODIUM CHLORIDE 0.9% FLUSH 5 ML FLUSH IV FLUSH SCH ×2 (08:27→21:11)
[2016-09-10] MEDS: SULFAMETHOXAZOLE-TRIMETHOPRIM 800-160 MG/20 ML UDC PO SCH (08:27)
[2016-09-10] MEDS: PANTOPRAZOLE SODIUM 40 MG VIAL IV SCH (08:27)
[2016-09-10] MEDS ORDERED: REMOVE OLD PATCH T-DERMAL SCH (10:15)
--- NOTE | 2016-09-10 10:20 | HHI.IDPN ---
Subjective Subjective Remarks Notes reviewed D/W RN Sedated on the vent On low dose pressors Has a lot of white thick secretions Dobhoff is clogged CSF CINDY - pending HIV PCR - pending HIV genotyping - pending His HSV is negative VZV pending RPR non-reactive CSF crypto negative CSF VDRL negative Serum crypto negative Hepatitis serology negative CD4 24 LATASHA negative Antibiotics Zosyn Bactrim and Zithromax prophylaxis Lines RSC TLC A line Past Medical History Hyperlipidemia Recent admission and diagnosed to have a right cerebellar months felt to be probably an infarct - CTA of the neck and the head negative - Spectroscopy negative No previous history of blood transfusion Leukopenia, question if he has had prior workup, no workup done during his last admission Allergies: Coded Allergies: No Known Allergies (Unverified , 08/16/16) Objective . Vital Signs Date Time Temp Pulse Resp B/P Pulse Ox O2 Delivery O2 Flow Rate FiO2 09/10/16 09:43 100 30 09/10/16 09:43 30 09/10/16 09:28 100 30 09/10/16 08:00 40 09/10/16 08:00 78 09/10/16 07:00 100 Mechanical Ventilator 40 09/10/16 06:00 92 09/10/16 04:10 99 30 09/10/16 04:00 40 09/10/16 04:00 90 09/10/16 04:00 99.6 92 16 129/74 99 122/64 09/10/16 02:00 90 09/10/16 00:34 100 30 09/10/16 00:00 100.1 78 14 127/72 100 09/10/16 00:00 78 09/10/16 00:00 40 09/09/16 22:00 65 09/09/16 20:43 100 40 09/09/16 20:00 99.2 70 16 130/71 100 09/09/16 20:00 40 09/09/16 20:00 70 09/09/16 19:00 100 Mechanical Ventilator 40 09/09/16 18:01 100 40 09/09/16 18:00 64 09/09/16 16:00 100.6 70 17 132/66 100 09/09/16 16:00 70 09/09/16 14:00 80 09/09/16 12:00 99.6 74 17 103/78 100 09/09/16 12:00 74 09/09/16 10:55 100 40 09/09/16 09/09/16 09/10/16 15:00 23:00 07:00 Intake Total 1173 ml 1013 ml 1464 ml Output Total 750 ml 250 ml 1000 ml Balance 423 ml 763 ml 464 ml IV Total 720 ml 529 ml 820 ml Tube Feeding 453 ml 484 ml 544 ml Other 100 ml Output Urine Total 750 ml 250 ml 1000 ml # Bowel Movements 0 0 0 . Laboratory Tests Test 09/10/16 05:07 White Blood Count 4.5 TH/MM3 Red Blood Count 2.82 MIL/MM3 Hemoglobin 8.7 GM/DL Hematocrit 25.6 % Mean Corpuscular Volume 90.8 FL Mean Corpuscular Hemoglobin 30.8 PG Mean Corpuscular Hemoglobin 34.0 % Concent Red Cell Distribution Width 14.2 % Platelet Count 200 TH/MM3 Mean Platelet Volume 9.5 FL Neutrophils (%) (Auto) 77.8 % Lymphocytes (%) (Auto) 7.2 % Monocytes (%) (Auto) 11.1 % Eosinophils (%) (Auto) 3.8 % Basophils (%) (Auto) 0.1 % Neutrophils # (Auto) 3.5 TH/MM3 Lymphocytes # (Auto) 0.3 TH/MM3 Monocytes # (Auto) 0.5 TH/MM3 Eosinophils # (Auto) 0.2 TH/MM3 Basophils # (Auto) 0.0 TH/MM3 CBC Comment DIFF FINAL Differential Comment Laboratory Tests Test 09/09/16 09/10/16 11:20 05:07 Lactic Acid Level 1.8 mmol/L Sodium Level 143 MEQ/L Potassium Level 4.1 MEQ/L Chloride Level 109 MEQ/L Carbon Dioxide Level 28.7 MEQ/L Anion Gap 5 MEQ/L Blood Urea Nitrogen 8 MG/DL Creatinine 0.89 MG/DL Estimat Glomerular Filtration 109 ML/MIN Rate Random Glucose 144 MG/DL Calcium Level 8.2 MG/DL Total Bilirubin 0.6 MG/DL Aspartate Amino Transf 21 U/L (AST/SGOT) Alanine Aminotransferase 54 U/L (ALT/SGPT) Alkaline Phosphatase 61 U/L Total Protein 6.5 GM/DL Albumin 2.5 GM/DL Microbiology Date/Time Procedure Status Source Growth 09/08/16 08:10 Cancelled Urine Catheterized Urine 09/08/16 08:16 Urine Culture - Preliminary Resulted Urine Catheterized Urine NO GROWTH IN 24 HOURS. 09/08/16 11:14 Mycobacterial Culture Received Blood Peripheral Pending 09/08/16 11:14 Aerobic Blood Culture - Preliminary Resulted Blood Peripheral NO GROWTH IN 1 DAY 09/08/16 11:14 Anaerobic Blood Culture - Preliminary Resulted Blood Peripheral NO GROWTH IN 1 DAY 09/08/16 11:20 Aerobic Blood Culture - Preliminary Resulted Blood Peripheral NO GROWTH IN 1 DAY 09/08/16 11:20 Anaerobic Blood Culture - Preliminary Resulted Blood Peripheral NO GROWTH IN 1 DAY 09/08/16 13:30 Gram Stain - Final Resulted Sputum Endotracheal 09/08/16 13:30 Sputum Culture - Preliminary Resulted Staphylococcus Aureus 09/08/16 13:30 Acid Fast Stain Worksheet Sputum Endotracheal Pending 09/08/16 13:30 Mycobacterial Culture Worksheet Sputum Endotracheal Pending 09/08/16 13:30 Fungal Smear - Final Resulted Sputum Endotracheal NO FUNGAL ELEMENTS SEEN. 09/08/16 13:30 Fungal Culture Resulted Sputum Endotracheal Pending Imaging Chest X-Ray 09/07/16 0600 Signed Impressions: Service Date/Time: August 02:47 - CONCLUSION: No focal or acute pulmonary infiltrates. No significant change. Colin Denny MD Head CT 09/07/16 0000 Signed Impressions: Service Date/Time: August 13:04 - CONCLUSION: Stable exam. Aurora Liz MD Chest X-Ray 09/07/16 0000 Signed Impressions: Service Date/Time: August 20:52 - CONCLUSION: Satisfactory support line and tube positioning. Marcio Posey MD Abdomen X-Ray 09/06/16 0000 Signed Impressions: Service Date/Time: Tuesday, September 06, 2016 20:55 - CONCLUSION: Feeding tube in place as described. Ryland Malone MD Abdomen X-Ray 09/06/16 0000 Signed Impressions: Service Date/Time: Tuesday, September 06, 2016 15:12 - CONCLUSION: Feeding tube tip in the stomach Marcio Posey MD Chest X-Ray 09/05/16 0000 Signed Impressions: Service Date/Time: Monday, September 05, 2016 08:12 - CONCLUSION: 1. No acute cardiopulmonary disease. Mike Jordan MD Neck CTA 1/22/17 0000 Signed Impressions: Service Date/Time: Saturday, September 03, 2016 20:21 - CONCLUSION: Normal examination. Marcio Zamorano MD Head CTA 09/03/16 0000 Signed Impressions: Service Date/Time: Saturday, September 03, 2016 20:21 - CONCLUSION: Negative CTA of the head. Marcio Zamorano MD Brain MRI 09/03/16 0000 Signed Impressions: Service Date/Time: Saturday, September 03, 2016 20:34 - CONCLUSION: Areas of low signal in the edi, right cerebellar peduncle and right cerebellar hemisphere. Marcio Zamorano MD Physical Exam GENERAL: Sedated on the vent, NAD SKIN: Warm and dry. No generalized rash HEENT: [place] conjunctivae, no petechia or hemorrhage. No scleral icterus. No injection or drainage. ET in mouth NECK: Trachea midline. No JVD or lymphadenopathy. Supple, nontender, no meningeal signs. CARDIOVASCULAR: Regular rate and rhythm without murmurs, gallops, or rubs. RESPIRATORY: Coarse BS jah, with few scattered rhonchi. GASTROINTESTINAL: Abdomen soft, non-tender, nondistended. Bowel sounds are present and normoactive. No organomegaly. No guarding. MUSCULOSKELETAL: Extremities without clubbing, cyanosis, or edema. NEUROLOGICAL: Sedated PSYCH: Unable to assess LINE; Lines with no evidence of infection : Mayer in place, urine looks clear Assessment & Plan Remarks IMPRESSION R cerebellar mass, previous work-up (+) infarct, spectroscopy negative - HIV (+) - LP negative - ?PML vs HIV Leukopenia, etiology, HIV can give leukopenia HIV (+), AIDS, has CD4 24 - ?Previously been diagnosed to have HIV, there is some info that he had been on HIV meds (?) Shock, ?new infection - concern with aspiration RECOMMENDATION Follow C/S Will find out when HIV genotypig will be available HIV resistance pattern has been ordered and pending - in light of possibility kaushal he had been on HAART, this info will help in choosing HAARt regimen - risk of reconstitution if HAART started too early and there is underlying infection like crypto Await CSF CINDY - if (+), confirms PML - if negative, may need brain biopsy Continue Zosyn Add Vancomycin Monitor temps Monitor progress D/W RN Spoke with Christelle Sarmiento MD Sep 10, 2016 10:20
[2016-09-10] MEDS ORDERED: Vancomycin Consult Pharmacy 1 EA OTHER SCH (10:30)
[2016-09-10] MEDS ORDERED: VANCOMYCIN INJ 1,000 MG in SODIUM CHLOR 0.9% 250 ML INJ 250 ML IV ONE (10:30)
[2016-09-10] MEDS ORDERED: VANCOMYCIN INJ 1,600 MG in SODIUM CHLORID 0.9% 500 ML INJ 500 ML IV SCH (12:00)
[2016-09-10] MEDS: SCOPOLAMINE 1.5 MG PATCH TD SCH (13:35)
[2016-09-10 15:54] LABS: VZV PCR RESULT <500 (())
--- NOTE | 2016-09-10 16:57 | HHI.CCPN ---
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 The patient was placed on heparin and transitioned to Coumadin. The patient was subsequently transferred to [facility]. A Halicat was called, followed by stroke alert noting per RN, neurological changes. The nurse and Dr. Nguyen usually common at that the patient was a phasic, nonresponsive, with a left-sided gaze. Dr. Schroeder, neurologist was notified, CT scan was obtained and results are now pending. Per Dr. Vallejo, the patient is status post CVA on08/17/2016 and is not a candidate for TPA. The patient's previous medications per medical records were warfarin, docusate and atorvastatin. Critical care medicine was consulted for treatment and management. Upon presentation to the ICU, the patient was noted to have vertical and lateral nystagmus, aphasic,. The patient was able to follow commands, motor strength was noted to be 4/5 right upper and lower extremity with normal motor strength left upper and lower extremity. 09/03: Overnight, the patient began to verbalize significant dysarthria noted, but improved from yesterday's initial evaluation. Concern for patient to manage secretions still a concern, the patient continues to be NPO. Patient now has lateral nystagmus, motor exam unchanged. Neurology was consulted yesterday, MRI obtained. Subsequent imaging studies were performed last evening. Patient is scheduled for lumbar puncture this a.m. per neurosurgery for CSF evaluation. The patient is noted to have leukopenia, and a history of G6PD deficiency hematology and oncology were consulted. Request for outside medical records from the patient's inkjet operator was obtained, awaiting records. Administration of steroids were initiated last evening. 09/04: Steroids discontinued. No change in neurological evaluation, examination. Speech therapy consulted, patient continues on honey thick liquids , tolerated PO diet well yesterday. CSF results pending, no fungal elements were noted. Preliminary HIV reflex test positive, awaiting final confirmation. 09/05: No change in status. Tolerating PO diet. 09/06: Overnight the patient was noted to have increased difficulty managing secretions. Repeat formal speech swallow study noted that the patient failed this a.m.. The patient was placed on nothing by mouth status. HIV-1 antibody tests confirmed. Other studies still pending. The patient's family in the presence of a Autocad Detailer, with family holding and guiding the patient's hand , signed a POA. The patient was not competent to complete the document or answer questions at thus time. The family was informed that the document was not valid due to the fact the patient had altered mental status and could not freely communicate on his own, and sign the document. Informed that the patient 's would be appropriate and making the decisions for the patient and the POA document was null and void. 09/07: The patient became hypotensive last evening, with systolic blood pressures 60s. The patient was intubated, central line was placed, and the patient was placed on vasopressor support norepinephrine.CD4 count low, prophylactic and empric antibiotics started per ID, Dr. Mccracken. 09/09 Remains on mechanical ventilation, on levophed 9 mcg/min. UOP 200 overnight but now 250/hr last 2 hours. Has some sediment in Mayer tubing, may have been partially obstructed. Creatinine normal. at bedside. Afebrile. CSF bacterial cultures negative. CSF CINDY virus pending. Remaining pancultures from 09/08 pending. Afebrile. Reviewed records from Dr. Fuentes/Dr. Denise on chart. Had chronic leukopenia. HIV testing 2002, 2005 negative. Had chlamydia 2002 tells me he had not seen ID as an outpatient. She states he has not seen Dr. Fuentes in several years (most recent records appear to be from 2011) Subjective: 09/10 Tolerating CPAP during day. Levophed off vs low dose (2-3 mcg/min) depending on sedation. Dobhoff clogged, replaced with NGT. CSF CINDY virus pending Objective Vital Signs Date Time Temp Pulse Resp B/P Pulse Ox O2 Delivery O2 Flow Rate FiO2 09/10/16 16:00 98.5 92 16 99/58 100 09/10/16 16:00 40 09/10/16 07:00 Mechanical Ventilator 09/07/16 07:00 7.00 Intake and Output 09/09/16 09/09/16 09/10/16 08:00 16:00 00:00 Intake Total 929 ml 1173 ml 1013 ml Output Total 200 ml 750 ml 250 ml Balance 729 ml 423 ml 763 ml Result Diagram: 09/10/16 0507 09/10/16 0507 Other Results Microbiology Date/Time Procedure Status Source Growth 09/08/16 08:16 Urine Culture - Final Complete Urine Catheterized Urine NO GROWTH IN 48 HOURS. 09/08/16 13:30 Gram Stain - Final Complete Sputum Endotracheal 09/08/16 13:30 Sputum Culture - Final Complete Staphylococcus Aureus Objective Remarks Drips: Propofol 40 Ryland grams per KG per minute 0.9 NaCl at 30 mL per hour Norepinephrine 3 mcg/m GENERAL: Well-nourished well-developed male, intubated SKIN: Warm and dry. HEAD: Atraumatic. Normocephalic. EYES: Pupils equal and round. 3 mm and reactive bilaterally .No scleral icterus. No injection or drainage. ENT: No nasal bleeding or discharge. Mucous membranes pink and moist. Orotracheally intubated NECK: Trachea midline. No JVD. CARDIOVASCULAR: Normal rate, regular rhythm. RESPIRATORY: No accessory muscle use. Clear to auscultation. Breath sounds equal bilaterally. Orotracheally intubated on mechanical ventilation GASTROINTESTINAL: Abdomen soft, non-tender, nondistended. Bowel sounds present No guarding. Normoactive bowel sounds. Tube feeds infusing via NGT, tolerating without residuals. : Mayer in place with pale yellow urine output in the Mayer. Mild sediment in the tubing. MUSCULOSKELETAL: Extremities without clubbing, cyanosis, or edema. No obvious deformities. NEUROLOGICAL: Eyes open to voice, follows commands with hand squeeze BUE VASC: R IJ CVL in place with dressing c/d/i . L radial art line in place with distal perfusion intact. Procedures Left radial arterial line placement Date of Insertion: Sep 07, 2016 Side: Right Location: Internal, Jugular (CVP monitoring and vasoactive medication administration) A/P Assessment and Plan Neurologic: S/P CVA-right cerebral infarct 08/17 ?PML Dysarthria Aphasia CN palsies , VII, IX, X, -Intubated for airway protection. Has bulbar palsies with dysphagia resulting in poor airway protection and may need trach. Following commands currently on vent. -Neurology Dr. Vallejo following-Methylprednisone discontinued 09/05. Hold off on further steroids until brain biopsy. -?PML - CINDY virus PCR pending. If positive, confirms PML, however if negative will need brain biopsy per ID/neurology recs. 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 Restricted diffusion indicating suggesting ischemia left edi -MRI w/contrast 09/03-areas of low signal in edi, right cerebellar peduncle and right cerebellar hemisphere -Neurosurgery evaluated, Dr. Cedeño- -09/06 Formal swallow study from this a.m.-failed -09/05 Ammonia level 13 -Repeat CT brain09/07-stable exam -CSF workup as per below with ID. CSF cytology negative. - Minimize propofol and target RASS -1. Respiratory: Acute respiratory failure -Intubated 09/07/16 for airway protection-mechanical ventilation PRVC 14/550/0.40 /5/IT 1 -Maintain O2 sat greater than 92% -Maintain head of bed elevation 30 -Sedation vacation per ICU protocol. Daily CPAP to mitigate respiratory muscle weakness. Not appropriate for extubation due to cranial nerve palsies resulting in inadequate airway protection. Will likely require trach due to bulbar palsies. If PML is the inciting factor, would not expect these palsies to improve significantly even with therapy. is aware of possible need for trach as well as the fact that diagnosis uncertain at this point. -Ventilator bundle -Bronchodilators scheduled every 6 hours, every 2 when necessary Cardiovascular: Dyslipidemia (elevated LDL, hypertriglyceridemia, low HDL) H/O HTN Hypotension secondary to sedation/hypovolemia, ?sepsis -Levophed to maintain MAP >65. -Continue atorvastatin 10 by mouth daily at bedtime. Monitoring LFTS. -Patient previously on ASA dc'd secondary to G6PD deficiency -Coumadin (on hold), Hematology Dr. Pelletier following and recommends holding therapeutic anticoagulation as per below Renal: -No acute issues -Mayer catheter placement -Monitor BMP and Strict I/Os GI: Mild protein calorie malnutrition -Tube feeds Peptamin AF 1.5 @ 65/hr (goal rate of tube feeds per nutrition) via NGT -Replete electrolytes per ICU protocol -Zofran for nausea -Protonix for GI prophylaxis Heme/ID G6PD deficiency -HematologyOncology- Dr. Patrick Pelletier-no therapeutic anticoagulation recommended at this time -Previous hypercoagulable studies were noted. 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 Request for medical records sent to patient's personal inkjet operator, Dr. Denise, for additional information. -per hematology this heterozygous state does not confer high risk of thrombosis. Eventually would need anticoagulation for stroke, but recommend hold off for now in view of possible brain biopsy. --Venous Doppler ultrasounds bilateral upper and lower extremities09/08-negative -CSF cytology negative 09/04 Leukopenia AIDS Possible PML -HIV Ab 1 09/05-confirmed positive - RPR-negative -[id number] -CSF-CINDY virus-pending, -CSF-no fungal elements seen, WBC 0 -CSF AFB stains negative -CSF-cryptococcal antigen negative -CSF VDRLnegative -Absolute CD4 count- -Crypto serology negative Pancultured 09/08 of sputum, blood cultures, urine cultures. 09/08 sputum - +MSSA Abx per ID: azithromycin 1200 mg qweek, bactrim 800/160 daily for prophylaxis. Zosyn 4/5 q6 hours 09/08 #3. Vancomycin added 09/10 per ID, now resulted MSSA so will update Dr. Mccracken. . aware of HIV diagnosis. She has not been tested. I recommended expeditious testing and measures to prevent spread to others. Endocrine: NIDDM per outside records from 2011 -Glucose monitoring per ICU protocol -- SSI low dose q6 hours MSK: - PT, OT -evaluate and treat -Continue functional maintenance daily Prophylaxis: GI Prophylaxis Protonix 40 mg IV daily DVT Prophylaxis -- SCDs, Heparin 5000u SQ BID initiated on 09/07 Lines: Peripheral IV's x 2. RIJ central line 09/07 Dr. Jara #4, L radial arterial line Dr. Henning #3 Dispo: This patient remains critically ill with one or more organ systems which are or may become a threat to life. I have spent in excess of 35 minutes discontinuously in the care and management of this patient. This time is exclusive of procedures, and includes, but is not limited to, evaluation of the patient, review of the medical record, discussions with family, consultants, nursing staff, or respiratory therapy, and documentation in the medical record. updated at bedside. Alison Dukes MD Sep 10, 2016 16:57
[2016-09-10] MEDS: ATORVASTATIN 10 MG TAB PO SCH (21:11)
[2016-09-11] VITALS (19 sets, daily range): BP systolic 106–159; BP diastolic 72–98; PULSE 74–91; RESP 14–17; TEMP 98.9–99.9; O2SAT 95–100
[2016-09-11] MEDS: PROPOFOL 1000 MG/100 ML IV SCH ×3 (03:12→18:30)
[2016-09-11] MEDS: PIPERACIL-TAZO 4.5 GM PREMIX 100 ML IV SCH ×2 (03:12→09:25)
[2016-09-11] MEDS: CHLORHEXIDINE GLUCONATE 2 % 1 PACK (2 CLOTHS) TOP SCH (03:13)
--- NOTE | 2016-09-11 07:48 | HHI.CCPN ---
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 The patient was placed on heparin and transitioned to Coumadin. The patient was subsequently transferred to [facility]. A Halicat was called, followed by stroke alert noting per RN, neurological changes. The nurse and Dr. Nguyen usually common at that the patient was a phasic, nonresponsive, with a left-sided gaze. Dr. Schroeder, neurologist was notified, CT scan was obtained and results are now pending. Per Dr. Vallejo, the patient is status post CVA on08/17/2016 and is not a candidate for TPA. The patient's previous medications per medical records were warfarin, docusate and atorvastatin. Critical care medicine was consulted for treatment and management. Upon presentation to the ICU, the patient was noted to have vertical and lateral nystagmus, aphasic,. The patient was able to follow commands, motor strength was noted to be 4/5 right upper and lower extremity with normal motor strength left upper and lower extremity. 09/03: Overnight, the patient began to verbalize significant dysarthria noted, but improved from yesterday's initial evaluation. Concern for patient to manage secretions still a concern, the patient continues to be NPO. Patient now has lateral nystagmus, motor exam unchanged. Neurology was consulted yesterday, MRI obtained. Subsequent imaging studies were performed last evening. Patient is scheduled for lumbar puncture this a.m. per neurosurgery for CSF evaluation. The patient is noted to have leukopenia, and a history of G6PD deficiency hematology and oncology were consulted. Request for outside medical records from the patient's administration manager was obtained, awaiting records. Administration of steroids were initiated last evening. 09/04: Steroids discontinued. No change in neurological evaluation, examination. Speech therapy consulted, patient continues on honey thick liquids , tolerated PO diet well yesterday. CSF results pending, no fungal elements were noted. Preliminary HIV reflex test positive, awaiting final confirmation. 09/05: No change in status. Tolerating PO diet. 09/06: Overnight the patient was noted to have increased difficulty managing secretions. Repeat formal speech swallow study noted that the patient failed this a.m.. The patient was placed on nothing by mouth status. HIV-1 antibody tests confirmed. Other studies still pending. The patient's family in the presence of a [employer] Administrator, with family holding and guiding the patient's hand , signed a POA. The patient was not competent to complete the document or answer questions at thus time. The family was informed that the document was not valid due to the fact the patient had altered mental status and could not freely communicate on his own, and sign the document. Informed that the patient 's would be appropriate and making the decisions for the patient and the POA document was null and void. 09/07: The patient became hypotensive last evening, with systolic blood pressures 60s. The patient was intubated, central line was placed, and the patient was placed on vasopressor support norepinephrine.CD4 count low, prophylactic and empric antibiotics started per ID, Dr. Mccracken. 09/09 Remains on mechanical ventilation, on levophed 9 mcg/min. UOP 200 overnight but now 250/hr last 2 hours. Has some sediment in Mayer tubing, may have been partially obstructed. Creatinine normal. at bedside. Afebrile. CSF bacterial cultures negative. CSF CINDY virus pending. Remaining pancultures from 09/08 pending. Afebrile. Reviewed records from Dr. Fuentes/Dr. Denise on chart. Had chronic leukopenia. HIV testing 2002, 2005 negative. Had chlamydia 2002 tells me he had not seen ID as an outpatient. She states he has not seen Dr. Fuentes in several years (most recent records appear to be from 2011) Subjective: 09/10 Tolerating CPAP during day. Levophed off vs low dose (2-3 mcg/min) depending on sedation. Dobhoff clogged, replaced with NGT. CSF CINDY virus pending 09/11 Levophed off since 1899 last evening. MAP ranges 86657. Sputum culture returned staph aureus. The patient was maintained on CPAP for 12 hours yesterday. CSF CINDY virus pending. Objective Vital Signs Date Time Temp Pulse Resp B/P Pulse Ox O2 Delivery O2 Flow Rate FiO2 09/11/16 06:00 79 09/11/16 04:00 99.0 14 116/98 100 09/11/16 04:00 30 09/10/16 07:00 Mechanical Ventilator 09/07/16 07:00 7.00 Intake and Output 09/10/16 09/10/16 09/11/16 08:00 16:00 00:00 Intake Total 1464 ml 1017 ml 1240 ml Output Total 1000 ml 1100 ml 650 ml Balance 464 ml -83 ml 590 ml Result Diagram: 09/10/16 0507 09/10/16 0507 Other Results Microbiology Date/Time Procedure Status Source Growth 09/08/16 08:16 Urine Culture - Final Complete Urine Catheterized Urine NO GROWTH IN 48 HOURS. 09/08/16 13:30 Gram Stain - Final Complete Sputum Endotracheal 09/08/16 13:30 Sputum Culture - Final Complete Staphylococcus Aureus Objective Remarks Drips: Propofol 40 Ryland grams per KG per minute 0.9 NaCl at 30 mL per hour Norepinephrine 3 mcg/m GENERAL: Well-nourished well-developed male, intubated SKIN: Warm and dry. HEAD: Atraumatic. Normocephalic. EYES: Pupils equal and round. 3 mm and reactive bilaterally .No scleral icterus. No injection or drainage. ENT: No nasal bleeding or discharge. Mucous membranes pink and moist. Orotracheally intubated NECK: Trachea midline. No JVD. CARDIOVASCULAR: Normal rate, regular rhythm. RESPIRATORY: No accessory muscle use. Clear to auscultation. Breath sounds equal bilaterally. Orotracheally intubated on mechanical ventilation GASTROINTESTINAL: Abdomen soft, non-tender, nondistended. Bowel sounds present No guarding. Normoactive bowel sounds. Tube feeds infusing via NGT, tolerating without residuals. : Mayer in place with pale yellow urine output in the Mayer. Mild sediment in the tubing. MUSCULOSKELETAL: Extremities without clubbing, cyanosis, or edema. No obvious deformities. NEUROLOGICAL: Eyes open to voice, follows commands with hand squeeze BUE VASC: R IJ CVL in place with dressing c/d/i . L radial art line in place with distal perfusion intact. Procedures Left radial arterial line placement Urinary Catheter: Yes Mayer insert reason: Measure Accurate Output Date of Insertion: Sep 07, 2016 Vascular Central Line Catheter: Yes (vasoactive medication administration) Date of Insertion: Sep 07, 2016 Side: Right Location: Internal, Jugular (CVP monitoring and vasoactive medication administration) A/P Assessment and Plan Neurologic: S/P CVA-right cerebral infarct 08/17 ?PML Dysarthria Aphasia CN palsies , VII, IX, X, -GCS 11 T -Intubated for airway protection. Has bulbar palsies with dysphagia resulting in poor airway protection and may need trach. -Neurology Dr. Vallejo following-Methylprednisone discontinued 09/05. Hold off on further steroids until brain biopsy. -?PML - CINDY virus PCR pending. If positive, confirms PML, however if negative will need brain biopsy per ID/neurology recs. 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 Restricted diffusion indicating suggesting ischemia left edi -MRI w/contrast 09/03-areas of low signal in edi, right cerebellar peduncle and right cerebellar hemisphere -Neurosurgery evaluated, Dr. Cedeño- -09/06 Formal swallow study from this a.m.-failed -09/05 Ammonia level 13 -Repeat CT brain09/07-stable exam -CSF workup as per below with ID. CSF cytology negative. - Minimize propofol and target RASS -1. Currently propofol at 15 mcgs Respiratory: Acute respiratory failure -Intubated 09/07/16 for airway protection-mechanical ventilation PRVC 14/550/0.30 /5/IT -Maintain O2 sat greater than 92% -Maintain head of bed elevation 30 -Sedation vacation per ICU protocol. Daily CPAP to mitigate respiratory muscle weakness. Not appropriate for extubation due to cranial nerve palsies resulting in inadequate airway protection. Will likely require trach due to bulbar palsies. If PML is the inciting factor, would not expect these palsies to improve significantly even with therapy. is aware of possible need for trach as well as the fact that diagnosis uncertain at this point. -Ventilator bundle -Bronchodilators scheduled every 6 hours, every 2 when necessary Cardiovascular: Dyslipidemia (elevated LDL, hypertriglyceridemia, low HDL) H/O HTN Hypotension secondary to sedation/hypovolemia, ?sepsis -Levophed discontinued 09/10 - Maintain MAP >65 mmHg -Continue atorvastatin 10 by mouth daily at bedtime. Monitoring LFTS. -Patient previously on ASA dc'd secondary to G6PD deficiency -Coumadin (on hold), Hematology Dr. Pelletier following and recommends holding therapeutic anticoagulation as per below Renal: -No acute issues -Mayer catheter placement -Monitor BMP and Strict I/Os GI: Mild protein calorie malnutrition -Tube feeds Peptamin AF 1.5 @ 65/hr (goal rate of tube feeds per nutrition) via NGT -Replete electrolytes per ICU protocol -Zofran for nausea -Protonix for GI prophylaxis -Last BM 09/08, will add bowel regimen Heme/ID G6PD deficiency -HematologyOncology- Dr. Patrick Pelletier-no therapeutic anticoagulation recommended at this time -Previous hypercoagulable studies were noted. 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 Request for medical records sent to patient's personal administration manager, Dr. Denise, for additional information. -per hematology this heterozygous state does not confer high risk of thrombosis. Eventually would need anticoagulation for stroke, but recommend hold off for now in view of possible brain biopsy. --Venous Doppler ultrasounds bilateral upper and lower extremities09/08-negative -CSF cytology negative 09/04 Leukopenia AIDS Possible PML -HIV Ab 1 09/05-confirmed positive - RPR-negative -[id number] -CSF-CINDY virus-pending, -CSF-no fungal elements seen, WBC 0 -CSF AFB stains negative -CSF-cryptococcal antigen negative -CSF VDRLnegative -Absolute CD4 count- -Crypto serology negative Pancultured 09/08 of sputum, blood cultures, urine cultures. 09/08 sputum - +MSSA Abx per ID: azithromycin 1200 mg qweek, bactrim 800/160 daily for prophylaxis. Zosyn 4/5 q6 hours 09/08 #4. Vancomycin added 09/10 per ID, now resulted MSSA so will update Dr. Mccracken. . aware of HIV diagnosis. She has not been tested. I recommended expeditious testing and measures to prevent spread to others. Endocrine: NIDDM per outside records from 2011 -Glucose monitoring per ICU protocol -- SSI low dose q6 hours MSK: - PT, OT -evaluate and treat -Continue functional maintenance daily Prophylaxis: GI Prophylaxis Protonix 40 mg IV daily DVT Prophylaxis -- SCDs, Heparin 5000u SQ BID initiated on 09/07 Lines: Peripheral IV's x 2. RIJ central line 09/07 Dr. Jara #5, L radial arterial line Dr. Henning #4 Dispo: This patient remains critically ill with one or more organ systems which are or may become a threat to life. I have spent in excess of 37 minutes discontinuously in the care and management of this patient. This time is exclusive of procedures, and includes, but is not limited to, evaluation of the patient, review of the medical record, discussions with family, consultants, nursing staff, or respiratory therapy, and documentation in the medical record. Discussed with MARKETING GRAPHICS SPECIALIST at bedside. Physician Cathy Miller MD Sep 11, 2016 07:48
[2016-09-11] MEDS ORDERED: BISACODYL 10 MG SUPP RECTAL PRN (08:00)
[2016-09-11] MEDS: SULFAMETHOXAZOLE-TRIMETHOPRIM 800-160 MG/20 ML UDC PO SCH (08:56)
[2016-09-11] MEDS: SENNOSIDES SYRUP 8.8 MG/5 ML CUP PO SCH ×2 (08:57→19:55)
[2016-09-11] MEDS: DOCUSATE SODIUM 100 MG/10 ML UDC PO SCH ×2 (08:57→19:55)
[2016-09-11] MEDS: PANTOPRAZOLE SODIUM 40 MG VIAL IV SCH (08:57)
[2016-09-11] MEDS: HEPARIN SODIUM - SQ 10,000 UNITS/ML VIAL SQ SCH ×2 (08:57→19:55)
[2016-09-11] MEDS: SODIUM CHLORIDE 0.9% FLUSH 5 ML FLUSH IV FLUSH SCH ×2 (08:58→19:56)
[2016-09-11] MEDS: SODIUM CHLOR 0.9% 1000 ML INJ 1,000 ML IV SCH (08:58)
[2016-09-11 09:00] LABS: BLOOD GAS CARBOXYHEMOGLOBIN 1.4 % (0-4); BLOOD GAS HCO3 28 mmol/L (22-26); BLOOD GAS METHEMOGLOBIN 0.5 % (0-2); BLOOD GAS O2 HGB SATURATION 96 % (90-100); BLOOD GAS OXYGEN CONTENT 13.1 Vol % (12.0-20.0); BLOOD GAS PCO2 43 mmHg (38-42); BLOOD GAS PO2 101 mmHg (61-120); BLOOD GAS TOTAL HGB 9.6 G/DL (12.0-16.0); TEMP CORR TO 98.6
[2016-09-11] MEDS ORDERED: ARTIFICIAL TEARS OPTH SOLN 15 ML BTL EACH EYE PRN (09:00)
[2016-09-11 09:01] LABS: CRITICAL VALUE NO; FIO2 30 %; OXYGEN DEVICE VENTILATOR
[2016-09-11 09:02] LABS: DRAW SITE ART LINE; STAT NO
[2016-09-11 09:50] LABS: HIV 1 PROVIRAL DNA Detected (Not Detected)
[2016-09-11] MEDS: cefTRIAXone INJ 2,000 MG in SODIUM CHLORIDE 0.9% INJ 100 ML IV SCH (14:33)
--- NOTE | 2016-09-11 19:13 | PD.CONS ---
HPI Service General surgery Consult Requested By Dr. Henning Reason for Consult Tracheostomy Primary Care Physician Shon Gonzáles III, MD History of Present Illness This is a 51-year-old male who suffered an ischemic stroke on August 17, 2016. This is complicated by acute respiratory failure with intubation on September 07. Per the nursing staff he is following commands. Coumadin which the patient took at home has been on hold. The patient's daughter is currently at the bedside. Review of Systems ROS Limitations: Clinical Condition, Intubated Past Family Social History Past Medical History Hyperlipidemia Leukopenia Past Surgical History None Reported Medications Reported Meds & Active Scripts Active Coumadin (Warfarin) 10 Mg Tab 10 Mg PO DAILY@16 Dok (Docusate Sodium) 100 Mg Cap 100 Mg PO BID 10 Days Reported Lipitor (Atorvastatin Calcium) 10 Mg Tab 10 Mg PO HS Allergies: Coded Allergies: No Known Allergies (Unverified , 08/16/16) Active Ordered Medications Current Medications Medications (Trade) Dose Ordered Sig/Krystin Route Start Time Stop Time Status Last Admin Potassium Chloride 100 ml @ 50 mls/hr Q2H PRN IV 09/03/16 10:45 (KCl 20 Meq Premix Inj) 100 ml @ 50 mls/hr Q2H PRN IV 09/03/16 10:45 Potassium Chloride 40 meq 40 meq UNSCH PRN PO/TUBE 09/03/16 10:45 Potassium Chloride 100 ml @ 25 mls/hr UNSCH PRN IV 09/03/16 10:45 Potassium Chloride 100 ml @ 50 mls/hr Q2H PRN IV 09/03/16 10:45 09/06/16 11:46 (Magnesium Sulfate Inj/NS Inj) 100 ml @ 50 mls/hr UNSCH PRN IV 09/03/16 10:45 Magnesium Oxide 800 mg 800 mg UNSCH PRN PO 09/03/16 10:45 (Magnesium Sulfate Inj/NS Inj) 100 ml @ 50 mls/hr UNSCH PRN IV 09/03/16 10:45 Potassium Phosphate 2000 mg 2,000 mg Q4H PRN PO 09/03/16 10:45 (Sodium Phosphate Inj/NS 250 ml Inj) 250 ml @ 42 mls/hr UNSCH PRN IV 09/03/16 10:45 (KCl 40 Meq/30 ml Liq) 40 meq UNSCH PRN PO/TUBE 09/03/16 10:45 Potassium Phosphate 2000 mg 2,000 mg UNSCH PRN PO/TUBE 09/03/16 10:45 (Potassium Phosphate Inj/NS 250 ml Inj) 260 ml @ 42 mls/hr UNSCH PRN IV 09/03/16 10:45 (NS Flush) 2 ml UNSCH PRN IV FLUSH 09/03/16 10:45 (NS Flush) 2 ml BID IV FLUSH 09/03/16 21:00 09/11/16 08:58 (Protonix Inj) 40 mg DAILY IV 09/04/16 09:00 09/11/16 08:57 (Zofran Inj) 4 mg Q6H PRN IV 09/03/16 10:45 Miscellaneous Information 1 Q361D XX 09/03/16 10:45 09/03/16 10:45 (Chlorhexidine 2% Cloth) Taper DAILY@04 TOP 09/04/16 04:00 08/31/17 03:59 09/08/16 04:00 (Chlorhexidine 2% Cloth) 3 pack UNSCH PRN TOP 09/03/16 10:45 (Lipitor) 10 mg HS PO 09/05/16 21:00 09/10/16 21:11 (Heparin Inj) 5,000 units Q12HR SQ 09/07/16 09:30 09/11/16 08:57 (Transderm-Scop 1.5 Mg Patch.72 Hr) 1 patch Q3D TD 09/07/16 12:00 09/10/16 13:35 Miscellaneous Information 1 1 Q3D T-DERMAL 09/10/16 10:15 09/10/16 10:15 Norepinephrine Bitartrate 250 ml @ 0 mls/hr TITRATE IV 09/07/16 22:15 09/10/16 02:23 (Diprivan 1000 Mg/100ml Inj) 100 ml @ 0 mls/hr TITRATE IV 09/07/16 22:15 09/11/16 18:30 (Zithromax) 1,200 mg Q7D PO 09/08/16 10:00 09/08/16 10:33 Trimethoprim/ Sulfamethoxazole 20 ml 20 ml DAILY PO 09/08/16 09:30 09/11/16 08:56 (NS 1000 ml Inj) 1,000 ml @ 0 mls/hr Q24H IV 09/09/16 07:00 09/11/16 08:58 (D50w (Vial) Inj) 25 ml UNSCH PRN IV PUSH 09/09/16 10:45 (Glucagon Inj) 1 mg UNSCH PRN OTHER 09/09/16 10:45 (Tears Naturale Opth Soln) 1 drop Q6HR PRN EACH EYE 09/11/16 09:00 (Senna Liq) 8.8 mg BID PO 09/11/16 09:00 09/11/16 08:57 (Colace Liq) 100 mg Q12HR PO 09/11/16 09:00 09/11/16 08:57 Bisacodyl 10 mg 10 mg ONCE PRN RECTAL 09/11/16 08:00 09/11/16 23:59 09/11/16 18:30 (Rocephin Inj/NS Inj) 100 ml @ 200 mls/hr Q24H IV 09/11/16 13:00 09/18/16 12:59 09/11/16 14:33 Family History Noncontributory Social History No alcohol tobacco or drug use. The patient is . Physical Exam Vital Signs Vital Signs Date Time Temp Pulse Resp B/P Pulse Ox O2 Delivery O2 Flow Rate FiO2 09/11/16 18:00 86 09/11/16 16:11 100 30 09/11/16 16:00 89 09/11/16 16:00 30 09/11/16 16:00 98.9 84 15 106/72 99 09/11/16 14:00 87 09/11/16 12:07 100 30 09/11/16 12:00 30 09/11/16 12:00 90 09/11/16 12:00 99.5 90 17 138/76 100 09/11/16 10:00 91 09/11/16 09:00 30 09/11/16 08:53 99 30 09/11/16 08:53 30 09/11/16 08:00 99.0 90 15 159/87 95 09/11/16 08:00 91 09/11/16 08:00 30 09/11/16 06:00 79 09/11/16 04:00 99.0 78 14 116/98 100 09/11/16 04:00 30 09/11/16 04:00 78 09/11/16 03:21 100 30 09/11/16 02:00 74 09/11/16 00:25 100 30 09/11/16 00:00 82 09/11/16 00:00 30 09/11/16 00:00 99.9 82 14 148/78 100 09/10/16 22:00 88 09/10/16 20:18 100 30 09/10/16 20:00 30 09/10/16 20:00 99.4 96 14 138/70 100 Automatic Cuff 09/10/16 20:00 91 Physical Exam GENERAL: Intubated, sedated. HEAD: Normocephalic. Atraumatic. EYES: Pupils equal round and reactive to light bilaterally. No scleral icterus. ENT: Orotracheally intubated. NECK: Trachea midline and palpable. No scars. CHEST: 30% FiO2 and 5 of PEEP. Ventilated via endotracheal tube. CARDIOVASCULAR: Regular rate and rhythm. ABDOMEN: Soft. SKIN: Warm, dry, nonjaundiced. Laboratory Laboratory Tests Test 09/11/16 08:49 Blood Gas Puncture Site ART LINE Blood Gas Patient Temperature 98.6 Blood Gas HCO3 28 Blood Gas Base Excess 4.0 Blood Gas Oxygen Saturation 96 Arterial Blood pH 7.43 Arterial Blood Partial 43 Pressure CO2 Arterial Blood Partial 101 Pressure O2 Arterial Blood Oxygen Content 13.1 Arterial Blood 1.4 Carboxyhemoglobin Arterial Blood Methemoglobin 0.5 Blood Gas Hemoglobin 9.6 Oxygen Delivery Device VENTILATOR Blood Gas Ventilator Setting Blood Gas Inspired Oxygen 30 Date/Time Procedure Status Source Growth 09/08/16 13:30 Gram Stain - Final Complete Sputum Endotracheal 09/08/16 13:30 Sputum Culture - Final Complete Staphylococcus Aureus 09/08/16 13:30 Fungal Smear - Final Resulted Sputum Endotracheal NO FUNGAL ELEMENTS SEEN. 09/08/16 13:30 Fungal Culture Resulted Sputum Endotracheal Pending 09/08/16 13:30 Acid Fast Stain - Final Resulted Sputum Endotracheal NO ACID FAST BACILLI SEEN 09/08/16 13:30 Mycobacterial Culture Resulted Sputum Endotracheal Pending 09/08/16 11:20 Aerobic Blood Culture - Preliminary Resulted Blood Peripheral NO GROWTH IN 3 DAYS 09/08/16 11:20 Anaerobic Blood Culture - Preliminary Resulted Blood Peripheral NO GROWTH IN 3 DAYS 09/08/16 11:14 Mycobacterial Culture Received Blood Peripheral Pending 09/08/16 08:16 Urine Culture - Final Complete Urine Catheterized Urine NO GROWTH IN 48 HOURS. 09/08/16 08:10 Cancelled Urine Catheterized Urine Result Diagram: 09/10/16 0507 09/10/16 0507 Assessment and Plan Assessment and Plan 51-year-old male who suffered an ischemic stroke complicated by respiratory failure. Plan for percutaneous tracheostomy requested for or Sunday per Dr. Henning. I will coordinate with her for precise timing. I discussed the procedure with the patient's daughter who is an ENT nurse in [place]. Ezra,Chaz BRO Sep 11, 2016 19:12
[2016-09-11] MEDS: ATORVASTATIN 10 MG TAB PO SCH (19:55)
[2016-09-11 23:39] LABS: ABACAVIR SUSC (()); ATAZANAVIR WITH RITONAVIR SUSC (()); DARUNAVIR WITH RITONAVIR SUSC (()); DIDANOSINE SUSC (()); EFAVIRENZ RESIST (()); EMTRICITABINE SUSC (()); ETRAVIRINE SUSC (()); FOSAMPRENAVIR WITH RITONAVIR SUSC (()); HIV-1 GENOTYPING INTERP (()); INDINAVIR WITH RITONAVIR SUSC (()); LAMIVUDINE SUSC (()); LOPINAVIR WITH RITONAVIR SUSC (()); NELFINAVIR SUSC (()); NEVIRAPINE RESIST (()); RILPIVIRINE SUSC (()); SAQUINAVIR WITH RITONAVIR SUSC (()); STAVUDINE SUSC (()); TENOFOVIR SUSC (()); TIPRANAVIR WITH RITONAVIR SUSC (()); ZIDOVUDINE SUSC (())
[2016-09-11] MEDS ORDERED: PHARMACY ORDERED LAB XX ONE (23:45)
[2016-09-12] VITALS (20 sets, daily range): BP systolic 111–135; BP diastolic 63–83; PULSE 72–86; RESP 14; TEMP 98.7–99.2; O2SAT 98–100
[2016-09-12] MEDS: PROPOFOL 1000 MG/100 ML IV SCH ×2 (01:38→22:13)
[2016-09-12] MEDS: CHLORHEXIDINE GLUCONATE 2 % 1 PACK (2 CLOTHS) TOP SCH (04:00)
[2016-09-12 04:11] LABS: HEMATOCRIT 23.3 % (39.0-51.0); MEAN CELL VOLUME 90.8 FL (80.0-100.0); MEAN CORPUSCULAR HEMOGLOBIN 31.2 PG (27.0-34.0); MEAN CORPUSCULAR HGB CONC 34.4 % (32.0-36.0); PLATELET COUNT 166 TH/MM3 (150-450); RED BLOOD COUNT 2.56 MIL/MM3 (4.50-5.90); RED CELL DISTRIBUTION WIDTH 14.2 % (11.6-17.2); REVIEW FLAG FINAL; WHITE BLOOD COUNT 3.2 TH/MM3 (4.0-11.0)
[2016-09-12 04:46] LABS: BICARBONATE 30.1 MEQ/L (21.0-32.0); MAGNESIUM 2.1 MG/DL (1.5-2.5)
[2016-09-12] MEDS: SODIUM CHLOR 0.9% 1000 ML INJ 1,000 ML IV SCH (07:00)
[2016-09-12] MEDS: SODIUM CHLORIDE 0.9% FLUSH 5 ML FLUSH IV FLUSH SCH ×2 (08:08→22:13)
[2016-09-12] MEDS: PANTOPRAZOLE SODIUM 40 MG VIAL IV SCH (08:09)
[2016-09-12] MEDS: SENNOSIDES SYRUP 8.8 MG/5 ML CUP PO SCH ×2 (08:09→22:14)
[2016-09-12] MEDS: NOREPINEPHRINE 4 MG/D5W 250 ML IV SCH (08:10)
[2016-09-12] MEDS: DOCUSATE SODIUM 100 MG/10 ML UDC PO SCH ×2 (08:10→22:13)
[2016-09-12] MEDS: SULFAMETHOXAZOLE-TRIMETHOPRIM 800-160 MG/20 ML UDC PO SCH (08:10)
[2016-09-12] MEDS: HEPARIN SODIUM - SQ 10,000 UNITS/ML VIAL SQ SCH ×2 (08:10→22:14)
--- NOTE | 2016-09-12 08:13 | HHI.CCPN ---
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 The patient was placed on heparin and transitioned to Coumadin. The patient was subsequently transferred to [facility]. A Halicat was called, followed by stroke alert noting per RN, neurological changes. The nurse and Dr. Nguyen usually common at that the patient was a phasic, nonresponsive, with a left-sided gaze. Dr. Schroeder, neurologist was notified, CT scan was obtained and results are now pending. Per Dr. Vallejo, the patient is status post CVA on08/17/2016 and is not a candidate for TPA. The patient's previous medications per medical records were warfarin, docusate and atorvastatin. Critical care medicine was consulted for treatment and management. Upon presentation to the ICU, the patient was noted to have vertical and lateral nystagmus, aphasic,. The patient was able to follow commands, motor strength was noted to be 4/5 right upper and lower extremity with normal motor strength left upper and lower extremity. 09/03: Overnight, the patient began to verbalize significant dysarthria noted, but improved from yesterday's initial evaluation. Concern for patient to manage secretions still a concern, the patient continues to be NPO. Patient now has lateral nystagmus, motor exam unchanged. Neurology was consulted yesterday, MRI obtained. Subsequent imaging studies were performed last evening. Patient is scheduled for lumbar puncture this a.m. per neurosurgery for CSF evaluation. The patient is noted to have leukopenia, and a history of G6PD deficiency hematology and oncology were consulted. Request for outside medical records from the patient's commodities requirements analyst was obtained, awaiting records. Administration of steroids were initiated last evening. 09/04: Steroids discontinued. No change in neurological evaluation, examination. Speech therapy consulted, patient continues on honey thick liquids , tolerated PO diet well yesterday. CSF results pending, no fungal elements were noted. Preliminary HIV reflex test positive, awaiting final confirmation. 09/05: No change in status. Tolerating PO diet. 09/06: Overnight the patient was noted to have increased difficulty managing secretions. Repeat formal speech swallow study noted that the patient failed this a.m.. The patient was placed on nothing by mouth status. HIV-1 antibody tests confirmed. Other studies still pending. The patient's family in the presence of a Executor Of Estate, with family holding and guiding the patient's hand , signed a POA. The patient was not competent to complete the document or answer questions at thus time. The family was informed that the document was not valid due to the fact the patient had altered mental status and could not freely communicate on his own, and sign the document. Informed that the patient 's would be appropriate and making the decisions for the patient and the POA document was null and void. 09/07: The patient became hypotensive last evening, with systolic blood pressures 60s. The patient was intubated, central line was placed, and the patient was placed on vasopressor support norepinephrine.CD4 count low, prophylactic and empiric antibiotics started per ID, Dr. Mccracken. 09/09 Remains on mechanical ventilation, on levophed 9 mcg/min. UOP 200 overnight but now 250/hr last 2 hours. Has some sediment in Mayer tubing, may have been partially obstructed. Creatinine normal. at bedside. Afebrile. CSF bacterial cultures negative. CSF CINDY virus pending. Remaining pancultures from 09/08 pending. Afebrile. Reviewed records from Dr. Fuentes/Dr. Denise on chart. Had chronic leukopenia. HIV testing 2002, 2005 negative. Had chlamydia 2002 tells me he had not seen ID as an outpatient. She states he has not seen Dr. Fuentes in several years (most recent records appear to be from 2011) Subjective: 09/10 Tolerating CPAP during day. Levophed off vs low dose (2-3 mcg/min) depending on sedation. Dobhoff clogged, replaced with NGT. CSF CINDY virus pending 09/11 Levophed off since 1899 last evening. MAP ranges 10549. Sputum culture returned staph aureus. The patient was maintained on CPAP for 12 hours yesterday. CSF CINDY virus pending. 09/12 Tmax 99.6 .Hemodynamically stable. Coordination for tracheostomy and PEG placement for possibly or Sunday. HIV resistance labs resulted overnight, with resistance to Efavirenz,Nevirapine. CSF CINDY virus pending. Objective Vital Signs Date Time Temp Pulse Resp B/P Pulse Ox O2 Delivery O2 Flow Rate FiO2 09/12/16 06:00 80 09/12/16 04:40 100 30 09/12/16 04:00 98.9 14 115/66 09/10/16 07:00 Mechanical Ventilator Intake and Output 09/11/16 09/11/16 09/12/16 08:00 16:00 00:00 Intake Total 978 ml 882 ml 863 ml Output Total 300 ml 600 ml 600 ml Balance 678 ml 282 ml 263 ml Result Diagram: 09/12/16 0356 09/12/16 0356 Other Results Laboratory Tests Test 09/11/16 08:49 Blood Gas Puncture Site ART LINE Blood Gas Patient Temperature 98.6 Blood Gas HCO3 28 mmol/L (22-26) Blood Gas Base Excess 4.0 mmol/L (-2-2) Blood Gas Oxygen Saturation 96 % (90-100) Arterial Blood pH 7.43 (7.380-7.420) Arterial Blood Partial 43 mmHg (38-42) Pressure CO2 Arterial Blood Partial 101 mmHg Pressure O2 (61-120) Arterial Blood Oxygen Content 13.1 Vol % (12.0-20.0) Arterial Blood 1.4 % (0-4) Carboxyhemoglobin Arterial Blood Methemoglobin 0.5 % (0-2) Blood Gas Hemoglobin 9.6 G/DL (12.0-16.0) Oxygen Delivery Device VENTILATOR Blood Gas Ventilator Setting Blood Gas Inspired Oxygen 30 % Imaging Last Impressions Upper Extremity Ultrasound 09/08/16 0000 Signed Impressions: Service Date/Time: Thursday, September 08, 2016 19:22 - CONCLUSION: Normal examination. Michael Rosas Jr., MD Lower Extremity Ultrasound 09/08/16 0000 Signed Impressions: Service Date/Time: Thursday, September 08, 2016 18:57 - CONCLUSION: Normal examination. Michael Rosas Jr., MD Chest X-Ray 09/07/16 0600 Signed Impressions: Service Date/Time: August 02:47 - CONCLUSION: No focal or acute pulmonary infiltrates. No significant change. Colin Denny MD Head CT 09/07/16 0000 Signed Impressions: Service Date/Time: August 13:04 - CONCLUSION: Stable exam. Aurora Liz MD Abdomen X-Ray 09/06/16 0000 Signed Impressions: Service Date/Time: Tuesday, September 06, 2016 20:55 - CONCLUSION: Feeding tube in place as described. Ryland Malone MD Neck CTA 09/03/16 0000 Signed Impressions: Service Date/Time: Saturday, September 03, 2016 20:21 - CONCLUSION: Normal examination. Marcio Zamorano MD Head CTA 09/03/16 0000 Signed Impressions: Service Date/Time: Saturday, September 03, 2016 20:21 - CONCLUSION: Negative CTA of the head. Marcio Zamorano MD Brain MRI 09/03/16 0000 Signed Impressions: Service Date/Time: Saturday, September 03, 2016 20:34 - CONCLUSION: Areas of low signal in the edi, right cerebellar peduncle and right cerebellar hemisphere. Marcio Zamorano MD Objective Remarks Drips: Propofol 15 mcg/kg/min 0.9 NaCl at 30 mL per hour GENERAL: Well-nourished well-developed male, intubated GCS 11 T SKIN: Warm and dry. HEAD: Atraumatic. Normocephalic. EYES: Pupils equal and round. 3 mm and reactive bilaterally .No scleral icterus. No injection or drainage. ENT: No nasal bleeding or discharge. Mucous membranes pink and moist. Orotracheally intubated NECK: Trachea midline. No JVD. CARDIOVASCULAR: Normal rate, regular rhythm. RESPIRATORY: No accessory muscle use. Clear to auscultation. Breath sounds equal bilaterally. Orotracheally intubated on mechanical ventilation GASTROINTESTINAL: Abdomen soft, non-tender, nondistended. Bowel sounds present No guarding. Normoactive bowel sounds. Tube feeds infusing via NGT, tolerating without residuals. : Mayer in place with pale yellow urine output in the Mayer. Mild sediment in the tubing. MUSCULOSKELETAL: Extremities without clubbing, cyanosis, or edema. No obvious deformities. NEUROLOGICAL: Eyes open to voice, follows commands by squeezing hands and moving feet. VASC: R IJ CVL in place with dressing C/D/I . L radial art line in place with distal perfusion intact. Urinary Catheter: Yes Date of Insertion: Sep 07, 2016 Vascular Central Line Catheter: Yes (CVP monitoring, vasoactive administration) Date of Insertion: Sep 07, 2016 Side: Right Location: Internal, Jugular (CVP monitoring and vasoactive medication administration) A/P Assessment and Plan Neurologic: S/P CVA-right cerebral infarct 08/17 ?PML Dysarthria Aphasia CN palsies , VII, IX, X, -GCS 11 T -Intubated for airway protection. Has bulbar palsies with dysphagia resulting in poor airway protection is scheduled for tracheostomy -Neurology Dr. Vallejo following-Methylprednisone discontinued 09/05. Hold off on further steroids until brain biopsy. -?PML - CINDY virus PCR pending. If positive, confirms PML, however if negative will need brain biopsy per ID/neurology recs. 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 Restricted diffusion indicating suggesting ischemia left edi -MRI w/contrast 09/03-areas of low signal in edi, right cerebellar peduncle and right cerebellar hemisphere -Neurosurgery evaluated, Dr. Cedeño -09/06 Formal swallow study-failed -09/05 Ammonia level 13 -Repeat CT brain09/07-stable exam -CSF workup as per below with ID. CSF cytology negative. - Minimize propofol and target RASS -1. Currently propofol at 15 mcgs Respiratory: Acute respiratory failure -Intubated 09/07/16 for airway protection-mechanical ventilation PRVC 14/550/0.30 /5/IT -Maintain O2 sat greater than 92% -Maintain head of bed elevation 30 -Sedation vacation per ICU protocol.Continue CPAP trials dailyto mitigate respiratory muscle weakness. Not appropriate for extubation due to cranial nerve palsies resulting in inadequate airway protection. Will likely require trach due to bulbar palsies. If PML is the inciting factor, would not expect these palsies to improve significantly even with therapy. is aware of possible need for trach as well as the fact that diagnosis uncertain at this point. -Ventilator bundle -Bronchodilators scheduled every 6 hours, every 2 when necessary -Percutaneous tracheostomy planned for or Sun- Dr. Munguia Cardiovascular: Dyslipidemia (elevated LDL, hypertriglyceridemia, low HDL) H/O HTN Hypotension secondary to sedation/hypovolemia, ?sepsis -Levophed discontinued 09/10 - Maintain MAP >65 mmHg -Continue atorvastatin 10 by mouth daily at bedtime. Monitoring LFTS -Patient previously on ASA dc'd secondary to G6PD deficiency -Coumadin (on hold), Hematology Dr. Pelletier following and recommends holding therapeutic anticoagulation as per below - D/c CVP monitoring-euvolemic Renal: -No acute issues -Mayer catheter -Monitor BMP and Strict I/Os GI: Mild protein calorie malnutrition -Tube feeds Peptamin AF 1.5 @ 65/hr (goal rate of tube feeds per nutrition) via NGT -Replete electrolytes per ICU protocol -Zofran for nausea -Protonix for GI prophylaxis -Last BM 09/08, added lactulose to bowel regimen -GI consult for PEG placement Heme/ID G6PD deficiency -HematologyOncology- Dr. Patrick Pelletier-no therapeutic anticoagulation recommended at this time -Previous hypercoagulable studies were noted. 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 Request for medical records sent to patient's personal commodities requirements analyst, Dr. Denise, for additional information. -per hematology this heterozygous state does not confer high risk of thrombosis. Eventually would need anticoagulation for stroke, but recommend hold off for now in view of possible brain biopsy. 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 09/08 sputum - +MSSA Abx per ID: azithromycin 1200 mg qweek, bactrim 800/160 daily for prophylaxis. Zosyn 4/5 q6 hours 09/08 # 5. Vancomycin added 09/10 per ID. aware of HIV diagnosis. She has not been tested. I recommended expeditious testing and measures to prevent spread to others. Endocrine: NIDDM per outside records from 2011 -Glucose monitoring per ICU protocol -- SSI low dose q6 hours MSK: - PT, OT -evaluate and treat -Continue functional maintenance daily Prophylaxis: GI Prophylaxis Protonix 40 mg IV daily DVT Prophylaxis -- SCDs, Heparin 5000u SQ BID initiated on 09/07 Lines: Peripheral IV's x 2. RIJ central line 09/07 Dr. Jara #6, L radial arterial line Dr. Henning #5 Dispo: This patient remains critically ill with one or more organ systems which are or may become a threat to life. I have spent in excess of 33 minutes discontinuously in the care and management of this patient. This time is exclusive of procedures, and includes, but is not limited to, evaluation of the patient, review of the medical record, discussions with family, consultants, nursing staff, or respiratory therapy, and documentation in the medical record. Discussed with LIME FILTER OPERATOR at bedside. Physician Cathy Miller MD Sep 12, 2016 08:13
--- NOTE | 2016-09-12 08:29 | HHI.PR ---
Review/Management Diagnosis/Plan: (1) brainstem abnormality Plan: The non enhancing diffusion abnormality has progressed from the right CP angle to the left edi and midbrain, but clinically it is also affecting the lower cranial nerves as well. Lumbar puncture was performed yesterday and is negative for lymphocytes, proteins, bacteria or fungus. A brain biopsy was planned tomorrow but was cancelled when the HIV came back positive. He remains critically ill and at risk on needing intubation and tracheostomy. DVT and PUD prophylaxis and rehab services are ordered. csf- margarita virus pending (2) Cranial nerve palsy Plan: Cranial nerves , VII, IX, X, XII are affected, at high risk for aspiration intubated plan for possible trach/peg Subjective Subjective Comments No acute events reported Active Medications Current Medications Medications (Trade) Dose Ordered Sig/Krystin Route Start Time Stop Time Status Last Admin Potassium Chloride 100 ml @ 50 mls/hr Q2H PRN IV 09/03/16 10:45 (KCl 20 Meq Premix Inj) 100 ml @ 50 mls/hr Q2H PRN IV 09/03/16 10:45 Potassium Chloride 40 meq 40 meq UNSCH PRN PO/TUBE 09/03/16 10:45 Potassium Chloride 100 ml @ 25 mls/hr UNSCH PRN IV 09/03/16 10:45 Potassium Chloride 100 ml @ 50 mls/hr Q2H PRN IV 09/03/16 10:45 09/06/16 11:46 (Magnesium Sulfate Inj/NS Inj) 100 ml @ 50 mls/hr UNSCH PRN IV 09/03/16 10:45 Magnesium Oxide 800 mg 800 mg UNSCH PRN PO 09/03/16 10:45 (Magnesium Sulfate Inj/NS Inj) 100 ml @ 50 mls/hr UNSCH PRN IV 09/03/16 10:45 Potassium Phosphate 2000 mg 2,000 mg Q4H PRN PO 09/03/16 10:45 (Sodium Phosphate Inj/NS 250 ml Inj) 250 ml @ 42 mls/hr UNSCH PRN IV 09/03/16 10:45 (KCl 40 Meq/30 ml Liq) 40 meq UNSCH PRN PO/TUBE 09/03/16 10:45 Potassium Phosphate 2000 mg 2,000 mg UNSCH PRN PO/TUBE 09/03/16 10:45 (Potassium Phosphate Inj/NS 250 ml Inj) 260 ml @ 42 mls/hr UNSCH PRN IV 09/03/16 10:45 (NS Flush) 2 ml UNSCH PRN IV FLUSH 09/03/16 10:45 (NS Flush) 2 ml BID IV FLUSH 09/03/16 21:00 09/12/16 08:08 (Protonix Inj) 40 mg DAILY IV 09/04/16 09:00 09/12/16 08:09 (Zofran Inj) 4 mg Q6H PRN IV 09/03/16 10:45 Miscellaneous Information 1 Q361D XX 09/03/16 10:45 09/03/16 10:45 (Chlorhexidine 2% Cloth) Taper DAILY@04 TOP 09/04/16 04:00 08/31/17 03:59 09/08/16 04:00 (Chlorhexidine 2% Cloth) 3 pack UNSCH PRN TOP 09/03/16 10:45 (Lipitor) 10 mg HS PO 09/05/16 21:00 09/11/16 19:55 Heparin Sodium (Porcine) 5000 units 5,000 units Q12HR SQ 09/07/16 09:30 09/12/16 08:10 (Diprivan 1000 Mg/100ml Inj) 100 ml @ 0 mls/hr TITRATE IV 09/07/16 22:15 09/12/16 01:38 (Zithromax) 1,200 mg Q7D PO 09/08/16 10:00 09/08/16 10:33 Trimethoprim/ Sulfamethoxazole 20 ml 20 ml DAILY PO 09/08/16 09:30 09/12/16 08:10 (NS 1000 ml Inj) 1,000 ml @ 0 mls/hr Q24H IV 09/09/16 07:00 09/11/16 08:58 (D50w (Vial) Inj) 25 ml UNSCH PRN IV PUSH 09/09/16 10:45 (Glucagon Inj) 1 mg UNSCH PRN OTHER 09/09/16 10:45 (Tears Naturale Opth Soln) 1 drop Q6HR PRN EACH EYE 09/11/16 09:00 (Senna Liq) 8.8 mg BID PO 09/11/16 09:00 09/12/16 08:09 Docusate Sodium 100 mg 100 mg Q12HR PO 09/11/16 09:00 09/12/16 08:10 (Rocephin Inj/NS Inj) 100 ml @ 200 mls/hr Q24H IV 09/11/16 13:00 09/18/16 12:59 09/11/16 14:33 (Lactulose Liq) 30 ml DAILY PO 09/12/16 09:00 Allergies Allergies Coded Allergies No Known Allergies (Unverified08/16/16) Review of Systems All other ROS: Unable to obtain Exam I&O / VS 09/11/16 09/11/16 09/12/16 15:00 23:00 07:00 Intake Total 882 ml 863 ml 735 ml Output Total 600 ml 600 ml 350 ml Balance 282 ml 263 ml 385 ml IV Total 331 ml 323 ml 217 ml Tube Feeding 531 ml 480 ml 458 ml Other 20 ml 60 ml 60 ml Output Urine Total 600 ml 600 ml 350 ml # Bowel Movements 0 0 0 Vital Signs Date Time Temp Pulse Resp B/P Pulse Ox O2 Delivery O2 Flow Rate FiO2 09/12/16 08:13 99 30 09/12/16 06:00 80 09/12/16 04:40 100 30 09/12/16 04:00 77 09/12/16 04:00 30 09/12/16 04:00 98.9 77 14 115/66 100 09/12/16 02:00 86 09/12/16 01:10 100 30 09/12/16 00:00 30 09/12/16 00:00 82 09/12/16 00:00 99.2 82 14 112/71 98 09/11/16 22:29 100 30 09/11/16 22:00 88 09/11/16 20:06 99 30 09/11/16 20:00 99.6 76 14 136/93 98 Arterial Line 09/11/16 20:00 30 09/11/16 20:00 88 09/11/16 18:00 86 09/11/16 16:11 100 30 09/11/16 16:00 89 09/11/16 16:00 30 09/11/16 16:00 98.9 84 15 106/72 99 09/11/16 14:00 87 09/11/16 12:07 100 30 09/11/16 12:00 30 09/11/16 12:00 90 09/11/16 12:00 99.5 90 17 138/76 100 1/30/17 10:00 91 09/11/16 09:00 30 09/11/16 08:53 99 30 09/11/16 08:53 30 General: No acute distress Respiratory: Non-labored respirations, BS equal Cardiology: Normal rate, Regular Rhythm Exam Comments intubated, on sedation, ou pinpoint, opens eyes to voice, not following, no ext movement, Objective Micro and Labs Laboratory Tests Test 09/11/16 09/12/16 08:49 03:56 Blood Gas Puncture Site ART LINE Blood Gas Patient Temperature 98.6 Blood Gas HCO3 28 Blood Gas Base Excess 4.0 Blood Gas Oxygen Saturation 96 Arterial Blood pH 7.43 Arterial Blood Partial 43 Pressure CO2 Arterial Blood Partial 101 Pressure O2 Arterial Blood Oxygen Content 13.1 Arterial Blood 1.4 Carboxyhemoglobin Arterial Blood Methemoglobin 0.5 Blood Gas Hemoglobin 9.6 Oxygen Delivery Device VENTILATOR Blood Gas Ventilator Setting Blood Gas Inspired Oxygen 30 White Blood Count 3.2 Red Blood Count 2.56 Hemoglobin 8.0 Hematocrit 23.3 Mean Corpuscular Volume 90.8 Mean Corpuscular Hemoglobin 31.2 Mean Corpuscular Hemoglobin 34.4 Concent Red Cell Distribution Width 14.2 Platelet Count 166 Mean Platelet Volume 8.8 Sodium Level 145 Potassium Level 4.0 Chloride Level 108 Carbon Dioxide Level 30.1 Anion Gap 7 Blood Urea Nitrogen 10 Creatinine 0.73 Estimat Glomerular Filtration 137 Rate Random Glucose 137 Calcium Level 8.3 Phosphorus Level 3.3 Magnesium Level 2.1 Date/Time Procedure Status Source Growth 09/08/16 13:30 Gram Stain - Final Complete Sputum Endotracheal 09/08/16 13:30 Sputum Culture - Final Complete Staphylococcus Aureus 09/08/16 13:30 Fungal Smear - Final Resulted Sputum Endotracheal NO FUNGAL ELEMENTS SEEN. 09/08/16 13:30 Fungal Culture Resulted Sputum Endotracheal Pending 09/08/16 13:30 Acid Fast Stain - Final Resulted Sputum Endotracheal NO ACID FAST BACILLI SEEN 09/08/16 13:30 Mycobacterial Culture Resulted Sputum Endotracheal Pending 09/08/16 11:20 Aerobic Blood Culture - Preliminary Resulted Blood Peripheral NO GROWTH IN 3 DAYS 09/08/16 11:20 Anaerobic Blood Culture - Preliminary Resulted Blood Peripheral NO GROWTH IN 3 DAYS 09/08/16 11:14 Mycobacterial Culture Received Blood Peripheral Pending 09/08/16 08:16 Urine Culture - Final Complete Urine Catheterized Urine NO GROWTH IN 48 HOURS. 09/08/16 08:10 Cancelled Urine Catheterized Urine Serafin Vallejo MD Sep 12, 2016 08:29
[2016-09-12] MEDS: LACTULOSE SYRUP 20 GM/30 ML CUP PO SCH (09:26)
[2016-09-12] MEDS: RESP: ALBUTEROL 2.5 MG/IPRATROPIUM 0.5 MG NEB (SCH) INH ×3 (11:03→21:06)
--- NOTE | 2016-09-12 12:04 | HHI.IDPN ---
Subjective Subjective Remarks Notes reviewed D/W RN Sedated on the vent Requiring pressors on and off Plans for PEG and trach noted Genotype resulta noted CSF CINDY still pending Has a lot of white clear secretions in mouth and ET Has OGT CSF CINDY - pending HIV PCR - (+) HIV genotyping - reviewed; resistant to nevirapine and efavirenz His HSV is negative VZV negative RPR non-reactive CSF crypto negative CSF VDRL negative Serum crypto negative Hepatitis serology negative CD4 24 LATASHA negative Antibiotics Rocephin Bactrim and Zithromax prophylaxis Lines RSC TLC A line Past Medical History Hyperlipidemia Recent admission and diagnosed to have a right cerebellar months felt to be probably an infarct - CTA of the neck and the head negative - Spectroscopy negative No previous history of blood transfusion Leukopenia, question if he has had prior workup, no workup done during his last admission Allergies: Coded Allergies: No Known Allergies (Unverified , 08/16/16) Objective . Vital Signs Date Time Temp Pulse Resp B/P Pulse Ox O2 Delivery O2 Flow Rate FiO2 09/12/16 10:00 84 09/12/16 08:13 99 30 09/12/16 08:00 80 09/12/16 08:00 30 09/12/16 08:00 99.0 80 14 124/70 99 09/12/16 06:00 80 09/12/16 04:40 100 30 09/12/16 04:00 77 09/12/16 04:00 30 09/12/16 04:00 98.9 77 14 115/66 100 09/12/16 02:00 86 09/12/16 01:10 100 30 09/12/16 00:00 30 09/12/16 00:00 82 09/12/16 00:00 99.2 82 14 112/71 98 09/11/16 22:29 100 30 09/11/16 22:00 88 09/11/16 20:06 99 30 09/11/16 20:00 99.6 76 14 136/93 98 Arterial Line 09/11/16 20:00 30 09/11/16 20:00 88 09/11/16 18:00 86 09/11/16 16:11 100 30 09/11/16 16:00 89 09/11/16 16:00 30 09/11/16 16:00 98.9 84 15 106/72 99 09/11/16 14:00 87 09/11/16 12:07 100 30 09/11/16 09/11/16 09/12/16 15:00 23:00 07:00 Intake Total 882 ml 863 ml 735 ml Output Total 600 ml 600 ml 350 ml Balance 282 ml 263 ml 385 ml IV Total 331 ml 323 ml 217 ml Tube Feeding 531 ml 480 ml 458 ml Other 20 ml 60 ml 60 ml Output Urine Total 600 ml 600 ml 350 ml # Bowel Movements 0 0 0 . Laboratory Tests Test 09/12/16 03:56 White Blood Count 3.2 TH/MM3 Red Blood Count 2.56 MIL/MM3 Hemoglobin 8.0 GM/DL Hematocrit 23.3 % Mean Corpuscular Volume 90.8 FL Mean Corpuscular Hemoglobin 31.2 PG Mean Corpuscular Hemoglobin 34.4 % Concent Red Cell Distribution Width 14.2 % Platelet Count 166 TH/MM3 Mean Platelet Volume 8.8 FL Laboratory Tests Test 09/12/16 03:56 Sodium Level 145 MEQ/L Potassium Level 4.0 MEQ/L Chloride Level 108 MEQ/L Carbon Dioxide Level 30.1 MEQ/L Anion Gap 7 MEQ/L Blood Urea Nitrogen 10 MG/DL Creatinine 0.73 MG/DL Estimat Glomerular Filtration 137 ML/MIN Rate Random Glucose 137 MG/DL Calcium Level 8.3 MG/DL Phosphorus Level 3.3 MG/DL Magnesium Level 2.1 MG/DL Imaging Chest X-Ray 09/07/16 0600 Signed Impressions: Service Date/Time: August 02:47 - CONCLUSION: No focal or acute pulmonary infiltrates. No significant change. Colin Denny MD Head CT 09/07/16 0000 Signed Impressions: Service Date/Time: August 13:04 - CONCLUSION: Stable exam. Aurora Liz MD Chest X-Ray 09/07/16 0000 Signed Impressions: Service Date/Time: August 20:52 - CONCLUSION: Satisfactory support line and tube positioning. Marcio Posey MD Abdomen X-Ray 09/06/16 0000 Signed Impressions: Service Date/Time: Tuesday, September 06, 2016 20:55 - CONCLUSION: Feeding tube in place as described. Rylnad Malone MD Abdomen X-Ray 09/06/16 0000 Signed Impressions: Service Date/Time: Tuesday, September 06, 2016 15:12 - CONCLUSION: Feeding tube tip in the stomach Marcio Posey MD Chest X-Ray 09/05/16 0000 Signed Impressions: Service Date/Time: Monday, September 05, 2016 08:12 - CONCLUSION: 1. No acute cardiopulmonary disease. Mike Jordan MD Neck CTA 09/03/16 0000 Signed Impressions: Service Date/Time: Saturday, September 03, 2016 20:21 - CONCLUSION: Normal examination. Marcio Zamorano MD Head CTA 09/03/16 0000 Signed Impressions: Service Date/Time: Saturday, September 03, 2016 20:21 - CONCLUSION: Negative CTA of the head. Marcio Zamorano MD Brain MRI 09/03/16 0000 Signed Impressions: Service Date/Time: Saturday, September 03, 2016 20:34 - CONCLUSION: Areas of low signal in the edi, right cerebellar peduncle and right cerebellar hemisphere. Marcio Zamorano MD Physical Exam GENERAL: Sedated on the vent, NAD SKIN: Warm and dry. No generalized rash HEENT: Ferguson conjunctivae, no petechia or hemorrhage. No scleral icterus. ET in mouth NECK: No JVD or lymphadenopathy. Supple, nontender, no meningeal signs. CARDIOVASCULAR: Regular rate and rhythm without murmurs, gallops, or rubs. RESPIRATORY: Coarse BS jah, with few scattered rhonchi. GASTROINTESTINAL: Abdomen soft, non-tender, nondistended. Bowel sounds are present and normoactive. No organomegaly. No guarding. MUSCULOSKELETAL: Extremities without clubbing, cyanosis, or edema. 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
[2016-09-12] MEDS: cefTRIAXone INJ 2,000 MG in SODIUM CHLORIDE 0.9% INJ 100 ML IV SCH (12:50)
--- NOTE | 2016-09-12 13:19 | PD.CONS ---
HPI History of Present Illness This is a 51 year old male patient with a history of recent CVA earlier this month and brainstem abnormality that has progressed. He is being followed by neurology and underwent a lumbar puncture yesterday. He was scheduled for a brain biopsy for tomorrow, but this was cancelled when his HIV test came back positive. 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 GS has been consulted for tracheostomy placement and GI for PEG tube placement. The sewing supervisor is following and has recommended Jevity 1.5 at a goal rate of 65c/hr. Spoke to family at bedside regarding egd with peg tube placement- procedure, risks, and benefits. (Kellie Dias) PFSH Past Medical History CVA Past Surgical History Unable to obtain (Kellie Dias) Coded Allergies: No Known Allergies (Unverified , 08/16/16) Medications Allergies Coded Allergies Type Severity Reaction Last Updated Verified No Known Allergies 08/16/16 No Active Scripts Medications Dose Route/Sig Days Date Category Coumadin (Warfarin) 10 Mg Tab 10 Mg PO DAILY@16 08/23/16 Rx Dok (Docusate Sodium) 100 Mg Cap 100 Mg PO BID 10 08/23/16 Rx Lipitor (Atorvastatin Calcium) 10 Mg Tab 10 Mg PO HS 08/16/16 Reported Family History Unable to obtain Social History Unable to obtain (Kellie Dias) Review of Systems ROS Unable to obtain (Kellie Dias) GI Exam Vitals I&O Vital Signs Date Time Temp Pulse Resp B/P Pulse Ox O2 Delivery O2 Flow Rate FiO2 09/12/16 12:14 98 30 09/12/16 12:00 98.8 83 14 111/65 99 09/12/16 12:00 85 09/12/16 12:00 30 09/12/16 10:00 84 09/12/16 08:13 99 30 09/12/16 08:00 80 09/12/16 08:00 30 09/12/16 08:00 99.0 80 14 124/70 99 09/12/16 06:00 80 09/12/16 04:40 100 30 09/12/16 04:00 77 09/12/16 04:00 30 09/12/16 04:00 98.9 77 14 115/66 100 09/12/16 02:00 86 09/12/16 01:10 100 30 09/12/16 00:00 30 09/12/16 00:00 82 09/12/16 00:00 99.2 82 14 112/71 98 09/11/16 22:29 100 30 09/11/16 22:00 88 09/11/16 20:06 99 30 09/11/16 20:00 99.6 76 14 136/93 98 Arterial Line 09/11/16 20:00 30 09/11/16 20:00 88 09/11/16 18:00 86 09/11/16 16:11 100 30 09/11/16 16:00 89 09/11/16 16:00 30 09/11/16 16:00 98.9 84 15 106/72 99 09/11/16 14:00 87 I/O 09/11/16 09/11/16 09/11/16 09/12/16 09/12/16 09/12/16 07:00 15:00 23:00 07:00 15:00 23:00 Intake Total 978 ml 882 ml 863 ml 735 ml Output Total 300 ml 600 ml 600 ml 350 ml Balance 678 ml 282 ml 263 ml 385 ml IV Total 406 ml 331 ml 323 ml 217 ml Tube Feeding 512 ml 531 ml 480 ml 458 ml Other 60 ml 20 ml 60 ml 60 ml Output Urine Total 300 ml 600 ml 600 ml 350 ml # Bowel Movements 0 0 0 0 Imaging Last Impressions Upper Extremity Ultrasound 09/08/16 0000 Signed Impressions: Service Date/Time: Thursday, September 08, 2016 19:22 - CONCLUSION: Normal examination. Michael Rosas Jr., MD Lower Extremity Ultrasound 09/08/16 0000 Signed Impressions: Service Date/Time: Thursday, September 08, 2016 18:57 - CONCLUSION: Normal examination. Michael Rosas Jr., MD Chest X-Ray 09/07/16 0600 Signed Impressions: Service Date/Time: August 02:47 - CONCLUSION: No focal or acute pulmonary infiltrates. No significant change. Colin Denny MD Head CT 09/07/16 0000 Signed Impressions: Service Date/Time: August 13:04 - CONCLUSION: Stable exam. Aurora Liz MD Abdomen X-Ray 09/06/16 0000 Signed Impressions: Service Date/Time: Tuesday, September 06, 2016 20:55 - CONCLUSION: Feeding tube in place as described. Ryland Malone MD Neck CTA 09/03/16 0000 Signed Impressions: Service Date/Time: Saturday, September 03, 2016 20:21 - CONCLUSION: Normal examination. Marcio Zamorano MD Head CTA 09/03/16 0000 Signed Impressions: Service Date/Time: Saturday, September 03, 2016 20:21 - CONCLUSION: Negative CTA of the head. Marcio Zamorano MD Brain MRI 09/03/16 0000 Signed Impressions: Service Date/Time: Saturday, September 03, 2016 20:34 - CONCLUSION: Areas of low signal in the edi, right cerebellar peduncle and right cerebellar hemisphere. Marcio Zamorano MD Laboratory Test 09/12/16 03:56 White Blood Count 3.2 TH/MM3 Red Blood Count 2.56 MIL/MM3 Hemoglobin 8.0 GM/DL Hematocrit 23.3 % Mean Corpuscular Volume 90.8 FL Mean Corpuscular Hemoglobin 31.2 PG Mean Corpuscular Hemoglobin 34.4 % Concent Red Cell Distribution Width 14.2 % Platelet Count 166 TH/MM3 Mean Platelet Volume 8.8 FL Sodium Level 145 MEQ/L Potassium Level 4.0 MEQ/L Chloride Level 108 MEQ/L Carbon Dioxide Level 30.1 MEQ/L Anion Gap 7 MEQ/L Blood Urea Nitrogen 10 MG/DL Creatinine 0.73 MG/DL Estimat Glomerular Filtration 137 ML/MIN Rate Random Glucose 137 MG/DL Calcium Level 8.3 MG/DL Phosphorus Level 3.3 MG/DL Magnesium Level 2.1 MG/DL Date/Time Procedure Status Source Growth 09/08/16 13:30 Gram Stain - Final Complete Sputum Endotracheal 09/08/16 13:30 Sputum Culture - Final Complete Staphylococcus Aureus 09/08/16 13:30 Fungal Smear - Final Resulted Sputum Endotracheal NO FUNGAL ELEMENTS SEEN. 09/08/16 13:30 Fungal Culture - Preliminary Resulted Sputum Endotracheal 09/08/16 13:30 Acid Fast Stain - Final Resulted Sputum Endotracheal NO ACID FAST BACILLI SEEN 09/08/16 13:30 Mycobacterial Culture Resulted Sputum Endotracheal Pending 09/08/16 11:20 Aerobic Blood Culture - Preliminary Resulted Blood Peripheral NO GROWTH IN 4 DAYS 09/08/16 11:20 Anaerobic Blood Culture - Preliminary Resulted Blood Peripheral NO GROWTH IN 4 DAYS 09/08/16 11:14 Mycobacterial Culture Received Blood Peripheral Pending 09/08/16 08:16 Urine Culture - Final Complete Urine Catheterized Urine NO GROWTH IN 48 HOURS. 09/08/16 08:10 Cancelled Urine Catheterized Urine Physical Examination HEENT: Normocephalic; atraumatic; no jaundice. CHEST: CTA, diminished bases. OETT to vent CARDIAC: RRR ABDOMEN: Soft, nondistended, nontender; no hepatosplenomegaly; bowel sounds are present in all four quadrants. EXTREMITIES: Generalized edema. CONTRACT ADMINISTRATION MANAGER: Sedated on vent (Kellie Dias) Assessment and Plan Plan ASSESSMENT: - Dysphagia, FEN. Pt in ICU, requiring mechanical ventilation, being treated for possible PML, recent CVA, respiratory failure, AIDS, DM. GI consulted for feeding tube placement. D/W family EGD with PEG tube placement- procedure, risks, and benefits and their questions were answered. The sewing supervisor is following and has recommended Jevity 1.5 at a goal rate of 65c/hr. PLAN: - Plan for egd with peg tube placement in am - Obtain consents - NPO after MN - On abx - Hold heparin after MN - Evs Attendant recommends Jevity 1.5 at 65cc/hr - Pt seen and examined by Dr. Garza and myself and this note is written on his beahlf (Kellie Dias) Physician Comments Patient seen and examined Agree with above Continue with current supportive care Monitor labs Plan for PEG placement tomorrow (Basil Garza MD) Kellie Dias Sep 12, 2016 13:19 Basil Garza MD Sep 12, 2016 22:22
[2016-09-12] MEDS: ELVIT/COBI/EMTR/TENOF 150/150/200/300 MG TABLETS PO SCH (16:40)
[2016-09-12] MEDS: ATORVASTATIN 10 MG TAB PO SCH (22:14)
[2016-09-13] VITALS (18 sets, daily range): BP systolic 105–129; BP diastolic 59–80; PULSE 68–84; RESP 14–20; TEMP 98.3–98.7; O2SAT 98–100
[2016-09-13] MEDS: RESP: ALBUTEROL 2.5 MG/IPRATROPIUM 0.5 MG NEB (SCH) INH ×4 (03:08→20:26)
[2016-09-13] MEDS: CHLORHEXIDINE GLUCONATE 2 % 1 PACK (2 CLOTHS) TOP SCH (04:00)
[2016-09-13] MEDS: SODIUM CHLOR 0.9% 1000 ML INJ 1,000 ML IV SCH (07:00)
[2016-09-13] MEDS: LACTULOSE SYRUP 20 GM/30 ML CUP PO SCH (09:00)
[2016-09-13] MEDS: DOCUSATE SODIUM 100 MG/10 ML UDC PO SCH ×2 (09:00→22:49)
[2016-09-13] MEDS: SENNOSIDES SYRUP 8.8 MG/5 ML CUP PO SCH ×2 (09:00→22:49)
[2016-09-13] MEDS: ELVIT/COBI/EMTR/TENOF 150/150/200/300 MG TABLETS PO SCH (09:52)
[2016-09-13] MEDS: PANTOPRAZOLE SODIUM 40 MG VIAL IV SCH (09:52)
[2016-09-13] MEDS: SULFAMETHOXAZOLE-TRIMETHOPRIM 800-160 MG/20 ML UDC PO SCH (09:52)
[2016-09-13] MEDS: SODIUM CHLORIDE 0.9% FLUSH 5 ML FLUSH IV FLUSH SCH ×2 (09:52→22:51)
[2016-09-13] MEDS: cefTRIAXone INJ 2,000 MG in SODIUM CHLORIDE 0.9% INJ 100 ML IV SCH (12:27)
[2016-09-13] MEDS: PROPOFOL 1000 MG/100 ML IV SCH (13:02)
--- NOTE | 2016-09-13 14:12 | HHI.IDPN ---
Subjective Subjective Remarks Notes reviewed D/W RN Sedated on the vent Not on pressors For PEG placement today CSF CINDY still pending HIV PCR - (+) HIV genotyping - reviewed; resistant to nevirapine and efavirenz His HSV is negative VZV negative RPR non-reactive CSF crypto negative CSF VDRL negative Serum crypto negative Hepatitis serology negative CD4 24 LATASHA negative Antibiotics Rocephin Bactrim and Zithromax prophylaxis Lines RSC TLC Past Medical History Hyperlipidemia Recent admission and diagnosed to have a right cerebellar months felt to be probably an infarct - CTA of the neck and the head negative - Spectroscopy negative No previous history of blood transfusion Leukopenia, question if he has had prior workup, no workup done during his last admission Allergies: Coded Allergies: No Known Allergies (Unverified , 08/16/16) Objective . Vital Signs Date Time Temp Pulse Resp B/P Pulse Ox O2 Delivery O2 Flow Rate FiO2 09/13/16 12:00 98.7 82 18 129/76 100 09/13/16 12:00 30 09/13/16 12:00 82 09/13/16 11:30 100 30 09/13/16 10:00 84 09/13/16 08:34 99 30 09/13/16 08:34 30 09/13/16 08:00 30 09/13/16 08:00 68 09/13/16 08:00 98.4 68 16 122/73 100 09/13/16 06:00 80 09/13/16 04:00 98.5 75 14 112/64 100 09/13/16 04:00 80 09/13/16 04:00 30 09/13/16 03:54 99 30 09/13/16 02:00 80 09/13/16 00:00 80 09/13/16 00:00 98.6 80 14 123/80 100 09/13/16 00:00 30 09/12/16 22:25 100 30 09/12/16 22:00 76 09/12/16 20:00 80 09/12/16 20:00 30 09/12/16 20:00 98.8 80 14 135/83 100 09/12/16 19:37 100 30 09/12/16 18:00 78 09/12/16 16:55 100 30 09/12/16 16:55 30 09/12/16 16:43 99 30 09/12/16 16:00 30 1/31/17 16:00 72 09/12/16 16:00 98.7 72 14 111/63 100 09/12/16 09/12/16 09/13/16 15:00 23:00 07:00 Intake Total 674 ml 699 ml 186 ml Output Total 250 ml 400 ml 350 ml Balance 424 ml 299 ml -164 ml Intake Oral 0 ml IV Total 248 ml 200 ml 166 ml Tube Feeding 353 ml 426 ml 0 ml Tube Irrigant 20 ml 20 ml 20 ml Other 53 ml 53 ml Output Urine Total 250 ml 400 ml 350 ml # Bowel Movements 0 0 0 . Laboratory Tests Test 09/12/16 03:56 White Blood Count 3.2 TH/MM3 Red Blood Count 2.56 MIL/MM3 Hemoglobin 8.0 GM/DL Hematocrit 23.3 % Mean Corpuscular Volume 90.8 FL Mean Corpuscular Hemoglobin 31.2 PG Mean Corpuscular Hemoglobin 34.4 % Concent Red Cell Distribution Width 14.2 % Platelet Count 166 TH/MM3 Mean Platelet Volume 8.8 FL Laboratory Tests Test 09/12/16 03:56 Sodium Level 145 MEQ/L Potassium Level 4.0 MEQ/L Chloride Level 108 MEQ/L Carbon Dioxide Level 30.1 MEQ/L Anion Gap 7 MEQ/L Blood Urea Nitrogen 10 MG/DL Creatinine 0.73 MG/DL Estimat Glomerular Filtration 137 ML/MIN Rate Random Glucose 137 MG/DL Calcium Level 8.3 MG/DL Phosphorus Level 3.3 MG/DL Magnesium Level 2.1 MG/DL Imaging Chest X-Ray 09/07/16 0600 Signed Impressions: Service Date/Time: August 02:47 - CONCLUSION: No focal or acute pulmonary infiltrates. No significant change. Colin Denny MD Head CT 09/07/16 0000 Signed Impressions: Service Date/Time: August 13:04 - CONCLUSION: Stable exam. Aurora Liz MD Chest X-Ray 09/07/16 0000 Signed Impressions: Service Date/Time: August 20:52 - CONCLUSION: Satisfactory support line and tube positioning. Marcio Posey MD Abdomen X-Ray 09/06/16 0000 Signed Impressions: Service Date/Time: Tuesday, September 06, 2016 20:55 - CONCLUSION: Feeding tube in place as described. Ryland Malone MD Abdomen X-Ray 09/06/16 0000 Signed Impressions: Service Date/Time: Tuesday, September 06, 2016 15:12 - CONCLUSION: Feeding tube tip in the stomach Marcio Posey MD Chest X-Ray 09/05/16 0000 Signed Impressions: Service Date/Time: Monday, September 05, 2016 08:12 - CONCLUSION: 1. No acute cardiopulmonary disease. Mike Jordan MD Neck CTA 09/03/16 0000 Signed Impressions: Service Date/Time: Saturday, September 03, 2016 20:21 - CONCLUSION: Normal examination. Marcio Zamorano MD Head CTA 09/03/16 0000 Signed Impressions: Service Date/Time: Saturday, September 03, 2016 20:21 - CONCLUSION: Negative CTA of the head. Marcio Zamorano MD Brain MRI 09/03/16 0000 Signed Impressions: Service Date/Time: Saturday, September 03, 2016 20:34 - CONCLUSION: Areas of low signal in the edi, right cerebellar peduncle and right cerebellar hemisphere. Marcio Zamorano MD Physical Exam GENERAL: Sedated on the vent, NAD SKIN: Warm and dry. No generalized rash HEENT: [place] conjunctivae. No scleral icterus. ET in mouth NECK: No JVD or lymphadenopathy. Supple, nontender, no meningeal signs. CARDIOVASCULAR: Regular rate and rhythm without murmurs, gallops, or rubs. RESPIRATORY: Coarse BS jah, with few scattered rhonchi. GASTROINTESTINAL: Abdomen soft, non-tender, nondistended. Bowel sounds are present and normoactive. No organomegaly. No guarding. MUSCULOSKELETAL: Extremities without clubbing, cyanosis, or edema. 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
--- NOTE | 2016-09-13 15:29 | HHI.CCPN ---
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 The patient was placed on heparin and transitioned to Coumadin. The patient was subsequently transferred to [facility]. A Halicat was called, followed by stroke alert noting per RN, neurological changes. The nurse and Dr. Nguyen usually common at that the patient was a phasic, nonresponsive, with a left-sided gaze. Dr. Schroeder, neurologist was notified, CT scan was obtained and results are now pending. Per Dr. Vallejo, the patient is status post CVA on08/17/2016 and is not a candidate for TPA. The patient's previous medications per medical records were warfarin, docusate and atorvastatin. Critical care medicine was consulted for treatment and management. Upon presentation to the ICU, the patient was noted to have vertical and lateral nystagmus, aphasic,. The patient was able to follow commands, motor strength was noted to be 4/5 right upper and lower extremity with normal motor strength left upper and lower extremity. 09/03: Overnight, the patient began to verbalize significant dysarthria noted, but improved from yesterday's initial evaluation. Concern for patient to manage secretions still a concern, the patient continues to be NPO. Patient now has lateral nystagmus, motor exam unchanged. Neurology was consulted yesterday, MRI obtained. Subsequent imaging studies were performed last evening. Patient is scheduled for lumbar puncture this a.m. per neurosurgery for CSF evaluation. The patient is noted to have leukopenia, and a history of G6PD deficiency hematology and oncology were consulted. Request for outside medical records from the patient's dedicated local truck driver was obtained, awaiting records. Administration of steroids were initiated last evening. 09/04: Steroids discontinued. No change in neurological evaluation, examination. Speech therapy consulted, patient continues on honey thick liquids , tolerated PO diet well yesterday. CSF results pending, no fungal elements were noted. Preliminary HIV reflex test positive, awaiting final confirmation. 09/05: No change in status. Tolerating PO diet. 09/06: Overnight the patient was noted to have increased difficulty managing secretions. Repeat formal speech swallow study noted that the patient failed this a.m.. The patient was placed on nothing by mouth status. HIV-1 antibody tests confirmed. Other studies still pending. The patient's family in the presence of a [employer], with family holding and guiding the patient's hand , signed a POA. The patient was not competent to complete the document or answer questions at thus time. The family was informed that the document was not valid due to the fact the patient had altered mental status and could not freely communicate on his own, and sign the document. Informed that the patient 's would be appropriate and making the decisions for the patient and the POA document was null and void. 09/07: The patient became hypotensive last evening, with systolic blood pressures 60s. The patient was intubated, central line was placed, and the patient was placed on vasopressor support norepinephrine.CD4 count low, prophylactic and empric antibiotics started per ID, Dr. Mccracken. 09/09 Remains on mechanical ventilation, on levophed 9 mcg/min. UOP 200 overnight but now 250/hr last 2 hours. Has some sediment in Myaer tubing, may have been partially obstructed. Creatinine normal. at bedside. Afebrile. CSF bacterial cultures negative. CSF CINDY virus pending. Remaining pancultures from 09/08 pending. Afebrile. Reviewed records from Dr. Fuentes/Dr. Denise on chart. Had chronic leukopenia. HIV testing 2002, 2005 negative. Had chlamydia 2002 tells me he had not seen ID as an outpatient. She states he has not seen Dr. Fuentes in several years (most recent records appear to be from 2011) Subjective: 09/10 Tolerating CPAP during day. Levophed off vs low dose (2-3 mcg/min) depending on sedation. Dobhoff clogged, replaced with NGT. CSF CINDY virus pending 09/11 Levophed off since 1899 last evening. MAP ranges 69641. Sputum culture returned staph aureus. The patient was maintained on CPAP for 12 hours yesterday. CSF CINDY virus pending. 09/12 Tmax 99.6 .Hemodynamically stable. Coordination for tracheostomy and PEG placement for possibly or Sunday. HIV resistance labs resulted overnight, with resistance to Efavirenz,Nevirapine. CSF CINDY virus pending. 09/13 The patient is awake, continues to tolerate CPAP . Plan today for PEG placement per GI. HAART medications begun yesterday per ID. Objective Vital Signs Date Time Temp Pulse Resp B/P Pulse Ox O2 Delivery O2 Flow Rate FiO2 09/13/16 12:00 98.7 82 18 129/76 100 09/13/16 12:00 30 09/10/16 07:00 Mechanical Ventilator Intake and Output 09/12/16 09/12/16 09/13/16 08:00 16:00 00:00 Intake Total 735 ml 674 ml 699 ml Output Total 350 ml 250 ml 400 ml Balance 385 ml 424 ml 299 ml Result Diagram: 09/12/16 0356 09/12/16 0356 Imaging Last Impressions Upper Extremity Ultrasound 09/08/16 0000 Signed Impressions: Service Date/Time: Thursday, September 08, 2016 19:22 - CONCLUSION: Normal examination. Michael Rosas Jr., MD Lower Extremity Ultrasound 09/08/16 0000 Signed Impressions: Service Date/Time: Thursday, September 08, 2016 18:57 - CONCLUSION: Normal examination. Michael Rosas Jr., MD Chest X-Ray 09/07/16 0600 Signed Impressions: Service Date/Time: August 02:47 - CONCLUSION: No focal or acute pulmonary infiltrates. No significant change. Colin Denny MD Head CT 09/07/16 0000 Signed Impressions: Service Date/Time: August 13:04 - CONCLUSION: Stable exam. Aurora Liz MD Abdomen X-Ray 09/06/16 0000 Signed Impressions: Service Date/Time: Tuesday, September 06, 2016 20:55 - CONCLUSION: Feeding tube in place as described. Ryland Malone MD Neck CTA 09/03/16 0000 Signed Impressions: Service Date/Time: Saturday, September 03, 2016 20:21 - CONCLUSION: Normal examination. Marcio Zamorano MD Head CTA 09/03/16 0000 Signed Impressions: Service Date/Time: Saturday, September 03, 2016 20:21 - CONCLUSION: Negative CTA of the head. Marcio Zamorano MD Brain MRI 09/03/16 0000 Signed Impressions: Service Date/Time: Saturday, September 03, 2016 20:34 - CONCLUSION: Areas of low signal in the edi, right cerebellar peduncle and right cerebellar hemisphere. Marcio Zamorano MD Objective Remarks Drips: Propofol 15 mcg/kg/min 0.9 NaCl at 30 mL per hour GENERAL: Well-nourished well-developed male, intubated GCS 11 T SKIN: Warm and dry. HEAD: Atraumatic. Normocephalic. EYES: Pupils equal and round. 3 mm and reactive bilaterally .No scleral icterus. No injection or drainage. ENT: No nasal bleeding or discharge. Mucous membranes pink and moist. Orotracheally intubated NECK: Trachea midline. No JVD. CARDIOVASCULAR: Normal rate, regular rhythm. RESPIRATORY: No accessory muscle use. Clear to auscultation. Breath sounds equal bilaterally. Orotracheally intubated on mechanical ventilation GASTROINTESTINAL: Abdomen soft, non-tender, nondistended. Bowel sounds present No guarding. Normoactive bowel sounds. Tube feeds infusing via NGT, tolerating without residuals. : Mayer in place with pale yellow urine output in the Mayer. Mild sediment in the tubing. MUSCULOSKELETAL: Extremities without clubbing, cyanosis, or edema. No obvious deformities. NEUROLOGICAL: Eyes open to voice, follows commands by squeezing hands and moving feet. VASC: R IJ CVL in place with dressing C/D/I . Procedures PEG placement today Urinary Catheter: Yes Date of Insertion: Sep 07, 2016 Vascular Central Line Catheter: Yes Date of Insertion: Sep 07, 2016 Side: Right Location: Internal, Jugular (CVP monitoring and vasoactive medication administration) A/P Assessment and Plan Neurologic: S/P CVA-right cerebral infarct 08/17 ?PML Dysarthria Aphasia CN palsies , VII, IX, X, -GCS 11 T -Intubated for airway protection. Has bulbar palsies with dysphagia resulting in poor airway protection is scheduled for tracheostomy tomorrow -Neurology Dr. Vallejo following-Methylprednisone discontinued 09/05. Hold off on further steroids until brain biopsy. -?PML - CINDY virus PCR pending. If positive, confirms PML, however if negative will need brain biopsy per ID/neurology recs. 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 Restricted diffusion indicating suggesting ischemia left edi -MRI w/contrast 09/03-areas of low signal in edi, right cerebellar peduncle and right cerebellar hemisphere -Neurosurgery evaluated, Dr. Cedeño -09/06 Formal swallow study-failed -09/05 Ammonia level 13 -Repeat CT brain09/07-stable exam -CSF workup as per below with ID. CSF cytology negative. - Minimize propofol and target RASS -1. Currently propofol at 15 mcgs Respiratory: Acute respiratory failure -Intubated 09/07/16 for airway protection-mechanical ventilation PRVC 14/550/0.30 /5/IT -Maintain O2 sat greater than 92% -Maintain head of bed elevation 30 -Sedation vacation per ICU protocol.Continue CPAP trials dailyto mitigate respiratory muscle weakness. Not appropriate for extubation due to cranial nerve palsies resulting in inadequate airway protection. Will likely require trach due to bulbar palsies. If PML is the inciting factor, would not expect these palsies to improve significantly even with therapy. is aware of possible need for trach as well as the fact that diagnosis uncertain at this point. -Ventilator bundle -Bronchodilators scheduled every 6 hours, every 2 when necessary -Percutaneous tracheostomy planned for - Dr. Munguia Cardiovascular: Dyslipidemia (elevated LDL, hypertriglyceridemia, low HDL) H/O HTN Hypotension secondary to sedation/hypovolemia, ?sepsis -Levophed discontinued 09/10 - Maintain MAP >65 mmHg -Continue atorvastatin 10 by mouth daily at bedtime. Monitoring LFTS -Patient previously on ASA dc'd secondary to G6PD deficiency -Coumadin (on hold), Hematology Dr. Pelletier following and recommends holding therapeutic anticoagulation as per below Renal: -No acute issues -Mayer catheter -Monitor BMP and Strict I/Os GI: Mild protein calorie malnutrition -Tube feeds Peptamin AF 1.5 @ 65/hr (goal rate of tube feeds per nutrition) via NGT -Replete electrolytes per ICU protocol -Zofran for nausea -Protonix for GI prophylaxis -Last BM 09/08, added lactulose to bowel regimen -GI consult for PEG placement Heme/ID G6PD deficiency -HematologyOncology- Dr. Patrick Pelletier-no therapeutic anticoagulation recommended at this time -Previous hypercoagulable studies were noted. 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 Request for medical records sent to patient's personal dedicated local truck driver, Dr. Denise, for additional information. -per hematology this heterozygous state does not confer high risk of thrombosis. Eventually would need anticoagulation for stroke, but recommend hold off for now in view of possible brain biopsy. --Venous Doppler ultrasounds bilateral upper and lower extremities09/08-negative -CSF cytology negative 09/04 Leukopenia AIDS Possible PML -HIV Ab 1 09/05-confirmed positive - RPR-negative -[id number] -CSF-CINDY virus-pending, -CSF-no fungal elements seen, WBC 0 -CSF AFB stains negative -CSF-cryptococcal antigen negative -CSF VDRLnegative -Absolute CD4 count- -Crypto serology negative -HIV resistance medication results-Efavirenz, Nevirapine Pancultured 09/08 of sputum, blood cultures, urine cultures. 09/08 sputum - +MSSA Abx per ID: azithromycin 1200 mg qweek, bactrim 800/160 daily for prophylaxis. Zosyn 4/5 q6 hours 09/08 # 5. Vancomycin added 09/10 per ID. aware of HIV diagnosis. She has not been tested. I recommended expeditious testing and measures to prevent spread to others. Endocrine: NIDDM per outside records from 2011 -Glucose monitoring per ICU protocol -- SSI low dose q6 hours MSK: - PT, OT -evaluate and treat -Continue functional maintenance daily Prophylaxis: GI Prophylaxis Protonix 40 mg IV daily DVT Prophylaxis -- SCDs, Heparin 5000u SQ BID initiated on 09/07 Lines: Peripheral IV's x 2. RIJ central line 09/07 Dr. Jara # 7 Dispo: Case management consulted for discharge planning. This patient remains critically ill with one or more organ systems which are or may become a threat to life. I have spent in excess of 31 minutes discontinuously in the care and management of this patient. This time is exclusive of procedures, and includes, but is not limited to, evaluation of the patient, review of the medical record, discussions with family, consultants, nursing staff, or respiratory therapy, and documentation in the medical record. Discussed with [employer] at bedside. Physician Cathy Miller MD Sep 13, 2016 15:29
--- NOTE | 2016-09-13 16:49 | PD.PROCEDR ---
GI Procedure REFERRING PHYSICIAN Dr. Henning PROCEDURE PERFORMED EGD with PEG INDICATION FOR PROCEDURE Respiratory failure requiring long-term nutritional support PROCEDURE: The procedure, risks and benefits were discussed with Mr. Reynaga and informed consent was obtained. Anesthesia sedated him with Diprivan. He was placed in the left lateral decubitus position. EGD: The Pentax videoscope was introduced through the oropharynx and advanced to the second portion of the duodenum under direct visualization. Retroflexion was performed in the stomach. FINDINGS: Esophagus this was normal The stomach this was normal Following the evaluation of the stomach and the duodenum the stomach was insufflated with air and the area of PEG placement was identified through indentation and transillumination the area was prepped and draped in usual fashion 5 cc of lidocaine were injected locally a small incision was made then an Angiocath was passed into the stomach through which a guidewire was passed this was retrieved with the scope into that a PEG tube was attached and pulled into place and thereafter secured in usual fashion The patient tolerated procedure well and there are no immediate complications The duodenum this was normal ESTIMATED BLOOD LOSS: None SPECIMENS REMOVED: None COMPLICATIONS: None IMPRESSION: Normal EGD Successful PEG placement PLAN: PLAN: 1. May use PEG tube for medications today 2. May start feeding tomorrow 3. May obtain nutritional consult for tube feeding 4. Flush tube with 50 cc of water every 4-6 hours 5. Always flush tube after feedings 6. Apply abdominal binder as necessary 7. Clamp G-tube after use and flush. Basil Garza MD Sep 13, 2016 16:49
[2016-09-13] MEDS: ATORVASTATIN 10 MG TAB PO SCH (22:50)
[2016-09-14] VITALS (19 sets, daily range): BP systolic 100–154; BP diastolic 60–91; PULSE 72–98; RESP 14; TEMP 98.4–99.2; O2SAT 97–100
[2016-09-14] MEDS: PROPOFOL 1000 MG/100 ML IV SCH (00:56)
[2016-09-14] MEDS: CHLORHEXIDINE GLUCONATE 2 % 1 PACK (2 CLOTHS) TOP SCH (04:00)
[2016-09-14] MEDS: RESP: ALBUTEROL 2.5 MG/IPRATROPIUM 0.5 MG NEB (SCH) INH ×4 (04:02→22:27)
[2016-09-14 04:43] LABS: HEMATOCRIT 23.3 % (39.0-51.0); MEAN CORPUSCULAR HGB CONC 33.7 % (32.0-36.0); PLATELET COUNT 161 TH/MM3 (150-450); RED BLOOD COUNT 2.53 MIL/MM3 (4.50-5.90); RED CELL DISTRIBUTION WIDTH 13.8 % (11.6-17.2); REVIEW FLAG FINAL; WHITE BLOOD COUNT 3.5 TH/MM3 (4.0-11.0)
[2016-09-14 05:03] LABS: BICARBONATE 30.7 MEQ/L (21.0-32.0); MAGNESIUM 2.1 MG/DL (1.5-2.5); POTASSIUM 4.1 MEQ/L (3.5-5.1)
[2016-09-14] MEDS: SODIUM CHLOR 0.9% 1000 ML INJ 1,000 ML IV SCH (07:00)
[2016-09-14] MEDS ORDERED: MIDAZOLAM HCL 5 MG/ML VIAL (1 ML) IM ONE (09:00)
[2016-09-14] MEDS ORDERED: PROPOFOL 500 MG/50 ML BTL IV ONE (09:00)
[2016-09-14] MEDS: SODIUM CHLORIDE 0.9% FLUSH 5 ML FLUSH IV FLUSH SCH ×2 (09:00→20:31)
[2016-09-14] MEDS ORDERED: fentaNYL CITRATE 250 MCG/5 ML AMP IV PUSH ONE (09:00)
[2016-09-14] MEDS ORDERED: ROCURONIUM INJ 100 MG/10 ML VIAL IV ONE (09:00)
[2016-09-14] MEDS ORDERED: ROCURONIUM INJ 50 MG/5 ML VIAL ONE (09:01)
[2016-09-14] MEDS: SENNOSIDES SYRUP 8.8 MG/5 ML CUP PO SCH ×2 (09:36→20:33)
[2016-09-14] MEDS: SULFAMETHOXAZOLE-TRIMETHOPRIM 800-160 MG/20 ML UDC PO SCH (09:36)
[2016-09-14] MEDS: LACTULOSE SYRUP 20 GM/30 ML CUP PO SCH (09:37)
[2016-09-14] MEDS: PANTOPRAZOLE SODIUM 40 MG VIAL IV SCH (09:37)
[2016-09-14] MEDS: DOCUSATE SODIUM 100 MG/10 ML UDC PO SCH ×2 (09:37→20:33)
[2016-09-14] MEDS: ELVIT/COBI/EMTR/TENOF 150/150/200/300 MG TABLETS PO SCH (09:37)
--- NOTE | 2016-09-14 09:38 | PD.OP ---
Operative Report Date of Surgery: Sep 14, 2016 Preoperative Diagnosis: (1) CVA (cerebral vascular accident) (2) Respiratory failure Postoperative Diagnosis: (1) CVA (cerebral vascular accident) (2) Respiratory failure Procedure: Percutaneous bronchoscopic guided tracheostomy Anesthesia: TIVA per post doctoral researcher Dr. Henning Surgeon: Chaz Munguia Electronic Technician(s): Bronchoscopist Dr. Henning Operation and Findings: EBL: 5 cc Procedure in detail: The patient remained in his intensive care unit bed. He was placed in supine position with the neck slightly hyperextended. The patient was administered sedative and paralytic medications per Dr. Henning. The anterior neck was prepped and draped in usual sterile fashion. A 1 cm incision was made about 1 fingerbreadth superior to the sternal notch. Minimal blunt dissection was carried out. The bronchoscope was inserted down the endotracheal tube which was withdrawn past the site of the anticipated entry into the trachea. The large-bore needle and catheter were inserted through the anterior trachea and there was air aspirated into the syringe. The wire fed easily and this was also visualized via the bronchoscope. The tract was then serially dilated with the punch dilator and the Blue Rhino dilator. The Shiley #8 tracheostomy tube with guide was placed over the wire and easily entered the trachea. This was also visualized bronchoscopically. The bronchoscope was inserted down the trach tube and the position again confirmed. The cuff was inflated and the apparatus switched to the trach tube. There was adequate tidal volumes. The trach was sutured in place with 4 separate 2-0 Prolene sutures. A dressing and trach collar was applied. The patient tolerated procedure well and remained in his intensive care unit bed. Chaz Munguia MD Sep 14, 2016 09:38
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
--- NOTE | 2016-09-14 11:48 | RADRPT ---
EXAM DATE/TIME: 09/14/2016 11:18 [place] COMPARISON: CHEST SINGLE AP, September 07, 2016, 20:52. INDICATIONS : Status post tracheostomy tube placement. MEDICAL HISTORY : None. SURGICAL HISTORY : None. ENCOUNTER: Initial ACUITY: 2 weeks PAIN SCORE: Non-responsive. LOCATION: chest FINDINGS: Single AP view of the chest. Tracheostomy tube now in place with the tip in the thoracic trachea. Rig ht IJ central venous catheter remains in place. New patchy opacity at the right lung base indicating atelectasis verses mild consolidation. No evidence of pleural effusion or pneumothorax. CONCLUSION: Tracheostomy tube now in place. Atelectasis versus mild consolidation now seen at the right lung base . Bry Delaney MD on September 14, 2016 at 11:45 Board Certified Radiologist. This report was verified electronically.
[2016-09-14] MEDS: cefTRIAXone INJ 2,000 MG in SODIUM CHLORIDE 0.9% INJ 100 ML IV SCH (12:27)
--- NOTE | 2016-09-14 12:31 | HHI.IDPN ---
Subjective Subjective Remarks Notes reviewed D/W RN S/P trach today Sedated on the vent Not on pressors S/P PEG 09/13 CSF CINDY still pending HIV PCR - (+) HIV genotyping - reviewed; resistant to nevirapine and efavirenz His HSV is negative VZV negative RPR non-reactive CSF crypto negative CSF VDRL negative Serum crypto negative Hepatitis serology negative CD4 24 LATASHA negative Antibiotics Rocephin Bactrim and Zithromax prophylaxis Lines RSC TLC Past Medical History Hyperlipidemia Recent admission and diagnosed to have a right cerebellar months felt to be probably an infarct - CTA of the neck and the head negative - Spectroscopy negative No previous history of blood transfusion Leukopenia, question if he has had prior workup, no workup done during his last admission Allergies: Coded Allergies: No Known Allergies (Unverified , 08/16/16) Objective . Vital Signs Date Time Temp Pulse Resp B/P Pulse Ox O2 Delivery O2 Flow Rate FiO2 09/14/16 11:53 100 50 09/14/16 10:00 82 09/14/16 09:10 99 100 09/14/16 08:15 100 30 09/14/16 08:00 30 09/14/16 08:00 80 09/14/16 08:00 98.4 78 14 100/60 99 09/14/16 06:00 78 09/14/16 04:03 98 30 09/14/16 04:00 82 09/14/16 04:00 98.5 82 14 137/83 100 09/14/16 04:00 30 09/14/16 02:00 78 09/14/16 01:29 97 30 09/14/16 00:00 30 09/14/16 00:00 98.5 76 14 119/65 98 09/14/16 00:00 76 09/13/16 22:00 74 09/13/16 20:28 100 30 09/13/16 20:00 98.3 71 20 112/67 99 09/13/16 20:00 30 09/13/16 20:00 76 09/13/16 18:00 71 09/13/16 16:46 98 30 09/13/16 16:00 98.7 72 14 105/59 99 09/13/16 16:00 72 09/13/16 16:00 30 09/13/16 15:24 100 30 09/13/16 14:00 80 09/13/16 09/13/16 09/14/16 15:00 23:00 07:00 Intake Total 265 ml 251 ml 277 ml Output Total 650 ml 400 ml 550 ml Balance -385 ml -149 ml -273 ml Intake Oral 0 ml IV Total 265 ml 251 ml 257 ml Tube Feeding 0 ml 0 ml Tube Irrigant 20 ml Output Urine Total 650 ml 400 ml 550 ml # Bowel Movements 1 0 0 . Laboratory Tests Test 09/14/16 04:10 White Blood Count 3.5 TH/MM3 Red Blood Count 2.53 MIL/MM3 Hemoglobin 7.8 GM/DL Hematocrit 23.3 % Mean Corpuscular Volume 92.0 FL Mean Corpuscular Hemoglobin 31.0 PG Mean Corpuscular Hemoglobin 33.7 % Concent Red Cell Distribution Width 13.8 % Platelet Count 161 TH/MM3 Mean Platelet Volume 8.2 FL Laboratory Tests Test 09/14/16 04:10 Sodium Level 142 MEQ/L Potassium Level 4.1 MEQ/L Chloride Level 106 MEQ/L Carbon Dioxide Level 30.7 MEQ/L Anion Gap 5 MEQ/L Blood Urea Nitrogen 18 MG/DL Creatinine 0.89 MG/DL Estimat Glomerular Filtration 109 ML/MIN Rate Random Glucose 87 MG/DL Calcium Level 8.6 MG/DL Phosphorus Level 4.4 MG/DL Magnesium Level 2.1 MG/DL Imaging Chest X-Ray 09/07/16 0600 Signed Impressions: Service Date/Time: August 02:47 - CONCLUSION: No focal or acute pulmonary infiltrates. No significant change. Colin Denny MD Head CT 09/07/16 0000 Signed Impressions: Service Date/Time: August 13:04 - CONCLUSION: Stable exam. Aurora Liz MD Chest X-Ray 09/07/16 0000 Signed Impressions: Service Date/Time: August 20:52 - CONCLUSION: Satisfactory support line and tube positioning. Marcio Posey MD Abdomen X-Ray 09/06/16 0000 Signed Impressions: Service Date/Time: Tuesday, September 06, 2016 20:55 - CONCLUSION: Feeding tube in place as described. Ryland Malone MD Abdomen X-Ray 09/06/16 0000 Signed Impressions: Service Date/Time: Tuesday, September 06, 2016 15:12 - CONCLUSION: Feeding tube tip in the stomach Marcio Posey MD Chest X-Ray 09/05/16 0000 Signed Impressions: Service Date/Time: Monday, September 05, 2016 08:12 - CONCLUSION: 1. No acute cardiopulmonary disease. Mike Jordan MD Neck CTA 09/03/16 0000 Signed Impressions: Service Date/Time: Saturday, September 03, 2016 20:21 - CONCLUSION: Normal examination. Marcio Zamorano MD Head CTA 09/03/16 0000 Signed Impressions: Service Date/Time: Saturday, September 03, 2016 20:21 - CONCLUSION: Negative CTA of the head. Marcio Zamorano MD Brain MRI 09/03/16 0000 Signed Impressions: Service Date/Time: Saturday, September 03, 2016 20:34 - CONCLUSION: Areas of low signal in the edi, right cerebellar peduncle and right cerebellar hemisphere. Marcio Zamorano MD Physical Exam GENERAL: Sedated on the vent, NAD SKIN: Warm and dry. No generalized rash HEENT: [place] conjunctivae. No scleral icterus. ET in mouth NECK: No JVD or lymphadenopathy. Supple, nontender, no meningeal signs. CARDIOVASCULAR: Regular rate and rhythm without murmurs, gallops, or rubs. RESPIRATORY: Coarse BS jah, with few scattered rhonchi. GASTROINTESTINAL: Abdomen soft, non-tender, nondistended. Bowel sounds are present and normoactive. No organomegaly. No guarding. MUSCULOSKELETAL: Extremities without clubbing, cyanosis, or edema. NEUROLOGICAL: Sedated PSYCH: Unable to assess LINE; Lines with no evidence of infection : Mayer in place, urine looks clear Assessment & Plan Remarks IMPRESSION R cerebellar mass, previous work-up (+) infarct, spectroscopy negative - HIV (+) - LP negative - ?PML vs HIV Leukopenia, etiology, HIV can give leukopenia HIV (+), AIDS, has CD4 24 - ?Previously been diagnosed to have HIV, there is some info that he had been on HIV meds (?) Shock, ?new infection, better - concern with aspiration - has MSSA in sputum RECOMMENDATION Await CSF CINDY - if (+), confirms PML - if negative, may need brain biopsy Change Rocephin to Ceftin Continue HAART - Stribild Monitor temps Monitor progress Remove central line once peripheral IV started D/W RN D/W Christelle Lou MD Sep 14, 2016 12:31
[2016-09-14] MEDS: CEFUROXIME AXETIL SUSP 250 MG/5 ML 50 ML BTL PO SCH ×2 (14:40→20:32)
[2016-09-14] MEDS: ATORVASTATIN 10 MG TAB PO SCH (20:33)
[2016-09-14] MEDS: CEFUROXIME AXETIL 500 MG TAB PO SCH (21:00)
[2016-09-15] VITALS (19 sets, daily range): BP systolic 105–142; BP diastolic 63–91; PULSE 73–98; RESP 14–22; TEMP 97.9–100.3; O2SAT 99–100
[2016-09-15] MEDS: PROPOFOL 1000 MG/100 ML IV SCH (00:14)
[2016-09-15] MEDS: CHLORHEXIDINE GLUCONATE 2 % 1 PACK (2 CLOTHS) TOP SCH ×2 (03:06→20:41)
[2016-09-15] MEDS: RESP: ALBUTEROL 2.5 MG/IPRATROPIUM 0.5 MG NEB (SCH) INH ×4 (03:29→21:45)
[2016-09-15] MEDS: SODIUM CHLOR 0.9% 1000 ML INJ 1,000 ML IV SCH (09:00)
[2016-09-15] MEDS: ELVIT/COBI/EMTR/TENOF 150/150/200/300 MG TABLETS PO SCH (09:00)
[2016-09-15] MEDS: PANTOPRAZOLE SODIUM 40 MG VIAL IV SCH (09:00)
[2016-09-15] MEDS: CEFUROXIME AXETIL 500 MG TAB PO SCH ×2 (09:00→20:40)
[2016-09-15] MEDS: SODIUM CHLORIDE 0.9% FLUSH 5 ML FLUSH IV FLUSH SCH ×2 (09:01→20:39)
[2016-09-15] MEDS: LACTULOSE SYRUP 20 GM/30 ML CUP PO SCH (09:09)
[2016-09-15] MEDS: SENNOSIDES SYRUP 8.8 MG/5 ML CUP PO SCH ×2 (09:09→20:41)
[2016-09-15] MEDS: SULFAMETHOXAZOLE-TRIMETHOPRIM 800-160 MG/20 ML UDC PO SCH (09:09)
[2016-09-15] MEDS: DOCUSATE SODIUM 100 MG/10 ML UDC PO SCH ×2 (09:09→20:40)
[2016-09-15] MEDS: AZITHROMYCIN 600 MG TAB PO SCH (09:24)
--- NOTE | 2016-09-15 13:19 | HHI.IDPN ---
Subjective Subjective Remarks Notes reviewed D/W RN S/P trach 2/2 S/P PEG 2/1 Tolerating CPAP, rests on vent at night Not tolerating TF, high residuals Temps ok BP ok CSF CINDY still pending Mayer reinserted today - having retention HIV PCR - (+) HIV genotyping - reviewed; resistant to nevirapine and efavirenz His HSV is negative VZV negative RPR non-reactive CSF crypto negative CSF VDRL negative Serum crypto negative Hepatitis serology negative CD4 24 LATASHA negative Antibiotics Ceftin Stribild Bactrim and Zithromax prophylaxis Lines PIV Past Medical History Reviewed Allergies: Coded Allergies: No Known Allergies (Unverified , 08/16/16) Objective . Vital Signs Date Time Temp Pulse Resp B/P Pulse Ox O2 Delivery O2 Flow Rate FiO2 09/15/16 12:00 85 09/15/16 11:52 100 40 09/15/16 10:00 88 09/15/16 09:47 40 09/15/16 09:47 100 40 09/15/16 08:49 100 40 09/15/16 08:00 40 09/15/16 08:00 98 09/15/16 08:00 100.3 88 14 142/91 100 09/15/16 06:00 96 09/15/16 04:00 40 09/15/16 04:00 88 09/15/16 04:00 97.9 88 14 105/63 99 09/15/16 03:32 99 40 09/15/16 02:00 82 09/15/16 01:50 100 50 09/15/16 00:00 98.2 85 14 129/72 100 09/15/16 00:00 85 09/15/16 00:00 50 09/14/16 22:27 100 50 09/14/16 22:00 80 09/14/16 20:00 50 09/14/16 20:00 79 09/14/16 20:00 99.1 80 14 118/72 100 09/14/16 18:00 76 09/14/16 16:00 100 09/14/16 16:00 99.2 76 14 153/89 100 09/14/16 16:00 76 09/14/16 15:41 100 50 09/14/16 14:00 73 09/14/16 09/14/16 09/15/16 15:00 23:00 07:00 Intake Total 415 ml 411 ml 762 ml Output Total 550 ml 750 ml 1000 ml Balance -135 ml -339 ml -238 ml IV Total 304 ml 179 ml 242 ml Tube Feeding 0 ml 112 ml 400 ml Lipid 91 ml Tube Irrigant 20 ml Other 120 ml 120 ml Output Urine Total 550 ml 750 ml 1000 ml # Bowel Movements 0 0 2 . Laboratory Tests Test 09/14/16 04:10 White Blood Count 3.5 TH/MM3 Red Blood Count 2.53 MIL/MM3 Hemoglobin 7.8 GM/DL Hematocrit 23.3 % Mean Corpuscular Volume 92.0 FL Mean Corpuscular Hemoglobin 31.0 PG Mean Corpuscular Hemoglobin 33.7 % Concent Red Cell Distribution Width 13.8 % Platelet Count 161 TH/MM3 Mean Platelet Volume 8.2 FL Laboratory Tests Test 09/14/16 04:10 Sodium Level 142 MEQ/L Potassium Level 4.1 MEQ/L Chloride Level 106 MEQ/L Carbon Dioxide Level 30.7 MEQ/L Anion Gap 5 MEQ/L Blood Urea Nitrogen 18 MG/DL Creatinine 0.89 MG/DL Estimat Glomerular Filtration 109 ML/MIN Rate Random Glucose 87 MG/DL Calcium Level 8.6 MG/DL Phosphorus Level 4.4 MG/DL Magnesium Level 2.1 MG/DL Imaging Chest X-Ray 09/14/16 0000 Signed Impressions: Service Date/Time: September 11:18 - CONCLUSION: Tracheostomy tube now in place. Atelectasis versus mild consolidation now seen at the right lung base. Bry Delaney MD Chest X-Ray 09/07/16 0600 Signed Impressions: Service Date/Time: August 02:47 - CONCLUSION: No focal or acute pulmonary infiltrates. No significant change. Colin Denny MD Head CT 09/07/16 0000 Signed Impressions: Service Date/Time: August 13:04 - CONCLUSION: Stable exam. Aurora Liz MD Chest X-Ray 09/07/16 0000 Signed Impressions: Service Date/Time: August 20:52 - CONCLUSION: Satisfactory support line and tube positioning. Marcio Posey MD Abdomen X-Ray 09/06/16 0000 Signed Impressions: Service Date/Time: Tuesday, September 06, 2016 20:55 - CONCLUSION: Feeding tube in place as described. Ryland Malone MD Abdomen X-Ray 09/06/16 0000 Signed Impressions: Service Date/Time: Tuesday, September 06, 2016 15:12 - CONCLUSION: Feeding tube tip in the stomach Marcio Posey MD Chest X-Ray 09/05/16 0000 Signed Impressions: Service Date/Time: Monday, September 05, 2016 08:12 - CONCLUSION: 1. No acute cardiopulmonary disease. Mike Jordan MD Neck CTA 09/03/16 0000 Signed Impressions: Service Date/Time: Saturday, September 03, 2016 20:21 - CONCLUSION: Normal examination. Marcio Zamorano MD Head CTA 09/03/16 0000 Signed Impressions: Service Date/Time: Saturday, September 03, 2016 20:21 - CONCLUSION: Negative CTA of the head. Marcio Zamorano MD Brain MRI 09/03/16 0000 Signed Impressions: Service Date/Time: Saturday, September 03, 2016 20:34 - CONCLUSION: Areas of low signal in the edi, right cerebellar peduncle and right cerebellar hemisphere. Marcio Zamorano MD Physical Exam GENERAL: Awake, following some commands. On CPAP, NAD SKIN: Warm and dry. No generalized rash HEENT: [place] conjunctivae. No scleral icterus. moist mucosa NECK: Trach site ok. Supple, nontender, no meningeal signs. CARDIOVASCULAR: Regular rate and rhythm without murmurs, gallops, or rubs. RESPIRATORY: Scattered rhonchi GASTROINTESTINAL: Abdomen soft, non-tender, nondistended. Bowel sounds are present and normoactive. PEG site ok. No organomegaly. No guarding. MUSCULOSKELETAL: Extremities without clubbing, cyanosis, or edema. 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
--- NOTE | 2016-09-15 17:02 | HHI.CCPN ---
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 The patient was placed on heparin and transitioned to Coumadin. The patient was subsequently transferred to [facility]. A [facility] was called, followed by stroke alert noting per RN, neurological changes. The nurse and Dr. Nguyen usually common at that the patient was a phasic, nonresponsive, with a left-sided gaze. Dr. Schroeder, neurologist was notified, CT scan was obtained and results are now pending. Per Dr. Vallejo, the patient is status post CVA on08/17/2016 and is not a candidate for TPA. The patient's previous medications per medical records were warfarin, docusate and atorvastatin. Critical care medicine was consulted for treatment and management. Upon presentation to the ICU, the patient was noted to have vertical and lateral nystagmus, aphasic,. The patient was able to follow commands, motor strength was noted to be 4/5 right upper and lower extremity with normal motor strength left upper and lower extremity. 09/03: Overnight, the patient began to verbalize significant dysarthria noted, but improved from yesterday's initial evaluation. Concern for patient to manage secretions still a concern, the patient continues to be NPO. Patient now has lateral nystagmus, motor exam unchanged. Neurology was consulted yesterday, MRI obtained. Subsequent imaging studies were performed last evening. Patient is scheduled for lumbar puncture this a.m. per neurosurgery for CSF evaluation. The patient is noted to have leukopenia, and a history of G6PD deficiency hematology and oncology were consulted. Request for outside medical records from the patient's electroplater automatic was obtained, awaiting records. Administration of steroids were initiated last evening. 09/04: Steroids discontinued. No change in neurological evaluation, examination. Speech therapy consulted, patient continues on honey thick liquids , tolerated PO diet well yesterday. CSF results pending, no fungal elements were noted. Preliminary HIV reflex test positive, awaiting final confirmation. 09/05: No change in status. Tolerating PO diet. 09/06: Overnight the patient was noted to have increased difficulty managing secretions. Repeat formal speech swallow study noted that the patient failed this a.m.. The patient was placed on nothing by mouth status. HIV-1 antibody tests confirmed. Other studies still pending. The patient's family in the presence of a Oxidized Finish Plater, with family holding and guiding the patient's hand , signed a POA. The patient was not competent to complete the document or answer questions at thus time. The family was informed that the document was not valid due to the fact the patient had altered mental status and could not freely communicate on his own, and sign the document. Informed that the patient 's would be appropriate and making the decisions for the patient and the POA document was null and void. 09/07: The patient became hypotensive last evening, with systolic blood pressures 60s. The patient was intubated, central line was placed, and the patient was placed on vasopressor support norepinephrine.CD4 count low, prophylactic and empiric antibiotics started per ID, Dr. Mccracken. 09/09 Remains on mechanical ventilation, on levophed 9 mcg/min. UOP 200 overnight but now 250/hr last 2 hours. Has some sediment in Mayer tubing, may have been partially obstructed. Creatinine normal. at bedside. Afebrile. CSF bacterial cultures negative. CSF CINDY virus pending. Remaining pancultures from 09/08 pending. Afebrile. Reviewed records from Dr. Fuentes/Dr. Denise on chart. Had chronic leukopenia. HIV testing 2002, 2005 negative. Had chlamydia 2002 tells me he had not seen ID as an outpatient. She states he has not seen Dr. Fuentes in several years (most recent records appear to be from 2011) Subjective: 09/10 Tolerating CPAP during day. Levophed off vs low dose (2-3 mcg/min) depending on sedation. Dobhoff clogged, replaced with NGT. CSF CINDY virus pending 09/11 Levophed off since 1899 last evening. MAP ranges 56700. Sputum culture returned staph aureus. The patient was maintained on CPAP for 12 hours yesterday. CSF CINDY virus pending. 09/12 Tmax 99.6 .Hemodynamically stable. Coordination for tracheostomy and PEG placement for possibly or Sunday. HIV resistance labs resulted overnight, with resistance to Efavirenz,Nevirapine. CSF CINDY virus pending. 09/13 The patient is awake, continues to tolerate CPAP . Plan today for PEG placement per GI. HAART medications begun yesterday per ID. 09/14 The patient underwent percutaneous tracheostomy this a.m. under moderate sedation, Dr. Munguia. Patient to resume tube feeds today. Case management coordination with discharge planning. The patient remains hemodynamically stable. Central line discontinued. 09/15 Tmax 100.3. The patient was noted to have urinary retention and required placement of the Mayer catheter. The patient is responding when off sedation. Objective Vital Signs Date Time Temp Pulse Resp B/P Pulse Ox O2 Delivery O2 Flow Rate FiO2 09/15/16 16:12 100 30 09/15/16 14:00 81 09/15/16 12:00 98.3 18 136/83 Intake and Output 09/14/16 09/14/16 09/15/16 08:00 16:00 00:00 Intake Total 277 ml 415 ml 411 ml Output Total 550 ml 550 ml 750 ml Balance -273 ml -135 ml -339 ml Result Diagram: 09/14/16 0410 09/14/16 0410 Imaging Last Impressions Chest X-Ray 09/14/16 0000 Signed Impressions: Service Date/Time: September 11:18 - CONCLUSION: Tracheostomy tube now in place. Atelectasis versus mild consolidation now seen at the right lung base. Bry Delaney MD Upper Extremity Ultrasound 09/08/16 0000 Signed Impressions: Service Date/Time: Thursday, September 08, 2016 19:22 - CONCLUSION: Normal examination. Michael Rosas Jr., MD Lower Extremity Ultrasound 09/08/16 0000 Signed Impressions: Service Date/Time: Thursday, September 08, 2016 18:57 - CONCLUSION: Normal examination. Michael Rosas Jr., MD Head CT 09/07/16 0000 Signed Impressions: Service Date/Time: August 13:04 - CONCLUSION: Stable exam. Aurora Liz MD Abdomen X-Ray 09/06/16 0000 Signed Impressions: Service Date/Time: Tuesday, September 06, 2016 20:55 - CONCLUSION: Feeding tube in place as described. Ryland Malone MD Neck CTA 09/03/16 0000 Signed Impressions: Service Date/Time: Saturday, September 03, 2016 20:21 - CONCLUSION: Normal examination. Marcio Zamorano MD Head CTA 09/03/16 0000 Signed Impressions: Service Date/Time: Saturday, September 03, 2016 20:21 - CONCLUSION: Negative CTA of the head. Marcio Zamorano MD Brain MRI 09/03/16 0000 Signed Impressions: Service Date/Time: Saturday, September 03, 2016 20:34 - CONCLUSION: Areas of low signal in the edi, right cerebellar peduncle and right cerebellar hemisphere. Marcio Zamorano MD Last Impressions Upper Extremity Ultrasound 09/08/16 0000 Signed Impressions: Service Date/Time: Thursday, September 08, 2016 19:22 - CONCLUSION: Normal examination. Michael Rosas Jr., MD Lower Extremity Ultrasound 09/08/16 0000 Signed Impressions: Service Date/Time: Thursday, September 08, 2016 18:57 - CONCLUSION: Normal examination. Michael Rosas Jr., MD Chest X-Ray 09/07/16 0600 Signed Impressions: Service Date/Time: August 02:47 - CONCLUSION: No focal or acute pulmonary infiltrates. No significant change. Colin Denny MD Head CT 09/07/16 0000 Signed Impressions: Service Date/Time: August 13:04 - CONCLUSION: Stable exam. Aurora Liz MD Abdomen X-Ray 09/06/16 0000 Signed Impressions: Service Date/Time: Tuesday, September 06, 2016 20:55 - CONCLUSION: Feeding tube in place as described. Ryland Malone MD Neck CTA 09/03/16 0000 Signed Impressions: Service Date/Time: Saturday, September 03, 2016 20:21 - CONCLUSION: Normal examination. Marcio Zamorano MD Head CTA 09/03/16 0000 Signed Impressions: Service Date/Time: Saturday, September 03, 2016 20:21 - CONCLUSION: Negative CTA of the head. Marcio Zamorano MD Brain MRI 09/03/16 0000 Signed Impressions: Service Date/Time: Saturday, September 03, 2016 20:34 - CONCLUSION: Areas of low signal in the edi, right cerebellar peduncle and right cerebellar hemisphere. Marcio Zamorano MD Objective Remarks Drips: Propofol 15 mcg/kg/min 0.9 NaCl at 10 mL per hour GENERAL: Well-nourished well-developed male, 8.0 Shiley tracheostomy GCS 11 T SKIN: Warm and dry. HEAD: Atraumatic. Normocephalic. EYES: Pupils equal and round. 3 mm and reactive bilaterally .No scleral icterus. No injection or drainage. ENT: No nasal bleeding or discharge. Mucous membranes pink and moist. Orotracheally intubated NECK: Trachea midline. No JVD. No erythema bleeding noted around tracheostomy site CARDIOVASCULAR: Normal rate, regular rhythm. RESPIRATORY: Coarse breath sounds throughout lung rouse. Breath sounds equal bilaterally. GASTROINTESTINAL: Abdomen soft, non-tender, nondistended. Bowel sounds present No guarding. Normoactive bowel sounds. Tube feeds infusing via NGT, tolerating without residuals. : Condom catheter not draining, replace with Mayer secondary to urinary retention MUSCULOSKELETAL: Extremities without clubbing, cyanosis, or edema. No obvious deformities. NEUROLOGICAL: Eyes open to voice, not squeezing my hands this a.m. . Date of Insertion: Sep 07, 2016 Date of Insertion: Sep 07, 2016 Date of Removal: Sep 14, 2016 Side: Right Location: Internal, Jugular (CVP monitoring and vasoactive medication administration) A/P Assessment and Plan Neurologic: S/P CVA-right cerebral infarct 08/17 ?PML Dysarthria Aphasia CN palsies , VII, IX, X, -GCS 11 T -The patient has bulbar palsies with dysphagia resulting in poor airway protection is S/P tracheostomy -Neurology Dr. Vallejo following-Methylprednisone discontinued 09/05. Hold off on further steroids until brain biopsy. -?PML - CINDY virus PCR pending. If positive, confirms PML, however if negative will need brain biopsy per ID/neurology recs. 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 Restricted diffusion indicating suggesting ischemia left edi -MRI w/contrast 09/03-areas of low signal in edi, right cerebellar peduncle and right cerebellar hemisphere -Neurosurgery evaluated, Dr. Cedeño -09/06 Formal swallow study-failed -09/05 Ammonia level 13 -Repeat CT brain09/07-stable exam -CSF workup as per below with ID. CSF cytology negative. - Minimize propofol and target RASS -1. Currently propofol at 15 mcgs Respiratory: Acute respiratory failure Percutaneous tracheostomy 09/14/16 -Intubated 09/07/16 for airway protection-mechanical ventilation PRVC 14/550/0.30 /5/IT -Maintain O2 sat greater than 92% -Maintain head of bed elevation 30 -Sedation vacation per ICU protocol.Continue CPAP trials dailyto mitigate respiratory muscle weakness. Not appropriate for extubation due to cranial nerve palsies resulting in inadequate airway protection. Will likely require trach due to bulbar palsies. If PML is the inciting factor, would not expect these palsies to improve significantly even with therapy. is aware of possible need for trach as well as the fact that diagnosis uncertain at this point. -Ventilator bundle -Bronchodilators scheduled every 6 hours, every 2 when necessary -09/14 S/P Percutaneous tracheostomy Dr. Munguia -CPAP trials Cardiovascular: Dyslipidemia (elevated LDL, hypertriglyceridemia, low HDL) H/O HTN Hypotension secondary to sedation/hypovolemia, ?sepsis-resolved -Levophed discontinued 09/10 - Maintain MAP >65 mmHg -Continue atorvastatin 10 by mouth daily at bedtime. Monitoring LFTS -Patient previously on ASA dc'd secondary to G6PD deficiency -Coumadin (on hold), Hematology Dr. Pelletier following and recommends holding therapeutic anticoagulation as per belo Renal: Urinary retention -No acute issues -Placement of Mayer catheter -Monitor BMP and Strict I/Os GI: Mild protein calorie malnutrition -Resume tube feeds today -tube feeds Peptamin AF 1.5 @ 65/hr (goal rate of tube feeds per nutrition) via NGT -Replete electrolytes per ICU protocol -Zofran for nausea -Protonix for GI prophylaxis -Last BM 09/14 -S/P PEG placement 09/13- Dr Saldaña Heme/ID G6PD deficiency -HematologyOncology- Dr. Patrick Pelletier-no therapeutic anticoagulation recommended at this time -Previous hypercoagulable studies were noted. 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 Request for medical records sent to patient's personal electroplater automatic, Dr. Denise, for additional information. -per hematology this heterozygous state does not confer high risk of thrombosis. Eventually would need anticoagulation for stroke, but recommend hold off for now in view of possible brain biopsy. --Venous Doppler ultrasounds bilateral upper and lower extremities09/08-negative -CSF cytology negative 09/04 Leukopenia AIDS Possible PML -HIV Ab 1 09/05-confirmed positive - RPR-negative -[id number] -CSF-CINDY virus-pending, -CSF-no fungal elements seen, WBC 0 -CSF AFB stains negative -CSF-cryptococcal antigen negative -CSF VDRLnegative -Absolute CD4 count- 24 -Crypto serology negative -HIV resistance medication results-Efavirenz, Nevirapine -HAART 09/12 -begun per ID Pancultured 09/08 of sputum, blood cultures, urine cultures. 09/08 sputum - +MSSA Abx per ID: azithromycin 1200 mg qweek, bactrim 800/160 daily for prophylaxis. Zosyn 4/5 q6 hours 09/08 # 6. Vancomycin added 09/10 per ID. aware of HIV diagnosis. She has not been tested. I recommended expeditious testing and measures to prevent spread to others. Endocrine: NIDDM per outside records from 2011 -Glucose monitoring per ICU protocol -- SSI low dose q6 hours MSK: - PT, OT -evaluate and treat -Continue functional maintenance daily Prophylaxis: GI Prophylaxis Protonix 40 mg IV daily DVT Prophylaxis -- SCDs, Heparin 5000u SQ BID initiated on 09/07 Lines: Peripheral IV's x 2. RIJ central line 09/07 Dr. Jara # 7 (discontinued 09/14) Dispo: Case management consulted for discharge planning. Level 3 Discussed with CAN TECHNICIAN at bedside. Discussed with Mrs. Reynaga all questions answered. Physician Cathy Miller MD Sep 15, 2016 17:02
[2016-09-15] MEDS: ATORVASTATIN 10 MG TAB PO SCH (20:40)
[2016-09-16] VITALS (18 sets, daily range): BP systolic 94–153; BP diastolic 58–96; PULSE 76–88; RESP 13–30; TEMP 98.8–99.8; O2SAT 100
[2016-09-16] MEDS: RESP: ALBUTEROL 2.5 MG/IPRATROPIUM 0.5 MG NEB (SCH) INH ×2 (05:03→08:39)
[2016-09-16] MEDS: SODIUM CHLOR 0.9% 1000 ML INJ 1,000 ML IV SCH (05:34)
[2016-09-16] MEDS: ELVIT/COBI/EMTR/TENOF 150/150/200/300 MG TABLETS PO SCH (08:28)
[2016-09-16] MEDS: LACTULOSE SYRUP 20 GM/30 ML CUP PO SCH (08:28)
[2016-09-16] MEDS: DOCUSATE SODIUM 100 MG/10 ML UDC PO SCH ×2 (08:28→21:25)
[2016-09-16] MEDS: SENNOSIDES SYRUP 8.8 MG/5 ML CUP PO SCH ×2 (08:28→21:26)
[2016-09-16] MEDS: CEFUROXIME AXETIL 500 MG TAB PO SCH ×2 (08:28→21:25)
[2016-09-16] MEDS: PANTOPRAZOLE SODIUM 40 MG VIAL IV SCH (08:28)
[2016-09-16] MEDS: SODIUM CHLORIDE 0.9% FLUSH 5 ML FLUSH IV FLUSH SCH ×2 (08:28→21:25)
[2016-09-16] MEDS: SULFAMETHOXAZOLE-TRIMETHOPRIM 800-160 MG/20 ML UDC PO SCH (08:28)
--- NOTE | 2016-09-16 18:14 | HHI.CCPN ---
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 The patient was placed on heparin and transitioned to Coumadin. The patient was subsequently transferred to [facility]. A Halicat was called, followed by stroke alert noting per RN, neurological changes. The nurse and Dr. Nguyen usually common at that the patient was a phasic, nonresponsive, with a left-sided gaze. Dr. Schroeder, neurologist was notified, CT scan was obtained and results are now pending. Per Dr. Vallejo, the patient is status post CVA on08/17/2016 and is not a candidate for TPA. The patient's previous medications per medical records were warfarin, docusate and atorvastatin. Critical care medicine was consulted for treatment and management. Upon presentation to the ICU, the patient was noted to have vertical and lateral nystagmus, aphasic,. The patient was able to follow commands, motor strength was noted to be 4/5 right upper and lower extremity with normal motor strength left upper and lower extremity. 09/03: Overnight, the patient began to verbalize significant dysarthria noted, but improved from yesterday's initial evaluation. Concern for patient to manage secretions still a concern, the patient continues to be NPO. Patient now has lateral nystagmus, motor exam unchanged. Neurology was consulted yesterday, MRI obtained. Subsequent imaging studies were performed last evening. Patient is scheduled for lumbar puncture this a.m. per neurosurgery for CSF evaluation. The patient is noted to have leukopenia, and a history of G6PD deficiency hematology and oncology were consulted. Request for outside medical records from the patient's account support associate was obtained, awaiting records. Administration of steroids were initiated last evening. 09/04: Steroids discontinued. No change in neurological evaluation, examination. Speech therapy consulted, patient continues on honey thick liquids , tolerated PO diet well yesterday. CSF results pending, no fungal elements were noted. Preliminary HIV reflex test positive, awaiting final confirmation. 09/05: No change in status. Tolerating PO diet. 09/06: Overnight the patient was noted to have increased difficulty managing secretions. Repeat formal speech swallow study noted that the patient failed this a.m.. The patient was placed on nothing by mouth status. HIV-1 antibody tests confirmed. Other studies still pending. The patient's family in the presence of a Professor Of English, with family holding and guiding the patient's hand , signed a POA. The patient was not competent to complete the document or answer questions at thus time. The family was informed that the document was not valid due to the fact the patient had altered mental status and could not freely communicate on his own, and sign the document. Informed that the patient 's would be appropriate and making the decisions for the patient and the POA document was null and void. 09/07: The patient became hypotensive last evening, with systolic blood pressures 60s. The patient was intubated, central line was placed, and the patient was placed on vasopressor support norepinephrine.CD4 count low, prophylactic and empiric antibiotics started per ID, Dr. Mccracken. 09/09 Remains on mechanical ventilation, on levophed 9 mcg/min. UOP 200 overnight but now 250/hr last 2 hours. Has some sediment in Mayer tubing, may have been partially obstructed. Creatinine normal. at bedside. Afebrile. CSF bacterial cultures negative. CSF CINDY virus pending. Remaining pancultures from 09/08 pending. Afebrile. Reviewed records from Dr. Fuentes/Dr. Denise on chart. Had chronic leukopenia. HIV testing 2002, 2005 negative. Had chlamydia 2002 tells me he had not seen ID as an outpatient. She states he has not seen Dr. Fuentes in several years (most recent records appear to be from 2011) Subjective: 09/10 Tolerating CPAP during day. Levophed off vs low dose (2-3 mcg/min) depending on sedation. Dobhoff clogged, replaced with NGT. CSF CINDY virus pending 09/11 Levophed off since 1899 last evening. MAP ranges 33954. Sputum culture returned staph aureus. The patient was maintained on CPAP for 12 hours yesterday. CSF CINDY virus pending. 09/12 Tmax 99.6 .Hemodynamically stable. Coordination for tracheostomy and PEG placement for possibly or Sunday. HIV resistance labs resulted overnight, with resistance to Efavirenz,Nevirapine. CSF CINDY virus pending. 09/13 The patient is awake, continues to tolerate CPAP . Plan today for PEG placement per GI. HAART medications begun yesterday per ID. 09/14 The patient underwent percutaneous tracheostomy this a.m. under moderate sedation, Dr. Munguia. Patient to resume tube feeds today. Case management coordination with discharge planning. The patient remains hemodynamically stable. Central line discontinued. 09/15 Tmax 100.3. The patient was noted to have urinary retention and required placement of the Mayer catheter. The patient is responding when off sedation. 09/16 The patient continues to perform extended on CPAP trials, planned for trach collar trials in a.m.. The patient's following commands with eye movement and squeezing left hand. CINDY Virus results returned positive. Objective Vital Signs Date Time Temp Pulse Resp B/P Pulse Ox O2 Delivery O2 Flow Rate FiO2 09/16/16 16:24 100 30 09/16/16 16:00 88 09/16/16 16:00 99.8 19 141/89 Intake and Output 09/15/16 09/15/16 09/15/16 07:59 15:59 23:59 Intake Total 762 ml 647 ml 545 ml Output Total 1000 ml 450 ml 450 ml Balance -238 ml 197 ml 95 ml Result Diagram: 09/14/16 0410 09/14/16 0410 Imaging Last Impressions Chest X-Ray 09/14/16 0000 Signed Impressions: Service Date/Time: September 11:18 - CONCLUSION: Tracheostomy tube now in place. Atelectasis versus mild consolidation now seen at the right lung base. Bry Delaney MD Upper Extremity Ultrasound 09/08/16 0000 Signed Impressions: Service Date/Time: Thursday, September 08, 2016 19:22 - CONCLUSION: Normal examination. Michael Rosas Jr., MD Lower Extremity Ultrasound 09/08/16 0000 Signed Impressions: Service Date/Time: Thursday, September 08, 2016 18:57 - CONCLUSION: Normal examination. Michael Rosas Jr., MD Head CT 09/07/16 0000 Signed Impressions: Service Date/Time: August 13:04 - CONCLUSION: Stable exam. Aurora Liz MD Abdomen X-Ray 09/06/16 0000 Signed Impressions: Service Date/Time: Tuesday, September 06, 2016 20:55 - CONCLUSION: Feeding tube in place as described. Ryland Malone MD Neck CTA 09/03/16 0000 Signed Impressions: Service Date/Time: Saturday, September 03, 2016 20:21 - CONCLUSION: Normal examination. Marcio Zamorano MD Head CTA 09/03/16 0000 Signed Impressions: Service Date/Time: Saturday, September 03, 2016 20:21 - CONCLUSION: Negative CTA of the head. Marcio Zamorano MD Brain MRI 09/03/16 0000 Signed Impressions: Service Date/Time: Saturday, September 03, 2016 20:34 - CONCLUSION: Areas of low signal in the edi, right cerebellar peduncle and right cerebellar hemisphere. Marcio Zamorano MD Last Impressions Upper Extremity Ultrasound 09/08/16 0000 Signed Impressions: Service Date/Time: Thursday, September 08, 2016 19:22 - CONCLUSION: Normal examination. Michael Rosas Jr., MD Lower Extremity Ultrasound 09/08/16 0000 Signed Impressions: Service Date/Time: Thursday, September 08, 2016 18:57 - CONCLUSION: Normal examination. Michael Rosas Jr., MD Chest X-Ray 09/07/16 0600 Signed Impressions: Service Date/Time: August 02:47 - CONCLUSION: No focal or acute pulmonary infiltrates. No significant change. Colin Denny MD Head CT 09/07/16 0000 Signed Impressions: Service Date/Time: August 13:04 - CONCLUSION: Stable exam. Aurora Liz MD Abdomen X-Ray 09/06/16 0000 Signed Impressions: Service Date/Time: Tuesday, September 06, 2016 20:55 - CONCLUSION: Feeding tube in place as described. Ryland Malone MD Neck CTA 09/03/16 0000 Signed Impressions: Service Date/Time: Saturday, September 03, 2016 20:21 - CONCLUSION: Normal examination. Marcio Zamorano MD Head CTA 09/03/16 0000 Signed Impressions: Service Date/Time: Saturday, September 03, 2016 20:21 - CONCLUSION: Negative CTA of the head. Marcio Zamorano MD Brain MRI 09/03/16 0000 Signed Impressions: Service Date/Time: Saturday, September 03, 2016 20:34 - CONCLUSION: Areas of low signal in the edi, right cerebellar peduncle and right cerebellar hemisphere. Marcio Zamorano MD Objective Remarks Drips: Propofol 15 mcg/kg/min 0.9 NaCl at 10 mL per hour GENERAL: Well-nourished well-developed male, 8.0 Shiley tracheostomy GCS 11 T SKIN: Warm and dry. HEAD: Atraumatic. Normocephalic. EYES: Pupils equal and round. 3 mm and reactive bilaterally .No scleral icterus. No injection or drainage. ENT: No nasal bleeding or discharge. Mucous membranes pink and moist. Orotracheally intubated NECK: Trachea midline. No JVD. No erythema bleeding noted around tracheostomy site CARDIOVASCULAR: Normal rate, regular rhythm. RESPIRATORY: Coarse breath sounds throughout lung rouse. Breath sounds equal bilaterally. GASTROINTESTINAL: Abdomen soft, non-tender, nondistended. Bowel sounds present No guarding. Normoactive bowel sounds. Tube feeds infusing via NGT, tolerating without residuals. : Condom catheter not draining, replace with Mayer secondary to urinary retention MUSCULOSKELETAL: Extremities without clubbing, cyanosis, or edema. No obvious deformities. NEUROLOGICAL: Eyes open to voice, not squeezing my hands this a.m. . Mayer insert reason: Obstruction/Retention Date of Insertion: Sep 07, 2016 Date of Insertion: Sep 07, 2016 Date of Removal: Sep 14, 2016 Side: Right Location: Internal, Jugular (CVP monitoring and vasoactive medication administration) A/P Assessment and Plan Neurologic: S/P CVA-right cerebral infarct 08/17 PML Dysarthria Aphasia CN palsies , VII, IX, X, -GCS 11 T -The patient has bulbar palsies with dysphagia resulting in poor airway protection is S/P tracheostomy -Neurology Dr. Vallejo following-Methylprednisone discontinued 09/05. Hold off on further steroids until brain biopsy. -PML - CINDY virus PCR positive, confirms PML. 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 Restricted diffusion indicating suggesting ischemia left edi -MRI w/contrast 09/03-areas of low signal in edi, right cerebellar peduncle and right cerebellar hemisphere -Neurosurgery evaluated, Dr. Cedeño -09/06 Formal swallow study-failed -09/05 Ammonia level 13 -Repeat CT brain09/07-stable exam -CSF workup as per below with ID. CSF cytology negative. Respiratory: Acute respiratory failure Percutaneous tracheostomy 09/14/16 -Intubated 09/07/16 for airway protection-mechanical ventilation PRVC 14/550/0.30 /5/IT -Maintain O2 sat greater than 92% -Maintain head of bed elevation 30 -Sedation vacation per ICU protocol. -CPAP trials daily -Ventilator bundle -Bronchodilators scheduled every 6 hours, every 2 when necessary -2 S/P Percutaneous tracheostomy Dr. Munguia -Trach collar trials in a.m. Cardiovascular: Dyslipidemia (elevated LDL, hypertriglyceridemia, low HDL) H/O HTN Hypotension secondary to sedation/hypovolemia, ?sepsis-resolved -Levophed discontinued 09/10 - Maintain MAP >65 mmHg -Continue atorvastatin 10 by mouth daily at bedtime. Monitoring LFTS -Patient previously on ASA dc'd secondary to G6PD deficiency -Coumadin (on hold), Hematology Dr. Pelletier following. Renal: Urinary retention -No acute issues -Placement of Mayer catheter secondary to urinary retention (09/16) -Monitor BMP and Strict I/Os GI: Mild protein calorie malnutrition -Tube feeds Peptamin AF 1.5 @ 65/hr -Replete electrolytes per ICU protocol -Zofran for nausea -Protonix for GI prophylaxis -Last BM 09/17 -S/P PEG placement 09/13- Dr Saldaña, Gi Signed off 09/16. Heme/ID G6PD deficiency -HematologyOncology- Dr. Patrick Pelletier-no therapeutic anticoagulation recommended at this time -Previous hypercoagulable studies were noted. 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 Request for medical records sent to patient's personal account support associate, Dr. Denise, for additional information. -per hematology this heterozygous state does not confer high risk of thrombosis. Eventually would need anticoagulation for stroke. --Venous Doppler ultrasounds bilateral upper and lower extremities09/08-negative -CSF cytology negative 09/04 Leukopenia AIDS PML -HIV Ab 1 09/05-confirmed positive - RPR-negative -[id number] -CSF-CINDY virus-positive 822 -CSF-no fungal elements seen, WBC 0 -CSF AFB stains negative -CSF-cryptococcal antigen negative -CSF VDRLnegative -Absolute CD4 count- 24 -Crypto serology negative -HIV resistance medication results-Efavirenz, Nevirapine -HAART 09/12 -begun per ID, Stribild Pancultured 09/08 of sputum, blood cultures, urine cultures. 09/08 sputum - +MSSA Abx per ID Endocrine: NIDDM per outside records from 2011 -Glucose monitoring per ICU protocol -- SSI low dose q6 hours MSK: - PT, OT -evaluate and treat -Continue functional maintenance daily Prophylaxis: GI Prophylaxis Protonix 40 mg IV daily DVT Prophylaxis -- SCDs, Heparin 5000u SQ BID Lines: Peripheral IV's x 2. RIJ central line 09/07 Dr. Jara # 7 (discontinued 09/14) Dispo: Case management consulted for discharge planning. Level 3 Discussed with PHOSPHATIC FERTILIZER SUPERVISOR at bedside. Physician Cathy Miller MD Sep 16, 2016 18:14 Level 3 Discussed with PHOSPHATIC FERTILIZER SUPERVISOR at bedside. Discussed with Mrs. Reynaga all questions answered. Physician Cathy Miller MD Sep 16, 2016 18:14
--- NOTE | 2016-09-16 20:15 | HHI.GIFU ---
Subjective Remarks Comfortable in bed intubated has a trach tolerating tube feeds Objective Vitals I&O Vital Signs Date Time Temp Pulse Resp B/P Pulse Ox O2 Delivery O2 Flow Rate FiO2 09/16/16 18:00 78 09/16/16 16:24 100 30 09/16/16 16:00 30 09/16/16 16:00 88 09/16/16 16:00 99.8 88 19 141/89 100 09/16/16 14:00 86 09/16/16 12:18 100 30 09/16/16 12:00 99.2 86 13 153/96 100 09/16/16 12:00 30 09/16/16 12:00 86 09/16/16 10:00 84 09/16/16 08:43 100 30 09/16/16 08:40 30 09/16/16 08:00 76 09/16/16 08:00 99.4 76 14 117/71 100 09/16/16 08:00 30 09/16/16 06:00 82 09/16/16 05:05 100 30 09/16/16 04:00 30 09/16/16 04:00 81 09/16/16 04:00 98.8 81 23 115/71 100 09/16/16 02:00 78 09/16/16 00:50 100 30 09/16/16 00:00 30 09/16/16 00:00 77 09/16/16 00:00 98.8 79 30 94/58 100 09/15/16 22:00 82 09/15/16 21:38 100 30 I/O 09/15/16 09/15/16 09/15/16 09/16/16 09/16/16 09/16/16 07:00 15:00 23:00 07:00 15:00 23:00 Intake Total 762 ml 647 ml 545 ml 360 ml 493 ml Output Total 1000 ml 450 ml 450 ml 550 ml 500 ml Balance -238 ml 197 ml 95 ml -190 ml -7 ml Intake Oral 0 ml 0 ml 0 ml IV Total 242 ml 80 ml 60 ml 0 ml 0 ml Tube Feeding 400 ml 447 ml 425 ml 300 ml 433 ml Tube Irrigant 60 ml Other 120 ml 120 ml 60 ml 60 ml Output Urine Total 1000 ml 450 ml 450 ml 550 ml 500 ml Stool Total 0 ml 0 ml 0 ml # Bowel Movements 2 0 Physical Exam CHEST: Chest is clear to auscultation and percussion. CARDIAC: Regular rate and rhythm with no murmur gallop or rubs. ABDOMEN: Soft, nondistended, nontender; PEG site clean no hepatosplenomegaly; bowel sounds are present in all four quadrants. EXTREMITIES: No clubbing, cyanosis, or edema. Assessment and Plan Plan ASSESSMENT: - Dysphagia, FEN. Pt in ICU, requiring mechanical ventilation, being treated for possible PML, recent CVA, respiratory failure, AIDS, DM. GI consulted for feeding tube placement. D/W family EGD with PEG tube placement- procedure, risks, and benefits and their questions were answered. The order detailer is following and has recommended Jevity 1.5 at a goal rate of 65c/hr. PLAN: -PEG site clean patient tolerating tube feeds - GI will sign off Basil Garza MD Sep 16, 2016 20:15
[2016-09-16] MEDS: ATORVASTATIN 10 MG TAB PO SCH (21:26)
[2016-09-16] MEDS: HEPARIN SODIUM - SQ 10,000 UNITS/ML VIAL SQ SCH (21:27)
[2016-09-16] MEDS: CHLORHEXIDINE GLUCONATE 2 % 1 PACK (2 CLOTHS) TOP SCH (21:27)
[2016-09-17] VITALS (17 sets, daily range): BP systolic 95–130; BP diastolic 66–83; PULSE 7–108; RESP 14–26; TEMP 98.5–99.5; O2SAT 99–100
[2016-09-17] MEDS: SODIUM CHLOR 0.9% 1000 ML INJ 1,000 ML IV SCH (02:40)
[2016-09-17 05:10] LABS: BLOOD GAS BASE EXCESS 4.6 mmol/L (-2-2); BLOOD GAS CARBOXYHEMOGLOBIN 1.5 % (0-4); BLOOD GAS HCO3 28 mmol/L (22-26); BLOOD GAS METHEMOGLOBIN 0.4 % (0-2); BLOOD GAS O2 HGB SATURATION 97 % (90-100); BLOOD GAS PCO2 41 mmHg (38-42); BLOOD GAS PO2 131 mmHg (61-120); BLOOD GAS TOTAL HGB 9.3 G/DL (12.0-16.0); CRITICAL VALUE NO; OXYGEN DEVICE VENTILATOR; TEMP CORR TO 98.6; VENT SETTINGS PRVC/AC
[2016-09-17 05:11] LABS: DRAW SITE RT RADIAL; FIO2 30 %; NUMBER OF ARTERIAL PUNCTURES 1; STAT NO; ULNAR PULSE PRESENT
[2016-09-17 05:30] LABS: HEMATOCRIT 24.7 % (39.0-51.0); MEAN CELL VOLUME 92.2 FL (80.0-100.0); MEAN CORPUSCULAR HEMOGLOBIN 30.5 PG (27.0-34.0); MEAN CORPUSCULAR HGB CONC 33.1 % (32.0-36.0); PLATELET COUNT 200 TH/MM3 (150-450); RED BLOOD COUNT 2.68 MIL/MM3 (4.50-5.90); RED CELL DISTRIBUTION WIDTH 14.2 % (11.6-17.2); REVIEW FLAG FINAL; WHITE BLOOD COUNT 3.5 TH/MM3 (4.0-11.0)
[2016-09-17 05:38] LABS: BICARBONATE 30.1 MEQ/L (21.0-32.0); POTASSIUM 3.7 MEQ/L (3.5-5.1)
[2016-09-17] MEDS: SULFAMETHOXAZOLE-TRIMETHOPRIM 800-160 MG/20 ML UDC PO SCH (09:58)
[2016-09-17] MEDS: HEPARIN SODIUM - SQ 10,000 UNITS/ML VIAL SQ SCH ×2 (09:58→21:43)
[2016-09-17] MEDS: CEFUROXIME AXETIL 500 MG TAB PO SCH ×2 (09:58→21:44)
[2016-09-17] MEDS: ELVIT/COBI/EMTR/TENOF 150/150/200/300 MG TABLETS PO SCH (09:58)
[2016-09-17] MEDS: SENNOSIDES SYRUP 8.8 MG/5 ML CUP PO SCH ×2 (09:58→21:44)
[2016-09-17] MEDS: PANTOPRAZOLE SODIUM 40 MG VIAL IV SCH (09:58)
[2016-09-17] MEDS: LACTULOSE SYRUP 20 GM/30 ML CUP PO SCH (09:58)
[2016-09-17] MEDS: DOCUSATE SODIUM 100 MG/10 ML UDC PO SCH ×2 (09:58→21:44)
[2016-09-17] MEDS: SODIUM CHLORIDE 0.9% FLUSH 5 ML FLUSH IV FLUSH SCH ×2 (09:59→21:44)
--- NOTE | 2016-09-17 13:43 | HHI.CCPN ---
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 The patient was placed on heparin and transitioned to Coumadin. The patient was subsequently transferred to [facility]. A Halicat was called, followed by stroke alert noting per RN, neurological changes. The nurse and Dr. Nguyen usually common at that the patient was a phasic, nonresponsive, with a left-sided gaze. Dr. Schroeder, neurologist was notified, CT scan was obtained and results are now pending. Per Dr. Vallejo, the patient is status post CVA on08/17/2016 and is not a candidate for TPA. The patient's previous medications per medical records were warfarin, docusate and atorvastatin. Critical care medicine was consulted for treatment and management. Upon presentation to the ICU, the patient was noted to have vertical and lateral nystagmus, aphasic,. The patient was able to follow commands, motor strength was noted to be 4/5 right upper and lower extremity with normal motor strength left upper and lower extremity. 09/03: Overnight, the patient began to verbalize significant dysarthria noted, but improved from yesterday's initial evaluation. Concern for patient to manage secretions still a concern, the patient continues to be NPO. Patient now has lateral nystagmus, motor exam unchanged. Neurology was consulted yesterday, MRI obtained. Subsequent imaging studies were performed last evening. Patient is scheduled for lumbar puncture this a.m. per neurosurgery for CSF evaluation. The patient is noted to have leukopenia, and a history of G6PD deficiency hematology and oncology were consulted. Request for outside medical records from the patient's offal worker was obtained, awaiting records. Administration of steroids were initiated last evening. 09/04: Steroids discontinued. No change in neurological evaluation, examination. Speech therapy consulted, patient continues on honey thick liquids , tolerated PO diet well yesterday. CSF results pending, no fungal elements were noted. Preliminary HIV reflex test positive, awaiting final confirmation. 09/05: No change in status. Tolerating PO diet. 09/06: Overnight the patient was noted to have increased difficulty managing secretions. Repeat formal speech swallow study noted that the patient failed this a.m.. The patient was placed on nothing by mouth status. HIV-1 antibody tests confirmed. Other studies still pending. The patient's family in the presence of a Polysomnography Technician, with family holding and guiding the patient's hand , signed a POA. The patient was not competent to complete the document or answer questions at thus time. The family was informed that the document was not valid due to the fact the patient had altered mental status and could not freely communicate on his own, and sign the document. Informed that the patient 's would be appropriate and making the decisions for the patient and the POA document was null and void. 09/07: The patient became hypotensive last evening, with systolic blood pressures 60s. The patient was intubated, central line was placed, and the patient was placed on vasopressor support norepinephrine.CD4 count low, prophylactic and empiric antibiotics started per ID, Dr. Mccracken. 09/09 Remains on mechanical ventilation, on levophed 9 mcg/min. UOP 200 overnight but now 250/hr last 2 hours. Has some sediment in Mayer tubing, may have been partially obstructed. Creatinine normal. at bedside. Afebrile. CSF bacterial cultures negative. CSF CINDY virus pending. Remaining pancultures from 09/08 pending. Afebrile. Reviewed records from Dr. Fuentes/Dr. Denise on chart. Had chronic leukopenia. HIV testing 2002, 2005 negative. Had chlamydia 2002 tells me he had not seen ID as an outpatient. She states he has not seen Dr. Fuentes in several years (most recent records appear to be from 2011) Subjective: 09/10 Tolerating CPAP during day. Levophed off vs low dose (2-3 mcg/min) depending on sedation. Dobhoff clogged, replaced with NGT. CSF CINDY virus pending 09/11 Levophed off since 1899 last evening. MAP ranges 05077. Sputum culture returned staph aureus. The patient was maintained on CPAP for 12 hours yesterday. CSF CINDY virus pending. 09/12 Tmax 99.6 .Hemodynamically stable. Coordination for tracheostomy and PEG placement for possibly or Sunday. HIV resistance labs resulted overnight, with resistance to Efavirenz,Nevirapine. CSF CINDY virus pending. 09/13 The patient is awake, continues to tolerate CPAP . Plan today for PEG placement per GI. HAART medications begun yesterday per ID. 09/14 The patient underwent percutaneous tracheostomy this a.m. under moderate sedation, Dr. Munguia. Patient to resume tube feeds today. Case management coordination with discharge planning. The patient remains hemodynamically stable. Central line discontinued. 09/15 Tmax 100.3. The patient was noted to have urinary retention and required placement of the Mayer catheter. The patient is responding when off sedation. 09/16 The patient continues to perform extended on CPAP trials, planned for trach collar trials in a.m.. The patient's following commands with eye movement and squeezing left hand. CINDY Virus results returned positive. 09/17 No acute events overnight. CPAP trials continued, will begin trach collar trials this morning. Objective Vital Signs Date Time Temp Pulse Resp B/P Pulse Ox O2 Delivery O2 Flow Rate FiO2 09/17/16 12:19 100 30 09/17/16 06:00 77 09/17/16 04:00 98.5 14 126/73 Intake and Output 09/16/16 09/16/16 09/17/16 08:00 16:00 00:00 Intake Total 360 ml 493 ml 745 ml Output Total 550 ml 500 ml 550 ml Balance -190 ml -7 ml 195 ml Result Diagram: 09/17/16 0454 09/17/16 0454 Other Results Laboratory Tests Test 09/17/16 04:59 Blood Gas Puncture Site RT RADIAL Blood Gas Patient Temperature 98.6 Blood Gas HCO3 28 mmol/L (22-26) Blood Gas Base Excess 4.6 mmol/L (-2-2) Blood Gas Oxygen Saturation 97 % (90-100) Arterial Blood pH 7.46 (7.380-7.420) Arterial Blood Partial 41 mmHg (38-42) Pressure CO2 Arterial Blood Partial 131 mmHg Pressure O2 (61-120) Arterial Blood Oxygen Content 13.0 Vol % (12.0-20.0) Arterial Blood 1.5 % (0-4) Carboxyhemoglobin Arterial Blood Methemoglobin 0.4 % (0-2) Blood Gas Hemoglobin 9.3 G/DL (12.0-16.0) Oxygen Delivery Device VENTILATOR Blood Gas Ventilator Setting PRVC/AC Blood Gas Inspired Oxygen 30 % Imaging Last Impressions Chest X-Ray 09/14/16 0000 Signed Impressions: Service Date/Time: September 11:18 - CONCLUSION: Tracheostomy tube now in place. Atelectasis versus mild consolidation now seen at the right lung base. Bry Delaney MD Upper Extremity Ultrasound 09/08/16 0000 Signed Impressions: Service Date/Time: Thursday, September 08, 2016 19:22 - CONCLUSION: Normal examination. Michael Rosas Jr., MD Lower Extremity Ultrasound 09/08/16 0000 Signed Impressions: Service Date/Time: Thursday, September 08, 2016 18:57 - CONCLUSION: Normal examination. Michael Rosas Jr., MD Head CT 09/07/16 0000 Signed Impressions: Service Date/Time: August 13:04 - CONCLUSION: Stable exam. Aurora Liz MD Abdomen X-Ray 09/06/16 Signed Impressions: Service Date/Time: Tuesday, September 06, 2016 20:55 - CONCLUSION: Feeding tube in place as described. Ryland Malone MD Neck CTA 09/03/16 Signed Impressions: Service Date/Time: Saturday, September 03, 2016 20:21 - CONCLUSION: Normal examination. Marcio Zamorano MD Head CTA 09/03/16 0000 Signed Impressions: Service Date/Time: Saturday, September 03, 2016 20:21 - CONCLUSION: Negative CTA of the head. Marcio Zamorano MD Brain MRI 09/03/16 Signed Impressions: Service Date/Time: Saturday, September 03, 2016 20:34 - CONCLUSION: Areas of low signal in the edi, right cerebellar peduncle and right cerebellar hemisphere. Marcio Zamorano MD Last Impressions Upper Extremity Ultrasound 09/08/16 0000 Signed Impressions: Service Date/Time: Thursday, September 08, 2016 19:22 - CONCLUSION: Normal examination. Michael Rosas Jr., MD Lower Extremity Ultrasound 09/08/16 0000 Signed Impressions: Service Date/Time: Thursday, September 08, 2016 18:57 - CONCLUSION: Normal examination. Michael Rosas Jr., MD Chest X-Ray 09/07/16 0600 Signed Impressions: Service Date/Time: August 02:47 - CONCLUSION: No focal or acute pulmonary infiltrates. No significant change. Colin Denny MD Head CT 09/07/16 0000 Signed Impressions: Service Date/Time: August 13:04 - CONCLUSION: Stable exam. Aurora Liz MD Abdomen X-Ray 09/06/16 0000 Signed Impressions: Service Date/Time: Tuesday, September 06, 2016 20:55 - CONCLUSION: Feeding tube in place as described. Ryland Malone MD Neck CTA 09/03/16 0000 Signed Impressions: Service Date/Time: Saturday, September 03, 2016 20:21 - CONCLUSION: Normal examination. Marcio Zamorano MD Head CTA 09/03/16 0000 Signed Impressions: Service Date/Time: Saturday, September 03, 2016 20:21 - CONCLUSION: Negative CTA of the head. Marcio Zamorano MD Brain MRI 09/03/16 0000 Signed Impressions: Service Date/Time: Saturday, September 03, 2016 20:34 - CONCLUSION: Areas of low signal in the edi, right cerebellar peduncle and right cerebellar hemisphere. Marcio Zamorano MD Objective Remarks Drips: Propofol 15 mcg/kg/min 0.9 NaCl at 10 mL per hour GENERAL: Well-nourished well-developed male, 8.0 Shiley tracheostomy GCS 11 T SKIN: Warm and dry. HEAD: Atraumatic. Normocephalic. EYES: Pupils equal and round. 3 mm and reactive bilaterally .No scleral icterus. No injection or drainage. ENT: No nasal bleeding or discharge. Mucous membranes pink and moist. Orotracheally intubated NECK: Trachea midline. No JVD. No erythema bleeding noted around tracheostomy site CARDIOVASCULAR: Normal rate, regular rhythm. RESPIRATORY: Coarse breath sounds throughout lung rouse. Breath sounds equal bilaterally. GASTROINTESTINAL: Abdomen soft, non-tender, nondistended. Bowel sounds present No guarding. Normoactive bowel sounds. Tube feeds infusing via NGT, tolerating without residuals. : Condom catheter not draining, replace with Mayer secondary to urinary retention MUSCULOSKELETAL: Extremities without clubbing, cyanosis, or edema. No obvious deformities. NEUROLOGICAL: Eyes open to voice, not squeezing my hands this a.m. . 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 Valljeo following-Methylprednisone discontinued 09/05. Hold off on further steroids until brain biopsy. -PML - CINDY virus PCR positive, confirms PML. 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 Restricted diffusion indicating suggesting ischemia left edi -MRI w/contrast 09/03-areas of low signal in edi, right cerebellar peduncle and right cerebellar hemisphere -Neurosurgery following Dr. Cedeño -Repeat CT brain09/07-stable exam -CSF workup as per below with ID. CSF cytology negative. Respiratory: Acute respiratory failure Percutaneous tracheostomy 09/14/16 -Intubated 09/07/16 for airway protection -Maintain O2 sat greater than 92% -Maintain head of bed elevation 30 -Sedation vacation per ICU protocol. -Ventilator bundle -Bronchodilators scheduled every 6 hours, every 2 when necessary -09/14 S/P Percutaneous tracheostomy Dr. Munguia -Begin [facility] collar trials Cardiovascular: Dyslipidemia (elevated LDL, hypertriglyceridemia, low HDL) H/O HTN Hypotension secondary to sedation/hypovolemia, ?sepsis-resolved -Levophed discontinued 09/10 - Maintain MAP >65 mmHg -Continue atorvastatin 10 by mouth daily at bedtime. Monitoring LFTS -Patient previously on ASA dc'd secondary to G6PD deficiency -Coumadin (on hold), Hematology Dr. Pelletier following. Renal: Urinary retention -No acute issues -Placement of Mayer catheter secondary to urinary retention (09/16) -Monitor BMP and Strict I/Os GI: Mild protein calorie malnutrition -Tube feeds Peptamin AF 1.5 @ 65/hr -Replete electrolytes per ICU protocol -Zofran for nausea -Protonix for GI prophylaxis -Last BM 09/17 -S/P PEG placement 09/13- Dr Saldaña, GI Signed off 09/16. Heme/ID G6PD deficiency -HematologyOncology- Dr. Patrick Pelletier-no therapeutic anticoagulation recommended at this time, dicuss resumption , since positive for PML -Previous hypercoagulable studies were noted. 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 Request for medical records sent to patient's personal offal worker, Dr. Denise, for additional information. -per hematology this heterozygous state does not confer high risk of thrombosis. Eventually would need anticoagulation for stroke. --Venous Doppler ultrasounds bilateral upper and lower extremities09/08-negative -CSF cytology negative 09/04 Leukopenia AIDS PML -HIV Ab 1 09/05-confirmed positive - RPR-negative -[id number] -CSF-CINDY virus-positive 822 -CSF-no fungal elements seen, WBC 0 -CSF AFB stains negative -CSF-cryptococcal antigen negative -CSF VDRLnegative -Absolute CD4 count- -Crypto serology negative -HIV resistance medication results-Efavirenz, Nevirapine -HAART 09/12 -begun per ID, Stribild Pancultured 09/08 of sputum, blood cultures, urine cultures. 09/08 sputum - +MSSA Abx per ID Endocrine: NIDDM per outside records from 2011 -Glucose monitoring per ICU protocol -- SSI low dose q6 hours MSK: - PT, OT -evaluate and treat -Continue functional maintenance daily Prophylaxis: GI Prophylaxis D/C Protonix 40 mg IV daily, Pepcid 20mg BID per GT DVT Prophylaxis -- SCDs, Heparin 5000u SQ BID Lines: Peripheral IV's x 2 Dispo: Level 3 Discussed with Mrs. Reynaga and PURE PAK MACHINE OPERATOR at bedside. Mrs. Reynaga is in the process of selection of rehabilitation center Physician Cathy Miller MD Sep 17, 2016 13:43 Cathy Henning MD Sep 17, 2016 13:43
[2016-09-17] MEDS: ATORVASTATIN 10 MG TAB PO SCH (21:44)
[2016-09-17] MEDS: FAMOTIDINE 20 MG TAB NG SCH (21:44)
[2016-09-18] VITALS (14 sets, daily range): BP systolic 112–147; BP diastolic 70–97; PULSE 79–98; RESP 14–20; TEMP 98.7–100.1; O2SAT 98–100
[2016-09-18] MEDS: CHLORHEXIDINE GLUCONATE 2 % 1 PACK (2 CLOTHS) TOP SCH (04:00)
[2016-09-18] MEDS: SULFAMETHOXAZOLE-TRIMETHOPRIM 800-160 MG/20 ML UDC PO SCH (08:33)
[2016-09-18] MEDS: SODIUM CHLORIDE 0.9% FLUSH 5 ML FLUSH IV FLUSH SCH ×2 (08:34→21:00)
[2016-09-18] MEDS: FAMOTIDINE 20 MG TAB NG SCH ×2 (08:34→21:27)
[2016-09-18] MEDS: SENNOSIDES SYRUP 8.8 MG/5 ML CUP PO SCH ×2 (08:34→21:27)
[2016-09-18] MEDS: DOCUSATE SODIUM 100 MG/10 ML UDC PO SCH ×2 (08:34→21:27)
[2016-09-18] MEDS: CEFUROXIME AXETIL 500 MG TAB PO SCH (08:34)
[2016-09-18] MEDS: HEPARIN SODIUM - SQ 10,000 UNITS/ML VIAL SQ SCH ×2 (08:34→21:27)
[2016-09-18] MEDS: ELVIT/COBI/EMTR/TENOF 150/150/200/300 MG TABLETS PO SCH (09:00)
--- NOTE | 2016-09-18 09:38 | HHI.CCPN ---
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 The patient was placed on heparin and transitioned to Coumadin. The patient was subsequently transferred to [facility]. A Halicat was called, followed by stroke alert noting per RN, neurological changes. The nurse and Dr. Nguyen usually common at that the patient was a phasic, nonresponsive, with a left-sided gaze. Dr. Schroeder, neurologist was notified, CT scan was obtained and results are now pending. Per Dr. Vallejo, the patient is status post CVA on08/17/2016 and is not a candidate for TPA. The patient's previous medications per medical records were warfarin, docusate and atorvastatin. Critical care medicine was consulted for treatment and management. Upon presentation to the ICU, the patient was noted to have vertical and lateral nystagmus, aphasic,. The patient was able to follow commands, motor strength was noted to be 4/5 right upper and lower extremity with normal motor strength left upper and lower extremity. 09/03: Overnight, the patient began to verbalize significant dysarthria noted, but improved from yesterday's initial evaluation. Concern for patient to manage secretions still a concern, the patient continues to be NPO. Patient now has lateral nystagmus, motor exam unchanged. Neurology was consulted yesterday, MRI obtained. Subsequent imaging studies were performed last evening. Patient is scheduled for lumbar puncture this a.m. per neurosurgery for CSF evaluation. The patient is noted to have leukopenia, and a history of G6PD deficiency hematology and oncology were consulted. Request for outside medical records from the patient's roving teller was obtained, awaiting records. Administration of steroids were initiated last evening. 09/04: Steroids discontinued. No change in neurological evaluation, examination. Speech therapy consulted, patient continues on honey thick liquids , tolerated PO diet well yesterday. CSF results pending, no fungal elements were noted. Preliminary HIV reflex test positive, awaiting final confirmation. 09/05: No change in status. Tolerating PO diet. 09/06: Overnight the patient was noted to have increased difficulty managing secretions. Repeat formal speech swallow study noted that the patient failed this a.m.. The patient was placed on nothing by mouth status. HIV-1 antibody tests confirmed. Other studies still pending. The patient's family in the presence of a Lasting Machine Operator, with family holding and guiding the patient's hand , signed a POA. The patient was not competent to complete the document or answer questions at thus time. The family was informed that the document was not valid due to the fact the patient had altered mental status and could not freely communicate on his own, and sign the document. Informed that the patient 's would be appropriate and making the decisions for the patient and the POA document was null and void. 09/07: The patient became hypotensive last evening, with systolic blood pressures 60s. The patient was intubated, central line was placed, and the patient was placed on vasopressor support norepinephrine.CD4 count low, prophylactic and empiric antibiotics started per ID, Dr. Mccracken. 09/09 Remains on mechanical ventilation, on levophed 9 mcg/min. UOP 200 overnight but now 250/hr last 2 hours. Has some sediment in Mayer tubing, may have been partially obstructed. Creatinine normal. at bedside. Afebrile. CSF bacterial cultures negative. CSF CINDY virus pending. Remaining pancultures from 09/08 pending. Afebrile. Reviewed records from Dr. Fuentes/Dr. Denise on chart. Had chronic leukopenia. HIV testing 2002, 2005 negative. Had chlamydia 2002 tells me he had not seen ID as an outpatient. She states he has not seen Dr. Fuentes in several years (most recent records appear to be from 2011) Subjective: 09/10 Tolerating CPAP during day. Levophed off vs low dose (2-3 mcg/min) depending on sedation. Dobhoff clogged, replaced with NGT. CSF CINDY virus pending 09/11 Levophed off since 1899 last evening. MAP ranges [id number]. Sputum culture returned staph aureus. The patient was maintained on CPAP for 12 hours yesterday. CSF CINDY virus pending. 09/12 Tmax 99.6 .Hemodynamically stable. Coordination for tracheostomy and PEG placement for possibly or Sunday. HIV resistance labs resulted overnight, with resistance to Efavirenz,Nevirapine. CSF CINDY virus pending. 09/13 The patient is awake, continues to tolerate CPAP . Plan today for PEG placement per GI. HAART medications begun yesterday per ID. 09/14 The patient underwent percutaneous tracheostomy this a.m. under moderate sedation, Dr. Munguia. Patient to resume tube feeds today. Case management coordination with discharge planning. The patient remains hemodynamically stable. Central line discontinued. 09/15 Tmax 100.3. The patient was noted to have urinary retention and required placement of the Mayer catheter. The patient is responding when off sedation. 09/16 The patient continues to perform extended on CPAP trials, planned for trach collar trials in a.m.. The patient's following commands with eye movement and squeezing left hand. CINDY Virus results returned positive. 09/17 No acute events overnight. CPAP trials continued, will begin trach collar trials this morning. 09/18 The patient continues on trach collar since 6 PM last evening. Objective Vital Signs Date Time Temp Pulse Resp B/P Pulse Ox O2 Delivery O2 Flow Rate FiO2 09/18/16 08:56 98 T-piece 40 09/18/16 06:00 98 09/18/16 04:00 99.0 20 140/88 Intake and Output 09/17/16 09/17/16 09/18/16 08:00 16:00 00:00 Intake Total 495 ml 507 ml 620 ml Output Total 500 ml 451 ml 500 ml Balance -5 ml 56 ml 120 ml Result Diagram: 09/17/16 0454 09/17/16 0454 Imaging Last Impressions Chest X-Ray 09/14/16 0000 Signed Impressions: Service Date/Time: September 11:18 - CONCLUSION: Tracheostomy tube now in place. Atelectasis versus mild consolidation now seen at the right lung base. Bry Delaney MD Upper Extremity Ultrasound 09/08/16 0000 Signed Impressions: Service Date/Time: Thursday, September 08, 2016 19:22 - CONCLUSION: Normal examination. Michael Rosas Jr., MD Lower Extremity Ultrasound 09/08/16 0000 Signed Impressions: Service Date/Time: Thursday, September 08, 2016 18:57 - CONCLUSION: Normal examination. Michael Rosas Jr., MD Head CT 09/07/16 0000 Signed Impressions: Service Date/Time: August 13:04 - CONCLUSION: Stable exam. Aurora Liz MD Abdomen X-Ray 09/06/16 0000 Signed Impressions: Service Date/Time: Tuesday, September 06, 2016 20:55 - CONCLUSION: Feeding tube in place as described. Ryland Malone MD Neck CTA 09/03/16 0000 Signed Impressions: Service Date/Time: Saturday, September 03, 2016 20:21 - CONCLUSION: Normal examination. Marcio Zamorano MD Head CTA 09/03/16 0000 Signed Impressions: Service Date/Time: Saturday, September 03, 2016 20:21 - CONCLUSION: Negative CTA of the head. Marcio Zamorano MD Brain MRI 09/03/16 0000 Signed Impressions: Service Date/Time: Saturday, September 03, 2016 20:34 - CONCLUSION: Areas of low signal in the edi, right cerebellar peduncle and right cerebellar hemisphere. Marcio Zamorano MD Last Impressions Upper Extremity Ultrasound 09/08/16 0000 Signed Impressions: Service Date/Time: Thursday, September 08, 2016 19:22 - CONCLUSION: Normal examination. Michael Rosas Jr., MD Lower Extremity Ultrasound 09/08/16 0000 Signed Impressions: Service Date/Time: Thursday, September 08, 2016 18:57 - CONCLUSION: Normal examination. Michael Rosas Jr., MD Chest X-Ray 09/07/16 0600 Signed Impressions: Service Date/Time: August 02:47 - CONCLUSION: No focal or acute pulmonary infiltrates. No significant change. Colin Denny MD Head CT 09/07/16 0000 Signed Impressions: Service Date/Time: August 13:04 - CONCLUSION: Stable exam. Aurora Liz MD Abdomen X-Ray 09/06/16 0000 Signed Impressions: Service Date/Time: Tuesday, September 06, 2016 20:55 - CONCLUSION: Feeding tube in place as described. Ryland Malone MD Neck CTA 09/03/16 0000 Signed Impressions: Service Date/Time: Saturday, September 03, 2016 20:21 - CONCLUSION: Normal examination. Marcio Zamorano MD Head CTA 09/03/16 0000 Signed Impressions: Service Date/Time: Saturday, September 03, 2016 20:21 - CONCLUSION: Negative CTA of the head. Marcio Zamorano MD Brain MRI 09/03/16 0000 Signed Impressions: Service Date/Time: Saturday, September 03, 2016 20:34 - CONCLUSION: Areas of low signal in the edi, right cerebellar peduncle and right cerebellar hemisphere. Marcio Zamorano MD Objective Remarks Drips: Propofol 15 mcg/kg/min 0.9 NaCl at 10 mL per hour GENERAL: Well-nourished well-developed male, 8.0 Shiley tracheostomy GCS 11 T SKIN: Warm and dry. HEAD: Atraumatic. Normocephalic. EYES: Pupils equal and round. 3 mm and reactive bilaterally .No scleral icterus. No injection or drainage. ENT: No nasal bleeding or discharge. Mucous membranes pink and moist. Orotracheally intubated NECK: Trachea midline. No JVD. No erythema bleeding noted around tracheostomy site CARDIOVASCULAR: Normal rate, regular rhythm. RESPIRATORY: Coarse breath sounds throughout lung rouse. Breath sounds equal bilaterally. GASTROINTESTINAL: Abdomen soft, non-tender, nondistended. Bowel sounds present No guarding. Normoactive bowel sounds. Tube feeds infusing via NGT, tolerating without residuals. : Condom catheter not draining, replace with Mayer secondary to urinary retention MUSCULOSKELETAL: Extremities without clubbing, cyanosis, or edema. No obvious deformities. NEUROLOGICAL: Eyes open to voice, not squeezing my hands this a.m. . Urinary Catheter: Yes Mayer insert reason: Obstruction/Retention Date of Insertion: Sep 07, 2016 Vascular Central Line Catheter: No Date of Insertion: Sep 07, 2016 Date of Removal: Sep 14, 2016 Side: Right Location: Internal, Jugular (CVP monitoring and vasoactive medication administration) A/P Assessment and Plan Neurologic: S/P CVA-right cerebral infarct 08/17 PML Dysarthria Aphasia CN palsies , VII, IX, X, -GCS 11 T , no sedation -The patient has bulbar palsies with dysphagia resulting in poor airway protection is S/P tracheostomy -Neurology Dr. Vallejo following-Methylprednisone discontinued 09/05. Await neurology recommendation for resumption of steroids. -PML - CINDY virus PCR positive, confirms PML. 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 Restricted diffusion indicating suggesting ischemia left edi -MRI w/contrast 09/03-areas of low signal in edi, right cerebellar peduncle and right cerebellar hemisphere -Neurosurgery following Dr. Cedeño -Repeat CT brain09/07-stable exam Respiratory: Acute respiratory failure Percutaneous tracheostomy 09/14/16 -Intubated 09/07/16 for airway protection -Maintain O2 sat greater than 92% -Maintain head of bed elevation 30 -Ventilator bundle -Bronchodilators scheduled every 6 hours, every 2 when necessary -2/ S/P Percutaneous tracheostomy Dr. Munguia 09/18/16 trach collar trials Cardiovascular: Dyslipidemia (elevated LDL, hypertriglyceridemia, low HDL) H/O HTN Hypotension secondary to sedation/hypovolemia, ?sepsis-resolved -Levophed discontinued 09/10 - Maintain MAP >65 mmHg -Continue atorvastatin 10 by mouth daily at bedtime. Monitoring LFTS -Patient previously on ASA dc'd secondary to G6PD deficiency -Coumadin (on hold), Hematology Dr. Pelletier following. Renal: Urinary retention -No acute issues -Placement of Mayer catheter secondary to urinary retention (09/16) -Monitor BMP and Strict I/Os GI: Mild protein calorie malnutrition -Tube feeds Peptamin AF 1.5 @ 65/hr -Replete electrolytes per ICU protocol -Zofran for nausea -Protonix for GI prophylaxis -Last BM 09/17 -S/P PEG placement 09/13- Dr Saldaña, GI Signed off 09/16. Heme/ID G6PD deficiency -HematologyOncology- Dr. Patrick Pelletier-no therapeutic anticoagulation recommended at this time, dicuss resumption , since positive for PML -Previous hypercoagulable studies were noted. 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 Request for medical records sent to patient's personal roving teller, Dr. Denise, for additional information. -per hematology this heterozygous state does not confer high risk of thrombosis. Eventually would need anticoagulation for stroke. --Venous Doppler ultrasounds bilateral upper and lower extremities09/08-negative -CSF cytology negative 09/04 Leukopenia AIDS PML -HIV Ab 1 09/05-confirmed positive - RPR-negative -OSP-HOV-meotxpqw -CSF-CINDY virus-positive 822 -CSF-no fungal elements seen, WBC 0 -CSF AFB stains negative -CSF-cryptococcal antigen negative -CSF VDRLnegative -Absolute CD4 count- 24 -Crypto serology negative -HIV resistance medication results-Efavirenz, Nevirapine -HAART 09/12 -begun per ID, Stribild Pancultured 09/08 of sputum, blood cultures, urine cultures. 09/08 sputum - +MSSA Abx per ID Endocrine: NIDDM per outside records from 2011 -Glucose monitoring per ICU protocol -- SSI low dose q6 hours MSK: - PT, OT -evaluate and treat -Continue functional maintenance daily Prophylaxis: GI Prophylaxis D/C Protonix 40 mg IV daily, Pepcid 20mg BID per GT DVT Prophylaxis -- SCDs, Heparin 5000u SQ BID Lines: Peripheral IV's x 2 Dispo: Level 2 Transfer to hospitalist. Discussed with Mrs. Reynaga and SPECIAL LOAN OFFICER at bedside. Bharat Reynaga is in the process of selection of rehabilitation center Physician Cathy Miller MD Sep 18, 2016 09:38
--- NOTE | 2016-09-18 13:04 | HHI.IDPN ---
Subjective Subjective Remarks Notes reviewed D/W RN S/P trach 2/2 S/P PEG 2 On T-piece this morning, doing well Occ temps 99-100 this weekend BP ok CSF CINDY (+), 882 HIV PCR - (+) HIV genotyping - reviewed; resistant to nevirapine and efavirenz His HSV is negative VZV negative RPR non-reactive CSF crypto negative CSF VDRL negative Serum crypto negative Hepatitis serology negative CD4 24 LATASHA negative Antibiotics Ceftin Stribild Bactrim and Zithromax prophylaxis Lines PIV Past Medical History Reviewed Allergies: Coded Allergies: No Known Allergies (Unverified , 08/16/16) Objective . Vital Signs Date Time Temp Pulse Resp B/P Pulse Ox O2 Delivery O2 Flow Rate FiO2 09/18/16 12:00 99.5 90 20 143/97 100 09/18/16 12:00 90 09/18/16 10:00 98 09/18/16 08:56 98 T-piece 40 09/18/16 08:00 97 09/18/16 08:00 100.1 97 20 140/85 98 09/18/16 06:00 98 09/18/16 04:00 95 09/18/16 04:00 40 09/18/16 04:00 99.0 95 20 140/88 99 09/18/16 02:00 95 09/18/16 00:00 40 09/18/16 00:00 98.7 94 14 130/80 99 09/18/16 00:00 90 09/17/16 22:00 92 09/17/16 21:10 99 T-piece 35 09/17/16 20:00 87 09/17/16 20:00 99.0 87 17 123/77 99 09/17/16 20:00 40 09/17/16 18:00 40 09/17/16 18:00 108 09/17/16 16:00 99.2 86 26 95/66 100 09/17/16 16:00 40 09/17/16 16:00 86 09/17/16 14:00 40 09/17/16 14:00 92 09/17/16 09/17/16 09/18/16 15:00 23:00 07:00 Intake Total 507 ml 620 ml 516 ml Output Total 451 ml 500 ml 600 ml Balance 56 ml 120 ml -84 ml Intake Oral 0 ml IV Total 0 ml 0 ml Tube Feeding 447 ml 560 ml 456 ml Other 60 ml 60 ml 60 ml Output Urine Total 450 ml 500 ml 600 ml Stool Total 1 ml 0 ml . Laboratory Tests Test 09/17/16 04:54 White Blood Count 3.5 TH/MM3 Red Blood Count 2.68 MIL/MM3 Hemoglobin 8.2 GM/DL Hematocrit 24.7 % Mean Corpuscular Volume 92.2 FL Mean Corpuscular Hemoglobin 30.5 PG Mean Corpuscular Hemoglobin 33.1 % Concent Red Cell Distribution Width 14.2 % Platelet Count 200 TH/MM3 Mean Platelet Volume 8.2 FL Laboratory Tests Test 09/17/16 04:54 Sodium Level 144 MEQ/L Potassium Level 3.7 MEQ/L Chloride Level 108 MEQ/L Carbon Dioxide Level 30.1 MEQ/L Anion Gap 6 MEQ/L Blood Urea Nitrogen 14 MG/DL Creatinine 0.71 MG/DL Estimat Glomerular Filtration 141 ML/MIN Rate Random Glucose 119 MG/DL Calcium Level 8.5 MG/DL Phosphorus Level 2.8 MG/DL Magnesium Level 2.0 MG/DL Imaging Chest X-Ray 09/14/16 0000 Signed Impressions: Service Date/Time: September 11:18 - CONCLUSION: Tracheostomy tube now in place. Atelectasis versus mild consolidation now seen at the right lung base. Bry Delaney MD Chest X-Ray 09/07/16 0600 Signed Impressions: Service Date/Time: August 02:47 - CONCLUSION: No focal or acute pulmonary infiltrates. No significant change. Colin Denny MD Head CT 09/07/16 0000 Signed Impressions: Service Date/Time: August 13:04 - CONCLUSION: Stable exam. Aurora Liz MD Chest X-Ray 09/07/16 0000 Signed Impressions: Service Date/Time: August 20:52 - CONCLUSION: Satisfactory support line and tube positioning. Marcio Posey MD Abdomen X-Ray 09/06/16 0000 Signed Impressions: Service Date/Time: Tuesday, September 06, 2016 20:55 - CONCLUSION: Feeding tube in place as described. Ryland Malone MD Abdomen X-Ray 09/06/16 0000 Signed Impressions: Service Date/Time: Tuesday, September 06, 2016 15:12 - CONCLUSION: Feeding tube tip in the stomach Marcio Posey MD Chest X-Ray 09/05/16 0000 Signed Impressions: Service Date/Time: Monday, September 05, 2016 08:12 - CONCLUSION: 1. No acute cardiopulmonary disease. Mike Jordan MD Neck CTA 09/03/16 0000 Signed Impressions: Service Date/Time: Saturday, September 03, 2016 20:21 - CONCLUSION: Normal examination. Marcio Zamorano MD Head CTA 09/03/16 0000 Signed Impressions: Service Date/Time: Saturday, September 03, 2016 20:21 - CONCLUSION: Negative CTA of the head. Marcio Zamorano MD Brain MRI 09/03/16 0000 Signed Impressions: Service Date/Time: Saturday, September 03, 2016 20:34 - CONCLUSION: Areas of low signal in the edi, right cerebellar peduncle and right cerebellar hemisphere. Marcio Zamorano MD Physical Exam GENERAL: OPnes eyes when stimulated, on T-piece, not in distress SKIN: Warm and dry. No generalized rash HEENT: [place] conjunctivae. No scleral icterus. moist mucosa NECK: Trach site ok. Supple, nontender, no meningeal signs. CARDIOVASCULAR: Regular rate and rhythm without murmurs, gallops, or rubs. RESPIRATORY: Few rhonchi, decreased at bases GASTROINTESTINAL: Abdomen soft, non-tender, nondistended. Bowel sounds are present and normoactive. PEG site ok. No organomegaly. No guarding. MUSCULOSKELETAL: Extremities without clubbing, cyanosis, or edema. NEUROLOGICAL: Awake, focusing, PSYCH: Unable to assess LINE; PIV with no evidence of infection : Mayer in place, urine looks clear Assessment & Plan Remarks IMPRESSION R cerebellar mass, previous work-up (+) infarct, spectroscopy negative - due to PML Leukopenia, due to HIV HIV (+), AIDS, has CD4 24 - ?Previously been diagnosed to have HIV, there is some info that he had been on HIV meds (?) Shock, ?new infection, resolved Respiratory failure, S/P trach MSSA PMA Low grade temps RECOMMENDATION Continue Ceftin - end date ordered Continue HAART - Stribild UA and C/S Monitor temps Monitor progress Weaning per CCM D/W Christelle Ware MDb 6, 2017 13:04
[2016-09-18 19:58] LABS: BACTERIA, URINE FEW /hpf; BLOOD, URINE MOD (NEG); GLUCOSE,URINE NEG (NEG); KETONE, URINE NEG (NEG); MUCUS URINE FEW /lpf (OCC); NITRITE,URINE NEG (NEG); URINE COLOR YELLOW (YELLW/STRAW)
[2016-09-18 19:59] LABS: COMMENT (UR) CATH-CULTURE IND; CULTURE IF INDICATED CATH CULTURE IND
[2016-09-18] MEDS: ATORVASTATIN 10 MG TAB PO SCH (21:27)
[2016-09-19] VITALS (11 sets, daily range): BP systolic 105–145; BP diastolic 66–91; PULSE 82–96; RESP 10–21; TEMP 98.8–99.4; O2SAT 95–100
[2016-09-19] MEDS: CHLORHEXIDINE GLUCONATE 2 % 1 PACK (2 CLOTHS) TOP SCH (04:00)
[2016-09-19] MEDS: SENNOSIDES SYRUP 8.8 MG/5 ML CUP PO SCH (08:39)
[2016-09-19] MEDS: SULFAMETHOXAZOLE-TRIMETHOPRIM 800-160 MG/20 ML UDC PO SCH (08:39)
[2016-09-19] MEDS: DOCUSATE SODIUM 100 MG/10 ML UDC PO SCH (08:39)
[2016-09-19] MEDS: ELVIT/COBI/EMTR/TENOF 150/150/200/300 MG TABLETS PO SCH (08:39)
[2016-09-19] MEDS: FAMOTIDINE 20 MG TAB NG SCH (08:39)
[2016-09-19] MEDS: SODIUM CHLORIDE 0.9% FLUSH 5 ML FLUSH IV FLUSH SCH (08:40)
[2016-09-19] MEDS: HEPARIN SODIUM - SQ 10,000 UNITS/ML VIAL SQ SCH (08:40)
--- NOTE | 2016-09-19 12:53 | HHI.IDPN ---
Subjective Subjective Remarks Notes reviewed Has been on T-piece last 2 days S/P trach 2/2 S/P PEG 09/13 Occ temps 99-100 BP ok CSF CINDY (+), 882 Tolerating TF HIV PCR - (+) HIV genotyping - reviewed; resistant to nevirapine and efavirenz His HSV is negative VZV negative RPR non-reactive CSF crypto negative CSF VDRL negative Serum crypto negative Hepatitis serology negative CD4 24 LATASHA negative Antibiotics Stribild Bactrim and Zithromax prophylaxis Lines PIV Past Medical History Reviewed Allergies: Coded Allergies: No Known Allergies (Unverified , 08/16/16) Objective . Vital Signs Date Time Temp Pulse Resp B/P Pulse Ox O2 Delivery O2 Flow Rate FiO2 09/19/16 12:00 94 09/19/16 12:00 98.9 94 19 126/84 100 09/19/16 10:30 99 T-piece 35 09/19/16 10:00 82 09/19/16 08:00 99.0 92 21 108/68 99 09/19/16 08:00 92 09/19/16 06:00 96 09/19/16 05:00 99 T-piece 7.00 35 09/19/16 04:00 92 09/19/16 04:00 99.4 92 18 116/75 96 09/19/16 02:00 91 09/19/16 00:00 94 09/19/16 00:00 99.1 94 10 105/66 95 09/18/16 22:00 92 09/18/16 21:40 100 T-piece 7.00 40 09/18/16 20:00 99.2 81 17 112/70 100 09/18/16 20:00 86 09/18/16 18:00 98 09/18/16 16:00 87 09/18/16 16:00 99.5 87 14 147/95 100 09/18/16 14:00 79 09/18/16 09/18/16 09/19/16 15:00 23:00 07:00 Intake Total 604 ml 610 ml 507 ml Output Total 651 ml 500 ml 900 ml Balance -47 ml 110 ml -393 ml Tube Feeding 544 ml 550 ml 447 ml Other 60 ml 60 ml 60 ml Output Urine Total 650 ml 500 ml 900 ml Stool Total 1 ml 0 ml 0 ml . Microbiology Date/Time Procedure Status Source Growth 09/18/16 19:40 Urine Culture Received Urine Catheterized Urine Pending Imaging Chest X-Ray 09/14/16 0000 Signed Impressions: Service Date/Time: September 11:18 - CONCLUSION: Tracheostomy tube now in place. Atelectasis versus mild consolidation now seen at the right lung base. Bry Delaney MD Chest X-Ray 09/07/16 0600 Signed Impressions: Service Date/Time: August 02:47 - CONCLUSION: No focal or acute pulmonary infiltrates. No significant change. Colin Denny MD Head CT 09/07/16 0000 Signed Impressions: Service Date/Time: August 13:04 - CONCLUSION: Stable exam. Aurora Liz MD Chest X-Ray 09/07/16 0000 Signed Impressions: Service Date/Time: August 20:52 - CONCLUSION: Satisfactory support line and tube positioning. Marcio Posey MD Abdomen X-Ray 09/06/16 0000 Signed Impressions: Service Date/Time: Tuesday, September 06, 2016 20:55 - CONCLUSION: Feeding tube in place as described. Ryland Malone MD Abdomen X-Ray 09/06/16 0000 Signed Impressions: Service Date/Time: Tuesday, September 06, 2016 15:12 - CONCLUSION: Feeding tube tip in the stomach Marcio Posey MD Chest X-Ray 09/05/16 0000 Signed Impressions: Service Date/Time: Monday, September 05, 2016 08:12 - CONCLUSION: 1. No acute cardiopulmonary disease. Mike Jordan MD Neck CTA 09/03/16 0000 Signed Impressions: Service Date/Time: Saturday, September 03, 2016 20:21 - CONCLUSION: Normal examination. Marcio Zamorano MD Head CTA 09/03/16 0000 Signed Impressions: Service Date/Time: Saturday, September 03, 2016 20:21 - CONCLUSION: Negative CTA of the head. Marcio Zamorano MD Brain MRI 09/03/16 0000 Signed Impressions: Service Date/Time: Saturday, September 03, 2016 20:34 - CONCLUSION: Areas of low signal in the edi, right cerebellar peduncle and right cerebellar hemisphere. Marcio Zamorano MD Physical Exam GENERAL: Opens eyes when stimulated, on T-piece, not in distress SKIN: Warm and dry. No generalized rash HEENT: [place] conjunctivae. No scleral icterus. moist mucosa NECK: Trach site ok. Supple, nontender, no meningeal signs. CARDIOVASCULAR: Regular rate and rhythm without murmurs, gallops, or rubs. RESPIRATORY: Few rhonchi, decreased at bases GASTROINTESTINAL: Abdomen soft, non-tender, nondistended. Bowel sounds are present and normoactive. PEG site ok. No organomegaly. No guarding. MUSCULOSKELETAL: Extremities without clubbing, cyanosis, or edema. NEUROLOGICAL: Awake, focusing, PSYCH: Unable to assess LINE; PIV with no evidence of infection : Mayer in place, urine looks clear Assessment & Plan Remarks IMPRESSION R cerebellar mass, previous work-up (+) infarct, spectroscopy negative - due to PML Leukopenia, due to HIV HIV (+), AIDS, has CD4 24 - ?Previously been diagnosed to have HIV, there is some info that he had been on HIV meds (?) Shock, ?new infection, resolved Respiratory failure, S/P trach MSSA PNA, S/P Rx RECOMMENDATION Continue HAART - Stribild Continue prophylactic meds Monitor temps Monitor progress Spoke with and answered all her question D/W Christelle Ware MD Sep 19, 2016 12:53
--- NOTE | 2016-09-19 15:04 | HHI.PR ---
Subjective Remarks Follow up for acute stroke, acute respiratory failure. Objective Vitals Vital Signs Date Time Temp Pulse Resp B/P Pulse Ox O2 Delivery O2 Flow Rate FiO2 09/19/16 14:00 93 09/19/16 12:00 94 09/19/16 12:00 98.9 94 19 126/84 100 09/19/16 10:30 99 T-piece 35 09/19/16 10:00 82 09/19/16 08:00 99.0 92 21 108/68 99 09/19/16 08:00 92 09/19/16 06:00 96 09/19/16 05:00 99 T-piece 7.00 35 09/19/16 04:00 92 09/19/16 04:00 99.4 92 18 116/75 96 09/19/16 02:00 91 09/19/16 00:00 94 09/19/16 00:00 99.1 94 10 105/66 95 09/18/16 22:00 92 09/18/16 21:40 100 T-piece 7.00 40 09/18/16 20:00 99.2 81 17 112/70 100 09/18/16 20:00 86 09/18/16 18:00 98 09/18/16 16:00 87 09/18/16 16:00 99.5 87 14 147/95 100 I/O 09/18/16 09/18/16 09/18/16 09/19/16 09/19/16 09/19/16 07:00 15:00 23:00 07:00 15:00 23:00 Intake Total 516 ml 604 ml 610 ml 507 ml Output Total 600 ml 651 ml 500 ml 900 ml Balance -84 ml -47 ml 110 ml -393 ml Tube Feeding 456 ml 544 ml 550 ml 447 ml Other 60 ml 60 ml 60 ml 60 ml Output Urine Total 600 ml 650 ml 500 ml 900 ml Stool Total 0 ml 1 ml 0 ml 0 ml Result Diagram: 09/17/16 0454 09/17/16 0454 Date of Insertion: Sep 07, 2016 Date of Insertion: Sep 07, 2016 Date of Removal: Sep 14, 2016 Side: Right Location: Internal, Jugular (CVP monitoring and vasoactive medication administration) A/P Problem List: (1) CVA (cerebral vascular accident) ICD Code: I63.9 Status: Acute (2) Dysphagia ICD Code: R13.10 Status: Acute (3) Mild protein-calorie malnutrition ICD Code: E44.1 Status: Acute (4) Dyslipidemia ICD Code: E78.5 Status: Chronic Ryan Arthur DO Sep 19, 2016 15:04
--- NOTE | 2016-09-21 23:04 | HHI.DS ---
Discharge Summary Admission Date Sep 03, 2016 at 09:09 Discharge Date: Sep 21, 2016 Admitting Diagnosis Brainstem abnormality, cranial nerve palsy. 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 EGD with PEG 09/13/2016. Brief History - From Admission This is a 51-year-old male status post CVA with a sterile cerebellar hemispheric infarct on August 17, 2016 secondary to ischemic stroke. The patient was placed on heparin and transitioned to Coumadin. The patient was subsequently transferred to [facility]. A [place] cat was called, followed by stroke alert noting per RN, neurological changes. The nurse and Dr. Nguyen usually common at that the patient was a phasic, nonresponsive, with a left-sided gaze. Dr. Schroeder, neurologist was notified, CT scan was obtained and results are now pending. Per Dr. Schroeder, the patient is status post CVA on08/17/2016 and is not a candidate for TPA. The patient's previous medications per medical records were warfarin, docusate and atorvastatin. Critical care medicine was consulted for treatment and management. Upon presentation to the ICU, the patient was noted to have vertical and lateral nystagmus, aphasic,. The patient was able to follow commands, motor strength was noted to be 4/5 right upper and lower extremity with normal motor strength left upper and lower extremity. CBC/BMP: 09/17/16 0454 09/17/16 0454 Imaging Last Impressions Chest X-Ray 09/14/16 0000 Signed Impressions: Service Date/Time: September 11:18 - CONCLUSION: Tracheostomy tube now in place. Atelectasis versus mild consolidation now seen at the right lung base. Bry Delaney MD Upper Extremity Ultrasound 09/08/16 0000 Signed Impressions: Service Date/Time: Thursday, September 08, 2016 19:22 - CONCLUSION: Normal examination. Michael Rosas Jr., MD Lower Extremity Ultrasound 09/08/16 Signed Impressions: Service Date/Time: Thursday, September 08, 2016 18:57 - CONCLUSION: Normal examination. Michael Rosas Jr., MD Head CT 09/07/16 Signed Impressions: Service Date/Time: August 13:04 - CONCLUSION: Stable exam. Aurora Liz MD Abdomen X-Ray 09/06/16 Signed Impressions: Service Date/Time: Tuesday, September 06, 2016 20:55 - CONCLUSION: Feeding tube in place as described. Ryland Malone MD Neck CTA 09/03/16 Signed Impressions: Service Date/Time: Saturday, September 03, 2016 20:21 - CONCLUSION: Normal examination. Marcio Zamorano MD Head CTA 09/03/16 0000 Signed Impressions: Service Date/Time: Saturday, September 03, 2016 20:21 - CONCLUSION: Negative CTA of the head. Marcio Zamorano MD Brain MRI 09/03/16 Signed Impressions: Service Date/Time: Saturday, September 03, 2016 20:34 - CONCLUSION: Areas of low signal in the edi, right cerebellar peduncle and right cerebellar hemisphere. Marcio Zamorano MD PE at Discharge General: No acute distress. Heart: Regular rate and rhythm. No murmur. Lungs: Clear to auscultation bilaterally. No wheezes, rales, or rhonchi. Breathing is nonlabored. Abdomen: Soft, nontender, nondistended. Extremities: No lower extremity edema. Psych: Alert and oriented. Hospital Course This is a 51-year-old male status post CVA with a sterile cerebellar hemispheric infarct on August 17, 2016 secondary to ischemic stroke. The patient was placed on heparin and transitioned to Coumadin. The patient was subsequently transferred to [facility]. A [facility] was called, followed by stroke alert noting per RN, neurological changes. The nurse and Dr. Nguyen usually common at that the patient was a phasic, nonresponsive, with a left-sided gaze. Dr. Schroeder, neurologist was notified, CT scan was obtained and results are now pending. Per Dr. Vallejo, the patient is status post CVA on08/17/2016 and is not a candidate for TPA. The patient's previous medications per medical records were warfarin, docusate and atorvastatin. Critical care medicine was consulted for treatment and management. Upon presentation to the ICU, the patient was noted to have vertical and lateral nystagmus, aphasic,. The patient was able to follow commands, motor strength was noted to be 4/5 right upper and lower extremity with normal motor strength left upper and lower extremity. 09/03: Overnight, the patient began to verbalize significant dysarthria noted, but improved from yesterday's initial evaluation. Concern for patient to manage secretions still a concern, the patient continues to be NPO. Patient now has lateral nystagmus, motor exam unchanged. Neurology was consulted yesterday, MRI obtained. Subsequent imaging studies were performed last evening. Patient is scheduled for lumbar puncture this a.m. per neurosurgery for CSF evaluation. The patient is noted to have leukopenia, and a history of G6PD deficiency hematology and oncology were consulted. 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 Administration of steroids were initiated last evening. 09/04: Steroids discontinued. No change in neurological evaluation, examination. Speech therapy consulted, patient continues on honey thick liquids , tolerated PO diet well yesterday. CSF results pending, no fungal elements were noted. Preliminary HIV reflex test positive, awaiting final confirmation. 09/05: No change in status. Tolerating PO diet. 09/06: Overnight the patient was noted to have increased difficulty managing secretions. Repeat formal speech swallow study noted that the patient failed this a.m.. The patient was placed on nothing by mouth status. HIV-1 antibody tests confirmed. Other studies still pending. The patient's family in the presence of a Senior Architect/Design Manager, with family holding and guiding the patient's hand , signed a POA. The patient was not competent to complete the document or answer questions at thus time. The family was informed that the document was not valid due to the fact the patient had altered mental status and could not freely communicate on his own, and sign the document. Informed that the patient 's would be appropriate and making the decisions for the patient and the POA document was null and void. 09/07: The patient became hypotensive last evening, with systolic blood pressures 60s. The patient was intubated, central line was placed, and the patient was placed on vasopressor support norepinephrine.CD4 count low, prophylactic and empiric antibiotics started per ID, Dr. Mccracken. 09/09 Remains on mechanical ventilation, on levophed 9 mcg/min. UOP 200 overnight but now 250/hr last 2 hours. Has some sediment in Mayer tubing, may have been partially obstructed. Creatinine normal. at bedside. Afebrile. CSF bacterial cultures negative. CSF CINDY virus pending. Remaining pancultures from 09/08 pending. Afebrile. Reviewed records from Dr. Fuentes/Dr. Denise on chart. Had chronic leukopenia. HIV testing 2002, 2005 negative. Had chlamydia 2002 tells me he had not seen ID as an outpatient. She states he has not seen Dr. Fuentes in several years (most recent records appear to be from 2011) 09/10 Tolerating CPAP during day. Levophed off vs low dose (2-3 mcg/min) depending on sedation. Dobhoff clogged, replaced with NGT. CSF CINDY virus pending 09/11 Levophed off since 1900 last evening. MAP ranges 23293. Sputum culture returned staph aureus. The patient was maintained on CPAP for 12 hours yesterday. CSF CINDY virus pending. 09/12 Tmax 99.6 .Hemodynamically stable. Coordination for tracheostomy and PEG placement for possibly or Sunday. HIV resistance labs resulted overnight, with resistance to Efavirenz,Nevirapine. CSF CINDY virus pending. 09/13 The patient is awake, continues to tolerate CPAP . Plan today for PEG placement per GI. HAART medications begun yesterday per ID. 09/14 The patient underwent percutaneous tracheostomy this a.m. under moderate sedation, Dr. Munguia. Patient to resume tube feeds today. Case management coordination with discharge planning. The patient remains hemodynamically stable. Central line discontinued. 09/15 Tmax 100.3. The patient was noted to have urinary retention and required placement of the Mayer catheter. The patient is responding when off sedation. 09/16 The patient continues to perform extended on CPAP trials, planned for trach collar trials in a.m.. The patient's following commands with eye movement and squeezing left hand. CINDY Virus results returned positive. 09/17 No acute events overnight. CPAP trials continued, will begin trach collar trials this morning. 09/18 The patient continues on trach collar since 6 PM last evening. 09/19 : Patient was discharged by ICU attending on 09/19/2016 to [facility]. Pt Condition on Discharge: Guarded Discharge Disposition: Rehab Inpatient Discharge Time: > 30 minutes Discharge Instructions DIET: Follow Instructions for: On Tube Feeding Activities you can perform: Continue Ryan Eden DO Sep 21, 2016 23:04
== END 2016-09-19 21:56 | DRG 4 ==
LOC: N03B 09:09 → N03A 21:18
PROVIDERS: ADMIT Hospitalist; ATTEND Hospitalist
PROC: 30233K1 Transfusion of Nonautologous Frozen Plasma into Peripheral Vein, Percutaneous Approach (ICD-10-PCS; 2016-09-03)
PROC: 009U3ZX Drainage of Spinal Canal, Percutaneous Approach, Diagnostic (ICD-10-PCS; 2016-09-04)
PROC: 5A1955Z Respiratory Ventilation, Greater than 96 Consecutive Hours (ICD-10-PCS; 2016-09-07)
PROC: 0BH17EZ Insertion of Endotracheal Airway into Trachea, Via Natural or Artificial Opening (ICD-10-PCS; 2016-09-07)
PROC: 03HY32Z Insertion of Monitoring Device into Upper Artery, Percutaneous Approach (ICD-10-PCS; 2016-09-08)
PROC: 0DH63UZ Insertion of Feeding Device into Stomach, Percutaneous Approach (ICD-10-PCS; 2016-09-13)
PROC: 0DJ08ZZ Inspection of Upper Intestinal Tract, Via Natural or Artificial Opening Endoscopic (ICD-10-PCS; 2016-09-13)
PROC: 0B113F4 Bypass Trachea to Cutaneous with Tracheostomy Device, Percutaneous Approach (ICD-10-PCS; principal; 2016-09-14)
PROC: 0BJ08ZZ Inspection of Tracheobronchial Tree, Via Natural or Artificial Opening Endoscopic (ICD-10-PCS; 2016-09-14)
PROC: 0T9B70Z Drainage of Bladder with Drainage Device, Via Natural or Artificial Opening (ICD-10-PCS; 2016-09-15)
DX: A81.2 Progressive multifocal leukoencephalopathy (principal); R57.9 Shock, unspecified; G93.49 Other encephalopathy; A41.9 Sepsis, unspecified organism; J15.211 Pneumonia due to Methicillin susceptible Staphylococcus aureus; B20 Human immunodeficiency virus [HIV] disease; D55.0 Anemia due to glucose-6-phosphate dehydrogenase [G6PD] deficiency; J96.01 Acute respiratory failure with hypoxia; R47.01 Aphasia; E44.1 Mild protein-calorie malnutrition; H49.20 Sixth [abducent] nerve palsy, unspecified eye; R13.10 Dysphagia, unspecified; D64.9 Anemia, unspecified; E11.9 Type 2 diabetes mellitus without complications; H55.09 Other forms of nystagmus; R47.1 Dysarthria and anarthria; G51.0 Bell's palsy; G52.1 Disorders of glossopharyngeal nerve; G52.2 Disorders of vagus nerve; G52.3 Disorders of hypoglossal nerve; I10 Essential (primary) hypertension; Z53.8 Procedure and treatment not carried out for other reasons; R33.9 Retention of urine, unspecified; Z86.73 Personal history of transient ischemic attack (TIA), and cerebral infarction without residual deficits
CPT/HCPCS: 31500; 36430; 36556; 36600; 70450; 70496; 70498; 70551; 70552; 71010; 74000; 76937; 80048; 80053; 80074; 81001; 82140; 82247; 82248; 82805; 82945; 82948; 82955; 83010; 83605; 83615; 83735; 84100; 84157; 84484; 85025; 85027; 85610; 85652; 85730; 86038; 86355; 86357; 86359; 86360; 86403; 86592; 86651; 86652; 86653; 86654; 86701; 86702; 86703; 86880; 86927; 87015; 87040; 87070; 87086; 87102; 87116; 87147; 87185; 87186; 87205; 87206; 87496; 87529; 87535; 87641; 87799; 87901; 88112; 89051; 93005; 93970; 94002; 94003; 94640; 94664; 95819; A9579; C9113; J0131; J0171; J0461; J0696; J1644; J2250; J2543; J2930; J3010; J3370; J3480; J7030; J7040; P9017; Q9967